=== PATIENT | male | born 1960 | race Caucasian/White ===

== ENCOUNTER 2024-06-01 14:07 | Emergency (ER) | payer MEDICARE, SELFPAY ==
--- NOTE | ~2024-06-01 | CT_ITS ---
CT brain wo con, CT cervical spine wo con Ordering provider: Adenike Graham PA-C History: 63 years Male with . head injury . Comparison: None. Technique: CT of the head without contrast. FINDINGS: BRAIN PARENCHYMA AND CSF SPACES: No midline shift, mass effect or hemorrhage. The brain parenchyma a nd CSF spaces are otherwise normal. VISUALIZED PARANASAL SINUSES: Left maxillary, frontal and ethmoid sinus disease. MASTOIDS: Well aerated. BONES: The bones appear intact. SOFT TISSUES: Visualized nasopharynx is normal. Left occipital scalp hematoma. Otherwise, Superficia l soft tissues are normal. IMPRESSION: No acute intracranial findings. Left maxillary, frontal and ethmoid sinus disease. CT brain wo con, CT cervical spine wo con Ordering provider: Adenike Graham PA-C History: . head injury . Comparison: None. Technique: CT of the cervical spine was performed without contrast. Sagittal and coronal reformatted images were also obtained and reviewed. Automated exposure control and iterative reconstruction nora hnique were employed. The dose-length product was 512.66 (accession [id number]), 494.14 (accessio n [id number]) mGy-cm. FINDINGS: VERTEBRAE: No subluxation or acute fracture. The occipital condyles are intact. DISC SPACES: Narrowing of the disc C6-C7. Multilevel facet joint disease. Narrowing of the right fora men at the level of C3-C4. Bilateral narrowing of the foramina at the level of C7. PARASPINOUS SOFT TISSUES: Bilateral carotid atherosclerotic changes. IMPRESSION: No acute osseous abnormality cervical spine. Reviewed, dictated and finalized at location A. IMPRESSION: No acute intracranial findings. Left maxillary, frontal and ethmoid sinus disease. CT brain wo con, CT cervical spine wo con Ordering provider: Adenike Graham PA-C History: . head injury . Comparison: None. Technique: CT of the cervical spine was performed without contrast. Sagittal a nd coronal reformatted images were also obtained and reviewed. Automated expos ure control and iterative reconstruction technique were employed. The dose-tonya th product was 512.66 (accession [id number]), 494.14 (accession [id number] [facility]) mGy-cm. FINDINGS: VERTEBRAE: No subluxation or acute fracture. The occipital condyles are intact. DISC SPACES: Narrowing of the disc C6-C7. Multilevel facet joint disease. Narro wing of the right foramen at the level of C3-C4. Bilateral narrowing of the for jeanne at the level of C7. PARASPINOUS SOFT TISSUES: Bilateral carotid atherosclerotic changes. IMPRESSION: No acute osseous abnormality cervical spine. IMPRESSION: No acute intracranial findings. Left maxillary, frontal and ethmoid sinus disease. CT brain wo con, CT cervical spine wo con Ordering provider: Adenike Graham PA-C History: . head injury . Comparison: None. Technique: CT of the cervical spine was performed without contrast. Sagittal a nd coronal reformatted images were also obtained and reviewed. Automated expos ure control and iterative reconstruction technique were employed. The dose-tonya th product was 512.66 (accession [id number]), 494.14 (accession [id number] [facility]) mGy-cm. FINDINGS: VERTEBRAE: No subluxation or acute fracture. The occipital condyles are intact. DISC SPA
[2024-06-01 13:53] VITALS: BP 121/96; PULSE 76; RESP 16; TEMP 36.8; O2SAT 96
--- NOTE | 2024-06-01 14:29 | ED.FALL ---
HPI - Fall General Chief Complaint: Fall Stated Complaint: Fall x2, Head Injury Time Seen by Provider: 06/01/24 14:12 Source: patient and EMS Mode of arrival: EMS Limitations: intoxication History of Present Illness HPI Narrative: This is a 63 year old male that presents to the ER for a fall today with head injury. Patient had been drinking today. Family called EMS out of concern that he had fallen today twice and hit his head. He has no complaints currently. Denies any pain or any other focal injuries. He did not lose consciousness. Related Data Allergies Allergy/AdvReac Type Severity Reaction Status Date / Time No Known Allergies Allergy Mild Verified 04/29/10 18:08 Review of Systems Review of Systems: CONSTITUTIONAL: Denies fever EYES: Denies visual changes CARDIOVASCULAR: Denies chest pain RESPIRATORY: Denies dyspnea. GASTROINTESTINAL: Denies vomiting MUSCULOSKELETAL: Denies back pain, joint pain, or myalgia. NEUROLOGIC: Denies headache, numbness, or weakness. All systems reviewed & are unremarkable except as noted in HPI and below PMFSH Past Medical History Medical History (Updated 06/01/24 @ 15:29 by Adenike Graham PA-C) History of alcohol abuse Social History Social History (Updated 06/01/24 @ 14:33 by Adenike Graham PA-C) Alcohol intake: current Exam Narrative: GENERAL: Well-appearing, well-nourished, and in no acute distress. HEAD: Normocephalic. Hematoma to the scalp EYES: PERRLA and EOMI. ENT: Nares clear, no rhinorrhea or epistaxis. Mucous membranes moist. Oropharynx without tonsillar hypertrophy exudate or other lesions. Bilateral TMs pearly gottlieb non-bulging NECK: Supple. No adenopathy or masses. CHEST: Clear to auscultation. No respiratory distress. No wheezes rales or rhonchi HEART: Regular rate and rhythm. No murmur heard. Normal peripheral pulses. BACK: No midline spinal tenderness EXTREMITIES: Normal range of motion. No edema or obvious deformity. SKIN: Warm, dry, no rash. NEURO: No focal deficits. Alert and oriented x3. CN II-XII grossly intact PSYCH: Normal mood and affect Course Course Emergency Course: patient updated on his workup Vital Signs Vital signs: Vital Signs Temperature 98.3 F 06/01/24 13:53 Pulse Rate 76 06/01/24 13:53 Respiratory Rate 16 06/01/24 13:53 Blood Pressure 121/96 H 06/01/24 13:53 Pulse Oximetry 96 06/01/24 13:53 Oxygen Delivery Room Air 06/01/24 13:53 Temperature 98.3 F 06/01/24 13:53 Pulse Rate 75 06/01/24 14:36 Respiratory Rate 16 06/01/24 14:36 Blood Pressure 140/88 06/01/24 14:36 Pulse Oximetry 98 06/01/24 14:36 Oxygen Delivery Room Air 06/01/24 13:53 MDM - Fall MDM Narrative Medical decision making narrative: patient presents to the emergency department after a fall today with head injury. He is neurologically intact. Vitals are stable. Denies any other injuries or areas of pain. CT brain and cervical spine without acute findings. Patient was updated on his workup. Instructed on further care of concussion. He is to follow up with primary provider. He was given warnings to return to the ER His son came to give him a sober ride Differential Diagnosis Differential diagnosis: Likely concussion without loss of consciousness and other ( subdural hematoma, contusion) Imaging Data Radiologist's impression: ITS Impressions Cervical Spine CT 06/01/24 15:10 IMPRESSION: No acute intracranial findings. Left maxillary, frontal and ethmoid sinus disease. CT brain wo con, CT cervical spine wo con Ordering provider: Adenike Graham PA-C History: . head injury . Comparison: None. Technique: CT of the cervical spine was performed without contrast. Sagittal and coronal reformatted images were also obtained and reviewed. Automated exposure control and iterative reconstruction technique
[2024-06-01 14:36] VITALS: BP 140/88; PULSE 75; RESP 16; O2SAT 98
--- NOTE | 2024-06-01 14:37 | PC.NURSE ---
pt attempted to get out of bed to go to the bathroom. this RN told the pt he cannot get out of bed due to recent falls today. pt said he didnt want to go to the bathroom anymore. pt has bed alarm on and non slip socks
--- NOTE | 2024-06-01 15:29 | PC.NURSE ---
pt son called at this time to come pick him up with no answer
--- NOTE | 2024-06-01 15:31 | PC.NURSE ---
called son at this time and they will be coming to pick him up. pt and family are aware his scan was good
== END 2024-06-01 16:14 | disposition home or self-care (01) ==
PROVIDERS: Emergency Provider Physician Assistant; PCP Orthopaedic Surgery
DX: S09.90XA Unspecified injury of head, initial encounter (principal); W19.XXXA Unspecified fall, initial encounter; F10.21 Alcohol dependence, in remission
CPT/HCPCS: 70450; 72125; 99284

== ENCOUNTER 2024-06-05 12:31 | Inpatient (IN) | payer MEDICARE, SELFPAY ==
[2024-06-05] VITALS (12 sets, daily range): BP systolic 153–175; BP diastolic 80–99; PULSE 84–99; RESP 16–24; TEMP 36.6–37.1; O2SAT 95–98; BMI 23.9
--- NOTE | ~2024-06-05 | XR_ITS ---
XR chest 2V DATE: 06/09/2024 14:44 INDICATION: Pneumothorax TECHNIQUE: AP and lateral views COMPARISON: 06/06/2024 portable AP chest FINDINGS: Heart size appears within normal limits. No pulmonary vascular congestion or pleural effusi on is evident. There is no evidence of pneumothorax. No pulmonary infiltrate or consolidation. Aortic arch calcification. IMPRESSION: No active cardiopulmonary disease Reviewed, dictated and finalized at location A.
--- NOTE | ~2024-06-05 | US_ITS ---
EXAMINATION: US carotid duplex BI DATE: 06/07/2024 09:39 INDICATION: Old CVA TECHNIQUE: Grayscale, color Doppler, and pulsed Doppler images of the cervical carotid arteries were obtained. The degree of vessel stenosis is placed in one of the following categories: normal, <50%, 5 0-69%, >=70% but less than near-occlusion, near-occlusion, or total occlusion. Note that percent sten osis relative to normal distal artery lumen diameter is indirectly measured from velocity measurement s as described by Nehemiah, et al. Radiology 2003; 229:340-346. Notes: Normal: Peak systolic velocity <125 centimeters/sec and no plaque <50%. Peak systolic velocity <125 ( EDV <40; ICA/CCA PSV ratio <2.0; used these factors only a tandem lesions or low cardiac output or co ntralateral disease) 50-69 %: PSV 125-230 (EDV 40-100; ratio 2-4) >= 70% but less than near occlusion: PSV greater than 230 (EDV > 100; ratio> 4.0) Near Occlusion: PSV that is variable; markedly narrowed lumen Occlusion: Absent flow on color/spectral Doppler and no lumen on gottlieb scale. COMPARISON: None. FINDINGS: RIGHT: The right common carotid artery (CCA) peak systolic velocity (PSV) is 78 cm/s. The right internal car otid artery (ICA) PSV is 89 cm/s. The right ICA end-diastolic velocity (EDV) is 31 cm/s. The right IC A/CCA PSV ratio is 1.1. The external carotid artery (ECA) PSV is 64 cm/s. There is antegrade flow in the right vertebral artery. LEFT: The left CCA PSV is 83 cm/s. The left ICA PSV is 101 cm/s. The left ICA EDV is 31 cm/s. The left ICA/ CCA PSV ratio is 1.2. The ECA PSV is 71 cm/s. There is antegrade flow in the left vertebral artery. IMPRESSION: 1. Less than 50% stenosis in the right internal carotid artery by sonographic criteria. 2. Less than 50% stenosis in the left internal carotid artery by sonographic criteria. Reviewed, dictated and finalized at location B. IMPRESSION: 1. Less than 50% stenosis in the right internal carotid artery by sonographic brett iraheta. 2. Less than 50% stenosis in the left internal carotid artery by sonographic galina boo.
--- NOTE | ~2024-06-05 | CT_ITS ---
EXAMINATION: CT brain wo con DATE: 06/05/2024 17:04 INDICATION: Falls. Severe hyponatremia. TECHNIQUE: Computed tomography (CT) of the head was performed without intravenous contrast. Sagittal and coronal reconstructions were performed. The mA was adjusted according to patient size. Iterative reconstruction technique was employed. The dose-length product was 605.33 mGy-cm. COMPARISON: head CT dated 06/01/2024 FINDINGS: No acute intracranial hemorrhage, acute infarction or abnormal extra axial fluid collection. Again se en are small old lacunar infarcts at the bilateral at the right lentiform and caudate nuclei and left eula. There is mild scattered white matter hypoattenuation consistent with chronic small vessel isch emic disease. Symmetric prominence of the sulci consistent with mild age-appropriate diffuse cerebral volume loss. Ventricles are normal and symmetric. No mass/mass effect. Complete opacification of the left frontal and maxillary sinuses and anterior left ethmoid air cells central low-attenuation mucou s and moderate peripheral mucosal thickening. Additional mild mucosal thickening the right sphenoid s inus. The orbits and mastoid air cells are normal. IMPRESSION: 1. 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 No acute intracranial p rocess. 2. Age-related changes including mild diffuse volume loss and mild scattered white matter hypoattenua tion consistent with chronic small vessel ischemic disease. 3. Occlusion of the left frontoethmoidal recess with complete opacification of the left frontal and m axillary sinuses and anterior left ethmoid air cells. Reviewed, dictated and finalized at location A. IMPRESSION: 1. Old lacunar infarcts at the right basal ganglia and left side of the elua. N o acute intracranial process. 2. Age-related changes including mild diffuse volume loss and mild scattered wh ite matter hypoattenuation consistent with chronic small vessel ischemic diseas e. 3. Occlusion of the left frontoethmoidal recess with complete opacification of the left frontal and maxillary sinuses and anterior left ethmoid air cells.
--- NOTE | ~2024-06-05 | XR_ITS ---
CHEST RADIOGRAPH CLINICAL HISTORY: pneumothorax . COMPARISON: Reference is made to a CT examination of the chest abdomen and pelvis performed approxima tely 12 hours earlier. TECHNIQUE: Single portable view of the chest. FINDINGS The cardiomediastinal silhouette is unremarkable. Increased interstitial markings are identified bilaterally, findings suggesting mild pulmonary vascul ar congestion. The lungs are otherwise clear. Visualized osseous structures and soft tissues are unremarkable. IMPRESSION: Mild pulmonary vascular congestion, without focal infiltrate or effusion. No pneumothorax is detected. Reviewed, dictated and finalized at location A.
--- NOTE | ~2024-06-05 | CT_ITS ---
EXAMINATION: CT chest abdomen pelvis w con DATE: 06/05/2024 17:04 INDICATION: Falls with chest pain and pain at the right flank, pelvis and coccyx. TECHNIQUE: Computed tomography (CT) of the chest, abdomen, and pelvis was performed with 100 mL Omnip aque-350 intravenous contrast. Automated exposure control and iterative reconstruction technique were employed. The dose-length product was 826.51 mGy-cm. COMPARISON: None FINDINGS: CHEST CT: There are several acute and chronic appearing fractures at the lateral right lower ribs with displace d acute-appearing fractures of the C6 and ninth ribs and nondisplaced acute fractures of the interven ing anterolateral right seventh and eighth ribs. There is a very small right pneumothorax. Mild depen dent atelectasis in the bilateral lower lobes. Mild cardiomegaly. Abscess can't coronary artery calci fic lesion. No pericardial effusion. Thoracic aorta is normal in caliber with no dissection or acute traumatic aortic injury. No pathologically enlarged thoracic lymphadenopathy. Small hematoma surround ing a mildly displaced fracture at the medial head of the left clavicle. Chronic appearing compressio n fractures with 20% anterior vertebral body height loss at T12 and <20% anterior vertebral body heig ht loss at T11. ABDOMEN/PELVIS CT: Liver, gallbladder, spleen, pancreas, bilateral adrenal glands and kidneys are normal. Bowels includi ng the appendix are normal. Bladder is normal. No free intraperitoneal gas or fluid. No pathologicall y enlarged abdominal or pelvic lymphadenopathy. Abdominal aorta and the major vessels in the abdomen and pelvis are unremarkable. Mild lumbar levocurvature. Nondisplaced fracture extending across the ce phalad aspect of the S2 vertebral body and laterally into the left and right sacral ala. No other fra ctures identified. IMPRESSION: 1. A few acute and chronic right-sided rib fractures with very small right pneumothorax. 2. Mildly displaced fracture of the medial head of the left clavicle. 3. Nondisplaced fracture extending across the S2 vertebral body and the lateral sacral ala. 4. No acute intra-abdominal/pelvic process. Reviewed, dictated and finalized at location A. IMPRESSION: 1. A few acute and chronic right-sided rib fractures with very small right pneu mothorax. 2. Mildly displaced fracture of the medial head of the left clavicle. 3. Nondisplaced fracture extending across the S2 vertebral body and the lateral sacral ala. 4. No acute intra-abdominal/pelvic process.
--- NOTE | ~2024-06-05 | XR_ITS ---
XR clavicle LT DATE: 06/09/2024 14:44 INDICATION: Left clavicle fracture TECHNIQUE: 4 views COMPARISON: 06/05/2024 CT chest FINDINGS: There is a minimally inferiorly displaced fracture of the medial aspect on the left clavicl e, with intra-articular extension at the sternoclavicular joint. There is normal alignment at the roxy rnoclavicular and the currently clavicular joints. IMPRESSION: Minimally inferiorly displaced medial left clavicle fracture Reviewed, dictated and finalized at location A.
--- NOTE | 2024-06-05 12:46 | ECG_ITS ---
Test Date: 2024-06-05 12:52:00 Measurements Intervals [place] Rate: 96 P: 12 MT: 180 QRS: 14 QRSD: 83 T: 46 QT: 386 QTc: 488 Interpretive Statements SINUS RHYTHM NORMAL ECG No previous ECG available for comparison Electronically Signed On 06-05-2024 13:50:07 CDT by Leandro Jett M.D.
[2024-06-05 13:24] LABS: Alanine Aminotransferase 24 U/L (6-50); Albumin Level 3.9 g/dL (3.5-5.1); Alkaline Phosphatase 68 U/L (38-126); Anion Gap 12 mmol/L (4-12); Aspartate Amino Transferase 39 U/L (17-59); Bilirubin,Total 4.2 mg/dL (0.2-1.3); Blood Urea Nitrogen 8 mg/dL (9-20); Calcium 8.1 mg/dL (8.4-10.2); Carbon Dioxide 23 mmol/L (22-30); Chloride 71 mmol/L (98-107); Estimated CRCL calculation 108 ml/min; Estimated Glomerular Filt Rate > 60; Ethanol < 10 mg/dL (<10); Glucose 85 mg/dL (65-110); Potassium 3.4 mmol/L (3.4-5.0); Sodium 106 mmol/L (137-145)
--- NOTE | 2024-06-05 13:53 | ED.GENADULT ---
HPI - General Adult General Chief complaint: Unspecified Stated complaint: FTNIGHAT Liu Time Seen by Provider: 06/05/24 13:07 History of Present Illness HPI narrative: Patient is a 63-year-old male who presents ER with weakness and reports of concern for his safety. Patient lives at home and his son lives there is well. Patient has been sitting in his chair drinking alcohol. He is not strong enough to get up and walk and defecate himself and urinates in a coffee can. Apparently his mother in the last 2 weeks and that is a stressor. Patient reported passive suicidal ideation stating that let him sit there and . Related Data Home Medications Medication Instructions Recorded Confirmed diphenhydramine 25 2 tablet PO HS PRN Insomnia 06/05/24 06/05/24 mg-acetaminophen 500 mg tablet (Tylenol PM Extra Strength) Allergies Allergy/AdvReac Type Severity Reaction Status Date / Time No Known Allergies Allergy Mild Verified 06/05/24 12:45 Review of Systems Review of Systems: All systems reviewed & are unremarkable except as noted in HPI and below Constitutional: Constitutional: Reports no additional constitutional complaints ENT: Reports system reviewed and no additional complaints, except as documented Cardiovascular: Cardiovascular: Reports no additional cardiovascular complaints Respiratory: Respiratory: Reports no additional respiratory complaints Gastrointestinal: Gastrointestinal: Reports no additional gastrointestinal complaints [facility] Past Medical History Medical History Alcohol abuse Surgical History Surgical History (Updated 06/05/24 @ 16:48 by Tanisha Fitzgerald PA-C) No history of previous surgery Social History Social History (Updated 06/05/24 @ 16:49 by Tanisha Fitzgerald PA-C) Social History: Surrogate medical decision maker: Kenneth Drew ([phone]), son. Code status: Full code. Smoking status: Never smoker Alcohol intake: current Drinks per week: 56 Alcohol use details: 7-8 beers a day Substance use: never Substance use type: does not use Do You Feel Safe in your Home?: Yes Lack of Transportation: YES Lack of Food: Never True Current Housing: I Have Housing Concerned About Future Housing: No Difficulty Paying Gas/Electric Bills: No Difficulty Paying for Meds: No Currently Unemployed: No Education: High School Diploma/GED Difficulty w/ Childcare or Family Care: No Additional living arrangements comments: The patient lives alone in his own home in [place]. 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 Spiritual care concerns: No Exam Narrative: GENERAL: Chronically ill-appearing, well-nourished, and in no acute distress. HEAD: Normocephalic, atraumatic. EYES: PERRL and EOMI. ENT: Mucous membranes moist. CHEST: Clear to auscultation. No respiratory distress. HEART: Regular rate and rhythm. Normal peripheral pulses. ABDOMEN: Soft, nontender, nondistended. EXTREMITIES: Normal range of motion. No edema. his knees and hands. Chronic with abnormalities. SKIN: Warm, dry, no rash. NEURO: Alert and oriented x3. PSYCH: Normal mood and affect. Course Course Emergency Course: admit to hospitalist service. Pre Kindergarten Teacher and nephrology consulted. Will go to the ICU for hyponatremia. Will give IV fluid down here and repeat BMP to see how the sodium begins to adjust. Vital Signs Vital signs: Vital Signs Temperature 97.9 F 06/05/24 12:30 Pulse Rate 97 06/05/24 12:30 Respiratory Rate 18 06/05/24 12:30 Blood Pressure 165/99 H 06/05/24 12:30 Pulse Oximetry 96 06/05/24 12:30 Oxygen Delivery Room Air 06/05/24 12:30 Temperature 98.4 F 06/05/24 16:00 Pulse Rate 98 06/05/24 16:00 Respiratory Rate 16 06/05/24 16:00 Blood Pressure 168/97 H 06/05/24 16:00 Pulse Oximetry 98 06/05/24 16:00 Oxygen Delivery Room Air 06/05/24 15:45 Medical Decision Making Vital Signs Vital Signs: Vital Signs Temperature 97.9 F 06/05/24 12:30 Pulse Rate 97 06/05/24 12:30 Respiratory Rate 18 06/05/24 12:30 Blood Pressure 165/99 H 06/05/24 12:30 Pulse Oximetry 96 06/05/24 12:30 Oxygen Delivery Room Air 06/05/24 12:30 Temperature 98.4 F 06/05/24 16:00 Pulse Rate 98 06/05/24 16:00 Respiratory Rate 16 06/05/24 16:00 Blood Pressure 168/97 H 06/05/24 16:00 Pulse Oximetry 98 06/05/24 16:00 Oxygen Delivery Room Air 06/05/24 15:45 Lab Data 06/05/24 12:55 06/05/24 16:11 Labs: Lab Results 06/05/24 06/05/24 06/05/24 Range/Units 12:55 14:04 14:05 WBC 8.6 (4.5-10.0) K/mm3 RBC 3.36 L (4.6-6.20) M/mm3 Hgb 11.5 L (14.0-18.0) g/dL Hct 30.8 L (42.0-52.0) % MCV 91.7 (80-100) fl MCH 34.2 H (26-34) pg MCHC 37.3 H (32-36) g/dl RDW 11.1 L (11.5-14.5) % Plt Count 174 (150-375) k/mm3 MPV 9.5 (7.4-10.4) fl Immature Gran % (Auto) 1.3 H (0-0.5) % Neut % (Auto) 81.1 H (45.5-73.1) % Lymph % (Auto) 8.6 L (18.3-44.2) % [place] % (Auto) 8.2 (2.6-8.5) % Eos % (Auto) 0.4 (0-4.4) % Baso % (Auto) 0.4 (0.2-1.2) % Lymph # (Auto) 0.74 L (0.9-3.2) K/mm3 [place] # (Auto) 0.7 H (0.1-0.6) K/mm3 Eos # (Auto) 0.0 (0-0.3) K/mm3 Baso # (Auto) 0.0 (0.0-0.1) K/mm3 Abs Immat Gran (auto) 0.11 H (0.00-0.031) K/mm3 Absolute Neuts (auto) 7.0 H (1.3-6.7) K/mm3 Absolute Nucleated RBC 0.000 (0.0-0.012) K/mm3 Nucleated RBC % 0.0 (0.0-0.2) % Sodium 106 L* (137-145) mmol/L Potassium 3.4 (3.4-5.0) mmol/L Chloride 71 L (98-107) mmol/L Carbon Dioxide 23 (22-30) mmol/L Anion Gap 12 (4-12) mmol/L BUN 8 L (9-20) mg/dL Creatinine 0.50 L (0.7-1.3) mg/dL Estim Creat Clear Calc 108 ml/min Estimated GFR > 60 (59 - ) Glucose 85 (65-110) mg/dL Serum Osmolality Pending Calcium 8.1 L (8.4-10.2) mg/dL Total Bilirubin 4.2 H (0.2-1.3) mg/dL AST 39 (17-59) U/L ALT 24 (6-50) U/L Alkaline Phosphatase 68 (38-126) U/L Total Protein 8.0 (6.3-8.2) g/dL Albumin 3.9 (3.5-5.1) g/dL TSH (Reflex) 1.510 (0.465-4.68) uIU/mL Urine Color Yellow (Yellow) Urine Appearance Clear (Clear) Urine pH 6.5 (5.0-9.0) Ur Specific Blair 1.017 (1.001-1.035) Urine Protein 1+ H (Negative) mg/dL Urine Glucose (UA) Negative (Negative) mg/dL Urine Ketones 3+ H (Negative) mg/dL Ur Blood (Man) Non-hemolyzed trace (Negative) Urine Nitrate Negative (Negative) Urine Bilirubin Negative (Negative) Urine Urobilinogen 1.0 (<2.0) mg/dL Add Ur Microanalysis Reviewed Leukocyte Esterase Rfl 1+ H (Negative) VINEET/UL Urine RBC 6-10 H (0-2) /hpf Urine WBC 0-5 (0-3) /hpf Ur Squamous Epith Cells None seen (Few) /hpf Urine Bacteria None seen /hpf Urine Casts 0-2 Urine Osmolality Pending Ur Random Sodium < 5 meq/L Ur Random Urea 759 MG/DL Urine Creatinine 71.3 mg/dL Urine Opiates Screen Negative (Negative) Urine Methadone Screen Negative (Negative) Ur Barbiturates Screen Negative (Negative) Ur Phencyclidine Scrn Negative (Negative) Ur Amphetamine Screen Negative (Negative) U Benzodiazepines Scrn Negative (Negative) Urine Cocaine Screen Negative (Negative) U Cannabinoids Screen Negative (Negative) Ethyl Alcohol < 10 (<10) mg/dL Discharge Plan Discharge Clinical Impression: Hyponatremia, Frequent falls, Generalized weakness Patient Disposition: Still a Patient Condition: Stable
[2024-06-05] MEDS: SODIUM CHLORIDE 0.9% IV 1,000 ML 999 ML IV CONT ×2 (14:00→15:01)
[2024-06-05 14:34] LABS: Add Urine Microscopic? YES; Appearance Urine Clear (Clear); Bacteria Urine None Seen /hpf; Bilirubin Urine Negative (Negative); Blood Urine Non-Hemolyzed Trace (Negative); Color Urine Yellow (Yellow); Glucose Urine UA Negative (Negative); Ketones Urine 3+ mg/dL (Negative); Leukocyte Esterase Ur 1+ LEU/UL (Negative); Need Manual Microscopic Reviewed; Nitrate Urine Negative (Negative); Non Pathogenic Casts 0-2; Protein Urine 1+ mg/dL (Negative); Specific Grav Ur 1.017 (1.001-1.035); Squamous Epithelial Cell Urine None Seen /hpf (Few); WBC Urine 0-5 /hpf (0-3); pH Urine 6.5 (5.0-9.0)
[2024-06-05 14:35] LABS: Creatinine Urine 71.3 mg/dL
[2024-06-05 14:44] LABS: Amphetamine Screen Urine Negative (Negative); Barbiturate Screen Urine Negative (Negative); Benzodiazepines Screen Urine Negative (Negative); Cannabinoid Screen Urine Negative (Negative); Cocaine Screen Urine Negative (Negative); Methadone Screen Urine Negative (Negative); Opiate Screen Urine Negative (Negative); Phencyclidine Screen Urine Negative (Negative)
[2024-06-05 14:54] LABS: Sodium Urine Random < 5 meq/L
--- NOTE | 2024-06-05 14:55 | PC.NURSE ---
This RN received a call from pt son. Updated son of POC. updated son on the room pt will be transferred to
[2024-06-05 15:39] LABS: Urea Random Urine 759 MG/DL
[2024-06-05 15:50] LABS: Basophils Percent Auto 0.4 % (0.2-1.2); Eosinophils Percent Auto 0.4 % (0-4.4); Hematocrit 30.8 % (42.0-52.0); Hemoglobin 11.5 g/dL (14.0-18.0); Immature Granulocyte Absolute 0.11 K/mm3 (0.00-0.031); Immature Granulocyte Percent A 1.3 % (0-0.5); Lymphocytes Absolute Auto 0.74 K/mm3 (0.9-3.2); Lymphocytes Percent Auto 8.6 % (18.3-44.2); Mean Corpuscular HGB Conc 37.3 g/dl (32-36); Mean Corpuscular Hemoglobin 34.2 pg (26-34); Mean Corpuscular Volume 91.7 fl (80-100); Mean Platelet Volume 9.5 fl (7.4-10.4); Monocytes Absolute Auto 0.7 K/mm3 (0.1-0.6); Monocytes Percent Auto 8.2 % (2.6-8.5); Neutrophils Percent Auto 81.1 % (45.5-73.1); Platelet Count Result 174 k/mm3 (150-375); Red Blood Count 3.36 M/mm3 (4.6-6.20); Red Cell Distribution Width 11.1 % (11.5-14.5); White Blood Count 8.6 K/mm3 (4.5-10.0)
--- NOTE | 2024-06-05 15:56 | ADMGEN ---
This patient, Kenneth Drew, was admitted to Intensive Care Unit-6. Patient/family oriented to hospital policies and general routines including ID bracelet, bed and alarms, visiting hours, pain management, procedures, bathroom and other care routines, personal items, smoking policy, room service/diet, and visiting hours. Information on how to activate the Rapid Response Team has been discussed. Patient/Family are encouraged to report perceived risks to care and to ask questions if they do not understand what they are told or what they should do.
--- NOTE | 2024-06-05 16:15 | P.HP_ITS ---
H&P: HPI History of Present Illness Date/Time: 06/05/24 16:00 Chief Complaint: Weakness. Narrative: This is a 63-year-old male with history of alcohol abuse who presented to the emergency department via EMS from home for evaluation of weakness. The patient provides the following history. He was seen in the emergency department on 06/01/2024 after falling twice and hitting his head. Brain and cervical spine C Ts were without acute findings and he was discharged home. According to family members he has not moved from his recliner since that time and has reportedly not been eating or drinking. However family has given him a beer every 3 hours or so to avoid withdrawal symptoms. The patient says he has not had any beer since yesterday afternoon and he is not concerns for withdrawal as he has never had symptoms even if he goes a week without drinking. He states that he is upset and stressed as his mother a couple of weeks ago. He reportedly told his son to leave him alone in ?let me here however the patient is adamant that he is not suicidal and has no plan. He is just too depressed to do much right now. He has gotten exceedingly weak the last 10 days or so and he believes that sweat has caused this falls. He has intermittent nausea as well. He denies vertigo, confusion, focal weakness, fever, chills, sweats, cold and flu symptoms, chest pain, shortness of breath, cough, abdominal pain, nausea, vomiting, diarrhea, and dysuria. At the time my evaluation his main complaint is pain over the left collarbone and the right flank from falls a couple of days ago. In the ED: Vital signs on arrival include a temperature of 97.9?, blood pressure 165/99, pulse 97, respiratory rate 18, pulse ox 96% on room air. Labs are significant for a sodium of 106, chloride 71, BUN 8, creatinine 0.50, calcium 8.1, total bilirubin 4.2, alcohol level less than 10. EKG showed a sinus rhythm. He received 2 L normal saline and is being admitted to the ICU for close monitoring and further workup. Review of Systems Review of Systems: 12 systems were reviewed and are negativ e except for as per HPI. [facility] Past Medical History Medical History Alcohol abuse Surgical History Surgical History No history of previous surgery Family History Family History (Updated 06/05/24 @ 23:42 by Tanisha Fitzgerald PA-C) Other Family history non-contributory Social History Social History Social History: Surrogate medical decision maker: Kenneth Drew ([phone]), son. Code status: Full code. Smoking status: Never smoker Alcohol intake: current Drinks per week: 56 Alcohol use details: 7-8 beers a day Substance use: never Substance use type: does not use Do You Feel Safe in your Home?: Yes Lack of Transportation: YES Lack of Food: Never True Current Housing: I Have Housing Concerned About Future Housing: No Difficulty Paying Gas/Electric Bills: No Difficulty Paying for Meds: No Currently Unemployed: No Education: High School Diploma/GED Difficulty w/ Childcare or Family Care: No Additional living arrangements comments: The patient lives alone in his own home in [place]. 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 Spiritual care concerns: No Meds Home Medications and Allergies Home Medications Medication Instructions Recorded Confirmed Type diphenhydramine 25 2 tablet PO HS PRN Insomnia 06/05/24 06/05/24 History mg-acetaminophen 500 mg tablet (Tylenol PM Extra Strength) Allergies Allergy/AdvReac Type Severity Reaction Status Date / Time No Known Allergies Allergy Mild Verified 06/05/24 12:45 Vital Signs Vital Signs - 24 hr 06/05/24 12:30 06/05/24 13:18 06/05/24 13:18 Temperature 97.9 F Pulse Rate 97 98 98 Respiratory Rate 18 18 Blood Pressure 165/99 H 175/90 H Pulse Oximetry 96 96 Oxygen Delivery Room Air 06/05/24 14:11 Temperature Pulse Rate 98 Respiratory Rate 18 Blood Pressure 169/93 H Pulse Oximetry 95 Oxygen Delivery Exam Narrative: General: Chronically ill-appearing male supine in bed. Weight: 63.2 kg. BMI: 23.9. HEENT: Small hematoma on the left occiput but. PERRL, EOMI. Mild scleral icterus. Conjunctiva injected. Dry mucous membranes. Several broken teeth with dental caries. Small abrasion on the left upper lip. Neck: Supple. No midline vertebral tenderness. Respiratory: Lungs are clear to auscultation bilaterally. Cardiovascular: Regular rate and rhythm with S1-S2. Chest: Bruising noted over the left anterior chest wall and left flank. He is tender to palpation over the clavicle more medially and over the mid to lower right ribs. Gastrointestinal: Abdomen is soft and nondistended with positive bowel sounds. There is some bruising over the right lower flank with tenderness to palpation in the same region. No organomegaly. No guarding or rebound tenderness. Musculoskeletal: Tender to palpation over the coccyx and sacrum. Skin: Warm and dry. Telangiectasias on the cheeks. Extremities: No cyanosis, clubbing, or edema. Radial and pedal pulses intact. Neurological: Alert and oriented x4. Cranial nerves 2-12 are grossly intact. Speech is clear. No facial asymmetry. Generalized weakness without gross focal findings. He can raise his legs off of the bed but lets them fall after a few seconds. Hand mortgage processing manager and foot pushes are weak but equal. Psychiatric: Cooperative with depressed mood and flat affect. H&P: Results Labs Labs: Short CBC 06/05/24 Range/Units 12:55 WBC 8.6 (4.5-10.0) K/mm3 Hgb 11.5 L (14.0-18.0) g/dL Hct 30.8 L (42.0-52.0) % Plt Count 174 (150-375) k/mm3 [facility] 06/05/24 12:55 Sodium 106 L* Potassium 3.4 Chloride 71 L Carbon Dioxide 23 BUN 8 L Creatinine 0.50 L Glucose 85 Calcium 8.1 L Liver Function 06/05/24 Range/Units 12:55 Total Bilirubin 4.2 H (0.2-1.3) mg/dL AST 39 (17-59) U/L ALT 24 (6-50) U/L Alkaline Phosphatase 68 (38-126) U/L Albumin 3.9 (3.5-5.1) g/dL Urine 06/05/24 Range/Units 14:05 Urine Color Yellow (Yellow) Urine Appearance Clear (Clear) Urine pH 6.5 (5.0-9.0) Ur Specific [place] 1.017 (1.001-1.035) Urine Protein 1+ H (Negative) mg/dL Urine Glucose (UA) Negative (Negative) mg/dL Assessment and Plan Assessment and plan (1) Hyponatremia: Code(s): E87.1 - Hypo-osmolality and hyponatremia Status: Acute (2) Alcohol abuse: Code(s): F10.10 - Alcohol abuse, uncomplicated Status: Acute (3) Frequent falls: Code(s): R29.6 - Repeated falls Status: Acute (4) Generalized weakness: Code(s): R53.1 - Weakness Status: Acute (5) Hyperbilirubinemia: Code(s): E80.6 - Other disorders of bilirubin metabolism Status: Acute (6) Complicated grief: Code(s): F43.21 - Adjustment disorder with depressed mood Status: Acute Plan The patient presented to the emergency department after his son called emergency services due to the patient's weakness and other concerns as detailed in HPI. Labs, imaging, EKG, and all reports were personally reviewed. He has severe hyponatremia which is likely due to minimal oral intake for the past 1 week aside from alcohol. He looks quite dry on exam and received 2 L normal saline in the ED. Repeat sodium is pending to ensure that is correcting appropriately and not too quickly. Urine and serum osmolalities, urine sodium, and TSH have also been ordered. Dr. Oliveira has been consulted and his help is appreciated. For now he is being monitored closely in the ICU given his profound hyponatremia and potential for withdrawal. Regarding the patient's alcohol use, he has been drinking about 8 beers a day with his last drink being sometime yesterday afternoon. Ethyl alcohol level was undetectable today. He denies ever having signs or symptoms of alcohol withdrawal however CIWA protocol has been initiated. He has been started on thiamine and folic acid supplementation. He has had several falls which he attributes to generalized weakness and had a head and cervical spine CT done a few days ago which showed no acute findings. CT scans of the chest, abdomen, and pelvis has been ordered given complaints of pain and bruising noted on exam. Bilirubin is likely elevated due to alcohol use; his abdominal exam is benign. Fractionate bilirubin and monitor. The patient admits to being depressed and suffers from complicated grief. His mom 2 weeks ago and he also references the of his brother which has been at least 5 years ago. He denies suicidal ideation however he admits that he told his son that he wants him to ?just that here and let me .? He is not feeling that way at this time and has no plan. His medications will be reviewed and resumed as appropriate. Findings and treatment plan were discussed with the patient. Questions were solicited and answered to satisfaction. The claire bedoya's medical management will be taken over by the hospitalist team in a.m. Quality VTE Prophylaxis VTE prophylaxis: mechanical ordered If No VTE Prophylaxis Answer both mechanical and pharmacologic: Reason no pharmacologic proph: medical contraindication (fall risk, pending CTs) Hospitalist MIPS Advance Care Plan I have confirmed that the patient's Advanced Care Plan is present, code status is documented, or surrogate decision maker is listed in patient medical record.: Yes Medication Reconciliation I have utilized all available resources to obtain, update and review the patients current medications (includes all prescriptions, OTC, herbals, cannabis, and nutritional supplements).: Yes Critical Care Time Critical Care Time: Yes Total Critical Care Time: 65 Attestation: Due to a high probability of clinically significant, life threatening deterioration, the patient required my highest level of preparedness to intervene emergently and I personally spent this critical care time directly and personally managing the patient. This critical care time included obtaining a history; examining the patient; pulse oximetry; ordering and review of studies; arranging urgent treatment with development of a management plan; evaluation of patient's response to treatment; frequent reassessment; and discussions with other providers. It was exclusive of separately billable procedures and treating other patients and teaching time. Please see Assessment and Plan section and the rest of the note for further information on patient assessment and treatment.
[2024-06-05 16:39] LABS: Anion Gap 11 mmol/L (4-12); Blood Urea Nitrogen 7 mg/dL (9-20); Calcium 7.8 mg/dL (8.4-10.2); Carbon Dioxide 23 mmol/L (22-30); Chloride 80 mmol/L (98-107); Estimated CRCL calculation 132 ml/min; Estimated Glomerular Filt Rate > 60; Glucose 74 mg/dL (65-110); Potassium 3.3 mmol/L (3.4-5.0); Sodium 114 mmol/L (137-145)
[2024-06-05] MEDS: DEXTROSE 5% IN WATER 500 ML 250 ML IV CONT ×2 (17:10→21:20)
[2024-06-05] MEDS: POTASSIUM CHLORIDE 20 MEQ ER TABLET PO (17:10)
[2024-06-05] MEDS: DESMOPRESSIN ACETATE 4 MCG/ML AMP 2 MCG SUB-Q (17:32)
[2024-06-05 17:37] LABS: MRSA (PCR) NOT DETECTED (NOT DETECTE)
[2024-06-05 17:48] LABS: Prothrombin Time 13.8 Seconds (11.1-14.7)
[2024-06-05 17:49] LABS: Partial Thromboplastin Time 31.5 Seconds (22.3-36.8)
[2024-06-05 17:57] LABS: Bilirubin Indirect 2.6 mg/dL (0-1.1)
[2024-06-05 17:58] LABS: Magnesium 2.2 mg/dL (1.6-2.3)
[2024-06-05 18:55] LABS: Iron 87 ug/dL (49-181)
[2024-06-05 19:04] LABS: Percent Iron Saturation 31 % (20-50)
[2024-06-05 20:36] LABS: Anion Gap 8 mmol/L (4-12); Blood Urea Nitrogen 7 mg/dL (9-20); Calcium 7.9 mg/dL (8.4-10.2); Carbon Dioxide 26 mmol/L (22-30); Chloride 79 mmol/L (98-107); Estimated CRCL calculation 132 ml/min; Estimated Glomerular Filt Rate > 60; Glucose 88 mg/dL (65-110); Potassium 3.2 mmol/L (3.4-5.0); Sodium 113 mmol/L (137-145)
[2024-06-06] VITALS (18 sets, daily range): BP systolic 149–179; BP diastolic 80–95; PULSE 78–91; RESP 11–20; TEMP 36.6–37.1; O2SAT 90–98
[2024-06-06 00:47] LABS: Anion Gap 7 mmol/L (4-12); Blood Urea Nitrogen 6 mg/dL (9-20); Calcium 7.6 mg/dL (8.4-10.2); Carbon Dioxide 26 mmol/L (22-30); Chloride 78 mmol/L (98-107); Estimated CRCL calculation 132 ml/min; Estimated Glomerular Filt Rate > 60; Glucose 88 mg/dL (65-110); Potassium 3.2 mmol/L (3.4-5.0); Sodium 111 mmol/L (137-145)
[2024-06-06 02:04] LABS: Folic Acid 6.2 ng/mL (2.76->20)
[2024-06-06 04:47] LABS: Alanine Aminotransferase 22 U/L (6-50); Albumin Level 3.4 g/dL (3.5-5.1); Alkaline Phosphatase 63 U/L (38-126); Anion Gap 8 mmol/L (4-12); Aspartate Amino Transferase 33 U/L (17-59); Blood Urea Nitrogen 7 mg/dL (9-20); Calcium 7.8 mg/dL (8.4-10.2); Carbon Dioxide 25 mmol/L (22-30); Chloride 79 mmol/L (98-107); Estimated CRCL calculation 108 ml/min; Estimated Glomerular Filt Rate > 60; Glucose 85 mg/dL (65-110); Potassium 3.2 mmol/L (3.4-5.0); Sodium 112 mmol/L (137-145)
[2024-06-06 04:55] LABS: Hematocrit 31.5 % (42.0-52.0); Hemoglobin 11.5 g/dL (14.0-18.0); Mean Corpuscular HGB Conc 36.5 g/dl (32-36); Mean Corpuscular Hemoglobin 32.9 pg (26-34); Platelet Count Result 175 k/mm3 (150-375); Red Cell Distribution Width 11.1 % (11.5-14.5); White Blood Count 8.1 K/mm3 (4.5-10.0)
[2024-06-06 04:56] LABS: Mean Platelet Volume 8.8 fl (7.4-10.4)
[2024-06-06 08:14] LABS: Anion Gap 6 mmol/L (4-12); Blood Urea Nitrogen 7 mg/dL (9-20); Carbon Dioxide 28 mmol/L (22-30); Chloride 79 mmol/L (98-107); Estimated CRCL calculation 108 ml/min; Estimated Glomerular Filt Rate > 60; Glucose 85 mg/dL (65-110); Potassium 3.1 mmol/L (3.4-5.0); Sodium 113 mmol/L (137-145)
[2024-06-06] MEDS: POTASSIUM CHLORIDE 20 MEQ ER TABLET 40 MEQ PO ×2 (08:39→12:14)
[2024-06-06] MEDS: FOLIC ACID 1 MG TABLET PO (08:39)
[2024-06-06] MEDS: THIAMINE HCL 100 MG TABLET PO (08:39)
--- NOTE | 2024-06-06 11:18 | WPDCNINT ---
Assessment and Plan Assessment and plan (1) Hyponatremia: Code(s): E87.1 - Hypo-osmolality and hyponatremia Status: Acute Assessment and Plan: Presented with hyponatremia which is likely secondary to alcohol intake and beer potomania. Patient did receive 2 L of saline bolus in the ER has he was clinically appeared dehydrated exam. Sodium increased rapidly to 114. Patient was given DDAVP and D5 water to hold further increased. Sodium has been stable since then. Nephrology is managing sodium and will defer further management (2) Alcohol abuse: Code(s): F10.10 - Alcohol abuse, uncomplicated Status: Acute Assessment and Plan: Patient drinks 6-8 beers daily. Monitor for withdrawal symptoms and signs. CIWA protocol and p.r.n. Ativan is ordered Thiamine and folic acid Patient was counseled and encouraged to quit or at least cut down alcohol intake (3) Frequent falls: Code(s): R29.6 - Repeated falls Status: Acute Assessment and Plan: Head CT was negative acute change but showed old infarcts PT OT consult (4) Complicated grief: Code(s): F43.21 - Adjustment disorder with depressed mood Status: Acute Assessment and Plan: Patient has been grieving loss of her mother for last 12 days. He may be depressed but will need to be evaluated once metabolic and issues are sorted out. He denies any suicidal homicidal ideations at this time and does not need one-to-one sitter. (5) Hypokalemia: Code(s): E87.6 - Hypokalemia Status: Acute Assessment and Plan: Potassium replacement ordered Plan DVT prophylaxis -Lovenox Nutrition -regular diet Code Status - Full Code PT OT consult Transfer out ICU Check Out Clerk Consult Note Consult date: 06/06/24 Reason for consult: Hyponatremia HPI: eKnneth Drew is a 63 year old male with history of alcohol abuse who was seen on 06/01 in the ER after sustaining multiple falls and hitting his head. His head CT was negative he was discharged. On 06/05 patient return to ER with weakness. As per family patient has been sitting in his chair drinking alcohol and is very weak and unable to get up and walk. He has been urinating in a coffee can. But reports given to ER patient's mother had 2 weeks ago and he was stressed out. Workup in the ER showed the sodium to be low at 106. Patient appeared clinically dehydrated and was given 2 L saline bolus. Nephrology was consulted his repeat sodium was 114 and patient was given DDAVP and D5 to all further improvement in sodium. Sodium has remained stable and is at 113 this morning. Patient states that he lost his mother 2 weeks ago and since then has been grieving. He states he has been sitting in a chair most of the day. He states he drinks 6 beers daily which is not new and he has been drinking that much for long. He has not try to hurt himself or anyone else. He states he feels weak and has fallen multiple times. He is not sure why he was sent to the hospital. At this time he denies any complaint apart from being frustrated laying in bed. Patient denies fever, chest pain, shortness of breath, cough, nausea vomiting, abdominal pain,, diarrhea, headache or constipation. All other systems were reviewed and were negative Review of Systems Review of Systems: All systems reviewed & are unremarkable except as noted in HPI and below (HPI) REPLACED BY [facility] Past Medical History Medical History Alcohol abuse Surgical History Surgical History No history of previous surgery Family History Family History Other Family history non-contributory Social History Social History Social History: Surrogate medical decision maker: Kenneth Drew ([phone]), son. Code status: Full code. Smoking status: Never smoker Alcohol intake: current Drinks per week: 56 Alcohol use details: 7-8 beers a day Substance use: never Substance use type: does not use Do You Feel Safe in your Home?: Yes Lack of Transportation: YES Lack of Food: Never True Current Housing: I Have Housing Concerned About Future Housing: No Difficulty Paying Gas/Electric Bills: No Difficulty Paying for Meds: No Currently Unemployed: No Education: High School Diploma/GED Difficulty w/ Childcare or Family Care: No Additional living arrangements comments: The patient lives alone in his own home in [place]. 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 Spiritual care concerns: No Meds Home Medications and Allergies Home Medications Medication Instructions Recorded Confirmed Type diphenhydramine 25 2 tablet PO HS PRN Insomnia 06/05/24 06/05/24 History mg-acetaminophen 500 mg tablet (Tylenol PM Extra Strength) Allergies Allergy/AdvReac Type Severity Reaction Status Date / Time No Known Allergies Allergy Mild Verified 06/05/24 12:45 Vital Signs Vital Signs - 24 hr 06/05/24 12:30 06/05/24 13:18 06/05/24 13:18 Temperature 36.6 C Pulse Rate 97 98 98 Respiratory Rate 18 18 Blood Pressure 165/99 H 175/90 H Pulse Oximetry 96 96 Oxygen Delivery Room Air 06/05/24 14:11 06/05/24 15:45 06/05/24 16:00 Temperature 36.9 C Pulse Rate 98 93 Respiratory Rate 18 16 Blood Pressure 169/93 H 168/97 H Pulse Oximetry 95 98 Oxygen Delivery Room Air 06/05/24 16:00 06/05/24 18:00 06/05/24 18:00 Temperature Pulse Rate 98 99 99 Respiratory Rate 19 Blood Pressure 153/97 H Pulse Oximetry 95 Oxygen Delivery 06/05/24 20:00 06/05/24 20:00 06/05/24 19:01 Temperature Pulse Rate 99 96 95 Respiratory Rate 19 18 Blood Pressure 160/90 H Pulse Oximetry 95 98 Oxygen Delivery Room Air 06/05/24 20:01 06/05/24 21:00 06/05/24 22:00 Temperature 37.1 C Pulse Rate 96 93 84 Respiratory Rate 24 H 19 18 Blood Pressure 161/87 H 167/88 H 159/82 H Pulse Oximetry 96 98 95 Oxygen Delivery 06/06/24 00:00 06/05/24 20:50 06/06/24 04:00 Temperature Pulse Rate 84 80 Respiratory Rate 18 11 L Blood Pressure Pulse Oximetry 95 95 98 Oxygen Delivery Room Air Room Air Room Air 06/05/24 22:00 06/06/24 00:00 06/06/24 02:00 Temperature Pulse Rate 91 83 85 Respiratory Rate Blood Pressure Pulse Oximetry Oxygen Delivery 06/06/24 04:00 06/06/24 06:00 06/05/24 22:01 Temperature Pulse Rate 85 79 91 Respiratory Rate 16 Blood Pressure 161/80 H Pulse Oximetry 97 Oxygen Delivery 06/06/24 00:01 06/06/24 02:01 06/06/24 04:01 Temperature 36.6 C 36.9 C Pulse Rate 81 85 80 Respiratory Rate 20 17 16 Blood Pressure 149/88 H 162/95 H 156/92 H Pulse Oximetry 98 97 90 Oxygen Delivery 06/06/24 06:01 06/06/24 08:00 Temperature 36.8 C Pulse Rate 80 78 Respiratory Rate 11 L 18 Blood Pressure 152/92 H 158/89 H Pulse Oximetry 98 95 Oxygen Delivery Exam Narrative: General: Pt is alert awake and in NAD Lungs/Chest: Trachea central Clear BS B/L, No crackles or wheezing. Cardiac: RRR. Normal S1 S2. No murmurs Circulation: Pedal pulses are intact and symmetrical. Abdomen: Normal bowel sounds.. Soft. NT. ND. Extremities: No clubbing, cyanosis or edema. Warm : King in place Neurologic: Follows commands. Moves all 4 extremities PERRL AO times Skin: No Rash, bruising on left anterior chest Results Labs 06/06/24 04:26 06/06/24 07:50 Labs: Impressions Head CT 06/05/24 17:07 IMPRESSION: 1. 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 No acute intracranial process. 2. Age-related changes including mild diffuse volume loss and mild scattered white matter hypoattenuation consistent with chronic small vessel ischemic disease. 3. Occlusion of the left frontoethmoidal recess with complete opacification of the left frontal and maxillary sinuses and anterior left ethmoid air cells. Chest/Abdomen/Pelvis CT 06/05/24 17:12 IMPRESSION: 1. A few acute and chronic right-sided rib fractures with very small right pneumothorax. 2. Mildly displaced fracture of the medial head of the left clavicle. 3. Nondisplaced fracture extending across the S2 vertebral body and the lateral sacral ala. 4. No acute intra-abdominal/pelvic process. Chest X-Ray 06/06/24 08:44 IMPRESSION: Mild pulmonary vascular congestion, without focal infiltrate or effusion. No pneumothorax is detected. Short CBC 06/05/24 06/06/24 Range/Units 12:55 04:26 WBC 8.6 8.1 (4.5-10.0) K/mm3 Hgb 11.5 L 11.5 L (14.0-18.0) g/dL Hct 30.8 L 31.5 L (42.0-52.0) % Plt Count 174 175 (150-375) k/mm3 BMP 06/05/24 06/05/24 06/05/24 12:55 16:11 20:05 Sodium 106 L* 114 L* 113 L* Potassium 3.4 3.3 L 3.2 L Chloride 71 L 80 L 79 L Carbon Dioxide 23 23 26 BUN 8 L 7 L 7 L Creatinine 0.50 L 0.40 L 0.40 L Glucose 85 74 88 Calcium 8.1 L 7.8 L 7.9 L 06/06/24 06/06/24 06/06/24 00:21 04:26 07:50 Sodium 111 L* 112 L* 113 L* Potassium 3.2 L 3.2 L 3.1 L Chloride 78 L 79 L 79 L Carbon Dioxide 26 25 28 BUN 6 L 7 L 7 L Creatinine 0.40 L 0.50 L 0.50 L Glucose 88 85 85 Calcium 7.6 L 7.8 L 8.0 L Liver Function 06/05/24 06/05/24 06/06/24 Range/Units 12:55 17:27 04:26 Total Bilirubin 4.2 H 3.0 H (0.2-1.3) mg/dL Direct Bilirubin 0.0 (0-0.3) mg/dL AST 39 33 (17-59) U/L ALT 24 22 (6-50) U/L Alkaline Phosphatase 68 63 (38-126) U/L Albumin 3.9 3.4 L (3.5-5.1) g/dL Urine 06/05/24 Range/Units 14:05 Urine Color Yellow (Yellow) Urine Appearance Clear (Clear) Urine pH 6.5 (5.0-9.0) Ur Specific [place] 1.017 (1.001-1.035) Urine Protein 1+ H (Negative) mg/dL Urine Glucose (UA) Negative (Negative) mg/dL ECG Interpretation: Sinus rhythm Hospitalist MIPS Advance Care Plan I have confirmed that the patient's Advanced Care Plan is present, code status is documented, or surrogate decision maker is listed in patient medical record.: Yes Medication Reconciliation I have utilized all available resources to obtain, update and review the patients current medications (includes all prescriptions, OTC, herbals, cannabis, and nutritional supplements).: Yes
[2024-06-06 12:23] LABS: Osmolality, Urine 482 mOsm/kg (50-1200)
[2024-06-06 12:41] LABS: Sodium 114 mmol/L (137-145)
[2024-06-06 12:43] LABS: Anion Gap 10 mmol/L (4-12); Blood Urea Nitrogen 7 mg/dL (9-20); Calcium 8.5 mg/dL (8.4-10.2); Carbon Dioxide 25 mmol/L (22-30); Chloride 79 mmol/L (98-107); Estimated CRCL calculation 132 ml/min; Estimated Glomerular Filt Rate > 60; Glucose 86 mg/dL (65-110); Potassium 3.4 mmol/L (3.4-5.0); Sodium 114 mmol/L (137-145)
--- NOTE | 2024-06-06 13:01 | P.CONNP_ITS ---
Assessment and Plan Assessment and plan (1) Hyponatremia: Code(s): E87.1 - Hypo-osmolality and hyponatremia Status: Acute Assessment and Plan: * severe hyponatremia noted on presenation - sodium 106mmol/L * no baseline sodium level to compare to... * possible chronic component (?) * suspected multifactorial etiology: * chronic alcohol intake/abuse * beer potomania * pre-renal factors * other (?) * rapid increase in sodium (106 --> 114) with just normal saline argues in favor of volume depletion playing a role * due to this rapid correction, given DDAVP and D5W IVFs which stabilized rate of rise * check cortisol, SPEP, UPEP, and serum/urine osmo * TSH okay and urine electrolytes are prerenal * will start low dose normal saline given the concerns for ongoing volume depleted state * follow trend of repeat sodium levels (2) Hypokalemia: Code(s): E87.6 - Hypokalemia Status: Acute Assessment and Plan: * suspect due to total body store depletion * replacement as needed * follow magnesium * monitor trend (3) Alcohol abuse: Code(s): F10.10 - Alcohol abuse, uncomplicated Status: Acute Assessment and Plan: * knwn to drink at least 6-8 beers daily * monitor for withdrawal * WA protocol * on thiamine and folic acid (4) Frequent falls: Code(s): R29.6 - Repeated falls Status: Acute Assessment and Plan: * imaging noted * head CT was negative for acute change but with old lacunar infarcts at the right basal ganglia and left side of the eula as well as chronic small vessel ischemic disease along with evidence of sinusitis * PT/OT as tolerated Long extensive discussion (greater than 20 minutes) with the patient regarding the necessity to for close and frequent monitoring of his sodium levels and ongoing monitoring of his neurological status to ensure that his sodium level corrects slowly and appropriately and without any neurological compromise. He appeared to voice understanding. I will continue to follow the patient with you while he remains hospitalized and make further recommendations as deemed necessary. Thank you for allowing me to participate in the care of this patient. History of Present Illness Reason for Consult Consult date: 06/06/24 Reason for consult: hyponatremia Chief Complaint Chief complaint: Hyponatremia, Weakness and Depression History of Present Illness Narrative: The patient is a 63-year-old male with a past medical history as outlined below who presented to [facility] Emergency Room via EMS for further evaluation of generalized weakness. The patient was recently seen in the emergency room after falling and hitting his head. Evaluation at the time included brain and cervical CT scan which were without any acute findings and he was subsequently discharged home as he was otherwise medically stable. However, since his discharge home following that ER visit, he apparently has not been ambulating much from his recliner and has not been eating and drinking very well although he apparently continues to drink alcohol. His family apparently was given him a beer every few hours or so to avoid potential withdrawal symptoms. According to the patient, he has not had a beer since the day before yesterday and he has not concern with any potential concerns for withdrawal as he has never had this problem before or in the past when he abruptly stop drinking. He states that he has been somewhat upset has his mother a few weeks ago and although there was some reports of suicidal ideation, the patient vehemently denies this. He reports increasing weakness in the last 10 days or so if not longer in association with intermittent nausea but no overt vomiting. He denies any fevers, chills, diaphoresis, cold/ flu symptoms, chest pain, shortness of breath, cough, abdominal pain, nausea, vomiting, diarrhea, dysuria, or diarrhea. Given these constellation of symptoms as mentioned, he presented to the emergency room for further assessment. Workup and evaluation emergency room demonstrated the patient to be hemodynamically stable if not a tad hypertensive. He otherwise did not appear to be in any acute distress. Routine blood tests were done which were significant for severe hyponatremia with a sodium 106, chloride 71, normal renal function, an alcohol level less than 10. His EKG showed sinus rhythm and his CBC was otherwise unremarkable. Given his significant hyponatremia, he received normal saline IV fluids and do the concerns of his fluctuating mental status when he was down in the ER, he was admitted to the ICU for further treatment and evaluation. Since his admission, his sodium abruptly went from 106 to 114mmol/L in 4 hours concerning for possible over-correction. He subsequently received DDAVP as well as D5W IVFs in a effort to prevent over-correction since he already corrected 8 mEq in less than 24 hours. Subsequent sodium levels overnight showed stabilization of his sodium level and as far as I am aware, he did not have any worsening neurological symptoms/sequelae either. Renal consultation was requested due to his severe hyponatremia. Unfortunately, I have no previous labs to compare to in terms of what his baseline sodium level running runs. However, given his known history of significant alcohol intake and alcohol abuse, it is very possible that he has a component of chronic hyponatremia present that we are unaware of. As already mentioned above, his sodium level over corrected fairly quickly after on admission to the hospital but has stabilized with the use of DDAVP and D5W IV fluids to ensure over- correction does not occur. The current goal of therapy is a rate of change of no more than 6-8 mEq per 24 hours and so far his sodium level appears to be within this range at this time. The presumed etiology of his hyponatremia is probably his excessive alcohol intake and possible beer potomania but as already mentioned, what his baseline sodium level normally runs is not entirely clear. However, in spite of his significant hyponatremia on presentation, it would seem that his overall neurological status was well preserved. Currently, at the time my evaluation, he appears to be in no apparent distress. Review of Systems Review of Systems: As per HPI. [facility] Past Medical History Medical History Alcohol abuse Surgical History Surgical History No history of previous surgery Family History Family History Other Family history non-contributory Social History Social History Social History: Surrogate medical decision maker: Kenneth Derw ([phone]), son. Code status: Full code. Smoking status: Never smoker Alcohol intake: current Drinks per week: 56 Alcohol use details: 7-8 beers a day Substance use: never Substance use type: does not use Do You Feel Safe in your Home?: Yes Lack of Transportation: YES Lack of Food: Never True Current Housing: I Have Housing Concerned About Future Housing: No Difficulty Paying Gas/Electric Bills: No Difficulty Paying for Meds: No Currently Unemployed: No Education: High School Diploma/GED Difficulty w/ Childcare or Family Care: No Additional living arrangements comments: The patient lives alone in his own home in [place]. 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 Spiritual care concerns: No Meds Home Medications and Allergies Home Medications Medication Instructions Recorded Confirmed Type diphenhydramine 25 2 tablet PO HS PRN Insomnia 06/05/24 06/05/24 History mg-acetaminophen 500 mg tablet (Tylenol PM Extra Strength) Allergies Allergy/AdvReac Type Severity Reaction Status Date / Time No Known Allergies Allergy Mild Verified 06/05/24 12:45 Vital Signs Vital Signs Temp Pulse Resp BP Pulse Ox O2 Del Method 06/06/24 12:00 98.1 F 88 18 179/87 H 95 06/06/24 10:01 83 12 170/80 H 97 06/06/24 10:00 80 06/06/24 08:00 81 06/06/24 08:00 78 18 95 Room Air 06/06/24 08:00 98.2 F 78 18 158/89 H 95 06/06/24 06:01 80 11 L 152/92 H 98 06/06/24 04:01 98.4 F 80 16 156/92 H 90 06/06/24 02:01 85 17 162/95 H 97 06/06/24 00:01 98 F 81 20 149/88 H 98 06/05/24 22:01 91 16 161/80 H 97 06/06/24 06:00 79 06/06/24 04:00 85 06/06/24 02:00 85 06/06/24 00:00 83 06/05/24 22:00 91 06/06/24 04:00 80 11 L 98 Room Air 06/05/24 20:50 95 Room Air 06/06/24 00:00 84 18 95 Room Air 06/05/24 22:00 84 18 159/82 H 95 06/05/24 21:00 93 19 167/88 H 98 06/05/24 20:01 98.8 F 96 24 H 161/87 H 96 06/05/24 19:01 95 18 160/90 H 98 06/05/24 20:00 96 06/05/24 20:00 99 19 95 Room Air 06/05/24 18:00 99 19 153/97 H 95 06/05/24 18:00 99 06/05/24 16:00 98 06/05/24 16:00 98.4 F 93 16 168/97 H 98 06/05/24 15:45 Room Air 06/05/24 14:11 98 18 169/93 H 95 06/05/24 13:18 98 18 175/90 H 96 06/05/24 13:18 98 Exam Narrative: GENERAL APPEARANCE: mildly ill appearinc male in no acute distress HEENT: normocephalic, small hematoma on left occiput, normal conjunctiva and sclera, nares patient NECK: no lymphadenopathy, thyromegaly, or JVD MOUTH: dry mucous membranes along with dental caries CARDIOVASCULAR: RRR, normal S1 and S2, no rub RESPIRATORY: clear to auscultation bilaterally ABDOMEN: soft, nontender, nondistended, positive bowel sounds present EXTREMITIES: no evidence of cyanosis, clubbing, or edema NEUROLOGICAL: alert and oriented x 3; generalized weakness noted Results Lab Results 06/07/24 04:29 06/07/24 12:22 Lab results: Most recent lab results Calcium 8.5 mg/dL (8.4-10.2) 06/06/24 12:22 Magnesium 2.2 mg/dL (1.6-2.3) 06/05/24 17:27 Urine Creatinine 71.3 mg/dL 06/05/24 14:04
--- NOTE | 2024-06-06 13:01 | PC.NURSE ---
Notified Dr. Oliveira of critical sodium results. New orders for normal saline @ 65ml/hr, repeat sodium level 4 hours after last draw, and call Dr. Oliveira with results. Pt may downgrade out of ICU to IMU.
[2024-06-06] MEDS: SODIUM CHLORIDE 0.9% IV 1,000 ML 65 ML IV CONT (13:22)
--- NOTE | 2024-06-06 16:04 | P.PNIM_ITS ---
Progress Note: A&P Assessment and Plan (1) Hyponatremia: Code(s): E87.1 - Hypo-osmolality and hyponatremia Status: Acute Assessment and Plan: Patient presented with weakness and found to have severe hyponatremia with Na level at 106. No baseline to compare Likely secondary to alcohol intake, beer potomania and dehydration from poor oral intake. TSH normal. Patient received 2 L of saline bolus in the ER since he appeared clinically dehydrated. Sodium increased rapidly to 114 so patient was given DDAVP and D5 water to prevent rapid increases. Sodium has been stable since then at 111-114 range. Patient feeling better. Nephrology is managing sodium and will defer further management. Check cortisol level. (2) Alcohol abuse: Code(s): F10.10 - Alcohol abuse, uncomplicated Status: Acute Assessment and Plan: Patient drinks 6-8 beers daily. Monitor for withdrawal symptoms and signs. CIWA protocol and p.r.n. Ativan as ordered Thiamine and folic acid started Patient was counseled and encouraged to quit (3) Frequent falls: Code(s): R29.6 - Repeated falls Status: Acute Assessment and Plan: Head CT was negative fro acute change but showed old lacunar infarcts at the right basal ganglia and left side of the eula as well as chronic small vessel ischemic disease and evidence of sinusitis. B12 level low end of normal. Check MMA. Replace B12 PT OT consulted. Start Lipitor and ASA. Check carotid US. (4) Hypokalemia: Code(s): E87.6 - Hypokalemia Status: Acute Assessment and Plan: Potassium replacement ordered. Mag level normal. Follow (5) Hyperbilirubinemia: Code(s): E80.6 - Other disorders of bilirubin metabolism Status: Acute Assessment and Plan: TB 4.2 on admission all indirect. CT scan showing normal liver, GB and pancreas. Probably related to [place] or from alcoholism. Levels trending down now that he is eating Follow (6) Pneumothorax: Code(s): J93.9 - Pneumothorax, unspecified Status: Acute Assessment and Plan: CT chest showing a very small right PTX probably related to his recent falls and rib fratures. CXR today showing no PTX Follow clinically. (7) Fracture: Code(s): T14.8XXA - Other injury of unspecified body region, initial encounter Status: Acute Assessment and Plan: Imaging showing acute and chronic right-sided rib fractures, mildly displaced fracture of the medial head of the left clavicle with surrounding small hematoma, nondisplaced fracture extending across the S2 vertebral body and the lateral sacral ala and chronic appearing compression fractures with 20% anterior vertebral body height loss at T12 and <20% anterior vertebral body height loss at T11. Multiple fractures in various stages of healing. He will need bone denisty scan. Check Vit D level. (8) Complicated grief: Code(s): F43.21 - Adjustment disorder with depressed mood Status: Acute Assessment and Plan: Patient has been grieving loss of her mother for last 12 days. He may be depressed but will need to be evaluated once metabolic and issues are sorted out. He denies any suicidal homicidal ideations at this time and does not need one-to-one sitter. Plan DVT prophylaxis -Lovenox Code Status - Full Code Subjective Date/time seen: 06/06/24 16:04 Interval history: 63yo male with hx of alcohol abuse here for weakness. Patient slept well. He has a history of alcohol abuse. He can go weeks without drinking. Denies history of withdrawal symptoms. No history of withdrawal seizures. He feels better today. Eating okay. No nausea or vomiting. Slight chronic cough. No chest pain or shortness of breath. Exam Narrative: AF 98.1 179/87 80 18 95% ra Gen - NARD Chest - lungs clear anteriorlly. CV - RRR S1/S2. Tele showing PVCs. Abd - Soft, NT/ND, Positive BS Ext - No pedal edema Neuro - Alert and appropriate. No tremors. Psych - Nml mood and affect Skin - Warm and dry Objective Data Vital Signs Vital Signs: Vital Signs - 24 hr 06/05/24 18:00 06/05/24 18:00 06/05/24 20:00 Temperature Pulse Rate 99 99 99 Respiratory Rate 19 19 Blood Pressure 153/97 H Pulse Oximetry 95 95 Oxygen Delivery Room Air 06/05/24 20:00 06/05/24 19:01 06/05/24 20:01 Temperature 98.8 F Pulse Rate 96 95 96 Respiratory Rate 18 24 H Blood Pressure 160/90 H 161/87 H Pulse Oximetry 98 96 Oxygen Delivery 06/05/24 21:00 06/05/24 22:00 06/06/24 00:00 Temperature Pulse Rate 93 84 84 Respiratory Rate 19 18 18 Blood Pressure 167/88 H 159/82 H Pulse Oximetry 98 95 95 Oxygen Delivery Room Air 06/05/24 20:50 06/06/24 04:00 06/05/24 22:00 Temperature Pulse Rate 80 91 Respiratory Rate 11 L Blood Pressure Pulse Oximetry 95 98 Oxygen Delivery Room Air Room Air 06/06/24 00:00 06/06/24 02:00 06/06/24 04:00 Temperature Pulse Rate 83 85 85 Respiratory Rate Blood Pressure Pulse Oximetry Oxygen Delivery 06/06/24 06:00 06/05/24 22:01 06/06/24 00:01 Temperature 98 F Pulse Rate 79 91 81 Respiratory Rate 16 20 Blood Pressure 161/80 H 149/88 H Pulse Oximetry 97 98 Oxygen Delivery 06/06/24 02:01 06/06/24 04:01 06/06/24 06:01 Temperature 98.4 F Pulse Rate 85 80 80 Respiratory Rate 17 16 11 L Blood Pressure 162/95 H 156/92 H 152/92 H Pulse Oximetry 97 90 98 Oxygen Delivery 06/06/24 08:00 06/06/24 08:00 06/06/24 08:00 Temperature 98.2 F Pulse Rate 78 78 81 Respiratory Rate 18 18 Blood Pressure 158/89 H Pulse Oximetry 95 95 Oxygen Delivery Room Air 06/06/24 10:00 06/06/24 10:01 06/06/24 12:00 Temperature 98.1 F Pulse Rate 80 83 88 Respiratory Rate 12 18 Blood Pressure 170/80 H 179/87 H Pulse Oximetry 97 95 Oxygen Delivery 06/06/24 12:00 06/06/24 12:00 06/06/24 14:00 Temperature Pulse Rate 91 88 80 Respiratory Rate 18 Blood Pressure Pulse Oximetry 95 Oxygen Delivery Room Air Intake/Output Intake/Output: Intake & Output 06/03/24 06/04/24 06/05/24 06/06/24 23:59 23:59 23:59 23:59 Intake Total 2500 0 Output Total 1650 900 Balance 850 -900 Meds/Results Medications: Active Medications Generic Name Dose Route Start Last Admin Trade Name Freq PRN Reason Stop Dose Admin Acetaminophen 650 mg 06/05/24 14:36 Acetaminophen 325 Mg Tablet PO Q4H PRN Mild Pain (1-3) or Fever Hydrocodone Bitart/Acetaminophen 1 tab 06/05/24 23:43 Hydrocodone/Acetaminophen (*Crx) 5-325 Mg Tablet PO Q6H PRN Pain Rated 4-6 Enoxaparin Sodium 40 mg 06/07/24 09:00 Enoxaparin 40 Mg/0.4 Ml Syringe SUB-Q DAILY MONICA Folic Acid 1 mg 06/06/24 09:00 06/06/24 08:39 Folic Acid 1 Mg Tablet PO 1 mg DAILY MONICA Administration Sodium Chloride 1,000 mls @ 65 mls/hr 06/06/24 13:00 06/06/24 13:22 Normal Saline Iv IV CONT 65 mls/hr .[id number] MONICA Administration Lorazepam 1 mg 06/05/24 16:29 Lorazepam (*Crx) 1 Mg Tablet PO Q2H PRN CIWA 8-15 Lorazepam 2 mg 06/05/24 16:29 Lorazepam (*Crx) 1 Mg Tablet PO Q2H PRN CIWA > 15 Morphine Sulfate 2 mg 06/05/24 23:43 Morphine Sulfate (*Crx) 2 Mg/Ml Inj IV PUSH Q4H PRN Pain Rated 7-10 Ondansetron HCl 4 mg 06/05/24 14:36 Ondansetron Inj 4 Mg/2 Ml Vial IV PUSH Q4H PRN Nausea Thiamine HCl 100 mg 06/06/24 09:00 06/06/24 08:39 Thiamine Hcl 100 Mg Tablet PO 100 mg QAM MONICA Administration Trazodone HCl 100 mg 06/05/24 20:54 Trazodone Hcl 50 Mg Tablet PO HS PRN Insomnia Radiology Results: ITS Impressions Head CT 06/05/24 17:07 IMPRESSION: 1. 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 No acute intracranial process. 2. Age-related changes including mild diffuse volume loss and mild scattered white matter hypoattenuation consistent with chronic small vessel ischemic disease. 3. Occlusion of the left frontoethmoidal recess with complete opacification of the left frontal and maxillary sinuses and anterior left ethmoid air cells. Chest/Abdomen/Pelvis CT 06/05/24 17:12 IMPRESSION: 1. A few acute and chronic right-sided rib fractures with very small right pneumothorax. 2. Mildly displaced fracture of the medial head of the left clavicle. 3. Nondisplaced fracture extending across the S2 vertebral body and the lateral sacral ala. 4. No acute intra-abdominal/pelvic process. Chest X-Ray 06/06/24 08:44 IMPRESSION: Mild pulmonary vascular congestion, without focal infiltrate or effusion. No pneumothorax is detected. Labs Labs: Laboratory Results - last 24 hr 06/05/24 06/05/24 06/05/24 14:04 16:11 16:19 WBC RBC Hgb Hct MCV MCH MCHC RDW Plt Count MPV PT INR APTT Sodium 114 L* Potassium 3.3 L Chloride 80 L Carbon Dioxide 23 Anion Gap 11 BUN 7 L Creatinine 0.40 L Estim Creat Clear Calc 132 Estimated GFR > 60 Glucose 74 Calcium 7.8 L Magnesium Iron TIBC % Saturation Ferritin Total Bilirubin Direct Bilirubin Indirect Bilirubin AST ALT Alkaline Phosphatase Total Protein Albumin Vitamin B12 Folate TSH (Reflex) Urine Osmolality 482 Nasal MRSA (PCR) Not detected 06/05/24 06/05/24 06/06/24 17:27 20:05 00:21 WBC RBC Hgb Hct MCV MCH MCHC RDW Plt Count MPV PT 13.8 INR 1.0 APTT 31.5 Sodium 113 L* 111 L* Potassium 3.2 L 3.2 L Chloride 79 L 78 L Carbon Dioxide 26 26 Anion Gap 8 7 BUN 7 L 6 L Creatinine 0.40 L 0.40 L Estim Creat Clear Calc 132 132 Estimated GFR > 60 > 60 Glucose 88 88 Calcium 7.9 L 7.6 L Magnesium 2.2 Iron 87 TIBC 284 % Saturation 31 Ferritin 413.00 H Total Bilirubin Direct Bilirubin 0.0 Indirect Bilirubin 2.6 H AST ALT Alkaline Phosphatase Total Protein Albumin Vitamin B12 247.0 Folate 6.2 TSH (Reflex) 1.280 Urine Osmolality Nasal MRSA (PCR) 06/06/24 06/06/24 06/06/24 04:26 07:50 12:22 WBC 8.1 RBC 3.50 L Hgb 11.5 L Hct 31.5 L MCV 90.0 MCH 32.9 MCHC 36.5 H RDW 11.1 L Plt Count 175 MPV 8.8 PT INR APTT Sodium 112 L* 113 L* 114 L* Potassium 3.2 L 3.1 L Chloride 79 L 79 L Carbon Dioxide 25 28 Anion Gap 8 6 BUN 7 L 7 L Creatinine 0.50 L 0.50 L Estim Creat Clear Calc 108 108 Estimated GFR > 60 > 60 Glucose 85 85 Calcium 7.8 L 8.0 L Magnesium Iron TIBC % Saturation Ferritin Total Bilirubin 3.0 H Direct Bilirubin Indirect Bilirubin AST 33 ALT 22 Alkaline Phosphatase 63 Total Protein 7.0 Albumin 3.4 L Vitamin B12 Folate TSH (Reflex) Urine Osmolality Nasal MRSA (PCR) 06/06/24 12:22 WBC RBC Hgb Hct MCV MCH MCHC RDW Plt Count MPV PT INR APTT Sodium 114 L* Potassium 3.4 Chloride 79 L Carbon Dioxide 25 Anion Gap 10 BUN 7 L Creatinine 0.40 L Estim Creat Clear Calc 132 Estimated GFR > 60 Glucose 86 Calcium 8.5 Magnesium Iron TIBC % Saturation Ferritin Total Bilirubin Direct Bilirubin Indirect Bilirubin AST ALT Alkaline Phosphatase Total Protein Albumin Vitamin B12 Folate TSH (Reflex) Urine Osmolality Nasal MRSA (PCR)
--- NOTE | 2024-06-06 16:23 | PC.NURSE ---
This patient, Kenneth Drew, was transferred to [[id number] ] on 06/06/24 at 1623. Personal belongings sent with patient. Report given to [CHONG Fairbanks @ 1600 ]. Appropriate documentation sent with patient.
[2024-06-06 16:35] LABS: Sodium 114 mmol/L (137-145)
[2024-06-06 23:42] LABS: Sodium 114 mmol/L (137-145)
[2024-06-07] VITALS (18 sets, daily range): BP systolic 134–182; BP diastolic 79–93; PULSE 69–84; RESP 14–18; TEMP 36.5–36.8; O2SAT 96–98
[2024-06-07] MEDS: SODIUM CHLORIDE 0.9% IV 1,000 ML 75 ML IV CONT (04:30)
[2024-06-07 05:09] LABS: Hemoglobin 13.9 g/dL (14.0-18.0); Mean Corpuscular HGB Conc 37.6 g/dl (32-36); Mean Corpuscular Hemoglobin 34.5 pg (26-34); Mean Corpuscular Volume 91.8 fl (80-100); Mean Platelet Volume 8.6 fl (7.4-10.4); Platelet Count Result 234 k/mm3 (150-375); Red Blood Count 4.03 M/mm3 (4.6-6.20); Red Cell Distribution Width 10.9 % (11.5-14.5); White Blood Count 7.9 K/mm3 (4.5-10.0)
[2024-06-07 05:26] LABS: Alanine Aminotransferase 24 U/L (6-50); Albumin Level 3.4 g/dL (3.5-5.1); Alkaline Phosphatase 75 U/L (38-126); Anion Gap 7 mmol/L (4-12); Aspartate Amino Transferase 36 U/L (17-59); Bilirubin,Total 2.3 mg/dL (0.2-1.3); Blood Urea Nitrogen 5 mg/dL (9-20); Carbon Dioxide 25 mmol/L (22-30); Chloride 84 mmol/L (98-107); Estimated CRCL calculation 132 ml/min; Estimated Glomerular Filt Rate > 60; Glucose 89 mg/dL (65-110); Magnesium 2.1 mg/dL (1.6-2.3); Phosphorus 2.9 mg/dL (2.5-4.5); Potassium 3.7 mmol/L (3.4-5.0); Sodium 116 mmol/L (137-145)
[2024-06-07 05:35] LABS: Vitamin D 25 Hydroxy < 12.8 ng/mL
[2024-06-07 08:52] LABS: Sodium 118 mmol/L (137-145)
[2024-06-07] MEDS: HYDROcodone/acetaminophen (*CRX) 5-325 MG TABLET 1 TAB PO ×2 (09:31→17:50)
[2024-06-07] MEDS: ENOXAPARIN 40 MG/0.4 ML SYRINGE SUB-Q (09:31)
[2024-06-07] MEDS: ATORVASTATIN 40 MG TABLET PO (09:32)
[2024-06-07] MEDS: THIAMINE HCL 100 MG TABLET PO (09:32)
[2024-06-07] MEDS: ASPIRIN 81 MG CHEWABLE TABLET PO (09:32)
[2024-06-07] MEDS: FOLIC ACID 1 MG TABLET PO (09:32)
--- NOTE | 2024-06-07 10:34 | P.PNNP_ITS ---
Progress Note: A&P Assessment and Plan (1) Hyponatremia: Code(s): E87.1 - Hypo-osmolality and hyponatremia Status: Acute Assessment and Plan: * severe hyponatremia noted on presenation - sodium 106mmol/L * no baseline sodium level to compare to * possible chronic component (?) * suspected multifactorial etiology: * chronic alcohol intake/abuse * beer potomania * pre-renal factors * other (?) * rapid increase in sodium (106 --> 114 on day of admission) with just normal saline argues in favor of volume depletion playing a role * due to this rapid correction, given DDAVP and D5W IVFs which stabilized rate of rise * goal of therapy is a rate of change of 6 - 8mmol/L in 24 hours -- this has been achieved * evaluation to date noted: * TSH okay * cortisol reasonable * SPEP & UPEP not done -- will reorder * serum/urine osmo pending * on low dose normal saline given the concerns for ongoing volume depleted state * depending on trend of sodium, consider adding salt tablets * follow trend of repeat sodium levels (2) Hypokalemia: Code(s): E87.6 - Hypokalemia Status: Acute Assessment and Plan: * suspect due to total body store depletion * replacement as needed * follow magnesium * monitor trend (3) Alcohol abuse: Code(s): F10.10 - Alcohol abuse, uncomplicated Status: Acute Assessment and Plan: * knwn to drink at least 6-8 beers daily * monitor for withdrawal * CIWA protocol * on thiamine and folic acid (4) Frequent falls: Code(s): R29.6 - Repeated falls Status: Acute Assessment and Plan: * imaging noted * head CT was negative for acute change but with old lacunar infarcts at the right basal ganglia and left side of the eula as well as chronic small vessel ischemic disease along with evidence of sinusitis * PT/OT as tolerated Will continue to follow. Subjective Date/time seen: 06/07/24 10:34 Interval history: Follow-up for hyponatremia. Transferred out of ICU yesterday; sodium level continues to slowly improve with ongoing therapy/interventions (normal saline IVF at the current time); eating and drinking reasonably well; no apparent distress noted. Exam Narrative: General: WD/WN male in NAD Heart: normal S1 and S2; no rub Lungs: clear to auscultation Abdomen: soft, nontender, nondistended, positive bowel sounds Extremities: no cyanosis or clubbing; no edema Skin: warm and dry Objective Data Vital Signs Vital Signs: Vital Signs Temp Pulse Pulse Resp BP Pulse Ox O2 Del Method 06/07/24 10:00 76 06/07/24 08:00 Room Air 06/07/24 08:00 83 06/07/24 08:00 84 06/07/24 07:56 163/93 H 06/07/24 07:51 98.0 F 83 16 182/92 H 98 06/07/24 04:00 77 06/07/24 04:00 Room Air 06/07/24 04:16 98.2 F 79 18 159/81 H 98 06/07/24 00:00 79 06/07/24 00:00 Room Air 06/06/24 21:03 97 Room Air 06/07/24 00:04 97.7 F 82 18 159/86 H 96 06/06/24 20:00 85 06/06/24 20:00 Room Air 06/06/24 19:54 98.6 F 82 18 166/87 H 98 06/06/24 18:00 83 06/06/24 16:00 Room Air 06/06/24 16:00 83 06/06/24 16:00 98.7 F 87 20 164/90 H 95 06/06/24 14:00 80 Intake/Output Intake/Output: Intake & Output 06/04/24 06/05/24 06/06/24 06/07/24 23:59 23:59 23:59 23:59 Intake Total 2500 440 2280.0 Output Total 1650 1750 1700 Balance 850 -1310 580.0 Meds/Results Medications: Active Medications Generic Name Dose Route Start Last Admin Trade Name Freq PRN Reason Stop Dose Admin Acetaminophen 650 mg 06/05/24 14:36 Acetaminophen 325 Mg Tablet PO Q4H PRN Mild Pain (1-3) or Fever Hydrocodone Bitart/Acetaminophen 1 tab 06/05/24 23:43 06/07/24 09:31 Hydrocodone/Acetaminophen (*Crx) 5-325 Mg Tablet PO 1 tab Q6H PRN Administration Pain Rated 4-6 Aspirin 81 mg 06/07/24 08:00 06/07/24 09:32 Aspirin 81 Mg Chewable Tablet PO 81 mg DAILY@0800 MONICA Administration Atorvastatin Calcium 40 mg 06/07/24 09:00 06/07/24 09:32 Atorvastatin 40 Mg Tablet PO 40 mg DAILY MONICA Administration Enoxaparin Sodium 40 mg 06/07/24 09:00 06/07/24 09:31 Enoxaparin 40 Mg/0.4 Ml Syringe SUB-Q 40 mg DAILY MONICA Administration Folic Acid 1 mg 06/06/24 09:00 06/07/24 09:32 Folic Acid 1 Mg Tablet PO 1 mg DAILY MONICA Administration Sodium Chloride 1,000 mls @ 75 mls/hr 06/06/24 13:00 06/07/24 04:30 Normal Saline Iv IV CONT 75 mls/hr .[id number] MONICA Administration Lorazepam 1 mg 06/05/24 16:29 Lorazepam (*Crx) 1 Mg Tablet PO Q2H PRN CIWA 8-15 Lorazepam 2 mg 06/05/24 16:29 Lorazepam (*Crx) 1 Mg Tablet PO Q2H PRN CIWA > 15 Melatonin 5 mg 06/07/24 21:00 Melatonin 5 Mg Tablet PO HS [facility] Morphine Sulfate 2 mg 06/05/24 23:43 Morphine Sulfate (*Crx) 2 Mg/Ml Inj IV PUSH Q4H PRN Pain Rated 7-10 Ondansetron HCl 4 mg 06/05/24 14:36 Ondansetron Inj 4 Mg/2 Ml Vial IV PUSH Q4H PRN Nausea Thiamine HCl 100 mg 06/06/24 09:00 06/07/24 09:32 Thiamine Hcl 100 Mg Tablet PO 100 mg QAM [facility] Administration Trazodone HCl 100 mg 06/05/24 20:54 Trazodone Hcl 50 Mg Tablet PO HS PRN Insomnia Vitamin D 1,000 units 06/07/24 12:05 Cholecalciferol 1,000 Units Tablet PO DAILY [facility] Radiology Results: ITS Impressions Head CT 06/05/24 17:07 IMPRESSION: 1. 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 No acute intracranial process. 2. Age-related changes including mild diffuse volume loss and mild scattered white matter hypoattenuation consistent with chronic small vessel ischemic disease. 3. Occlusion of the left frontoethmoidal recess with complete opacification of the left frontal and maxillary sinuses and anterior left ethmoid air cells. Chest/Abdomen/Pelvis CT 06/05/24 17:12 IMPRESSION: 1. A few acute and chronic right-sided rib fractures with very small right pneumothorax. 2. Mildly displaced fracture of the medial head of the left clavicle. 3. Nondisplaced fracture extending across the S2 vertebral body and the lateral sacral ala. 4. No acute intra-abdominal/pelvic process. Chest X-Ray 06/06/24 08:44 IMPRESSION: Mild pulmonary vascular congestion, without focal infiltrate or effusion. No pneumothorax is detected. Carotid Doppler Study 06/07/24 09:39 IMPRESSION: 1. Less than 50% stenosis in the right internal carotid artery by sonographic criteria. 2. Less than 50% stenosis in the left internal carotid artery by sonographic criteria. Labs Labs: Laboratory Tests 06/07/24 04:29 06/07/24 08:37 06/07/24 04:29 Sodium 116 L* Potassium 3.7 Chloride 84 L Carbon Dioxide 25 Anion Gap 7 BUN 5 L Creatinine 0.40 L Estim Creat Clear Calc 132 Estimated GFR > 60 Glucose 89 Calcium 8.0 L Phosphorus 2.9 Magnesium 2.1 Total Bilirubin 2.3 H AST 36 ALT 24 Alkaline Phosphatase 75 Total Protein 7.0 Albumin 3.4 L Microbiology 06/05/24 14:05 Unspecified Urine Urine Culture - Final
[2024-06-07 12:54] LABS: Sodium 118 mmol/L (137-145)
--- NOTE | 2024-06-07 13:09 | PCPTNOTE ---
Attempted PT evaluation, pt refused stating his back hurt too much. Per RN, pt was offered pain medication and pt refused. Will follow.
--- NOTE | 2024-06-07 13:28 | PCOTNOTE ---
Pt. declines to participate on this day.Nursing aware.
[2024-06-07 16:52] LABS: Sodium 117 mmol/L (137-145)
--- NOTE | 2024-06-07 17:46 | PM.IMPN ---
Progress Note: A&P Assessment and Plan (1) Hyponatremia: Code(s): E87.1 - Hypo-osmolality and hyponatremia Status: Acute Assessment and Plan: Patient presented with weakness and found to have severe hyponatremia with Na level at 106. No baseline to compare Likely secondary to alcohol intake, beer potomania and/or dehydration from poor oral intake. TSH and cortisol normal. Patient received 2 L of saline bolus in the ER since he appeared clinically dehydrated. Sodium increased rapidly to 114 so patient was given DDAVP and D5 water to prevent rapid increases. Sodium has been stable since and patient feeling better. Nephrology is managing sodium. IV fluids resumed. Monitor serial sodium levels (2) Alcohol abuse: Code(s): F10.10 - Alcohol abuse, uncomplicated Status: Acute Assessment and Plan: Patient drinks 6-8 beers daily. Monitor for withdrawal signs and symptoms with CIWA protocol. CIWA 0-2 range past 24 hours. Ativan prn ordered but not required Continue Thiamine and folate Patient was counseled and encouraged to quit (3) Frequent falls: Code(s): R29.6 - Repeated falls Status: Acute Assessment and Plan: Head CT was negative for acute change but showed old lacunar infarcts at the right basal ganglia and left side of the eula as well as chronic small vessel ischemic disease and evidence of sinusitis. Carotid US showing <50% stenosis bilateral ICAs. B12 level low end of normal. [place] falls and weakness related to old CVAs and alcoholism complicated by malnutrition and dehydration. MMA pending. Replace B12 PT OT consulted. Continue Lipitor and ASA. (4) CVA (cerebral vascular accident): Code(s): I63.9 - Cerebral infarction, unspecified Status: Acute Assessment and Plan: As above (5) Hypokalemia: Code(s): E87.6 - Hypokalemia Status: Acute Assessment and Plan: Potassium replaced Follow (6) Hyperbilirubinemia: Code(s): E80.6 - Other disorders of bilirubin metabolism Status: Acute Assessment and Plan: TB 4.2 on admission all indirect. CT scan showing normal liver, GB and pancreas. Probably related to [place] or from alcoholism. Levels trending down now that he is eating Follow (7) Pneumothorax: Code(s): J93.9 - Pneumothorax, unspecified Status: Acute Assessment and Plan: CT chest showing a very small right PTX probably related to his recent falls and rib fratures. CXR yesterday showing no PTX Follow clinically. (8) Fracture: Code(s): T14.8XXA - Other injury of unspecified body region, initial encounter Status: Acute Assessment and Plan: Imaging showing acute and chronic right-sided rib fractures, mildly displaced fracture of the medial head of the left clavicle with surrounding small hematoma, nondisplaced fracture extending across the S2 vertebral body and the lateral sacral ala and chronic appearing compression fractures with 20% anterior vertebral body height loss at T12 and <20% anterior vertebral body height loss at T11. Multiple fractures in various stages of healing. He will need bone denisty scan. Vit D level <12.8 Replace VitD. (9) Complicated grief: Code(s): F43.21 - Adjustment disorder with depressed mood Status: Acute Assessment and Plan: Patient has been grieving loss of her mother. He may be depressed but will need to be evaluated once metabolic and issues are sorted out. He denies any suicidal homicidal ideations at this time and does not need one-to-one sitter. Plan DVT prophylaxis -Lovenox Code Status - Full Code Subjective Date/time seen: 06/07/24 17:46 Interval history: 63yo male with hx of alcohol abuse here for weakness. Slept off and on. No CP or SO. Complains of back pain. No n/v. Eating okay. Exam Narrative: AF 98.1 134/87 74 14 98% ra Gen - NARD Chest - decreased BS in the bases o/w clear. CV - RRR S1/S2. Tele showing PVCs. Abd - Soft, NT/ND, Positive BS Ext - No pedal edema Neuro - Alert and appropriate. No tremors. needs assistance to sit up in bed Psych - Nml mood and affect Skin - Warm and dry Objective Data Vital Signs Vital Signs: Vital Signs - 24 hr 06/06/24 18:00 06/06/24 19:54 06/06/24 20:00 Temperature 98.6 F Pulse Rate 83 82 Pulse Rate [Monitor] Respiratory Rate 18 Blood Pressure 166/87 H Pulse Oximetry 98 Oxygen Delivery Room Air 06/06/24 20:00 06/07/24 00:04 06/06/24 21:03 Temperature 97.7 F Pulse Rate 85 82 Pulse Rate [Monitor] Respiratory Rate 18 Blood Pressure 159/86 H Pulse Oximetry 96 97 Oxygen Delivery Room Air 06/07/24 00:00 06/07/24 00:00 06/07/24 04:16 Temperature 98.2 F Pulse Rate 79 79 Pulse Rate [Monitor] Respiratory Rate 18 Blood Pressure 159/81 H Pulse Oximetry 98 Oxygen Delivery Room Air 06/07/24 04:00 06/07/24 04:00 06/07/24 07:51 Temperature 98.0 F Pulse Rate 77 83 Pulse Rate [Monitor] Respiratory Rate 16 Blood Pressure 182/92 H Pulse Oximetry 98 Oxygen Delivery Room Air 06/07/24 07:56 06/07/24 08:00 06/07/24 08:00 Temperature Pulse Rate 84 Pulse Rate [Monitor] 83 Respiratory Rate Blood Pressure 163/93 H Pulse Oximetry Oxygen Delivery 06/07/24 08:00 06/07/24 10:00 06/07/24 11:47 Temperature 98.1 F Pulse Rate 76 79 Pulse Rate [Monitor] Respiratory Rate 14 Blood Pressure 134/87 Pulse Oximetry 98 Oxygen Delivery Room Air 06/07/24 12:00 06/07/24 14:00 06/07/24 12:00 Temperature Pulse Rate 79 74 Pulse Rate [Monitor] Respiratory Rate Blood Pressure Pulse Oximetry Oxygen Delivery Room Air 06/07/24 16:00 Temperature Pulse Rate Pulse Rate [Monitor] Respiratory Rate Blood Pressure Pulse Oximetry Oxygen Delivery Room Air Intake/Output Intake/Output: Intake & Output 06/04/24 06/05/24 06/06/24 06/07/24 23:59 23:59 23:59 23:59 Intake Total 2500 440 3070.0 Output Total 1650 1750 1700 Balance 850 -1310 1370.0 Meds/Results Medications: Active Medications Generic Name Dose Route Start Last Admin Trade Name Freq PRN Reason Stop Dose Admin Acetaminophen 650 mg 06/05/24 14:36 Acetaminophen 325 Mg Tablet PO Q4H PRN Mild Pain (1-3) or Fever Hydrocodone Bitart/Acetaminophen 1 tab 06/05/24 23:43 06/07/24 09:31 Hydrocodone/Acetaminophen (*Crx) 5-325 Mg Tablet PO 1 tab Q6H PRN Administration Pain Rated 4-6 Aspirin 81 mg 06/07/24 08:00 06/07/24 09:32 Aspirin 81 Mg Chewable Tablet PO 81 mg DAILY@0800 [facility] Administration Atorvastatin Calcium 40 mg 06/07/24 09:00 06/07/24 09:32 Atorvastatin 40 Mg Tablet PO 40 mg DAILY [facility] Administration Enoxaparin Sodium 40 mg 06/07/24 09:00 06/07/24 09:31 Enoxaparin 40 Mg/0.4 Ml Syringe SUB-Q 40 mg DAILY [facility] Administration Folic Acid 1 mg 06/06/24 09:00 06/07/24 09:32 Folic Acid 1 Mg Tablet PO 1 mg DAILY [facility] Administration Lorazepam 1 mg 06/05/24 16:29 Lorazepam (*Crx) 1 Mg Tablet PO Q2H PRN CIWA 8-15 Lorazepam 2 mg 06/05/24 16:29 Lorazepam (*Crx) 1 Mg Tablet PO Q2H PRN CIWA > 15 Melatonin 5 mg 06/07/24 21:00 Melatonin 5 Mg Tablet PO HS [facility] Morphine Sulfate 2 mg 06/05/24 23:43 Morphine Sulfate (*Crx) 2 Mg/Ml Inj IV PUSH Q4H PRN Pain Rated 7-10 Ondansetron HCl 4 mg 06/05/24 14:36 Ondansetron Inj 4 Mg/2 Ml Vial IV PUSH Q4H PRN Nausea Sodium Chloride 1 gm 06/07/24 17:00 Sodium Chloride 1 Gm Tablet PO BID [facility] Thiamine HCl 100 mg 06/06/24 09:00 06/07/24 09:32 Thiamine Hcl 100 Mg Tablet PO 100 mg QAM [facility] Administration Trazodone HCl 100 mg 06/05/24 20:54 Trazodone Hcl 50 Mg Tablet PO HS PRN Insomnia Vitamin D 1,000 units 06/07/24 12:05 Cholecalciferol 1,000 Units Tablet PO DAILY [facility] Radiology Results: ITS Impressions Head CT 06/05/24 17:07 IMPRESSION: 1. 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 No acute intracranial process. 2. Age-related changes including mild diffuse volume loss and mild scattered white matter hypoattenuation consistent with chronic small vessel ischemic disease. 3. Occlusion of the left frontoethmoidal recess with complete opacification of the left frontal and maxillary sinuses and anterior left ethmoid air cells. Chest/Abdomen/Pelvis CT 06/05/24 17:12 IMPRESSION: 1. A few acute and chronic right-sided rib fractures with very small right pneumothorax. 2. Mildly displaced fracture of the medial head of the left clavicle. 3. Nondisplaced fracture extending across the S2 vertebral body and the lateral sacral ala. 4. No acute intra-abdominal/pelvic process. Chest X-Ray 06/06/24 08:44 IMPRESSION: Mild pulmonary vascular congestion, without focal infiltrate or effusion. No pneumothorax is detected. Carotid Doppler Study 06/07/24 09:39 IMPRESSION: 1. Less than 50% stenosis in the right internal carotid artery by sonographic criteria. 2. Less than 50% stenosis in the left internal carotid artery by sonographic criteria. Labs Labs: Laboratory Results - last 24 hr 06/06/24 06/07/24 06/07/24 23:25 04:29 08:37 WBC 7.9 RBC 4.03 L Hgb 13.9 L Hct 37.0 L MCV 91.8 MCH 34.5 H MCHC 37.6 H RDW 10.9 L Plt Count 234 MPV 8.6 Sodium 114 L* 116 L* 118 L* Potassium 3.7 Chloride 84 L Carbon Dioxide 25 Anion Gap 7 BUN 5 L Creatinine 0.40 L Estim Creat Clear Calc 132 Estimated GFR > 60 Glucose 89 Calcium 8.0 L Phosphorus 2.9 Magnesium 2.1 Total Bilirubin 2.3 H AST 36 ALT 24 Alkaline Phosphatase 75 Total Protein 7.0 Albumin 3.4 L Vitamin D 25-Hydroxy < 12.8 Random Cortisol 15.00 06/07/24 06/07/24 12:22 16:27 WBC RBC Hgb Hct MCV MCH MCHC RDW Plt Count MPV Sodium 118 L* 117 L* Potassium Chloride Carbon Dioxide Anion Gap BUN Creatinine Estim Creat Clear Calc Estimated GFR Glucose Calcium Phosphorus Magnesium Total Bilirubin AST ALT Alkaline Phosphatase Total Protein Albumin Vitamin D 25-Hydroxy Random Cortisol
[2024-06-07] MEDS: SODIUM CHLORIDE 1 GM TABLET PO (17:50)
[2024-06-07] MEDS: CHOLECALCIFEROL 1,000 UNITS TABLET 1000 UNITS PO (17:50)
[2024-06-07] MEDS: CYANOCOBALAMIN INJ 1,000 MCG/ML VIAL 1000 MCG IM (18:50)
[2024-06-07 20:43] LABS: Sodium 119 mmol/L (137-145)
[2024-06-07] MEDS: MELATONIN 5 MG TABLET PO (21:11)
[2024-06-07] MEDS: traZODone HCL 50 MG TABLET 100 MG PO (21:11)
[2024-06-08] VITALS (11 sets, daily range): BP systolic 136–146; BP diastolic 74–85; PULSE 69–89; RESP 14–18; TEMP 36.5–36.8; O2SAT 94–99
[2024-06-08 00:29] LABS: Sodium 118 mmol/L (137-145)
[2024-06-08 04:45] LABS: Hematocrit 37.8 % (42.0-52.0); Hemoglobin 14.1 g/dL (14.0-18.0); Mean Corpuscular HGB Conc 37.3 g/dl (32-36); Mean Corpuscular Hemoglobin 34.4 pg (26-34); Mean Corpuscular Volume 92.2 fl (80-100); Mean Platelet Volume 8.6 fl (7.4-10.4); Platelet Count Result 245 k/mm3 (150-375); Red Cell Distribution Width 10.9 % (11.5-14.5); White Blood Count 9.5 K/mm3 (4.5-10.0)
[2024-06-08 04:58] LABS: Alanine Aminotransferase 30 U/L (6-50); Albumin Level 3.6 g/dL (3.5-5.1); Alkaline Phosphatase 81 U/L (38-126); Anion Gap 10 mmol/L (4-12); Aspartate Amino Transferase 39 U/L (17-59); Bilirubin,Total 1.6 mg/dL (0.2-1.3); Blood Urea Nitrogen 6 mg/dL (9-20); Calcium 8.3 mg/dL (8.4-10.2); Carbon Dioxide 25 mmol/L (22-30); Chloride 86 mmol/L (98-107); Estimated CRCL calculation 132 ml/min; Estimated Glomerular Filt Rate > 60; Glucose 108 mg/dL (65-110); Phosphorus 4.5 mg/dL (2.5-4.5); Potassium 3.3 mmol/L (3.4-5.0); Sodium 121 mmol/L (137-145)
[2024-06-08] MEDS: CHOLECALCIFEROL 1,000 UNITS TABLET 1000 UNITS PO (09:13)
[2024-06-08] MEDS: FOLIC ACID 1 MG TABLET PO (09:13)
[2024-06-08] MEDS: SODIUM CHLORIDE 1 GM TABLET PO ×2 (09:13→17:38)
[2024-06-08] MEDS: CYANOCOBALAMIN 1,000 MCG TABLET 1000 MCG PO (09:13)
[2024-06-08] MEDS: ATORVASTATIN 40 MG TABLET PO (09:13)
[2024-06-08] MEDS: ASPIRIN 81 MG CHEWABLE TABLET PO (09:13)
[2024-06-08] MEDS: THIAMINE HCL 100 MG TABLET PO (09:14)
[2024-06-08] MEDS: ACETAMINOPHEN 325 MG TABLET 650 MG PO ×2 (09:14→17:39)
[2024-06-08] MEDS: CYANOCOBALAMIN INJ 1,000 MCG/ML VIAL 1000 MCG IM (09:14)
[2024-06-08] MEDS: ENOXAPARIN 40 MG/0.4 ML SYRINGE SUB-Q (09:14)
--- NOTE | 2024-06-08 09:32 | P.PNNP_ITS ---
Progress Note: A&P Assessment and Plan (1) Hyponatremia: Code(s): E87.1 - Hypo-osmolality and hyponatremia Status: Acute Assessment and Plan: * severe hyponatremia noted on presenation - sodium 106mmol/L * no baseline sodium level to compare to * rapid increase in sodium (106 --> 114 on day of admission) with just normal saline argues in favor of volume depletion playing a role * due to this rapid correction, given DDAVP and D5W IVFs which stabilized rate of rise * goal of therapy is a rate of change of 6 - 8mmol/L in 24 hours -- this has been achieved * evaluation to date noted: * TSH okay * cortisol 15 indicating adequate adrenal function. * urine specific gravity 1.017 suggesting a concentrated urine * urine sodium is low * SPEP & UPEP [place] * serum/urine osmo pending * suspected multifactorial etiology: * chronic alcohol intake/abuse * pre-renal factors * he is prescribed trazodone she can lower sodium but has not received any. * He received some saline yesterday and the sodium did improve. He also drank 2600cc of fluid which probably counter acted some of the benefit of the saline. * At this point will fluid restrict and watch for the day. Consider more saline later if the sodium isn't continuing to correct. (2) Hypokalemia: Code(s): E87.6 - Hypokalemia Status: Acute Assessment and Plan: * suspect due to total body store depletion * Replace the potassium. (3) Alcohol abuse: Code(s): F10.10 - Alcohol abuse, uncomplicated Status: Acute Assessment and Plan: * knwn to drink at least 6-8 beers daily * monitor for withdrawal * [facility] protocol * on thiamine and folic acid (4) Frequent falls: Code(s): R29.6 - Repeated falls Status: Acute Assessment and Plan: * imaging noted * head CT was negative for acute change but with old lacunar infarcts at the right basal ganglia and left side of the eula as well as chronic small vessel ischemic disease along with evidence of sinusitis * PT/OT as tolerated Will continue to follow. Subjective Date/time seen: 06/08/24 09:32 Interval history: Kenneth is feeling okay today. No chest pain or shortness of breath no tremor Exam Narrative: General: WD/WN male in NAD Heart: normal S1 and S2; no rub Lungs: clear to auscultation Abdomen: soft, nontender, nondistended, positive bowel sounds Extremities: no cyanosis or clubbing; no edema Skin: warm and dry Neuro: no tremor Objective Data Vital Signs Vital Signs: Vital Signs - 24 hr 06/07/24 10:00 06/07/24 11:47 06/07/24 12:00 Temperature 98.1 F Pulse Rate 76 79 79 Respiratory Rate 14 Blood Pressure 134/87 Pulse Oximetry 98 Oxygen Delivery 06/07/24 14:00 06/07/24 12:00 06/07/24 16:00 Temperature Pulse Rate 74 Respiratory Rate Blood Pressure Pulse Oximetry Oxygen Delivery Room Air Room Air 06/07/24 16:00 06/07/24 18:00 06/07/24 20:23 Temperature 98.3 F Pulse Rate 76 76 80 Respiratory Rate 14 Blood Pressure 174/88 H Pulse Oximetry 96 Oxygen Delivery 06/07/24 23:21 06/07/24 20:40 06/08/24 00:00 Temperature 97.8 F Pulse Rate 69 80 69 Respiratory Rate 14 14 14 Blood Pressure 134/79 Pulse Oximetry 96 96 96 Oxygen Delivery Room Air Room Air 06/07/24 20:00 06/07/24 22:00 06/08/24 00:00 Temperature Pulse Rate 79 73 73 Respiratory Rate Blood Pressure Pulse Oximetry Oxygen Delivery 06/08/24 02:00 06/08/24 04:49 06/08/24 04:00 Temperature 97.7 F Pulse Rate 77 89 89 Respiratory Rate 14 14 Blood Pressure 144/85 H Pulse Oximetry 96 96 Oxygen Delivery Room Air 06/08/24 04:00 06/08/24 05:17 06/08/24 08:00 Temperature Pulse Rate 83 83 81 Respiratory Rate Blood Pressure Pulse Oximetry Oxygen Delivery 06/08/24 08:00 Temperature 97.8 F Pulse Rate 77 Respiratory Rate 16 Blood Pressure 136/82 Pulse Oximetry 99 Oxygen Delivery Intake/Output Intake/Output: Intake & Output 06/05/24 06/06/24 06/07/24 06/08/24 23:59 23:59 23:59 23:59 Intake Total 2500 440 3690.0 Output Total 1650 1750 2700 300 Balance 850 -1310 990.0 -300 Meds/Results Medications: Active Medications Generic Name Dose Route Start Last Admin Trade Name Freq PRN Reason Stop Dose Admin Acetaminophen 650 mg 06/05/24 14:36 06/08/24 09:14 Acetaminophen 325 Mg Tablet PO 650 mg Q4H PRN Administration Mild Pain (1-3) or Fever Hydrocodone Bitart/Acetaminophen 1 tab 06/05/24 23:43 06/07/24 17:50 Hydrocodone/Acetaminophen (*Crx) 5-325 Mg Tablet PO 1 tab Q6H PRN Administration Pain Rated 4-6 Aspirin 81 mg 06/07/24 08:00 06/08/24 09:13 Aspirin 81 Mg Chewable Tablet PO 81 mg DAILY@0800 [facility] Administration Atorvastatin Calcium 40 mg 06/07/24 09:00 06/08/24 09:13 Atorvastatin 40 Mg Tablet PO 40 mg DAILY [facility] Administration Cyanocobalamin 1,000 mcg 06/07/24 17:55 06/08/24 09:14 Cyanocobalamin Inj 1,000 Mcg/Ml Vial IM 06/09/24 09:01 1,000 mcg DAILY [facility] Administration Cyanocobalamin 1,000 mcg 06/08/24 09:00 06/08/24 09:13 Cyanocobalamin 1,000 Mcg Tablet PO 1,000 mcg QAM [facility] Administration Enoxaparin Sodium 40 mg 06/07/24 09:00 06/08/24 09:14 Enoxaparin 40 Mg/0.4 Ml Syringe SUB-Q 40 mg DAILY [facility] Administration Folic Acid 1 mg 06/06/24 09:00 06/08/24 09:13 Folic Acid 1 Mg Tablet PO 1 mg DAILY [facility] Administration Lorazepam 1 mg 06/05/24 16:29 Lorazepam (*Crx) 1 Mg Tablet PO Q2H PRN CIWA 8-15 Lorazepam 2 mg 06/05/24 16:29 Lorazepam (*Crx) 1 Mg Tablet PO Q2H PRN CIWA > 15 Melatonin 5 mg 06/07/24 21:00 06/07/24 21:11 Melatonin 5 Mg Tablet PO 5 mg HS [facility] Administration Morphine Sulfate 2 mg 06/05/24 23:43 Morphine Sulfate (*Crx) 2 Mg/Ml Inj IV PUSH Q4H PRN Pain Rated 7-10 Ondansetron HCl 4 mg 06/05/24 14:36 Ondansetron Inj 4 Mg/2 Ml Vial IV PUSH Q4H PRN Nausea Sodium Chloride 1 gm 06/07/24 17:00 06/08/24 09:13 Sodium Chloride 1 Gm Tablet PO 1 gm BID [facility] Administration Thiamine HCl 100 mg 06/06/24 09:00 06/08/24 09:14 Thiamine Hcl 100 Mg Tablet PO 100 mg QAM [facility] Administration Trazodone HCl 100 mg 06/05/24 20:54 06/07/24 21:11 Trazodone Hcl 50 Mg Tablet PO 100 mg HS PRN Administration Insomnia Vitamin D 1,000 units 06/07/24 12:05 06/08/24 09:13 Cholecalciferol 1,000 Units Tablet PO 1,000 units DAILY [facility] Administration Radiology Results: ITS Impressions Head CT 06/05/24 17:07 IMPRESSION: 1. 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 No acute intracranial process. 2. Age-related changes including mild diffuse volume loss and mild scattered white matter hypoattenuation consistent with chronic small vessel ischemic disease. 3. Occlusion of the left frontoethmoidal recess with complete opacification of the left frontal and maxillary sinuses and anterior left ethmoid air cells. Chest/Abdomen/Pelvis CT 06/05/24 17:12 IMPRESSION: 1. A few acute and chronic right-sided rib fractures with very small right pneumothorax. 2. Mildly displaced fracture of the medial head of the left clavicle. 3. Nondisplaced fracture extending across the S2 vertebral body and the lateral sacral ala. 4. No acute intra-abdominal/pelvic process. Chest X-Ray 06/06/24 08:44 IMPRESSION: Mild pulmonary vascular congestion, without focal infiltrate or effusion. No pneumothorax is detected. Carotid Doppler Study 06/07/24 09:39 IMPRESSION: 1. Less than 50% stenosis in the right internal carotid artery by sonographic criteria. 2. Less than 50% stenosis in the left internal carotid artery by sonographic criteria. Labs Labs: Laboratory Results - last 24 hr 06/07/24 06/07/24 06/07/24 12:22 16:27 20:26 WBC RBC Hgb Hct MCV MCH MCHC RDW Plt Count MPV Sodium 118 L* 117 L* 119 L* Potassium Chloride Carbon Dioxide Anion Gap BUN Creatinine Estim Creat Clear Calc Estimated GFR Glucose Calcium Phosphorus Magnesium Total Bilirubin AST ALT Alkaline Phosphatase Total Protein Albumin 06/08/24 06/08/24 00:11 04:33 WBC 9.5 RBC 4.10 L Hgb 14.1 Hct 37.8 L MCV 92.2 MCH 34.4 H MCHC 37.3 H RDW 10.9 L Plt Count 245 MPV 8.6 Sodium 118 L* 121 L Potassium 3.3 L Chloride 86 L Carbon Dioxide 25 Anion Gap 10 BUN 6 L Creatinine 0.40 L Estim Creat Clear Calc 132 Estimated GFR > 60 Glucose 108 Calcium 8.3 L Phosphorus 4.5 Magnesium 2.0 Total Bilirubin 1.6 H AST 39 ALT 30 Alkaline Phosphatase 81 Total Protein 7.0 Albumin 3.6
--- NOTE | 2024-06-08 09:59 | PCOTNOTE ---
Attempted OT evaluation this AM. Patient is adamantly declining any/all activity. He reports he's in too much pain and states I don't move from my recliner at home, I don't need to get up here . He states EMS will take him into his home and put him in his recliner at discharge and he won't need to get up from his recliner. My son will take care of me . Will continue to attempt.
[2024-06-08 11:05] LABS: Sodium 121 mmol/L (137-145)
--- NOTE | 2024-06-08 14:00 | PCPTNOTE ---
Patient asleep, audibly snoring, does not wake up to name being called are rubbing shoulder. Will attempt evaluation tomorrow as time allows.
[2024-06-08] MEDS: POTASSIUM CHLORIDE 20 MEQ ER TABLET 40 MEQ PO (14:25)
[2024-06-08] MEDS: BENZOCAINE/MENTHOL (*BKC) 18 EA LOZENGE 1 LOZENGE PO ×2 (14:26→17:39)
--- NOTE | 2024-06-08 16:15 | P.PNIM_ITS ---
Progress Note: A&P Assessment and Plan (1) Hyponatremia: Code(s): E87.1 - Hypo-osmolality and hyponatremia Status: Acute Assessment and Plan: Patient presented with weakness and found to have severe hyponatremia with Na level at 106. No baseline to compare Likely secondary to alcohol intake, beer potomania and/or dehydration from poor oral intake. TSH and cortisol normal. Emile <5 consistent with dehydration Patient received 2 L of saline bolus in the ER but sodium increased rapidly to 114 so patient was given DDAVP and D5 water to prevent rapid increases. Sodium has been stable since and patient feeling better. Nephrology is managing sodium. IV fluids resumed again but now off. NaCl tablets started. Na back up to 121. Monitor serial sodium levels (2) Alcohol abuse: Code(s): F10.10 - Alcohol abuse, uncomplicated Status: Acute Assessment and Plan: Patient drinks 6-8 beers daily. Monitor for withdrawal signs and symptoms with CIWA protocol. CIWA 0-2 range and no he is off the protocol. Ativan prn ordered but not required Continue Thiamine and folate Patient was counseled and encouraged to quit (3) Frequent falls: Code(s): R29.6 - Repeated falls Status: Acute Assessment and Plan: Head CT was negative for acute change but showed old lacunar infarcts at the right basal ganglia and left side of the eula as well as chronic small vessel ischemic disease and evidence of sinusitis. Carotid US showing <50% stenosis bilateral ICAs. B12 level low end of normal. MMA ordered and B12 replaced. [place] falls and weakness related to old CVAs and alcoholism complicated by malnutrition and dehydration. PT OT. Continue Lipitor and ASA. (4) CVA (cerebral vascular accident): Code(s): I63.9 - Cerebral infarction, unspecified Status: Acute Assessment and Plan: As above (5) Hypokalemia: Code(s): E87.6 - Hypokalemia Status: Acute Assessment and Plan: Potassium replaced. Continue to monitor and replace as needed. Follow (6) Hyperbilirubinemia: Code(s): E80.6 - Other disorders of bilirubin metabolism Status: Acute Assessment and Plan: TB 4.2 on admission all indirect. CT scan showing normal liver, GB and pancreas. Probably related to [place] or from alcoholism. Levels trending down now that he is eating Follow (7) Pneumothorax: Code(s): J93.9 - Pneumothorax, unspecified Status: Acute Assessment and Plan: CT chest showing a very small right PTX probably related to his recent falls and rib fratures. CXR repeated showing no PTX Complains of pain with coughing. Will add mucinex and have lozenges available prn. Add incentive spirometry. Follow clinically. (8) Fracture: Code(s): T14.8XXA - Other injury of unspecified body region, initial encounter Status: Acute Assessment and Plan: Imaging showing acute and chronic right-sided rib fractures, mildly displaced fracture of the medial head of the left clavicle with surrounding small hematoma, nondisplaced fracture extending across the S2 vertebral body and the lateral sacral ala and chronic appearing compression fractures with 20% anterior vertebral body height loss at T12 and <20% anterior vertebral body height loss at T11. Multiple fractures in various stages of healing. Most related to falls but consider osteoporosis. Vit D level <12.8. He will need bone density scan. VitD being replaced. (9) Complicated grief: Code(s): F43.21 - Adjustment disorder with depressed mood Status: Acute Assessment and Plan: Patient has been grieving loss of her mother. He may be depressed but will need to be evaluated once metabolic and issues are sorted out. He denies any suicidal homicidal ideations at this time and does not need one-to-one sitter. Plan DVT prophylaxis -Lovenox Code Status - Full Code Subjective Date/time seen: 06/08/24 16:15 Interval history: 63yo male with hx of alcohol abuse here for weakness. Slept poorly due to interruptions. no CP or SOB. Not getting up much. Lives with son in the basement. Sleeps in a recliner. Exam Narrative: AF 97.8 136/82 78 16 99% ra Gen - NARD Chest - distant BS, nml RR CV - RRR S1/S2. Tele showing occasional PVCs. Abd - Soft, ND, Positive BS Ext - No pedal edema Neuro - Alert and appropriate. No tremors Psych - Nml mood and affect Skin - Warm and dry. chest wall bruising noted left upper chest. Objective Data Vital Signs Vital Signs: Vital Signs - 24 hr 06/07/24 18:00 06/07/24 20:23 06/07/24 23:21 Temperature 98.3 F 97.8 F Pulse Rate 76 80 69 Respiratory Rate 14 14 Blood Pressure 174/88 H 134/79 Pulse Oximetry 96 96 Oxygen Delivery 06/07/24 20:40 06/08/24 00:00 06/07/24 20:00 Temperature Pulse Rate 80 69 79 Respiratory Rate 14 14 Blood Pressure Pulse Oximetry 96 96 Oxygen Delivery Room Air Room Air 06/07/24 22:00 06/08/24 00:00 06/08/24 02:00 Temperature Pulse Rate 73 73 77 Respiratory Rate Blood Pressure Pulse Oximetry Oxygen Delivery 06/08/24 04:49 06/08/24 04:00 06/08/24 04:00 Temperature 97.7 F Pulse Rate 89 89 83 Respiratory Rate 14 14 Blood Pressure 144/85 H Pulse Oximetry 96 96 Oxygen Delivery Room Air 06/08/24 05:17 06/08/24 08:00 06/08/24 08:00 Temperature 97.8 F Pulse Rate 83 81 77 Respiratory Rate 16 Blood Pressure 136/82 Pulse Oximetry 99 Oxygen Delivery 06/08/24 08:00 06/08/24 10:00 06/08/24 12:00 Temperature Pulse Rate 80 78 Respiratory Rate Blood Pressure Pulse Oximetry Oxygen Delivery Room Air 06/08/24 12:00 06/08/24 14:00 06/08/24 16:00 Temperature Pulse Rate 79 78 Respiratory Rate Blood Pressure Pulse Oximetry Oxygen Delivery Room Air Intake/Output Intake/Output: Intake & Output 06/05/24 06/06/24 06/07/24 06/08/24 23:59 23:59 23:59 23:59 Intake Total 2500 440 3690.0 Output Total 1650 1750 2700 300 Balance 850 -1310 990.0 -300 Meds/Results Medications: Active Medications Generic Name Dose Route Start Last Admin Trade Name Freq PRN Reason Stop Dose Admin Acetaminophen 650 mg 06/05/24 14:36 06/08/24 09:14 Acetaminophen 325 Mg Tablet PO 650 mg Q4H PRN Administration Mild Pain (1-3) or Fever Hydrocodone Bitart/Acetaminophen 1 tab 06/05/24 23:43 06/07/24 17:50 Hydrocodone/Acetaminophen (*Crx) 5-325 Mg Tablet PO 1 tab Q6H PRN Administration Pain Rated 4-6 Aspirin 81 mg 06/07/24 08:00 06/08/24 09:13 Aspirin 81 Mg Chewable Tablet PO 81 mg DAILY@0800 [facility] Administration Atorvastatin Calcium 40 mg 06/07/24 09:00 06/08/24 09:13 Atorvastatin 40 Mg Tablet PO 40 mg DAILY [facility] Administration Benzocaine 1 lozenge 06/08/24 13:49 06/08/24 14:26 Benzocaine/Menthol (*Bkc) 18 Ea Lozenge PO 1 lozenge PRN PRN Administration Sore Throat Cyanocobalamin 1,000 mcg 06/07/24 17:55 06/08/24 09:14 Cyanocobalamin Inj 1,000 Mcg/Ml Vial IM 06/09/24 09:01 1,000 mcg DAILY [facility] Administration Cyanocobalamin 1,000 mcg 06/08/24 09:00 06/08/24 09:13 Cyanocobalamin 1,000 Mcg Tablet PO 1,000 mcg QAM [facility] Administration Enoxaparin Sodium 40 mg 06/07/24 09:00 06/08/24 09:14 Enoxaparin 40 Mg/0.4 Ml Syringe SUB-Q 40 mg DAILY [facility] Administration Folic Acid 1 mg 06/06/24 09:00 06/08/24 09:13 Folic Acid 1 Mg Tablet PO 1 mg DAILY [facility] Administration Guaifenesin 600 mg 06/08/24 21:00 Guaifenesin 12 Hr 600 Mg Tabcr PO Q12HR [facility] Lorazepam 1 mg 06/05/24 16:29 Lorazepam (*Crx) 1 Mg Tablet PO Q2H PRN CIWA 8-15 Lorazepam 2 mg 06/05/24 16:29 Lorazepam (*Crx) 1 Mg Tablet PO Q2H PRN CIWA > 15 Melatonin 5 mg 06/07/24 21:00 06/07/24 21:11 Melatonin 5 Mg Tablet PO 5 mg HS [facility] Administration Morphine Sulfate 2 mg 06/05/24 23:43 Morphine Sulfate (*Crx) 2 Mg/Ml Inj IV PUSH Q4H PRN Pain Rated 7-10 Ondansetron HCl 4 mg 06/05/24 14:36 Ondansetron Inj 4 Mg/2 Ml Vial IV PUSH Q4H PRN Nausea Sodium Chloride 1 gm 06/07/24 17:00 06/08/24 09:13 Sodium Chloride 1 Gm Tablet PO 1 gm BID [facility] Administration Thiamine HCl 100 mg 06/06/24 09:00 06/08/24 09:14 Thiamine Hcl 100 Mg Tablet PO 100 mg QAM [facility] Administration Vitamin D 1,000 units 06/07/24 12:05 06/08/24 09:13 Cholecalciferol 1,000 Units Tablet PO 1,000 units DAILY [facility] Administration Radiology Results: ITS Impressions Head CT 06/05/24 17:07 IMPRESSION: 1. 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 No acute intracranial process. 2. Age-related changes including mild diffuse volume loss and mild scattered white matter hypoattenuation consistent with chronic small vessel ischemic disease. 3. Occlusion of the left frontoethmoidal recess with complete opacification of the left frontal and maxillary sinuses and anterior left ethmoid air cells. Chest/Abdomen/Pelvis CT 06/05/24 17:12 IMPRESSION: 1. A few acute and chronic right-sided rib fractures with very small right pneumothorax. 2. Mildly displaced fracture of the medial head of the left clavicle. 3. Nondisplaced fracture extending across the S2 vertebral body and the lateral sacral ala. 4. No acute intra-abdominal/pelvic process. Chest X-Ray 06/06/24 08:44 IMPRESSION: Mild pulmonary vascular congestion, without focal infiltrate or effusion. No pneumothorax is detected. Carotid Doppler Study 06/07/24 09:39 IMPRESSION: 1. Less than 50% stenosis in the right internal carotid artery by sonographic criteria. 2. Less than 50% stenosis in the left internal carotid artery by sonographic criteria. Labs Labs: Laboratory Results - last 24 hr 06/07/24 06/07/24 06/08/24 16:27 20:26 00:11 WBC RBC Hgb Hct MCV MCH MCHC RDW Plt Count MPV Sodium 117 L* 119 L* 118 L* Potassium Chloride Carbon Dioxide Anion Gap BUN Creatinine Estim Creat Clear Calc Estimated GFR Glucose Calcium Phosphorus Magnesium Total Bilirubin AST ALT Alkaline Phosphatase Total Protein Albumin 06/08/24 06/08/24 04:33 10:53 WBC 9.5 RBC 4.10 L Hgb 14.1 Hct 37.8 L MCV 92.2 MCH 34.4 H MCHC 37.3 H RDW 10.9 L Plt Count 245 MPV 8.6 Sodium 121 L 121 L Potassium 3.3 L Chloride 86 L Carbon Dioxide 25 Anion Gap 10 BUN 6 L Creatinine 0.40 L Estim Creat Clear Calc 132 Estimated GFR > 60 Glucose 108 Calcium 8.3 L Phosphorus 4.5 Magnesium 2.0 Total Bilirubin 1.6 H AST 39 ALT 30 Alkaline Phosphatase 81 Total Protein 7.0 Albumin 3.6
[2024-06-08 17:16] LABS: Sodium 122 mmol/L (137-145)
--- NOTE | 2024-06-08 18:11 | PC.NURSE ---
This RN called [facility] and gave report to Sarah SCHWARZ
--- NOTE | 2024-06-08 18:43 | PC.NURSE ---
pt transferred to [facility] room 348
--- NOTE | 2024-06-08 19:35 | PC.NURSE ---
This patient, Kenneth Drew, was received from [ ] on 06/08/24 at 1845. Patient/family oriented to unit policies and routines
[2024-06-09] VITALS: BP 150/88; PULSE 76; RESP 16; TEMP 36.7; O2SAT 97
[2024-06-09] MEDS: HYDROcodone/acetaminophen (*CRX) 5-325 MG TABLET 1 TAB PO ×2 (03:18→10:06)
[2024-06-09 04:00] VITALS: BP 155/90; PULSE 73; RESP 18; TEMP 36.5; O2SAT 98
[2024-06-09 05:53] LABS: Hematocrit 38.5 % (42.0-52.0); Hemoglobin 13.9 g/dL (14.0-18.0); Mean Corpuscular HGB Conc 36.1 g/dl (32-36); Mean Corpuscular Volume 94.1 fl (80-100); Mean Platelet Volume 8.4 fl (7.4-10.4); Platelet Count Result 290 k/mm3 (150-375); Red Blood Count 4.09 M/mm3 (4.6-6.20); Red Cell Distribution Width 11.1 % (11.5-14.5); White Blood Count 8.4 K/mm3 (4.5-10.0)
[2024-06-09 06:05] LABS: Alanine Aminotransferase 27 U/L (6-50); Albumin Level 3.8 g/dL (3.5-5.1); Alkaline Phosphatase 83 U/L (38-126); Anion Gap 9 mmol/L (4-12); Aspartate Amino Transferase 29 U/L (17-59); Bilirubin,Total 1.3 mg/dL (0.2-1.3); Blood Urea Nitrogen 7 mg/dL (9-20); Calcium 8.6 mg/dL (8.4-10.2); Carbon Dioxide 25 mmol/L (22-30); Chloride 91 mmol/L (98-107); Estimated CRCL calculation 108 ml/min; Estimated Glomerular Filt Rate > 60; Glucose 97 mg/dL (65-110); Magnesium 2.1 mg/dL (1.6-2.3); Potassium 3.8 mmol/L (3.4-5.0); Sodium 125 mmol/L (137-145)
--- NOTE | 2024-06-09 09:20 | PCPTNOTE ---
Patient declines to be seen by therapy again stating he is eating breakfast, but does state he would like a walker in the room when he does get up so PT grabs one for him and states maybe later he will get up and walk to the door and back to make everyone happy.
[2024-06-09] MEDS: CYANOCOBALAMIN 1,000 MCG TABLET 1000 MCG PO (09:59)
[2024-06-09] MEDS: ASPIRIN 81 MG CHEWABLE TABLET PO (10:00)
[2024-06-09] MEDS: ATORVASTATIN 40 MG TABLET PO (10:00)
[2024-06-09] MEDS: FOLIC ACID 1 MG TABLET PO (10:00)
[2024-06-09] MEDS: SODIUM CHLORIDE 1 GM TABLET PO ×2 (10:00→17:17)
[2024-06-09] MEDS: THIAMINE HCL 100 MG TABLET PO (10:00)
[2024-06-09] MEDS: CYANOCOBALAMIN INJ 1,000 MCG/ML VIAL 1000 MCG IM (10:00)
[2024-06-09] MEDS: ENOXAPARIN 40 MG/0.4 ML SYRINGE SUB-Q (10:00)
[2024-06-09] MEDS: FUROSEMIDE 20 MG TABLET PO ×2 (10:00→17:17)
[2024-06-09] MEDS: CHOLECALCIFEROL 1,000 UNITS TABLET 1000 UNITS PO (10:00)
[2024-06-09] MEDS: guaiFENesin 12 HR 600 MG TABCR PO ×2 (10:00→20:25)
--- NOTE | 2024-06-09 10:06 | P.PNNP_ITS ---
Progress Note: A&P Assessment and Plan (1) Hyponatremia: Code(s): E87.1 - Hypo-osmolality and hyponatremia Status: Acute Assessment and Plan: * severe hyponatremia noted on presenation - sodium 106mmol/L * no baseline sodium level to compare to * rapid increase in sodium (106 --> 114 on day of admission) with just normal saline argues in favor of volume depletion playing a role * due to this rapid correction, given DDAVP and D5W IVFs which stabilized rate of rise * goal of therapy is a rate of change of 6 - 8mmol/L in 24 hours -- this has been achieved * evaluation to date noted: * TSH okay * cortisol 15 indicating adequate adrenal function. * urine specific gravity 1.017 suggesting a concentrated urine * urine sodium is low * SPEP & UPEP pending * serum/urine osmo pending * suspected multifactorial etiology: * chronic alcohol intake/abuse * pre-renal factors * he is prescribed trazodone she can lower sodium but has not received any. This was discontinued yesterday. * He is currently on fluid restriction plus salt tablets plus Lasix. * His sodium improved from 121-125. * Will continue the same therapy (2) Hypokalemia: Code(s): E87.6 - Hypokalemia Status: Acute Assessment and Plan: * Potassium is good today (3) Alcohol abuse: Code(s): F10.10 - Alcohol abuse, uncomplicated Status: Acute Assessment and Plan: * knwn to drink at least 6-8 beers daily * monitor for withdrawal. No signs yet * [place] protocol * on thiamine and folic acid (4) Frequent falls: Code(s): R29.6 - Repeated falls Status: Acute Assessment and Plan: * imaging noted * head CT was negative for acute change but with old lacunar infarcts at the right basal ganglia and left side of the eula as well as chronic small vessel ischemic disease along with evidence of sinusitis * PT/OT as tolerated Will continue to follow. Subjective Date/time seen: 06/09/24 10:06 Interval history: Patient feels okay. He ate a good breakfast. He has some aches and pains. Exam Narrative: General: WD/WN male in NAD Heart: normal S1 and S2; no rub or gallop Lungs: clear to auscultation Abdomen: soft, nontender, nondistended, positive bowel sounds Extremities: no cyanosis or clubbing; no edema Skin: No rash Neuro: no tremor Objective Data Vital Signs Vital Signs: Vital Signs - 24 hr 06/08/24 12:00 06/08/24 12:00 06/08/24 14:00 Temperature Pulse Rate 78 79 Respiratory Rate Blood Pressure Pulse Oximetry Oxygen Delivery Room Air 06/08/24 16:00 06/08/24 12:00 06/08/24 16:00 Temperature 98.2 F 98.2 F Pulse Rate 78 77 77 Respiratory Rate 16 16 Blood Pressure 146/74 H 146/74 H Pulse Oximetry 94 94 Oxygen Delivery 06/08/24 16:00 06/08/24 20:00 06/09/24 00:00 Temperature 98.1 F 98.1 F Pulse Rate 83 76 Respiratory Rate 18 16 Blood Pressure 144/85 H 150/88 H Pulse Oximetry 99 97 Oxygen Delivery Room Air 06/09/24 04:00 06/09/24 09:20 Temperature 97.7 F Pulse Rate 73 Respiratory Rate 18 Blood Pressure 155/90 H Pulse Oximetry 98 Oxygen Delivery Room Air Intake/Output Intake/Output: Intake & Output 06/06/24 06/07/24 06/08/24 06/09/24 23:59 23:59 23:59 23:59 Intake Total 440 3690.0 1180 480 Output Total 1750 2700 300 Balance -1310 990.0 880 480 Meds/Results Medications: Active Medications Generic Name Dose Route Start Last Admin Trade Name Freq PRN Reason Stop Dose Admin Acetaminophen 650 mg 06/08/24 16:30 06/08/24 17:39 Acetaminophen 325 Mg Tablet PO 650 mg Q4H PRN Administration Pain Rated 5 or Less Hydrocodone Bitart/Acetaminophen 1 tab 06/08/24 16:30 06/09/24 03:18 Hydrocodone/Acetaminophen (*Crx) 5-325 Mg Tablet PO 1 tab Q6H PRN Administration Pain Rated 6 or Greater Aspirin 81 mg 06/07/24 08:00 06/09/24 10:00 Aspirin 81 Mg Chewable Tablet PO 81 mg DAILY@0800 [facility] Administration Atorvastatin Calcium 40 mg 06/07/24 09:00 06/09/24 10:00 Atorvastatin 40 Mg Tablet PO 40 mg DAILY [facility] Administration Benzocaine 1 lozenge 06/08/24 13:49 06/08/24 17:39 Benzocaine/Menthol (*Bkc) 18 Ea Lozenge PO 1 lozenge PRN PRN Administration Sore Throat Cyanocobalamin 1,000 mcg 06/08/24 09:00 06/09/24 09:59 Cyanocobalamin 1,000 Mcg Tablet PO 1,000 mcg QAM [facility] Administration Enoxaparin Sodium 40 mg 06/07/24 09:00 06/09/24 10:00 Enoxaparin 40 Mg/0.4 Ml Syringe SUB-Q 40 mg DAILY [facility] Administration Folic Acid 1 mg 06/06/24 09:00 06/09/24 10:00 Folic Acid 1 Mg Tablet PO 1 mg DAILY [facility] Administration Furosemide 20 mg 06/09/24 09:00 06/09/24 10:00 Furosemide 20 Mg Tablet PO 20 mg BID [facility] Administration Guaifenesin 600 mg 06/08/24 21:00 06/09/24 10:00 Guaifenesin 12 Hr 600 Mg Tabcr PO 600 mg Q12HR [facility] Administration Melatonin 5 mg 06/07/24 21:00 06/09/24 03:16 Melatonin 5 Mg Tablet PO Not Given HS [facility] Ondansetron HCl 4 mg 06/05/24 14:36 Ondansetron Inj 4 Mg/2 Ml Vial IV PUSH Q4H PRN Nausea Sodium Chloride 1 gm 06/07/24 17:00 06/09/24 10:00 Sodium Chloride 1 Gm Tablet PO 1 gm BID [facility] Administration Thiamine HCl 100 mg 06/06/24 09:00 06/09/24 10:00 Thiamine Hcl 100 Mg Tablet PO 100 mg QAM [facility] Administration Vitamin D 1,000 units 06/07/24 12:05 06/09/24 10:00 Cholecalciferol 1,000 Units Tablet PO 1,000 units DAILY [facility] Administration Radiology Results: ITS Impressions Head CT 06/05/24 17:07 IMPRESSION: 1. 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 No acute intracranial process. 2. Age-related changes including mild diffuse volume loss and mild scattered white matter hypoattenuation consistent with chronic small vessel ischemic disease. 3. Occlusion of the left frontoethmoidal recess with complete opacification of the left frontal and maxillary sinuses and anterior left ethmoid air cells. Chest/Abdomen/Pelvis CT 06/05/24 17:12 IMPRESSION: 1. A few acute and chronic right-sided rib fractures with very small right pneumothorax. 2. Mildly displaced fracture of the medial head of the left clavicle. 3. Nondisplaced fracture extending across the S2 vertebral body and the lateral sacral ala. 4. No acute intra-abdominal/pelvic process. Chest X-Ray 06/06/24 08:44 IMPRESSION: Mild pulmonary vascular congestion, without focal infiltrate or effusion. No pneumothorax is detected. Carotid Doppler Study 06/07/24 09:39 IMPRESSION: 1. Less than 50% stenosis in the right internal carotid artery by sonographic criteria. 2. Less than 50% stenosis in the left internal carotid artery by sonographic criteria. Labs Labs: Laboratory Results - last 24 hr 06/08/24 06/08/24 06/09/24 10:53 16:55 05:37 WBC 8.4 RBC 4.09 L Hgb 13.9 L Hct 38.5 L MCV 94.1 MCH 34.0 MCHC 36.1 H RDW 11.1 L Plt Count 290 MPV 8.4 Sodium 121 L 122 L 125 L Potassium 3.8 Chloride 91 L Carbon Dioxide 25 Anion Gap 9 BUN 7 L Creatinine 0.50 L Estim Creat Clear Calc 108 Estimated GFR > 60 Glucose 97 Calcium 8.6 Phosphorus 4.0 Magnesium 2.1 Total Bilirubin 1.3 AST 29 ALT 27 Alkaline Phosphatase 83 Total Protein 8.0 Albumin 3.8
[2024-06-09 10:40] VITALS: BP 145/77; PULSE 80; RESP 16; TEMP 36.2; O2SAT 97
--- NOTE | 2024-06-09 13:34 | PM.IMPN ---
Progress Note: A&P Assessment and Plan (1) Hyponatremia: Code(s): E87.1 - Hypo-osmolality and hyponatremia Status: Acute Assessment and Plan: Patient presented with weakness and found to have severe hyponatremia with Na level at 106. No baseline to compare Likely secondary to alcohol intake, beer potomania and/or dehydration from poor oral intake. TSH and cortisol normal. Emile <5 consistent with dehydration Patient received 2 L of saline bolus in the ER but sodium increased rapidly to 114 so patient was given DDAVP and D5 water to prevent rapid increases. Sodium stabilized and now has been rising more slowly; patient feeling better. Nephrology is managing sodium. IV fluids resumed again but now off. NaCl tablets started. Na back up to 125. Monitor serial sodium levels. Appreciate nephrology input (2) Alcohol abuse: Code(s): F10.10 - Alcohol abuse, uncomplicated Status: Acute Assessment and Plan: Patient drinks 6-8 beers daily. We monitored for withdrawal signs and symptoms with CIWA protocol. CIWA 0-2 range and now he is off the protocol. Ativan prn ordered but not required Continue Thiamine and folate Patient was counseled and encouraged to quit all alcohol use (3) Frequent falls: Code(s): R29.6 - Repeated falls Status: Acute Assessment and Plan: Head CT was negative for acute change but showed old lacunar infarcts at the right basal ganglia and left side of the eula as well as chronic small vessel ischemic disease and evidence of sinusitis. Carotid US showing <50% stenosis bilateral ICAs. B12 level low end of normal. MMA ordered and B12 replaced. [place] falls and weakness related to old CVAs and alcoholism complicated by malnutrition and dehydration. PT OT. Continue Lipitor and ASA. He is refusing PT. Long discussion with patient about the need to be up ambulating here with therapy before discharge. He voices understanding. Care coordination to look into SNF. (4) CVA (cerebral vascular accident): Code(s): I63.9 - Cerebral infarction, unspecified Status: Acute Assessment and Plan: As above (5) Hypokalemia: Code(s): E87.6 - Hypokalemia Status: Acute Assessment and Plan: Potassium replaced. Continue to monitor and replace as needed. Follow (6) Hyperbilirubinemia: Code(s): E80.6 - Other disorders of bilirubin metabolism Status: Acute Assessment and Plan: TB 4.2 on admission all indirect. CT scan showing normal liver, GB and pancreas. Probably related to [place] or from alcoholism. Levels trended down now that he is eating Follow (7) Pneumothorax: Code(s): J93.9 - Pneumothorax, unspecified Status: Acute Assessment and Plan: CT chest showing a very small right PTX probably related to his recent falls and rib fratures. CXR repeated showing no PTX Complains of pain with coughing. Will add mucinex and have lozenges available prn. Add incentive spirometry. Repeat CXR today. Follow clinically. (8) Fracture: Code(s): T14.8XXA - Other injury of unspecified body region, initial encounter Status: Acute Assessment and Plan: Imaging showing acute and chronic right-sided rib fractures, mildly displaced fracture of the medial head of the left clavicle with surrounding small hematoma, nondisplaced fracture extending across the S2 vertebral body and the lateral sacral ala and chronic appearing compression fractures with 20% anterior vertebral body height loss at T12 and <20% anterior vertebral body height loss at T11. Multiple fractures in various stages of healing. Most related to falls but consider osteoporosis. Vit D level <12.8. He will need bone density scan. VitD being replaced. Repeat xray. Sling for when he is up out of bed (9) Complicated grief: Code(s): F43.21 - Adjustment disorder with depressed mood Status: Acute Assessment and Plan: Patient has been grieving loss of her mother. He may be depressed but will need to be evaluated once metabolic and issues are sorted out. He denies any suicidal homicidal ideations at this time and does not need one-to-one sitter. Plan DVT prophylaxis -Lovenox Code Status - Full Code Subjective Date/time seen: 06/09/24 13:34 Interval history: 63yo male with hx of alcohol abuse here for weakness. Slept well. No clavicular pain. Cough persistent. Uses walker at home. Has toruble being out of bed due to pain. he denies urine incontinence. Complains of pain right medial thigh Exam Narrative: AF 97.2 145/77 80 16 97% ra Gen - NARD lying almost flat in bed Chest - a few scattered rhonchi, decreased swelling to the left clavicular head. CV - RRR S1/S2 Abd - Soft, ND, Positive BS. diaper in place Ext - No pedal edema. pain to palpate and worse right leg adduction Neuro - Alert and appropriate. No tremors. heel to bernner minor dysmetria. LE strength 4/5. Psych - Nml mood but odd affect and with poor reasoning. Skin - Warm and dry. chest wall bruising noted left upper chest. Objective Data Vital Signs Vital Signs: Vital Signs - 24 hr 06/08/24 14:00 06/08/24 16:00 06/08/24 16:00 Temperature 98.2 F Pulse Rate 79 78 77 Respiratory Rate 16 Blood Pressure 146/74 H Pulse Oximetry 94 Oxygen Delivery 06/08/24 16:00 06/08/24 20:00 06/09/24 00:00 Temperature 98.1 F 98.1 F Pulse Rate 83 76 Respiratory Rate 18 16 Blood Pressure 144/85 H 150/88 H Pulse Oximetry 99 97 Oxygen Delivery Room Air 06/09/24 04:00 06/09/24 09:20 06/09/24 10:40 Temperature 97.7 F 97.2 F L Pulse Rate 73 80 Respiratory Rate 18 16 Blood Pressure 155/90 H 145/77 H Pulse Oximetry 98 97 Oxygen Delivery Room Air 06/09/24 11:28 Temperature Pulse Rate Respiratory Rate Blood Pressure Pulse Oximetry Oxygen Delivery Room Air Intake/Output Intake/Output: Intake & Output 06/06/24 06/07/24 06/08/24 06/09/24 23:59 23:59 23:59 23:59 Intake Total 440 3690.0 1180 480 Output Total 1750 2700 300 Balance -1310 990.0 880 480 Meds/Results Medications: Active Medications Generic Name Dose Route Start Last Admin Trade Name Freq PRN Reason Stop Dose Admin Acetaminophen 650 mg 06/08/24 16:30 06/08/24 17:39 Acetaminophen 325 Mg Tablet PO 650 mg Q4H PRN Administration Pain Rated 5 or Less Hydrocodone Bitart/Acetaminophen 1 tab 06/08/24 16:30 06/09/24 10:06 Hydrocodone/Acetaminophen (*Crx) 5-325 Mg Tablet PO 1 tab Q6H PRN Administration Pain Rated 6 or Greater Aspirin 81 mg 06/07/24 08:00 06/09/24 10:00 Aspirin 81 Mg Chewable Tablet PO 81 mg DAILY@0800 MONICA Administration Atorvastatin Calcium 40 mg 06/07/24 09:00 06/09/24 10:00 Atorvastatin 40 Mg Tablet PO 40 mg DAILY MONICA Administration Benzocaine 1 lozenge 06/08/24 13:49 06/08/24 17:39 Benzocaine/Menthol (*Bkc) 18 Ea Lozenge PO 1 lozenge PRN PRN Administration Sore Throat Cyanocobalamin 1,000 mcg 06/08/24 09:00 06/09/24 09:59 Cyanocobalamin 1,000 Mcg Tablet PO 1,000 mcg QAM MONICA Administration Enoxaparin Sodium 40 mg 06/07/24 09:00 06/09/24 10:00 Enoxaparin 40 Mg/0.4 Ml Syringe SUB-Q 40 mg DAILY MONICA Administration Folic Acid 1 mg 06/06/24 09:00 06/09/24 10:00 Folic Acid 1 Mg Tablet PO 1 mg DAILY MONICA Administration Furosemide 20 mg 06/09/24 09:00 06/09/24 10:00 Furosemide 20 Mg Tablet PO 20 mg BID MONICA Administration Guaifenesin 600 mg 06/08/24 21:00 06/09/24 10:00 Guaifenesin 12 Hr 600 Mg Tabcr PO 600 mg Q12HR MONICA Administration Melatonin 5 mg 06/07/24 21:00 06/09/24 03:16 Melatonin 5 Mg Tablet PO Not Given HS MONICA Ondansetron HCl 4 mg 06/05/24 14:36 Ondansetron Inj 4 Mg/2 Ml Vial IV PUSH Q4H PRN Nausea Sodium Chloride 1 gm 06/07/24 17:00 06/09/24 10:00 Sodium Chloride 1 Gm Tablet PO 1 gm BID MONICA Administration Thiamine HCl 100 mg 06/06/24 09:00 06/09/24 10:00 Thiamine Hcl 100 Mg Tablet PO 100 mg QAM MONICA Administration Vitamin D 1,000 units 06/07/24 12:05 06/09/24 10:00 Cholecalciferol 1,000 Units Tablet PO 1,000 units DAILY MONICA Administration Radiology Results: ITS Impressions Head CT 06/05/24 17:07 IMPRESSION: 1. 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 No acute intracranial process. 2. Age-related changes including mild diffuse volume loss and mild scattered white matter hypoattenuation consistent with chronic small vessel ischemic disease. 3. Occlusion of the left frontoethmoidal recess with complete opacification of the left frontal and maxillary sinuses and anterior left ethmoid air cells. Chest/Abdomen/Pelvis CT 06/05/24 17:12 IMPRESSION: 1. A few acute and chronic right-sided rib fractures with very small right pneumothorax. 2. Mildly displaced fracture of the medial head of the left clavicle. 3. Nondisplaced fracture extending across the S2 vertebral body and the lateral sacral ala. 4. No acute intra-abdominal/pelvic process. Chest X-Ray 06/06/24 08:44 IMPRESSION: Mild pulmonary vascular congestion, without focal infiltrate or effusion. No pneumothorax is detected. Carotid Doppler Study 06/07/24 09:39 IMPRESSION: 1. Less than 50% stenosis in the right internal carotid artery by sonographic criteria. 2. Less than 50% stenosis in the left internal carotid artery by sonographic criteria. Labs Labs: Laboratory Results - last 24 hr 06/08/24 06/09/24 16:55 05:37 WBC 8.4 RBC 4.09 L Hgb 13.9 L Hct 38.5 L MCV 94.1 MCH 34.0 MCHC 36.1 H RDW 11.1 L Plt Count 290 MPV 8.4 Sodium 122 L 125 L Potassium 3.8 Chloride 91 L Carbon Dioxide 25 Anion Gap 9 BUN 7 L Creatinine 0.50 L Estim Creat Clear Calc 108 Estimated GFR > 60 Glucose 97 Calcium 8.6 Phosphorus 4.0 Magnesium 2.1 Total Bilirubin 1.3 AST 29 ALT 27 Alkaline Phosphatase 83 Total Protein 8.0 Albumin 3.8
[2024-06-09 14:54] VITALS: BP 146/81; PULSE 85; RESP 16; TEMP 36.7; O2SAT 94
[2024-06-09 16:44] LABS: Sodium 123 mmol/L (137-145)
[2024-06-09 17:50] VITALS: BP 149/94; PULSE 87; RESP 16; TEMP 36.3; O2SAT 98
[2024-06-09 20:00] VITALS: BP 162/91; PULSE 83; RESP 18; TEMP 36.8; O2SAT 97
[2024-06-09] MEDS: MELATONIN 5 MG TABLET PO (20:25)
--- NOTE | 2024-06-09 23:25 | PC.NURSE ---
Pt has been on med surg floor for 24H. Per protocal VS changed to q8H
[2024-06-10] MEDS: HYDROcodone/acetaminophen (*CRX) 5-325 MG TABLET 1 TAB PO ×3 (00:42→17:06)
[2024-06-10 05:38] LABS: Methylmalonic Acid 309 nmol/L (69-390)
[2024-06-10 05:59] LABS: Anion Gap 6 mmol/L (4-12); Blood Urea Nitrogen 6 mg/dL (9-20); Calcium 8.3 mg/dL (8.4-10.2); Carbon Dioxide 27 mmol/L (22-30); Chloride 88 mmol/L (98-107); Estimated CRCL calculation 108 ml/min; Estimated Glomerular Filt Rate > 60; Glucose 100 mg/dL (65-110); Potassium 3.7 mmol/L (3.4-5.0); Sodium 121 mmol/L (137-145)
[2024-06-10 06:00] VITALS: BP 145/75; PULSE 73; RESP 18; TEMP 36.6; O2SAT 94
[2024-06-10] MEDS: ATORVASTATIN 40 MG TABLET PO (08:27)
[2024-06-10] MEDS: CHOLECALCIFEROL 1,000 UNITS TABLET 1000 UNITS PO (08:27)
[2024-06-10] MEDS: THIAMINE HCL 100 MG TABLET PO (08:27)
[2024-06-10] MEDS: guaiFENesin 12 HR 600 MG TABCR PO ×2 (08:27→21:28)
[2024-06-10] MEDS: ASPIRIN 81 MG CHEWABLE TABLET PO (08:27)
[2024-06-10] MEDS: SODIUM CHLORIDE 1 GM TABLET PO ×3 (08:27→23:26)
[2024-06-10] MEDS: CYANOCOBALAMIN 1,000 MCG TABLET 1000 MCG PO (08:27)
[2024-06-10] MEDS: MEGESTROL ACETATE (*CHEMO) 20 MG TABLET PO (08:27)
[2024-06-10] MEDS: FUROSEMIDE 20 MG TABLET PO ×2 (08:27→17:06)
[2024-06-10] MEDS: ENOXAPARIN 40 MG/0.4 ML SYRINGE SUB-Q (08:27)
[2024-06-10] MEDS: FOLIC ACID 1 MG TABLET PO (08:27)
[2024-06-10 10:28] LABS: Creatinine, Random Urine 43 mg/dL (20-320); Total Prot/Creat ratio mg/mg 0.163 (0.025-0.148); Total Protein/Creatinine Ratio 163 mg/g creat (25-148)
--- NOTE | 2024-06-10 10:45 | P.PNNP_ITS ---
Progress Note: A&P Assessment and Plan (1) Hyponatremia: Code(s): E87.1 - Hypo-osmolality and hyponatremia Status: Acute Assessment and Plan: * severe hyponatremia noted on presentation - sodium 106mmol/L * no baseline sodium level to compare to... * possible chronic hyponatremia?? * rapid increase in sodium (106 --> 114 on day of admission) with just normal saline argues in favor of volume depletion playing a role * due to this rapid correction, given DDAVP and D5W IVFs which stabilized rate of rise * goal of therapy is a rate of change of 6 - 8mmol/L in 24 hours -- this has been achieved * evaluation to date noted: * TSH okay * cortisol 15 indicating adequate adrenal function * urine specific gravity 1.017 suggesting a concentrated urine * urine sodium is low * SPEP & UPEP pending * serum/urine osmo pending * suspected multifactorial etiology: * chronic alcohol intake/abuse * pre-renal factors * on fluid restriction plus salt tablets plus Lasix. * will increase salt tabs to 1500mg bid * follow trend of sodium (2) Hypokalemia: Code(s): E87.6 - Hypokalemia Status: Acute Assessment and Plan: * relatively stable * follow tnred (3) Alcohol abuse: Code(s): F10.10 - Alcohol abuse, uncomplicated Status: Acute Assessment and Plan: * knwn to drink at least 6-8 beers daily * monitor for withdrawal * WA protocol * on thiamine and folic acid (4) Frequent falls: Code(s): R29.6 - Repeated falls Status: Acute Assessment and Plan: * imaging noted * head CT was negative for acute change but with old lacunar infarcts at the right basal ganglia and left side of the eula as well as chronic small vessel ischemic disease along with evidence of sinusitis * PT/OT as tolerated Will continue to follow. Subjective Date/time seen: 06/10/24 10:45 Interval history: Follow-up for hyponatremia. Chart reviewed since last seen -- despite ongoing efforts/interventions to date, sodium appears to have flat-lined ; not really working with PT/OT that much; reports adequate oral intake but noted to be quite poor per nursing; ongoing back pain noted but tolerable with medications. Exam Narrative: General: WD/WN male in NAD Heart: normal S1 and S2; no rub Lungs: clear to auscultation Abdomen: soft, nontender, nondistended, positive bowel sounds Extremities: no cyanosis or clubbing; no edema Skin: no nodules Objective Data Vital Signs Vital Signs: Vital Signs Temp Pulse Resp BP Pulse Ox O2 Del Method 06/10/24 08:15 Room Air 06/10/24 07:59 Room Air 06/10/24 06:00 97.9 F 73 18 145/75 H 94 06/09/24 20:00 98.2 F 83 18 162/91 H 97 Intake/Output Intake/Output: Intake & Output 06/07/24 06/08/24 06/09/24 06/10/24 23:59 23:59 23:59 23:59 Intake Total 3690.0 1180 840 360 Output Total 2700 300 Balance 990.0 880 840 360 Meds/Results Medications: Active Medications Generic Name Dose Route Start Last Admin Trade Name Freq PRN Reason Stop Dose Admin Acetaminophen 650 mg 06/08/24 16:30 06/08/24 17:39 Acetaminophen 325 Mg Tablet PO 650 mg Q4H PRN Administration Pain Rated 5 or Less Hydrocodone Bitart/Acetaminophen 1 tab 06/08/24 16:30 06/10/24 17:06 Hydrocodone/Acetaminophen (*Crx) 5-325 Mg Tablet PO 1 tab Q6H PRN Administration Pain Rated 6 or Greater Aspirin 81 mg 06/07/24 08:00 06/10/24 08:27 Aspirin 81 Mg Chewable Tablet PO 81 mg DAILY@0800 MONICA Administration Atorvastatin Calcium 40 mg 06/07/24 09:00 06/10/24 08:27 Atorvastatin 40 Mg Tablet PO 40 mg DAILY MONICA Administration Benzocaine 1 lozenge 06/08/24 13:49 06/08/24 17:39 Benzocaine/Menthol (*Bkc) 18 Ea Lozenge PO 1 lozenge PRN PRN Administration Sore Throat Cyanocobalamin 1,000 mcg 06/08/24 09:00 06/10/24 08:27 Cyanocobalamin 1,000 Mcg Tablet PO 1,000 mcg QAM MONICA Administration Enoxaparin Sodium 40 mg 06/07/24 09:00 06/10/24 08:27 Enoxaparin 40 Mg/0.4 Ml Syringe SUB-Q 40 mg DAILY MONICA Administration Folic Acid 1 mg 06/06/24 09:00 06/10/24 08:27 Folic Acid 1 Mg Tablet PO 1 mg DAILY MONICA Administration Furosemide 20 mg 06/09/24 09:00 06/10/24 17:06 Furosemide 20 Mg Tablet PO 20 mg BID MONICA Administration Guaifenesin 600 mg 06/08/24 21:00 06/10/24 08:27 Guaifenesin 12 Hr 600 Mg Tabcr PO 600 mg Q12HR MONICA Administration Megestrol Acetate 20 mg 06/10/24 09:00 06/10/24 08:27 Megestrol Acetate (*Chemo) 20 Mg Tablet PO 20 mg QAM MONICA Administration Melatonin 5 mg 06/07/24 21:00 06/09/24 20:25 Melatonin 5 Mg Tablet PO 5 mg HS MONICA Administration Ondansetron HCl 4 mg 06/05/24 14:36 Ondansetron Inj 4 Mg/2 Ml Vial IV PUSH Q4H PRN Nausea Sodium Chloride 1 gm 06/07/24 17:00 06/10/24 17:06 Sodium Chloride 1 Gm Tablet PO 1 gm BID MONICA Administration Thiamine HCl 100 mg 06/06/24 09:00 06/10/24 08:27 Thiamine Hcl 100 Mg Tablet PO 100 mg QAM MONICA Administration Vitamin D 1,000 units 06/07/24 12:05 06/10/24 08:27 Cholecalciferol 1,000 Units Tablet PO 1,000 units DAILY MONICA Administration Radiology Results: ITS Impressions Head CT 06/05/24 17:07 IMPRESSION: 1. 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 No acute intracranial process. 2. Age-related changes including mild diffuse volume loss and mild scattered white matter hypoattenuation consistent with chronic small vessel ischemic disease. 3. Occlusion of the left frontoethmoidal recess with complete opacification of the left frontal and maxillary sinuses and anterior left ethmoid air cells. Chest/Abdomen/Pelvis CT 06/05/24 17:12 IMPRESSION: 1. A few acute and chronic right-sided rib fractures with very small right pneumothorax. 2. Mildly displaced fracture of the medial head of the left clavicle. 3. Nondisplaced fracture extending across the S2 vertebral body and the lateral sacral ala. 4. No acute intra-abdominal/pelvic process. Carotid Doppler Study 06/07/24 09:39 IMPRESSION: 1. Less than 50% stenosis in the right internal carotid artery by sonographic criteria. 2. Less than 50% stenosis in the left internal carotid artery by sonographic criteria. Chest X-Ray 06/09/24 15:22 IMPRESSION: No active cardiopulmonary disease ADDENDUM: 06/09/24 1530 There are displaced fractures of the anterior aspect of the right ninth, 10th and probably 11th rib fractures. Clavicle X-Ray 06/09/24 15:28 IMPRESSION: Minimally inferiorly displaced medial left clavicle fracture Labs Labs: Laboratory Tests 06/09/24 05:37 06/10/24 05:37
--- NOTE | 2024-06-10 13:04 | PM.IMPN ---
Progress Note: A&P Assessment and Plan (1) Hyponatremia: Code(s): E87.1 - Hypo-osmolality and hyponatremia Status: Acute Assessment and Plan: Patient presented with weakness and found to have severe hyponatremia with Na level at 106. No baseline to compare Likely secondary to alcohol intake, beer potomania and/or dehydration from poor oral intake. TSH and cortisol normal. Emile <5 consistent with dehydration Patient received 2 L of saline bolus in the ER but sodium increased rapidly to 114 so patient was given DDAVP and D5 water to prevent rapid increases. Sodium stabilized and now has been rising more slowly; patient feeling better. Nephrology is managing sodium. IV fluids resumed again but now off. NaCl tablets started. Na stable in the low 120 range Monitor serial sodium levels. Appreciate nephrology input. Consider IV fluids since not eating much. (2) Alcohol abuse: Code(s): F10.10 - Alcohol abuse, uncomplicated Status: Acute Assessment and Plan: Patient drinks 6-8 beers daily. We monitored for withdrawal signs and symptoms with CIWA protocol. CIWA 0-2 range and now he is off the protocol. Ativan prn ordered but not required Continue Thiamine and folate Patient was counseled and encouraged to quit all alcohol use (3) Frequent falls: Code(s): R29.6 - Repeated falls Status: Acute Assessment and Plan: Head CT was negative for acute change but showed old lacunar infarcts at the right basal ganglia and left side of the eula as well as chronic small vessel ischemic disease and evidence of sinusitis. Carotid US showing <50% stenosis bilateral ICAs. B12 level low end of normal. MMA normal. B12 replaced. [place] falls and weakness related to old CVAs and alcoholism complicated by malnutrition and dehydration. PT OT. Continue Lipitor and ASA. He is refusing PT. Long discussion with patient about the need to be up ambulating here with therapy before discharge. He voices understanding. Care coordination to look into SNF. (4) Fracture: Code(s): T14.8XXA - Other injury of unspecified body region, initial encounter Status: Acute Assessment and Plan: Imaging showing acute and chronic right-sided rib fractures, mildly displaced fracture of the medial head of the left clavicle with surrounding small hematoma, nondisplaced fracture extending across the S2 vertebral body and the lateral sacral ala and chronic appearing compression fractures with 20% anterior vertebral body height loss at T12 and <20% anterior vertebral body height loss at T11. Multiple fractures in various stages of healing. Most related to falls but consider osteoporosis. Vit D level <12.8. He will need bone density scan. VitD being replaced. Repeat xray noted. Sling for when he is up out of bed (5) CVA (cerebral vascular accident): Code(s): I63.9 - Cerebral infarction, unspecified Status: Acute Assessment and Plan: As above (6) Hypokalemia: Code(s): E87.6 - Hypokalemia Status: Acute Assessment and Plan: Potassium replaced. Continue to monitor and replace as needed. Follow (7) Hyperbilirubinemia: Code(s): E80.6 - Other disorders of bilirubin metabolism Status: Acute Assessment and Plan: TB 4.2 on admission all indirect. CT scan showing normal liver, GB and pancreas. Probably related to [place] or from alcoholism. Levels trended down now that he is eating Follow (8) Pneumothorax: Code(s): J93.9 - Pneumothorax, unspecified Status: Acute Assessment and Plan: CT chest showing a very small right PTX probably related to his recent falls and rib fratures. CXR repeated showing no PTX Complains of pain with coughing. Will add mucinex and have lozenges available prn. Add incentive spirometry. Repeat CXR showing no PTX Follow clinically. (9) Complicated grief: Code(s): F43.21 - Adjustment disorder with depressed mood Status: Acute Assessment and Plan: Patient has been grieving loss of her mother. He may be depressed but will need to be evaluated once metabolic and issues are sorted out. He denies any suicidal homicidal ideations at this time and does not need one-to-one sitter. Plan DVT prophylaxis -Lovenox Code Status - Full Code Subjective Date/time seen: 06/10/24 13:04 Interval history: 63yo male with hx of alcohol abuse here for weakness. Refused to work with PT yesterday but did sit at the side of the bed for OT. He was up to the chair today. Poor oral intake. slept well. Back pain tolerable. Not walking. cough better. Exam Narrative: AF 97.9 145/75 73 18 94% ra Gen - NARD lying almost flat in bed Chest - lungs clear anteriorly. CV - RRR S1/S2 Abd - Soft, ND, Positive BS Ext - No pedal edema Psych - Nml mood but odd affect and with poor reasoning. Skin - Warm and dry. chest wall bruising noted left upper chest. Objective Data Vital Signs Vital Signs: Vital Signs - 24 hr 06/09/24 14:54 06/09/24 17:50 06/09/24 20:00 Temperature 98.0 F 97.4 F L 98.2 F Pulse Rate 85 87 83 Respiratory Rate 16 16 18 Blood Pressure 146/81 H 149/94 H 162/91 H Pulse Oximetry 94 98 97 Oxygen Delivery 06/10/24 06:00 06/10/24 07:59 06/10/24 08:15 Temperature 97.9 F Pulse Rate 73 Respiratory Rate 18 Blood Pressure 145/75 H Pulse Oximetry 94 Oxygen Delivery Room Air Room Air Intake/Output Intake/Output: Intake & Output 06/07/24 06/08/24 06/09/24 06/10/24 23:59 23:59 23:59 23:59 Intake Total 3690.0 1180 840 240 Output Total 2700 300 Balance 990.0 880 840 240 Meds/Results Medications: Active Medications Generic Name Dose Route Start Last Admin Trade Name Freq PRN Reason Stop Dose Admin Acetaminophen 650 mg 06/08/24 16:30 06/08/24 17:39 Acetaminophen 325 Mg Tablet PO 650 mg Q4H PRN Administration Pain Rated 5 or Less Hydrocodone Bitart/Acetaminophen 1 tab 06/08/24 16:30 06/10/24 08:26 Hydrocodone/Acetaminophen (*Crx) 5-325 Mg Tablet PO 1 tab Q6H PRN Administration Pain Rated 6 or Greater Aspirin 81 mg 06/07/24 08:00 06/10/24 08:27 Aspirin 81 Mg Chewable Tablet PO 81 mg DAILY@0800 MONICA Administration Atorvastatin Calcium 40 mg 06/07/24 09:00 06/10/24 08:27 Atorvastatin 40 Mg Tablet PO 40 mg DAILY MONICA Administration Benzocaine 1 lozenge 06/08/24 13:49 06/08/24 17:39 Benzocaine/Menthol (*Bkc) 18 Ea Lozenge PO 1 lozenge PRN PRN Administration Sore Throat Cyanocobalamin 1,000 mcg 06/08/24 09:00 06/10/24 08:27 Cyanocobalamin 1,000 Mcg Tablet PO 1,000 mcg QAM MONICA Administration Enoxaparin Sodium 40 mg 06/07/24 09:00 06/10/24 08:27 Enoxaparin 40 Mg/0.4 Ml Syringe SUB-Q 40 mg DAILY MONICA Administration Folic Acid 1 mg 06/06/24 09:00 06/10/24 08:27 Folic Acid 1 Mg Tablet PO 1 mg DAILY MONICA Administration Furosemide 20 mg 06/09/24 09:00 06/10/24 08:27 Furosemide 20 Mg Tablet PO 20 mg BID MONICA Administration Guaifenesin 600 mg 06/08/24 21:00 06/10/24 08:27 Guaifenesin 12 Hr 600 Mg Tabcr PO 600 mg Q12HR MONICA Administration Megestrol Acetate 20 mg 06/10/24 09:00 06/10/24 08:27 Megestrol Acetate (*Chemo) 20 Mg Tablet PO 20 mg QAM MONICA Administration Melatonin 5 mg 06/07/24 21:00 06/09/24 20:25 Melatonin 5 Mg Tablet PO 5 mg HS MONICA Administration Ondansetron HCl 4 mg 06/05/24 14:36 Ondansetron Inj 4 Mg/2 Ml Vial IV PUSH Q4H PRN Nausea Sodium Chloride 1 gm 06/07/24 17:00 06/10/24 08:27 Sodium Chloride 1 Gm Tablet PO 1 gm BID MONICA Administration Thiamine HCl 100 mg 06/06/24 09:00 06/10/24 08:27 Thiamine Hcl 100 Mg Tablet PO 100 mg QAM MONICA Administration Vitamin D 1,000 units 06/07/24 12:05 06/10/24 08:27 Cholecalciferol 1,000 Units Tablet PO 1,000 units DAILY MONICA Administration Radiology Results: ITS Impressions Head CT 06/05/24 17:07 IMPRESSION: 1. 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 No acute intracranial process. 2. Age-related changes including mild diffuse volume loss and mild scattered white matter hypoattenuation consistent with chronic small vessel ischemic disease. 3. Occlusion of the left frontoethmoidal recess with complete opacification of the left frontal and maxillary sinuses and anterior left ethmoid air cells. Chest/Abdomen/Pelvis CT 06/05/24 17:12 IMPRESSION: 1. A few acute and chronic right-sided rib fractures with very small right pneumothorax. 2. Mildly displaced fracture of the medial head of the left clavicle. 3. Nondisplaced fracture extending across the S2 vertebral body and the lateral sacral ala. 4. No acute intra-abdominal/pelvic process. Carotid Doppler Study 06/07/24 09:39 IMPRESSION: 1. Less than 50% stenosis in the right internal carotid artery by sonographic criteria. 2. Less than 50% stenosis in the left internal carotid artery by sonographic criteria. Chest X-Ray 06/09/24 15:22 IMPRESSION: No active cardiopulmonary disease ADDENDUM: 06/09/24 1530 There are displaced fractures of the anterior aspect of the right ninth, 10th and probably 11th rib fractures. Clavicle X-Ray 06/09/24 15:28 IMPRESSION: Minimally inferiorly displaced medial left clavicle fracture Labs Labs: Laboratory Results - last 24 hr 06/07/24 06/07/24 06/09/24 04:29 18:19 16:22 Sodium 123 L Potassium Chloride Carbon Dioxide Anion Gap BUN Creatinine Estim Creat Clear Calc Estimated GFR Glucose Calcium Methylmalonic Acid 309 Ur Random Creatinine 43 U Random Total Protein 7 Protein/Creatinin Ratio 163 H 06/10/24 05:37 Sodium 121 L Potassium 3.7 Chloride 88 L Carbon Dioxide 27 Anion Gap 6 BUN 6 L Creatinine 0.50 L Estim Creat Clear Calc 108 Estimated GFR > 60 Glucose 100 Calcium 8.3 L Methylmalonic Acid Ur Random Creatinine U Random Total Protein Protein/Creatinin Ratio
[2024-06-10 14:00] VITALS: BP 146/78; PULSE 80; RESP 18; TEMP 35.9; O2SAT 97
[2024-06-10 14:20] LABS: Protein, Total 6.1 g/dL (6.1-8.1)
[2024-06-10 21:17] VITALS: BP 153/87; PULSE 89; RESP 18; TEMP 37.1; O2SAT 95
[2024-06-10] MEDS: MELATONIN 5 MG TABLET PO (21:28)
[2024-06-10] MEDS: BENZOCAINE/MENTHOL (*BKC) 18 EA LOZENGE 1 LOZENGE PO (21:30)
[2024-06-11] MEDS: HYDROcodone/acetaminophen (*CRX) 5-325 MG TABLET 1 TAB PO ×3 (01:24→20:43)
[2024-06-11 04:10] VITALS: BP 152/78; PULSE 84; RESP 16; TEMP 36.8; O2SAT 98
[2024-06-11 06:47] LABS: Anion Gap 9 mmol/L (4-12); Blood Urea Nitrogen 7 mg/dL (9-20); Calcium 8.8 mg/dL (8.4-10.2); Carbon Dioxide 29 mmol/L (22-30); Chloride 88 mmol/L (98-107); Estimated CRCL calculation 92 ml/min; Estimated Glomerular Filt Rate > 60; Glucose 95 mg/dL (65-110); Potassium 4.1 mmol/L (3.4-5.0); Sodium 126 mmol/L (137-145)
[2024-06-11] MEDS: ATORVASTATIN 40 MG TABLET PO (09:57)
[2024-06-11] MEDS: FOLIC ACID 1 MG TABLET PO (09:57)
[2024-06-11] MEDS: SODIUM CHLORIDE 500 MG TABLET PO ×2 (09:57→17:01)
[2024-06-11] MEDS: ASPIRIN 81 MG CHEWABLE TABLET PO (09:57)
[2024-06-11] MEDS: MEGESTROL ACETATE (*CHEMO) 20 MG TABLET PO (09:57)
[2024-06-11] MEDS: THIAMINE HCL 100 MG TABLET PO (09:57)
[2024-06-11] MEDS: FUROSEMIDE 20 MG TABLET PO ×2 (09:57→17:01)
[2024-06-11] MEDS: guaiFENesin 12 HR 600 MG TABCR PO ×2 (09:57→20:44)
[2024-06-11] MEDS: CYANOCOBALAMIN 1,000 MCG TABLET 1000 MCG PO (09:57)
[2024-06-11] MEDS: CHOLECALCIFEROL 1,000 UNITS TABLET 1000 UNITS PO (09:57)
[2024-06-11] MEDS: SODIUM CHLORIDE 1 GM TABLET PO ×2 (09:58→17:01)
[2024-06-11] MEDS: ENOXAPARIN 40 MG/0.4 ML SYRINGE SUB-Q (10:00)
--- NOTE | 2024-06-11 11:46 | P.PNNP_ITS ---
Progress Note: A&P Assessment and Plan (1) Hyponatremia: Code(s): E87.1 - Hypo-osmolality and hyponatremia Status: Acute Assessment and Plan: * better but not normal * severe hyponatremia noted on presentation - sodium 106mmol/L * no baseline sodium level to compare to... * possible chronic hyponatremia?? * rapid increase in sodium (106 --> 114 on day of admission) with just normal saline argues in favor of volume depletion playing a role * due to this rapid correction, given DDAVP and D5W IVFs which stabilized rate of rise * goal of therapy is a rate of change of 6 - 8mmol/L in 24 hours -- this has been achieved * evaluation to date noted: * TSH okay * cortisol 15 indicating adequate adrenal function * urine specific gravity 1.017 suggesting a concentrated urine * urine sodium is low * SPEP & UPEP pending * serum/urine osmo pending * suspected multifactorial etiology: * chronic alcohol intake/abuse * pre-renal factors * on fluid restriction plus salt tablets plus Lasix. * will increase salt tabs to 1500mg bid * follow trend of sodium (2) Hypokalemia: Code(s): E87.6 - Hypokalemia Status: Acute Assessment and Plan: * relatively stable * follow tnred (3) Alcohol abuse: Code(s): F10.10 - Alcohol abuse, uncomplicated Status: Acute Assessment and Plan: * knwn to drink at least 6-8 beers daily * monitor for withdrawal * CIWA protocol * on thiamine and folic acid (4) Frequent falls: Code(s): R29.6 - Repeated falls Status: Acute Assessment and Plan: * imaging noted * head CT was negative for acute change but with old lacunar infarcts at the right basal ganglia and left side of the eula as well as chronic small vessel ischemic disease along with evidence of sinusitis * PT/OT as tolerated Will continue to follow. Subjective Date/time seen: 06/11/24 11:46 Interval history: Follow-up for hyponatremia. Sodium doing a bit better with higher dose of salt tabs instituted yesterday; apparently eating a bit better per nursing but still not ambulating much despite encouragement by PT/OT; no acute issues/events overnight or earlier this morning. Exam Narrative: General: WD/WN male in NAD Heart: normal S1 and S2; no rub Lungs: clear to auscultation Abdomen: soft, nontender, nondistended, positive bowel sounds Extremities: no cyanosis or clubbing; no edema Skin: warm and intact Objective Data Vital Signs Vital Signs: Vital Signs Temp Pulse Resp BP Pulse Ox O2 Del Method 06/11/24 08:00 Room Air 06/11/24 04:10 98.3 F 84 16 152/78 H 98 06/10/24 20:00 Room Air 06/10/24 21:17 98.8 F 89 18 153/87 H 95 06/10/24 14:00 96.7 F L 80 18 146/78 H 97 Intake/Output Intake/Output: Intake & Output 06/08/24 06/09/24 06/10/24 06/11/24 23:59 23:59 23:59 23:59 Intake Total 8183 840 4604 990 Output Total 300 400 Balance 601 763 4520 590 Meds/Results Medications: Active Medications Generic Name Dose Route Start Last Admin Trade Name Freq PRN Reason Stop Dose Admin Acetaminophen 650 mg 06/08/24 16:30 06/08/24 17:39 Acetaminophen 325 Mg Tablet PO 650 mg Q4H PRN Administration Pain Rated 5 or Less Hydrocodone Bitart/Acetaminophen 1 tab 06/08/24 16:30 06/11/24 10:04 Hydrocodone/Acetaminophen (*Crx) 5-325 Mg Tablet PO 1 tab Q6H PRN Administration Pain Rated 6 or Greater Aspirin 81 mg 06/07/24 08:00 06/11/24 09:57 Aspirin 81 Mg Chewable Tablet PO 81 mg DAILY@0800 MONICA Administration Atorvastatin Calcium 40 mg 06/07/24 09:00 06/11/24 09:57 Atorvastatin 40 Mg Tablet PO 40 mg DAILY MONICA Administration Benzocaine 1 lozenge 06/08/24 13:49 06/10/24 21:30 Benzocaine/Menthol (*Bkc) 18 Ea Lozenge PO 1 lozenge PRN PRN Administration Sore Throat Cyanocobalamin 1,000 mcg 06/08/24 09:00 06/11/24 09:57 Cyanocobalamin 1,000 Mcg Tablet PO 1,000 mcg QAM MONICA Administration Enoxaparin Sodium 40 mg 06/07/24 09:00 06/11/24 10:00 Enoxaparin 40 Mg/0.4 Ml Syringe SUB-Q 40 mg DAILY MONICA Administration Folic Acid 1 mg 06/06/24 09:00 06/11/24 09:57 Folic Acid 1 Mg Tablet PO 1 mg DAILY MONICA Administration Furosemide 20 mg 06/09/24 09:00 06/11/24 09:57 Furosemide 20 Mg Tablet PO 20 mg BID MONICA Administration Guaifenesin 600 mg 06/08/24 21:00 06/11/24 09:57 Guaifenesin 12 Hr 600 Mg Tabcr PO 600 mg Q12HR MONICA Administration Megestrol Acetate 20 mg 06/10/24 09:00 06/11/24 09:57 Megestrol Acetate (*Chemo) 20 Mg Tablet PO 20 mg QAM MONICA Administration Melatonin 5 mg 06/07/24 21:00 06/10/24 21:28 Melatonin 5 Mg Tablet PO 5 mg HS MONICA Administration Ondansetron HCl 4 mg 06/05/24 14:36 Ondansetron Inj 4 Mg/2 Ml Vial IV PUSH Q4H PRN Nausea Sodium Chloride 500 mg 06/11/24 09:00 06/11/24 09:57 Sodium Chloride 500 Mg Tablet PO 500 mg BID MONICA Administration Sodium Chloride 1 gm 06/11/24 09:00 06/11/24 09:58 Sodium Chloride 1 Gm Tablet PO 1 gm BID MONICA Administration Thiamine HCl 100 mg 06/06/24 09:00 06/11/24 09:57 Thiamine Hcl 100 Mg Tablet PO 100 mg QAM MONICA Administration Vitamin D 1,000 units 06/07/24 12:05 06/11/24 09:57 Cholecalciferol 1,000 Units Tablet PO 1,000 units DAILY MONICA Administration Radiology Results: ITS Impressions Head CT 06/05/24 17:07 IMPRESSION: 1. 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 No acute intracranial process. 2. Age-related changes including mild diffuse volume loss and mild scattered white matter hypoattenuation consistent with chronic small vessel ischemic disease. 3. Occlusion of the left frontoethmoidal recess with complete opacification of the left frontal and maxillary sinuses and anterior left ethmoid air cells. Chest/Abdomen/Pelvis CT 06/05/24 17:12 IMPRESSION: 1. A few acute and chronic right-sided rib fractures with very small right pneumothorax. 2. Mildly displaced fracture of the medial head of the left clavicle. 3. Nondisplaced fracture extending across the S2 vertebral body and the lateral sacral ala. 4. No acute intra-abdominal/pelvic process. Carotid Doppler Study 06/07/24 09:39 IMPRESSION: 1. Less than 50% stenosis in the right internal carotid artery by sonographic criteria. 2. Less than 50% stenosis in the left internal carotid artery by sonographic criteria. Chest X-Ray 06/09/24 15:22 IMPRESSION: No active cardiopulmonary disease ADDENDUM: 06/09/24 1530 There are displaced fractures of the anterior aspect of the right ninth, 10th and probably 11th rib fractures. Clavicle X-Ray 06/09/24 15:28 IMPRESSION: Minimally inferiorly displaced medial left clavicle fracture Labs Labs: Laboratory Tests 06/09/24 05:37 06/11/24 06:26
[2024-06-11 14:00] VITALS: BP 145/68; PULSE 88; RESP 18; TEMP 36.7; O2SAT 96
--- NOTE | 2024-06-11 15:45 | PM.IMPN ---
Progress Note: A&P Assessment and Plan (1) Hyponatremia: Code(s): E87.1 - Hypo-osmolality and hyponatremia Status: Acute Assessment and Plan: Patient presented with weakness and found to have severe hyponatremia with Na level at 106. No baseline to compare Likely secondary to alcohol intake, beer potomania and/or dehydration from poor oral intake. TSH and cortisol normal. Emile <5 consistent with dehydration Patient received 2 L of saline bolus in the ER but sodium increased rapidly to 114 so patient was given DDAVP and D5 water to prevent rapid increases. Sodium stabilized and now has been rising more slowly; patient feeling better. Nephrology is managing sodium. NaCl tablets started. Na better at 126 Monitor serial sodium levels. Appreciate nephrology input. (2) Alcohol abuse: Code(s): F10.10 - Alcohol abuse, uncomplicated Status: Acute Assessment and Plan: Patient drinks 6-8 beers daily. We monitored for withdrawal signs and symptoms with CIWA protocol. CIWA 0-2 range and now he is off the protocol. Ativan prn ordered but not required Continue Thiamine and folate Patient was counseled and encouraged to quit all alcohol use (3) Frequent falls: Code(s): R29.6 - Repeated falls Status: Acute Assessment and Plan: Head CT was negative for acute change but showed old lacunar infarcts at the right basal ganglia and left side of the eula as well as chronic small vessel ischemic disease and evidence of sinusitis. Carotid US showing <50% stenosis bilateral ICAs. B12 level low end of normal. MMA normal. B12 replaced. [place] falls and weakness related to old CVAs and alcoholism complicated by malnutrition and dehydration. PT OT. Continue Lipitor and ASA. Moderate assistance with bed mobility and transfer. Contact guard with chair transfer. Care coordination looked into SNF but patient refuses. No home health authorization until patient is seen by PCP. (4) Fracture: Code(s): T14.8XXA - Other injury of unspecified body region, initial encounter Status: Acute Assessment and Plan: Imaging showing acute and chronic right-sided rib fractures, mildly displaced fracture of the medial head of the left clavicle with surrounding small hematoma, nondisplaced fracture extending across the S2 vertebral body and the lateral sacral ala and chronic appearing compression fractures with 20% anterior vertebral body height loss at T12 and <20% anterior vertebral body height loss at T11. Multiple fractures in various stages of healing. Most related to falls but consider osteoporosis. Vit D level <12.8. He will need bone density scan. VitD being replaced. Repeat xray noted. Sling for when he is up out of bed (5) CVA (cerebral vascular accident): Code(s): I63.9 - Cerebral infarction, unspecified Status: Acute Assessment and Plan: As above (6) Hypokalemia: Code(s): E87.6 - Hypokalemia Status: Acute Assessment and Plan: Potassium was replaced. Continue to monitor and replace as needed. Follow (7) Hyperbilirubinemia: Code(s): E80.6 - Other disorders of bilirubin metabolism Status: Acute Assessment and Plan: TB 4.2 on admission all indirect. CT scan showing normal liver, GB and pancreas. Probably related to [place] or from alcoholism. Levels trended down now that he is eating Follow (8) Pneumothorax: Code(s): J93.9 - Pneumothorax, unspecified Status: Acute Assessment and Plan: CT chest showing a very small right PTX probably related to his recent falls and rib fratures. CXR repeated showing no PTX Complains of pain with coughing. Will add mucinex and have lozenges available prn. Add incentive spirometry. Repeat CXR showing no PTX Follow clinically. (9) Complicated grief: Code(s): F43.21 - Adjustment disorder with depressed mood Status: Acute Assessment and Plan: Patient has been grieving loss of her mother. He may be depressed but will need to be evaluated once metabolic and issues are sorted out. He denies any suicidal homicidal ideations at this time and does not need one-to-one sitter. Hold on SSRI treatment since may negatively affect sodium values. Plan DVT prophylaxis -Lovenox Code Status - Full Code Subjective Date/time seen: 06/11/24 15:45 Interval history: 63yo male with hx of alcohol abuse here for weakness. No problems overnight. He uses a walker at home. Eating okay. Still not walking much here. Exam Narrative: AF 98.3 152/78 84 16 98% ra Gen - NARD lying almost flat in bed Chest - lungs clear anteriorly. CV - RRR S1/S2 Abd - Soft, ND, Positive BS Ext - No pedal edema Psych - Nml mood but odd affect and with poor reasoning. Skin - Warm and dry. chest wall bruising noted left upper chest. Objective Data Vital Signs Vital Signs: Vital Signs - 24 hr 06/10/24 21:17 06/10/24 20:00 06/11/24 04:10 Temperature 98.8 F 98.3 F Pulse Rate 89 84 Respiratory Rate 18 16 Blood Pressure 153/87 H 152/78 H Pulse Oximetry 95 98 Oxygen Delivery Room Air 06/11/24 08:00 Temperature Pulse Rate Respiratory Rate Blood Pressure Pulse Oximetry Oxygen Delivery Room Air Intake/Output Intake/Output: Intake & Output 06/08/24 06/09/24 06/10/24 06/11/24 23:59 23:59 23:59 23:59 Intake Total 4968 601 9068 990 Output Total 300 400 Balance 401 571 2340 590 Meds/Results Medications: Active Medications Generic Name Dose Route Start Last Admin Trade Name Freq PRN Reason Stop Dose Admin Acetaminophen 650 mg 06/08/24 16:30 06/08/24 17:39 Acetaminophen 325 Mg Tablet PO 650 mg Q4H PRN Administration Pain Rated 5 or Less Hydrocodone Bitart/Acetaminophen 1 tab 06/08/24 16:30 06/11/24 10:04 Hydrocodone/Acetaminophen (*Crx) 5-325 Mg Tablet PO 1 tab Q6H PRN Administration Pain Rated 6 or Greater Aspirin 81 mg 06/07/24 08:00 06/11/24 09:57 Aspirin 81 Mg Chewable Tablet PO 81 mg DAILY@0800 MONICA Administration Atorvastatin Calcium 40 mg 06/07/24 09:00 06/11/24 09:57 Atorvastatin 40 Mg Tablet PO 40 mg DAILY MONICA Administration Benzocaine 1 lozenge 06/08/24 13:49 06/10/24 21:30 Benzocaine/Menthol (*Bkc) 18 Ea Lozenge PO 1 lozenge PRN PRN Administration Sore Throat Cyanocobalamin 1,000 mcg 06/08/24 09:00 06/11/24 09:57 Cyanocobalamin 1,000 Mcg Tablet PO 1,000 mcg QAM MONICA Administration Enoxaparin Sodium 40 mg 06/07/24 09:00 06/11/24 10:00 Enoxaparin 40 Mg/0.4 Ml Syringe SUB-Q 40 mg DAILY MONICA Administration Folic Acid 1 mg 06/06/24 09:00 06/11/24 09:57 Folic Acid 1 Mg Tablet PO 1 mg DAILY MONICA Administration Furosemide 20 mg 06/09/24 09:00 06/11/24 09:57 Furosemide 20 Mg Tablet PO 20 mg BID MONICA Administration Guaifenesin 600 mg 06/08/24 21:00 06/11/24 09:57 Guaifenesin 12 Hr 600 Mg Tabcr PO 600 mg Q12HR MONICA Administration Megestrol Acetate 20 mg 06/10/24 09:00 06/11/24 09:57 Megestrol Acetate (*Chemo) 20 Mg Tablet PO 20 mg QAM MONICA Administration Melatonin 5 mg 06/07/24 21:00 06/10/24 21:28 Melatonin 5 Mg Tablet PO 5 mg HS MONICA Administration Ondansetron HCl 4 mg 06/05/24 14:36 Ondansetron Inj 4 Mg/2 Ml Vial IV PUSH Q4H PRN Nausea Sodium Chloride 500 mg 06/11/24 09:00 06/11/24 09:57 Sodium Chloride 500 Mg Tablet PO 500 mg BID MONICA Administration Sodium Chloride 1 gm 06/11/24 09:00 06/11/24 09:58 Sodium Chloride 1 Gm Tablet PO 1 gm BID MONICA Administration Thiamine HCl 100 mg 06/06/24 09:00 06/11/24 09:57 Thiamine Hcl 100 Mg Tablet PO 100 mg QAM MONICA Administration Vitamin D 1,000 units 06/07/24 12:05 06/11/24 09:57 Cholecalciferol 1,000 Units Tablet PO 1,000 units DAILY MONICA Administration Radiology Results: ITS Impressions Head CT 06/05/24 17:07 IMPRESSION: 1. 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 No acute intracranial process. 2. Age-related changes including mild diffuse volume loss and mild scattered white matter hypoattenuation consistent with chronic small vessel ischemic disease. 3. Occlusion of the left frontoethmoidal recess with complete opacification of the left frontal and maxillary sinuses and anterior left ethmoid air cells. Chest/Abdomen/Pelvis CT 06/05/24 17:12 IMPRESSION: 1. A few acute and chronic right-sided rib fractures with very small right pneumothorax. 2. Mildly displaced fracture of the medial head of the left clavicle. 3. Nondisplaced fracture extending across the S2 vertebral body and the lateral sacral ala. 4. No acute intra-abdominal/pelvic process. Carotid Doppler Study 06/07/24 09:39 IMPRESSION: 1. Less than 50% stenosis in the right internal carotid artery by sonographic criteria. 2. Less than 50% stenosis in the left internal carotid artery by sonographic criteria. Chest X-Ray 06/09/24 15:22 IMPRESSION: No active cardiopulmonary disease ADDENDUM: 06/09/24 1530 There are displaced fractures of the anterior aspect of the right ninth, 10th and probably 11th rib fractures. Clavicle X-Ray 06/09/24 15:28 IMPRESSION: Minimally inferiorly displaced medial left clavicle fracture Labs Labs: Laboratory Results - last 24 hr 06/11/24 06:26 Sodium 126 L Potassium 4.1 Chloride 88 L Carbon Dioxide 29 Anion Gap 9 BUN 7 L Creatinine 0.60 L Estim Creat Clear Calc 92 Estimated GFR > 60 Glucose 95 Calcium 8.8
[2024-06-11 16:02] LABS: Albumin 3.1 g/dL (3.8-4.8); Alpha 1 Globulin 0.4 g/dL (0.2-0.3); Alpha 2 Globulin 0.7 g/dL (0.5-0.9); Beta 1 Globulin 0.5 g/dL (0.4-0.6); Gamma Globulin 1.1 g/dL (0.8-1.7)
[2024-06-11 19:46] VITALS: BP 157/65; PULSE 82; RESP 16; TEMP 36.7; O2SAT 100
[2024-06-11] MEDS: MELATONIN 5 MG TABLET PO (20:47)
[2024-06-12 04:07] VITALS: BP 151/89; PULSE 74; RESP 18; TEMP 36.5; O2SAT 99
[2024-06-12] MEDS: HYDROcodone/acetaminophen (*CRX) 5-325 MG TABLET 1 TAB PO (06:56)
[2024-06-12 07:32] LABS: Anion Gap 8 mmol/L (4-12); Blood Urea Nitrogen 9 mg/dL (9-20); Calcium 8.9 mg/dL (8.4-10.2); Carbon Dioxide 27 mmol/L (22-30); Chloride 90 mmol/L (98-107); Estimated CRCL calculation 108 ml/min; Estimated Glomerular Filt Rate > 60; Glucose 89 mg/dL (65-110); Potassium 3.9 mmol/L (3.4-5.0); Sodium 125 mmol/L (137-145)
[2024-06-12] MEDS: SODIUM CHLORIDE 500 MG TABLET PO ×2 (08:37→17:17)
[2024-06-12] MEDS: guaiFENesin 12 HR 600 MG TABCR PO ×2 (08:37→21:07)
[2024-06-12] MEDS: ASPIRIN 81 MG CHEWABLE TABLET PO (08:37)
[2024-06-12] MEDS: FOLIC ACID 1 MG TABLET PO (08:37)
[2024-06-12] MEDS: FUROSEMIDE 20 MG TABLET PO ×2 (08:37→17:16)
[2024-06-12] MEDS: MEGESTROL ACETATE (*CHEMO) 20 MG TABLET PO (08:37)
[2024-06-12] MEDS: THIAMINE HCL 100 MG TABLET PO (08:37)
[2024-06-12] MEDS: ATORVASTATIN 40 MG TABLET PO (08:37)
[2024-06-12] MEDS: SODIUM CHLORIDE 1 GM TABLET PO ×2 (08:37→17:17)
[2024-06-12] MEDS: CHOLECALCIFEROL 1,000 UNITS TABLET 1000 UNITS PO (08:37)
[2024-06-12] MEDS: CYANOCOBALAMIN 1,000 MCG TABLET 1000 MCG PO (08:37)
[2024-06-12] MEDS: ENOXAPARIN 40 MG/0.4 ML SYRINGE SUB-Q (08:40)
--- NOTE | 2024-06-12 10:33 | P.PNIM_ITS ---
Progress Note: A&P Assessment and Plan (1) Hyponatremia: Code(s): E87.1 - Hypo-osmolality and hyponatremia Status: Acute (2) Alcohol abuse: Code(s): F10.10 - Alcohol abuse, uncomplicated Status: Acute (3) Generalized weakness: Code(s): R53.1 - Weakness Status: Acute (4) Frequent falls: Code(s): R29.6 - Repeated falls Status: Acute (5) Fracture: Code(s): T14.8XXA - Other injury of unspecified body region, initial encounter Status: Acute (6) Hypokalemia: Code(s): E87.6 - Hypokalemia Status: Acute Plan (1) Hyponatremia: Code(s): E87.1 - Hypo-osmolality and hyponatremia Status: Acute Assessment and Plan: Patient presented with weakness and found to have severe hyponatremia with Na level at 106. No baseline to compare Likely secondary to alcohol intake, beer potomania and/or dehydration from poor oral intake. TSH and cortisol normal. Emile <5 consistent with dehydration Patient received 2 L of saline bolus in the ER but sodium increased rapidly to 114 so patient was given DDAVP and D5 water to prevent rapid increases. Sodium stabilized and now has been rising more slowly; patient feeling better. Nephrology is managing sodium. NaCl tablets started 1.5 g bid Monitor serial sodium levels. Appreciate nephrology input. Sodium 125 today (2) Alcohol abuse: Code(s): F10.10 - Alcohol abuse, uncomplicated Status: Acute Assessment and Plan: Patient drinks 6-8 beers daily. We monitored for withdrawal signs and symptoms with CIWA protocol. CIWA 0-2 range and now he is off the protocol. Ativan prn ordered but not required Continue Thiamine and folate Patient was counseled and encouraged to quit all alcohol use (3) Frequent falls: Code(s): R29.6 - Repeated falls Status: Acute Assessment and Plan: Head CT was negative for acute change but showed old lacunar infarcts at the right basal ganglia and left side of the eula as well as chronic small vessel ischemic disease and evidence of sinusitis. Carotid US showing <50% stenosis bilateral ICAs. B12 level low end of normal. MMA normal. B12 replaced. [place] falls and weakness related to old CVAs and alcoholism complicated by malnutrition and dehydration. PT OT. Continue Lipitor and ASA. Moderate assistance with bed mobility and transfer. Contact guard with chair transfer. Care coordination looked into SNF but patient refuses. No home health authorization until patient is seen by PCP. (4) Fracture: Code(s): T14.8XXA - Other injury of unspecified body region, initial encounter Status: Acute Assessment and Plan: Imaging showing acute and chronic right-sided rib fractures, mildly displaced fracture of the medial head of the left clavicle with surrounding small hematoma, nondisplaced fracture extending across the S2 vertebral body and the lateral sacral ala and chronic appearing compression fractures with 20% anterior vertebral body height loss at T12 and <20% anterior vertebral body height loss at T11. Multiple fractures in various stages of healing. Most related to falls but consider osteoporosis. Vit D level <12.8. He will need bone density scan. VitD being replaced. Repeat xray noted. Sling for when he is up out of bed Patient pain is not well controlled, start oxycodone 5 mg q.4 hours p.r.n., discontinue [place] (5) CVA (cerebral vascular accident): Code(s): I63.9 - Cerebral infarction, unspecified Status: Acute Assessment and Plan: As above (6) Hypokalemia: Code(s): E87.6 - Hypokalemia Status: Acute Assessment and Plan: Potassium was replaced. Continue to monitor and replace as needed. Follow (7) Hyperbilirubinemia: Code(s): E80.6 - Other disorders of bilirubin metabolism Status: Acute Assessment and Plan: TB 4.2 on admission all indirect. CT scan showing normal liver, GB and pancreas. Probably related to [place] or from alcoholism. Levels trended down now that he is eating Follow (8) Pneumothorax: Code(s): J93.9 - Pneumothorax, unspecified Status: Acute Assessment and Plan: CT chest showing a very small right PTX probably related to his recent falls and rib fratures. CXR repeated showing no PTX Complains of pain with coughing. Will add mucinex and have lozenges available prn. Add incentive spirometry. Repeat CXR showing no PTX Follow clinically. (9) Complicated grief: Code(s): F43.21 - Adjustment disorder with depressed mood Status: Acute Assessment and Plan: Patient has been grieving loss of her mother. He may be depressed but will need to be evaluated once metabolic and issues are sorted out. He denies any suicidal homicidal ideations at this time and does not need one-to-one sitter. Hold on SSRI treatment since may negatively affect sodium values. Plan DVT prophylaxis -Lovenox Code Status - Full Code Subjective Date/time seen: 06/12/24 10:33 Interval history: Patient is afebrile, blood pressure stable, no O2 desaturation on room air, patient has general weakness, poor appetite upper back pain and bilateral buttock pain. Labs reviewed, sodium is still low 125 Exam Narrative: GENERAL: Ill-appearing, in no acute distress. Well-nourished. - EYES: EOMI. Anicteric. - HENT: Moist mucous membranes. - LUNGS: Clear to auscultation bilateral ly, no wheezing, rhonchi, or rales. - CARDIOVASCULAR: Regular rate and rhyth m. No murmur. No JVD. - ABDOMEN: Soft, non-tender and non-dist ended. No palpable masses. - EXTREMITIES: No edema. Peripheral puls es 2+. Non-tender. - NEUROLOGIC: No focal neurological defi cits. CN II-XII grossly intact. And weakness - PSYCHIATRIC: Awake, Alert and oriented x 3. Appropriate mood and affect. - SKIN: No rashes or lesions. Warm. - LYMPH: No cervical lymphadenopathy. Objective Data Vital Signs Vital Signs: Vital Signs - 24 hr 06/11/24 14:00 06/11/24 19:46 06/11/24 20:45 Temperature 98.0 F 98.1 F Pulse Rate 88 82 Respiratory Rate 18 16 Blood Pressure 145/68 H 157/65 H Pulse Oximetry 96 100 Oxygen Delivery Room Air 06/12/24 04:07 06/12/24 08:00 Temperature 97.7 F Pulse Rate 74 Respiratory Rate 18 Blood Pressure 151/89 H Pulse Oximetry 99 Oxygen Delivery Room Air Intake/Output Intake/Output: Intake & Output 06/09/24 06/10/24 06/11/24 06/12/24 23:59 23:59 23:59 23:59 Intake Total 840 1740 2610 390 Output Total 1150 200 Balance 840 1740 1460 190 Meds/Results Medications: Active Medications Generic Name Dose Route Start Last Admin Trade Name Freq PRN Reason Stop Dose Admin Acetaminophen 650 mg 06/08/24 16:30 06/08/24 17:39 Acetaminophen 325 Mg Tablet PO 650 mg Q4H PRN Administration Pain Rated 5 or Less Hydrocodone Bitart/Acetaminophen 1 tab 06/08/24 16:30 06/12/24 06:56 Hydrocodone/Acetaminophen (*Crx) 5-325 Mg Tablet PO 1 tab Q6H PRN Administration Pain Rated 6 or Greater Aspirin 81 mg 06/07/24 08:00 06/12/24 08:37 Aspirin 81 Mg Chewable Tablet PO 81 mg DAILY@0800 MONICA Administration Atorvastatin Calcium 40 mg 06/07/24 09:00 06/12/24 08:37 Atorvastatin 40 Mg Tablet PO 40 mg DAILY MONICA Administration Benzocaine 1 lozenge 06/08/24 13:49 06/10/24 21:30 Benzocaine/Menthol (*Bkc) 18 Ea Lozenge PO 1 lozenge PRN PRN Administration Sore Throat Cyanocobalamin 1,000 mcg 06/08/24 09:00 06/12/24 08:37 Cyanocobalamin 1,000 Mcg Tablet PO 1,000 mcg QAM MONICA Administration Enoxaparin Sodium 40 mg 06/07/24 09:00 06/12/24 08:40 Enoxaparin 40 Mg/0.4 Ml Syringe SUB-Q 40 mg DAILY MONICA Administration Folic Acid 1 mg 06/06/24 09:00 06/12/24 08:37 Folic Acid 1 Mg Tablet PO 1 mg DAILY MONICA Administration Furosemide 20 mg 06/09/24 09:00 06/12/24 08:37 Furosemide 20 Mg Tablet PO 20 mg BID MONICA Administration Guaifenesin 600 mg 06/08/24 21:00 06/12/24 08:37 Guaifenesin 12 Hr 600 Mg Tabcr PO 600 mg Q12HR MONICA Administration Megestrol Acetate 20 mg 06/10/24 09:00 06/12/24 08:37 Megestrol Acetate (*Chemo) 20 Mg Tablet PO 20 mg QAM MONICA Administration Melatonin 5 mg 06/07/24 21:00 06/11/24 20:47 Melatonin 5 Mg Tablet PO 5 mg HS MONICA Administration Ondansetron HCl 4 mg 06/05/24 14:36 Ondansetron Inj 4 Mg/2 Ml Vial IV PUSH Q4H PRN Nausea Sodium Chloride 500 mg 06/11/24 09:00 06/12/24 08:37 Sodium Chloride 500 Mg Tablet PO 500 mg BID MONICA Administration Sodium Chloride 1 gm 06/11/24 09:00 06/12/24 08:37 Sodium Chloride 1 Gm Tablet PO 1 gm BID MONICA Administration Thiamine HCl 100 mg 06/06/24 09:00 06/12/24 08:37 Thiamine Hcl 100 Mg Tablet PO 100 mg QAM MONICA Administration Vitamin D 1,000 units 06/07/24 12:05 06/12/24 08:37 Cholecalciferol 1,000 Units Tablet PO 1,000 units DAILY MONICA Administration Radiology Results: ITS Impressions Head CT 06/05/24 17:07 IMPRESSION: 1. 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 No acute intracranial process. 2. Age-related changes including mild diffuse volume loss and mild scattered white matter hypoattenuation consistent with chronic small vessel ischemic disease. 3. Occlusion of the left frontoethmoidal recess with complete opacification of the left frontal and maxillary sinuses and anterior left ethmoid air cells. Chest/Abdomen/Pelvis CT 06/05/24 17:12 IMPRESSION: 1. A few acute and chronic right-sided rib fractures with very small right pneumothorax. 2. Mildly displaced fracture of the medial head of the left clavicle. 3. Nondisplaced fracture extending across the S2 vertebral body and the lateral sacral ala. 4. No acute intra-abdominal/pelvic process. Carotid Doppler Study 06/07/24 09:39 IMPRESSION: 1. Less than 50% stenosis in the right internal carotid artery by sonographic criteria. 2. Less than 50% stenosis in the left internal carotid artery by sonographic criteria. Chest X-Ray 06/09/24 15:22 IMPRESSION: No active cardiopulmonary disease ADDENDUM: 06/09/24 1530 There are displaced fractures of the anterior aspect of the right ninth, 10th and probably 11th rib fractures. Clavicle X-Ray 06/09/24 15:28 IMPRESSION: Minimally inferiorly displaced medial left clavicle fracture Labs Labs: Laboratory Results - last 24 hr 06/08/24 06/12/24 04:33 06:54 Sodium 125 L Potassium 3.9 Chloride 90 L Carbon Dioxide 27 Anion Gap 8 BUN 9 Creatinine 0.50 L Estim Creat Clear Calc 108 Estimated GFR > 60 Glucose 89 Calcium 8.9 Albumin 3.1 L Anooa-0-Vtletpghw 0.4 H Risvc-0-Soljllypx 0.7 Jvwh-6-Nilzphqs 0.5 Mpep-0-Odofrsjv 0.5 Gamma Globulins 1.1 PEP Interpretation See note
--- NOTE | 2024-06-12 14:23 | P.PNNP_ITS ---
Progress Note: A&P Assessment and Plan (1) Hyponatremia: Code(s): E87.1 - Hypo-osmolality and hyponatremia Status: Acute Assessment and Plan: * better but not normal * severe hyponatremia noted on presentation - sodium 106mmol/L * no baseline sodium level to compare to... * possible chronic hyponatremia?? * rapid increase in sodium (106 --> 114 on day of admission) with just normal saline argues in favor of volume depletion playing a role * due to this rapid correction, given DDAVP and D5W IVFs which stabilized rate of rise * goal of therapy is a rate of change of 6 - 8mmol/L in 24 hours -- this has been achieved * evaluation to date noted: * TSH okay * cortisol 15 indicating adequate adrenal function * urine specific gravity 1.017 suggesting a concentrated urine * urine sodium is low * SPEP & UPEP pending * serum/urine osmo pending * suspected multifactorial etiology: * chronic alcohol intake/abuse * pre-renal factors * on fluid restriction plus salt tablets plus Lasix * salt tabs at 1500mg bid * follow trend of sodium (2) Hypokalemia: Code(s): E87.6 - Hypokalemia Status: Acute Assessment and Plan: * relatively stable * follow tnred (3) Alcohol abuse: Code(s): F10.10 - Alcohol abuse, uncomplicated Status: Acute Assessment and Plan: * knwn to drink at least 6-8 beers daily * monitor for withdrawal * [facility] protocol * on thiamine and folic acid (4) Frequent falls: Code(s): R29.6 - Repeated falls Status: Acute Assessment and Plan: * imaging noted * head CT was negative for acute change but with old lacunar infarcts at the right basal ganglia and left side of the eula as well as chronic small vessel ischemic disease along with evidence of sinusitis * PT/OT as tolerated Will continue to follow. Subjective Date/time seen: 06/12/24 14:23 Interval history: Follow-up for hyponatremia. Sodium seems a bit better at this time with current interventions/therapy to date (unfortunately, unclear what his baseline sodium level is); no apparent distress noted at the time of my visit; no other concerns/problems voiced; oral intake seems to be doing better. Exam Narrative: General: WD/WN male in NAD Heart: normal S1 and S2; no rub Lungs: clear to auscultation Abdomen: soft, nontender, nondistended, positive bowel sounds Extremities: no cyanosis or clubbing; no edema Skin: no rash Objective Data Vital Signs Vital Signs: Vital Signs Temp Pulse Resp BP Pulse Ox O2 Del Method 06/12/24 14:20 97.8 F 84 19 169/83 H 97 06/12/24 08:00 Room Air 06/12/24 04:07 97.7 F 74 18 151/89 H 99 06/11/24 20:45 Room Air 06/11/24 19:46 98.1 F 82 16 157/65 H 100 Intake/Output Intake/Output: Intake & Output 06/09/24 06/10/24 06/11/24 06/12/24 23:59 23:59 23:59 23:59 Intake Total 840 1740 2610 630 Output Total 1150 200 Balance 840 1740 1460 430 Meds/Results Medications: Active Medications Generic Name Dose Route Start Last Admin Trade Name Freq PRN Reason Stop Dose Admin Acetaminophen 650 mg 06/08/24 16:30 06/08/24 17:39 Acetaminophen 325 Mg Tablet PO 650 mg Q4H PRN Administration Pain Rated 5 or Less Aspirin 81 mg 06/07/24 08:00 06/12/24 08:37 Aspirin 81 Mg Chewable Tablet PO 81 mg DAILY@0800 MONICA Administration Atorvastatin Calcium 40 mg 06/07/24 09:00 06/12/24 08:37 Atorvastatin 40 Mg Tablet PO 40 mg DAILY MONICA Administration Benzocaine 1 lozenge 06/08/24 13:49 06/10/24 21:30 Benzocaine/Menthol (*Bkc) 18 Ea Lozenge PO 1 lozenge PRN PRN Administration Sore Throat Cyanocobalamin 1,000 mcg 06/08/24 09:00 06/12/24 08:37 Cyanocobalamin 1,000 Mcg Tablet PO 1,000 mcg QAM MONICA Administration Enoxaparin Sodium 40 mg 06/07/24 09:00 06/12/24 08:40 Enoxaparin 40 Mg/0.4 Ml Syringe SUB-Q 40 mg DAILY MONICA Administration Folic Acid 1 mg 06/06/24 09:00 06/12/24 08:37 Folic Acid 1 Mg Tablet PO 1 mg DAILY MONICA Administration Furosemide 20 mg 06/09/24 09:00 06/12/24 08:37 Furosemide 20 Mg Tablet PO 20 mg BID MONICA Administration Guaifenesin 600 mg 06/08/24 21:00 06/12/24 08:37 Guaifenesin 12 Hr 600 Mg Tabcr PO 600 mg Q12HR MONICA Administration Megestrol Acetate 20 mg 06/10/24 09:00 06/12/24 08:37 Megestrol Acetate (*Chemo) 20 Mg Tablet PO 20 mg QAM MONICA Administration Melatonin 5 mg 06/07/24 21:00 06/11/24 20:47 Melatonin 5 Mg Tablet PO 5 mg HS MONICA Administration Ondansetron HCl 4 mg 06/05/24 14:36 Ondansetron Inj 4 Mg/2 Ml Vial IV PUSH Q4H PRN Nausea Oxycodone/Acetaminophen 1 tablet 06/12/24 15:56 Oxycodone/Acetaminophen (*Crx) 5-325 Mg Tablet PO Q4H PRN Pain Rated 7-10 Sodium Chloride 500 mg 06/11/24 09:00 06/12/24 08:37 Sodium Chloride 500 Mg Tablet PO 500 mg BID MONICA Administration Sodium Chloride 1 gm 06/11/24 09:00 06/12/24 08:37 Sodium Chloride 1 Gm Tablet PO 1 gm BID MONICA Administration Thiamine HCl 100 mg 06/06/24 09:00 06/12/24 08:37 Thiamine Hcl 100 Mg Tablet PO 100 mg QAM MONICA Administration Vitamin D 1,000 units 06/07/24 12:05 06/12/24 08:37 Cholecalciferol 1,000 Units Tablet PO 1,000 units DAILY MONICA Administration Radiology Results: ITS Impressions Head CT 06/05/24 17:07 IMPRESSION: 1. 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 No acute intracranial process. 2. Age-related changes including mild diffuse volume loss and mild scattered white matter hypoattenuation consistent with chronic small vessel ischemic disease. 3. Occlusion of the left frontoethmoidal recess with complete opacification of the left frontal and maxillary sinuses and anterior left ethmoid air cells. Chest/Abdomen/Pelvis CT 06/05/24 17:12 IMPRESSION: 1. A few acute and chronic right-sided rib fractures with very small right pneumothorax. 2. Mildly displaced fracture of the medial head of the left clavicle. 3. Nondisplaced fracture extending across the S2 vertebral body and the lateral sacral ala. 4. No acute intra-abdominal/pelvic process. Carotid Doppler Study 06/07/24 09:39 IMPRESSION: 1. Less than 50% stenosis in the right internal carotid artery by sonographic criteria. 2. Less than 50% stenosis in the left internal carotid artery by sonographic criteria. Chest X-Ray 06/09/24 15:22 IMPRESSION: No active cardiopulmonary disease ADDENDUM: 06/09/24 1530 There are displaced fractures of the anterior aspect of the right ninth, 10th and probably 11th rib fractures. Clavicle X-Ray 06/09/24 15:28 IMPRESSION: Minimally inferiorly displaced medial left clavicle fracture Labs Labs: Laboratory Tests 06/09/24 05:37 06/12/24 06:54
[2024-06-12 15:20] VITALS: BP 169/83; PULSE 84; RESP 19; TEMP 36.6; O2SAT 97
[2024-06-12] MEDS: oxyCODONE/ACETAMINOPHEN (*CRX) 5-325 MG TABLET 1 TABLET PO (17:15)
[2024-06-12] MEDS: MELATONIN 5 MG TABLET PO (21:07)
[2024-06-12 22:05] VITALS: BP 155/85; PULSE 86; RESP 20; TEMP 36.4; O2SAT 99
[2024-06-12] MEDS: SODIUM CHLORIDE 500 MG TABLET 1000 MG PO (23:29)
[2024-06-13] MEDS: oxyCODONE/ACETAMINOPHEN (*CRX) 5-325 MG TABLET 1 TABLET PO ×2 (03:03→16:41)
[2024-06-13 06:00] VITALS: BP 154/79; PULSE 81; RESP 20; TEMP 36.7; O2SAT 98
[2024-06-13 06:51] LABS: Anion Gap 8 mmol/L (4-12); Blood Urea Nitrogen 8 mg/dL (9-20); Calcium 8.9 mg/dL (8.4-10.2); Carbon Dioxide 26 mmol/L (22-30); Chloride 89 mmol/L (98-107); Estimated CRCL calculation 108 ml/min; Estimated Glomerular Filt Rate > 60; Glucose 87 mg/dL (65-110); Potassium 4.1 mmol/L (3.4-5.0); Sodium 123 mmol/L (137-145)
[2024-06-13] MEDS: FUROSEMIDE 20 MG TABLET PO ×2 (08:27→16:36)
[2024-06-13] MEDS: THIAMINE HCL 100 MG TABLET PO (08:27)
[2024-06-13] MEDS: CYANOCOBALAMIN 1,000 MCG TABLET 1000 MCG PO (08:27)
[2024-06-13] MEDS: ASPIRIN 81 MG CHEWABLE TABLET PO (08:27)
[2024-06-13] MEDS: SODIUM CHLORIDE 1 GM TABLET PO ×2 (08:27→16:36)
[2024-06-13] MEDS: ATORVASTATIN 40 MG TABLET PO (08:27)
[2024-06-13] MEDS: SODIUM CHLORIDE 500 MG TABLET PO ×2 (08:27→16:36)
[2024-06-13] MEDS: MEGESTROL ACETATE (*CHEMO) 20 MG TABLET PO (08:27)
[2024-06-13] MEDS: FOLIC ACID 1 MG TABLET PO (08:28)
[2024-06-13] MEDS: guaiFENesin 12 HR 600 MG TABCR PO ×2 (08:28→19:44)
[2024-06-13] MEDS: CHOLECALCIFEROL 1,000 UNITS TABLET 1000 UNITS PO (08:28)
[2024-06-13] MEDS: ENOXAPARIN 40 MG/0.4 ML SYRINGE SUB-Q (08:28)
--- NOTE | 2024-06-13 09:19 | PCNWS ---
Weekly nutritional screen. Patient is tolerating current Regular diet with varied intake, 5-100%. No weight loss reported. No nutritional needs at this time.
--- NOTE | 2024-06-13 12:04 | PCPTNOTE ---
Patient refused treatment. Patient states he has been doing exercises in the bed and does not want to get up. I discussed at length with patient the importance of participating in therapy to improve strength and mobility. Patient verbalizes understanding and continues to decline PT. Patient states I will be going to a home since I can't move.
--- NOTE | 2024-06-13 13:30 | PCOTNOTE ---
Attempted to see Patient this P.M. As therapist entered in the room, Patient voicing to his son, who now do I have to tell where to go? Patient adamantly refused to participate in any activity. Patient upset that different people are coming in to try and make him perform tasks he is unable to do at this time. Patient states, I'm not ready for therapy, I'm in pain, can not sit without falling over and get really dizzy . Therapist educated Patient that all his complaints are what therapy assists with to increase his abilities and strengthening. Patient verbalized to leave his room.
[2024-06-13 14:00] VITALS: BP 162/86; PULSE 84; RESP 16; TEMP 36.5; O2SAT 99
--- NOTE | 2024-06-13 14:13 | P.PNNP_ITS ---
Progress Note: A&P Assessment and Plan (1) Hyponatremia: Code(s): E87.1 - Hypo-osmolality and hyponatremia Status: Acute Assessment and Plan: * better but not normal * severe hyponatremia noted on presentation - sodium 106mmol/L * no baseline sodium level to compare to... * possible chronic hyponatremia?? * rapid increase in sodium (106 --> 114 on day of admission) with just normal saline argues in favor of volume depletion playing a role * due to this rapid correction, given DDAVP and D5W IVFs which stabilized rate of rise * goal of therapy is a rate of change of 6 - 8mmol/L in 24 hours -- this has been achieved * evaluation to date noted: * TSH okay * cortisol 15 indicating adequate adrenal function * urine specific gravity 1.017 suggesting a concentrated urine * urine sodium is low * SPEP & UPEP negative for paraproteinemia * suspected multifactorial etiology: * chronic alcohol intake/abuse * pre-renal factors * on fluid restriction plus salt tablets plus Lasix * salt tabs at 1500mg bid with lasix 20mg bid * follow trend of sodium (2) Hypokalemia: Code(s): E87.6 - Hypokalemia Status: Acute Assessment and Plan: * relatively stable * follow tnred (3) Alcohol abuse: Code(s): F10.10 - Alcohol abuse, uncomplicated Status: Acute Assessment and Plan: * knwn to drink at least 6-8 beers daily * monitor for withdrawal * [facility] protocol * on thiamine and folic acid (4) Frequent falls: Code(s): R29.6 - Repeated falls Status: Acute Assessment and Plan: * imaging noted * head CT was negative for acute change but with old lacunar infarcts at the right basal ganglia and left side of the eula as well as chronic small vessel ischemic disease along with evidence of sinusitis * PT/OT as tolerated Will continue to follow. Subjective Date/time seen: 06/13/24 14:13 Interval history: Follow-up for hyponatremia. Sodium downtrending again despite ongoing aggressive therapy (fluid restriction, salt tabs, and diuretics); no other acute issues/events noted overnight or earlier today; apparently oral intake is doing a bit better in general; no apparent distress voiced at this time. Exam Narrative: General: WD/WN male in NAD Heart: normal S1 and S2; no rub Lungs: clear to auscultation Abdomen: soft, nontender, nondistended, positive bowel sounds Extremities: no cyanosis or clubbing; no edema Skin: no nodules Objective Data Vital Signs Vital Signs: Vital Signs Temp Pulse Resp BP Pulse Ox O2 Del Method 06/13/24 13:00 97.7 F 84 16 162/86 H 99 06/13/24 08:00 Room Air 06/13/24 06:00 98.1 F 81 20 154/79 H 98 06/12/24 20:00 Room Air 06/12/24 22:05 97.6 F 86 20 155/85 H 99 Intake/Output Intake/Output: Intake & Output 06/10/24 06/11/24 06/12/24 06/13/24 23:59 23:59 23:59 23:59 Intake Total 1740 2610 1500 672 Output Total 1150 900 600 Balance 1740 1460 600 72 Meds/Results Medications: Active Medications Generic Name Dose Route Start Last Admin Trade Name Freq PRN Reason Stop Dose Admin Acetaminophen 650 mg 06/08/24 16:30 06/08/24 17:39 Acetaminophen 325 Mg Tablet PO 650 mg Q4H PRN Administration Pain Rated 5 or Less Aspirin 81 mg 06/07/24 08:00 06/13/24 08:27 Aspirin 81 Mg Chewable Tablet PO 81 mg DAILY@0800 MONICA Administration Atorvastatin Calcium 40 mg 06/07/24 09:00 06/13/24 08:27 Atorvastatin 40 Mg Tablet PO 40 mg DAILY MONICA Administration Benzocaine 1 lozenge 06/08/24 13:49 06/10/24 21:30 Benzocaine/Menthol (*Bkc) 18 Ea Lozenge PO 1 lozenge PRN PRN Administration Sore Throat Cyanocobalamin 1,000 mcg 06/08/24 09:00 06/13/24 08:27 Cyanocobalamin 1,000 Mcg Tablet PO 1,000 mcg QAM MONICA Administration Enoxaparin Sodium 40 mg 06/07/24 09:00 06/13/24 08:28 Enoxaparin 40 Mg/0.4 Ml Syringe SUB-Q 40 mg DAILY MONICA Administration Folic Acid 1 mg 06/06/24 09:00 06/13/24 08:28 Folic Acid 1 Mg Tablet PO 1 mg DAILY MONICA Administration Furosemide 20 mg 06/09/24 09:00 06/13/24 16:36 Furosemide 20 Mg Tablet PO 20 mg BID MONICA Administration Guaifenesin 600 mg 06/08/24 21:00 06/13/24 08:28 Guaifenesin 12 Hr 600 Mg Tabcr PO 600 mg Q12HR MONICA Administration Megestrol Acetate 20 mg 06/10/24 09:00 06/13/24 08:27 Megestrol Acetate (*Chemo) 20 Mg Tablet PO 20 mg QAM MONICA Administration Melatonin 5 mg 06/07/24 21:00 06/12/24 21:07 Melatonin 5 Mg Tablet PO 5 mg HS MONICA Administration Ondansetron HCl 4 mg 06/05/24 14:36 Ondansetron Inj 4 Mg/2 Ml Vial IV PUSH Q4H PRN Nausea Oxycodone/Acetaminophen 1 tablet 06/12/24 15:56 06/13/24 16:41 Oxycodone/Acetaminophen (*Crx) 5-325 Mg Tablet PO 1 tablet Q4H PRN Administration Pain Rated 7-10 Sodium Chloride 500 mg 06/11/24 09:00 06/13/24 16:36 Sodium Chloride 500 Mg Tablet PO 500 mg BID MONICA Administration Sodium Chloride 1 gm 06/11/24 09:00 06/13/24 16:36 Sodium Chloride 1 Gm Tablet PO 1 gm BID MONICA Administration Thiamine HCl 100 mg 06/06/24 09:00 06/13/24 08:27 Thiamine Hcl 100 Mg Tablet PO 100 mg QAM MONICA Administration Vitamin D 1,000 units 06/07/24 12:05 06/13/24 08:28 Cholecalciferol 1,000 Units Tablet PO 1,000 units DAILY MONICA Administration Radiology Results: ITS Impressions Head CT 06/05/24 17:07 IMPRESSION: 1. 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 No acute intracranial process. 2. Age-related changes including mild diffuse volume loss and mild scattered white matter hypoattenuation consistent with chronic small vessel ischemic disease. 3. Occlusion of the left frontoethmoidal recess with complete opacification of the left frontal and maxillary sinuses and anterior left ethmoid air cells. Chest/Abdomen/Pelvis CT 06/05/24 17:12 IMPRESSION: 1. A few acute and chronic right-sided rib fractures with very small right pneu mothorax. 2. Mildly displaced fracture of the medial head of the left clavicle. 3. Nondisplaced fracture extending across the S2 vertebral body and the lateral sacral ala. 4. No acute intra-abdominal/pelvic process. Carotid Doppler Study 06/07/24 09:39 IMPRESSION: 1. Less than 50% stenosis in the right internal carotid artery by sonographic criteria. 2. Less than 50% stenosis in the left internal carotid artery by sonographic criteria. Chest X-Ray 06/09/24 15:22 IMPRESSION: No active cardiopulmonary disease ADDENDUM: 06/09/24 1530 There are displaced fractures of the anterior aspect of the right ninth, 10th and probably 11th rib fractures. Clavicle X-Ray 06/09/24 15:28 IMPRESSION: Minimally inferiorly displaced medial left clavicle fracture Labs Labs: Laboratory Tests 06/09/24 05:37 06/13/24 05:41
--- NOTE | 2024-06-13 15:29 | P.PNIM_ITS ---
Progress Note: A&P Assessment and Plan (1) Hyponatremia: Code(s): E87.1 - Hypo-osmolality and hyponatremia Status: Acute (2) Alcohol abuse: Code(s): F10.10 - Alcohol abuse, uncomplicated Status: Acute (3) Generalized weakness: Code(s): R53.1 - Weakness Status: Acute (4) Frequent falls: Code(s): R29.6 - Repeated falls Status: Acute (5) Fracture: Code(s): T14.8XXA - Other injury of unspecified body region, initial encounter Status: Acute (6) Hypokalemia: Code(s): E87.6 - Hypokalemia Status: Acute Plan #Hyponatremia: Patient presented with weakness and found to have severe hyponatremia with Na le ronda at 106. No baseline to compare Likely secondary to alcohol intake, beer potomania and/or dehydration from poor oral intake. TSH and cortisol normal. Emile <5 consistent with dehydration Patient received 2 L of saline bolus in the ER but sodium increased rapidly to 114 so patient was given DDAVP and D5 water to prevent rapid increases. Sodium stabilized and now has been rising more slowly; patient feeling better. Nephrology is managing sodium. NaCl tablets started 1.5 g bid Monitor serial sodium levels. Appreciate nephrology input. Slow decline again. Suspect chronically low been mid 120s however no prior level Will continue to monitor for now # Alcohol abuse: Patient drinks 6-8 beers daily. We monitored for withdrawal signs and symptoms with CIWA protocol. CIWA 0-2 range and now he is off the protocol. Ativan prn ordered but not required Continue Thiamine and folate Patient was counseled and encouraged to quit all alcohol use # Frequent falls: Head CT was negative for acute change but showed old lacunar infarcts at the right basal ganglia and left side of the eula as well as chronic small vessel ischemic disease and evidence of sinusitis. Carotid US showing <50% stenosis bilateral ICAs. B12 level low end of normal. MMA normal. B12 replaced. [place] falls and weakness related to old CVAs and alcoholism complicated by malnutrition and dehydration. PT OT. Continue Lipitor and ASA. Moderate assistance with bed mobility and transfer. Contact guard with chair transfer. Care coordination looked into SNF but patient refuses. No home health authorization until patient is seen by PCP. # Fracture: Imaging showing acute and chronic right-sided rib fractures, mildly displaced fracture of the medial head of the left clavicle with surrounding small hematoma, nondisplaced fracture extending across the S2 vertebral body and the lateral sacral ala and chronic appearing compression fractures with 20% anterior vertebral body height loss at T12 and <20% anterior vertebral body height loss at T11. Multiple fractures in various stages of healing. Most related to falls but consider osteoporosis. Vit D level <12.8. He will need bone density scan. VitD being replaced. Repeat xray noted. Sling for when he is up out of bed Patient pain is not well controlled, start oxycodone 5 mg q.4 hours p.r.n., discontinue [place] # CVA (cerebral vascular accident): As above # Hypokalemia: Potassium was replaced. Continue to monitor and replace as needed. Follow # Hyperbilirubinemia: TB 4.2 on admission all indirect. CT scan showing normal liver, GB and pancreas. Probably related to [place] or from alcoholism. Levels trended down now that he is eating Follow # Pneumothorax: CT chest showing a very small right PTX probably related to his recent falls and rib fratures. CXR repeated showing no PTX Complains of pain with coughing. Will add mucinex and have lozenges available prn. Add incentive spirometry. Repeat CXR showing no PTX Follow clinically. # Complicated grief: Patient has been grieving loss of her mother. He may be depressed but will need to be evaluated once metabolic and issues are sorted out. He denies any suicidal homicidal ideations at this time and does not need one-to-one sitter. Hold on SSRI treatment since may negatively affect sodium values. # DVT prophylaxis -Lovenox # Code Status - Full Code Subjective Date/time seen: 06/13/24 15:29 Interval history: No overnight events no new complaints labs reviewed. Discussed with Nephrology. Review of Systems Review of Systems: All systems reviewed & are unremarkable except as noted in HPI and below (HPI) Exam Narrative: GENERAL: Well-appearing, in no acute distress. Well-nourished. - EYES: EOMI. Anicteric. - HENT: Moist mucous membranes. - LUNGS: Clear to auscultation bilateral ly, no wheezing, rhonchi, or rales. - CARDIOVASCULAR: Regular rate and rhyth m. No murmur. No JVD. - ABDOMEN: Soft, non-tender and non-dist ended. No palpable masses. - EXTREMITIES: No edema. Peripheral puls es 2+. Non-tender. - NEUROLOGIC: No focal neurological defi cits. CN II-XII grossly intact. And weakness - PSYCHIATRIC: Awake, Alert and oriented x 3. Appropriate mood and affect. - SKIN: No rashes or lesions. Warm. - LYMPH: No cervical lymphadenopathy. Objective Data Vital Signs Vital Signs: Vital Signs - 24 hr 06/12/24 22:05 06/12/24 20:00 06/13/24 06:00 Temperature 97.6 F 98.1 F Pulse Rate 86 81 Respiratory Rate 20 20 Blood Pressure 155/85 H 154/79 H Pulse Oximetry 99 98 Oxygen Delivery Room Air 06/13/24 08:00 06/13/24 14:00 Temperature 97.7 F Pulse Rate 84 Respiratory Rate 16 Blood Pressure 162/86 H Pulse Oximetry 99 Oxygen Delivery Room Air Intake/Output Intake/Output: Intake & Output 06/10/24 06/11/24 06/12/24 06/13/24 23:59 23:59 23:59 23:59 Intake Total 1740 2610 1500 672 Output Total 1150 900 600 Balance 1740 1460 600 72 Meds/Results Medications: Active Medications Generic Name Dose Route Start Last Admin Trade Name Freq PRN Reason Stop Dose Admin Acetaminophen 650 mg 06/08/24 16:30 06/08/24 17:39 Acetaminophen 325 Mg Tablet PO 650 mg Q4H PRN Administration Pain Rated 5 or Less Aspirin 81 mg 06/07/24 08:00 06/13/24 08:27 Aspirin 81 Mg Chewable Tablet PO 81 mg DAILY@0800 MONICA Administration Atorvastatin Calcium 40 mg 06/07/24 09:00 06/13/24 08:27 Atorvastatin 40 Mg Tablet PO 40 mg DAILY MONICA Administration Benzocaine 1 lozenge 06/08/24 13:49 06/10/24 21:30 Benzocaine/Menthol (*Bkc) 18 Ea Lozenge PO 1 lozenge PRN PRN Administration Sore Throat Cyanocobalamin 1,000 mcg 06/08/24 09:00 06/13/24 08:27 Cyanocobalamin 1,000 Mcg Tablet PO 1,000 mcg QAM MONICA Administration Enoxaparin Sodium 40 mg 06/07/24 09:00 06/13/24 08:28 Enoxaparin 40 Mg/0.4 Ml Syringe SUB-Q 40 mg DAILY MONICA Administration Folic Acid 1 mg 06/06/24 09:00 06/13/24 08:28 Folic Acid 1 Mg Tablet PO 1 mg DAILY MONICA Administration Furosemide 20 mg 06/09/24 09:00 06/13/24 08:27 Furosemide 20 Mg Tablet PO 20 mg BID MONICA Administration Guaifenesin 600 mg 06/08/24 21:00 06/13/24 08:28 Guaifenesin 12 Hr 600 Mg Tabcr PO 600 mg Q12HR MONICA Administration Megestrol Acetate 20 mg 06/10/24 09:00 06/13/24 08:27 Megestrol Acetate (*Chemo) 20 Mg Tablet PO 20 mg QAM MONICA Administration Melatonin 5 mg 06/07/24 21:00 06/12/24 21:07 Melatonin 5 Mg Tablet PO 5 mg HS MONICA Administration Ondansetron HCl 4 mg 06/05/24 14:36 Ondansetron Inj 4 Mg/2 Ml Vial IV PUSH Q4H PRN Nausea Oxycodone/Acetaminophen 1 tablet 06/12/24 15:56 Oxycodone/Acetaminophen (*Crx) 5-325 Mg Tablet PO Q4H PRN Pain Rated 7-10 Sodium Chloride 500 mg 06/11/24 09:00 06/13/24 08:27 Sodium Chloride 500 Mg Tablet PO 500 mg BID MONICA Administration Sodium Chloride 1 gm 06/11/24 09:00 06/13/24 08:27 Sodium Chloride 1 Gm Tablet PO 1 gm BID MONICA Administration Thiamine HCl 100 mg 06/06/24 09:00 06/13/24 08:27 Thiamine Hcl 100 Mg Tablet PO 100 mg QAM MONICA Administration Vitamin D 1,000 units 06/07/24 12:05 06/13/24 08:28 Cholecalciferol 1,000 Units Tablet PO 1,000 units DAILY MONICA Administration Radiology Results: ITS Impressions Head CT 06/05/24 17:07 IMPRESSION: 1. 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 No acute intracranial process. 2. Age-related changes including mild diffuse volume loss and mild scattered white matter hypoattenuation consistent with chronic small vessel ischemic disease. 3. Occlusion of the left frontoethmoidal recess with complete opacification of the left frontal and maxillary sinuses and anterior left ethmoid air cells. Chest/Abdomen/Pelvis CT 06/05/24 17:12 IMPRESSION: 1. A few acute and chronic right-sided rib fractures with very small right pneumothorax. 2. Mildly displaced fracture of the medial head of the left clavicle. 3. Nondisplaced fracture extending across the S2 vertebral body and the lateral sacral ala. 4. No acute intra-abdominal/pelvic process. Carotid Doppler Study 06/07/24 09:39 IMPRESSION: 1. Less than 50% stenosis in the right internal carotid artery by sonographic criteria. 2. Less than 50% stenosis in the left internal carotid artery by sonographic criteria. Chest X-Ray 06/09/24 15:22 IMPRESSION: No active cardiopulmonary disease ADDENDUM: 06/09/24 1530 There are displaced fractures of the anterior aspect of the right ninth, 10th and probably 11th rib fractures. Clavicle X-Ray 06/09/24 15:28 IMPRESSION: Minimally inferiorly displaced medial left clavicle fracture Labs Labs: Laboratory Results - last 24 hr 06/07/24 06/13/24 18:19 05:41 Sodium 123 L Potassium 4.1 Chloride 89 L Carbon Dioxide 26 Anion Gap 8 BUN 8 L Creatinine 0.50 L Estim Creat Clear Calc 108 Estimated GFR > 60 Glucose 87 Calcium 8.9 Urine Albumin 100 U Peosl-8-Vevoxpoz 0 U Izbwz-4-Aptkvige 0 U Beta Globulin 0 U Gamma Globulin 0 Urine PEP Interpret See note
[2024-06-13] MEDS: MELATONIN 5 MG TABLET PO (19:44)
[2024-06-13 21:54] VITALS: BP 124/81; PULSE 84; RESP 20; TEMP 36.3; O2SAT 98
[2024-06-14] MEDS: oxyCODONE/ACETAMINOPHEN (*CRX) 5-325 MG TABLET 1 TABLET PO ×3 (02:49→16:54)
[2024-06-14 06:00] VITALS: BP 148/70; PULSE 85; RESP 18; TEMP 36.4; O2SAT 96
[2024-06-14 06:07] LABS: Alanine Aminotransferase 29 U/L (6-50); Albumin Level 3.9 g/dL (3.5-5.1); Alkaline Phosphatase 119 U/L (38-126); Anion Gap 10 mmol/L (4-12); Aspartate Amino Transferase 37 U/L (17-59); Bilirubin,Total 1.3 mg/dL (0.2-1.3); Blood Urea Nitrogen 9 mg/dL (9-20); Calcium 8.8 mg/dL (8.4-10.2); Carbon Dioxide 24 mmol/L (22-30); Chloride 90 mmol/L (98-107); Estimated CRCL calculation 92 ml/min; Estimated Glomerular Filt Rate > 60; Glucose 103 mg/dL (65-110); Potassium 3.9 mmol/L (3.4-5.0); Sodium 124 mmol/L (137-145)
[2024-06-14 06:11] LABS: Basophils Absolute Auto 0.1 K/mm3 (0.0-0.1); Basophils Percent Auto 0.8 % (0.2-1.2); Eosinophils Absolute Auto 0.2 K/mm3 (0-0.3); Eosinophils Percent Auto 2.5 % (0-4.4); Hematocrit 36.9 % (42.0-52.0); Hemoglobin 13.6 g/dL (14.0-18.0); Immature Granulocyte Absolute 0.07 K/mm3 (0.00-0.031); Immature Granulocyte Percent A 0.7 % (0-0.5); Lymphocytes Absolute Auto 1.45 K/mm3 (0.9-3.2); Lymphocytes Percent Auto 14.9 % (18.3-44.2); Mean Corpuscular HGB Conc 36.9 g/dl (32-36); Mean Corpuscular Hemoglobin 34.5 pg (26-34); Mean Corpuscular Volume 93.7 fl (80-100); Mean Platelet Volume 8.1 fl (7.4-10.4); Monocytes Absolute Auto 0.6 K/mm3 (0.1-0.6); Monocytes Percent Auto 6.6 % (2.6-8.5); Neutrophils Absolute Auto 7.3 K/mm3 (1.3-6.7); Neutrophils Percent Auto 74.5 % (45.5-73.1); Platelet Count Result 403 k/mm3 (150-375); Red Blood Count 3.94 M/mm3 (4.6-6.20); Red Cell Distribution Width 11.1 % (11.5-14.5); White Blood Count 9.8 K/mm3 (4.5-10.0)
[2024-06-14] MEDS: FUROSEMIDE 20 MG TABLET PO ×2 (09:19→16:53)
[2024-06-14] MEDS: SODIUM CHLORIDE 1 GM TABLET PO ×3 (09:19→20:42)
[2024-06-14] MEDS: SODIUM CHLORIDE 500 MG TABLET PO ×3 (09:19→20:42)
[2024-06-14] MEDS: ASPIRIN 81 MG CHEWABLE TABLET PO (09:19)
[2024-06-14] MEDS: THIAMINE HCL 100 MG TABLET PO (09:19)
[2024-06-14] MEDS: CHOLECALCIFEROL 1,000 UNITS TABLET 1000 UNITS PO (09:19)
[2024-06-14] MEDS: ATORVASTATIN 40 MG TABLET PO (09:19)
[2024-06-14] MEDS: guaiFENesin 12 HR 600 MG TABCR PO ×2 (09:19→20:41)
[2024-06-14] MEDS: CYANOCOBALAMIN 1,000 MCG TABLET 1000 MCG PO (09:20)
[2024-06-14] MEDS: FOLIC ACID 1 MG TABLET PO (09:20)
[2024-06-14] MEDS: MEGESTROL ACETATE (*CHEMO) 20 MG TABLET PO (09:24)
[2024-06-14] MEDS: ENOXAPARIN 40 MG/0.4 ML SYRINGE SUB-Q (09:26)
--- NOTE | 2024-06-14 11:01 | P.PNNP_ITS ---
Progress Note: A&P Assessment and Plan (1) Hyponatremia: Code(s): E87.1 - Hypo-osmolality and hyponatremia Status: Acute Assessment and Plan: * better but not normal * severe hyponatremia noted on presentation - sodium 106mmol/L * no baseline sodium level to compare to... * possible chronic hyponatremia?? * rapid increase in sodium (106 --> 114 on day of admission) with just normal saline argues in favor of volume depletion playing a role * due to this rapid correction, given DDAVP and D5W IVFs which stabilized rate of rise * goal of therapy is a rate of change of 6 - 8mmol/L in 24 hours -- this has been achieved * evaluation to date noted: * TSH okay * cortisol 15 indicating adequate adrenal function * urine specific gravity 1.017 suggesting a concentrated urine * urine sodium is low * SPEP & UPEP negative for paraproteinemia * suspected multifactorial etiology: * chronic alcohol intake/abuse * pre-renal factors * pain (noted injuries on imaging) * narcotic use * on fluid restriction plus salt tablets plus Lasix * salt tabs at 1500mg bid with lasix 20mg bid * add extra dose of salt tabs x 1 today * consider increasing to 2gm bid (?) * follow trend of sodium (2) Hypokalemia: Code(s): E87.6 - Hypokalemia Status: Acute Assessment and Plan: * relatively stable * follow tnred (3) Alcohol abuse: Code(s): F10.10 - Alcohol abuse, uncomplicated Status: Acute Assessment and Plan: * knwn to drink at least 6-8 beers daily * monitor for withdrawal * [facility] protocol * on thiamine and folic acid (4) Frequent falls: Code(s): R29.6 - Repeated falls Status: Acute Assessment and Plan: * imaging noted * head CT was negative for acute change but with old lacunar infarcts at the right basal ganglia and left side of the eula as well as chronic small ves cr ischemic disease along with evidence of sinusitis * PT/OT as tolerated Will continue to follow. Subjective Date/time seen: 06/14/24 11:01 Interval history: Follow-up for hyponatremia. Sodium fluctuating but as noted both on admission and currently, remains asymptomatic from this electrolyte abnormality; still feels weak but working with therapy as tolerated; no apparent distress noted at this time; no issues/events overnight or earlier this morning. Exam Narrative: General: WD/WN male in NAD Heart: normal S1 and S2; no rub Lungs: clear to auscultation Abdomen: soft, nontender, nondistended, positive bowel sounds Extremities: no cyanosis or clubbing; no edema Skin: warm and dry Objective Data Vital Signs Vital Signs: Vital Signs Temp Pulse Resp BP Pulse Ox O2 Del Method 06/14/24 11:00 97.0 F L 86 16 121/70 94 06/14/24 08:00 Room Air 06/14/24 06:00 97.6 F 85 18 148/70 H 96 06/13/24 20:00 Room Air 06/13/24 21:54 97.3 F L 84 20 124/81 98 Intake/Output Intake/Output: Intake & Output 06/11/24 06/12/24 06/13/24 06/14/24 23:59 23:59 23:59 23:59 Intake Total 2610 1500 672 200 Output Total 5988 884 9270 1000 Balance 1460 600 -828 -800 Meds/Results Medications: Active Medications Generic Name Dose Route Start Last Admin Trade Name Freq PRN Reason Stop Dose Admin Acetaminophen 650 mg 06/08/24 16:30 06/08/24 17:39 Acetaminophen 325 Mg Tablet PO 650 mg Q4H PRN Administration Pain Rated 5 or Less Aspirin 81 mg 06/07/24 08:00 06/14/24 09:19 Aspirin 81 Mg Chewable Tablet PO 81 mg DAILY@0800 MONICA Administration Atorvastatin Calcium 40 mg 06/07/24 09:00 06/14/24 09:19 Atorvastatin 40 Mg Tablet PO 40 mg DAILY MONICA Administration Benzocaine 1 lozenge 06/08/24 13:49 06/10/24 21:30 Benzocaine/Menthol (*Bkc) 18 Ea Lozenge PO 1 lozenge PRN PRN Administration Sore Throat Cyanocobalamin 1,000 mcg 06/08/24 09:00 06/14/24 09:20 Cyanocobalamin 1,000 Mcg Tablet PO 1,000 mcg QAM MONICA Administration Enoxaparin Sodium 40 mg 06/07/24 09:00 06/14/24 09:26 Enoxaparin 40 Mg/0.4 Ml Syringe SUB-Q 40 mg DAILY MONICA Administration Folic Acid 1 mg 06/06/24 09:00 06/14/24 09:20 Folic Acid 1 Mg Tablet PO 1 mg DAILY MONICA Administration Furosemide 20 mg 06/09/24 09:00 06/14/24 16:53 Furosemide 20 Mg Tablet PO 20 mg BID MONICA Administration Guaifenesin 600 mg 06/08/24 21:00 06/14/24 09:19 Guaifenesin 12 Hr 600 Mg Tabcr PO 600 mg Q12HR MONICA Administration Megestrol Acetate 20 mg 06/10/24 09:00 06/14/24 09:24 Megestrol Acetate (*Chemo) 20 Mg Tablet PO 20 mg QAM MONICA Administration Melatonin 5 mg 06/07/24 21:00 06/13/24 19:44 Melatonin 5 Mg Tablet PO 5 mg HS MONICA Administration Ondansetron HCl 4 mg 06/05/24 14:36 Ondansetron Inj 4 Mg/2 Ml Vial IV PUSH Q4H PRN Nausea Oxycodone/Acetaminophen 1 tablet 06/12/24 15:56 06/14/24 16:54 Oxycodone/Acetaminophen (*Crx) 5-325 Mg Tablet PO 1 tablet Q4H PRN Administration Pain Rated 7-10 Sodium Chloride 500 mg 06/11/24 09:00 06/14/24 16:54 Sodium Chloride 500 Mg Tablet PO 500 mg BID MONICA Administration Sodium Chloride 1 gm 06/11/24 09:00 06/14/24 16:53 Sodium Chloride 1 Gm Tablet PO 1 gm BID MONICA Administration Thiamine HCl 100 mg 06/06/24 09:00 06/14/24 09:19 Thiamine Hcl 100 Mg Tablet PO 100 mg QAM MONICA Administration Vitamin D 1,000 units 06/07/24 12:05 06/14/24 09:19 Cholecalciferol 1,000 Units Tablet PO 1,000 units DAILY MONICA Administration Radiology Results: ITS Impressions Head CT 06/05/24 17:07 IMPRESSION: 1. 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 No acute intracranial process. 2. Age-related changes including mild diffuse volume loss and mild scattered white matter hypoattenuation consistent with chronic small vessel ischemic disease. 3. Occlusion of the left frontoethmoidal recess with complete opacification of the left frontal and maxillary sinuses and anterior left ethmoid air cells. Chest/Abdomen/Pelvis CT 06/05/24 17:12 IMPRESSION: 1. A few acute and chronic right-sided rib fractures with very small right pneumothorax. 2. Mildly displaced fracture of the medial head of the left clavicle. 3. Nondisplaced fracture extending across the S2 vertebral body and the lateral sacral ala. 4. No acute intra-abdominal/pelvic process. Carotid Doppler Study 06/07/24 09:39 IMPRESSION: 1. Less than 50% stenosis in the right internal carotid artery by sonographic criteria. 2. Less than 50% stenosis in the left internal carotid artery by sonographic criteria. Chest X-Ray 06/09/24 15:22 IMPRESSION: No active cardiopulmonary disease ADDENDUM: 06/09/24 1530 There are displaced fractures of the anterior aspect of the right ninth, 10th and probably 11th rib fractures. Clavicle X-Ray 06/09/24 15:28 IMPRESSION: Minimally inferiorly displaced medial left clavicle fracture Labs Labs: Laboratory Tests 06/14/24 05:52 06/14/24 05:52 Calcium 8.8 Magnesium 2.0 Total Bilirubin 1.3 AST 37 ALT 29 Alkaline Phosphatase 119 Total Protein 8.0 Albumin 3.9
--- NOTE | 2024-06-14 12:31 | P.PNIM_ITS ---
Progress Note: A&P Assessment and Plan (1) Hyponatremia: Code(s): E87.1 - Hypo-osmolality and hyponatremia Status: Acute (2) Alcohol abuse: Code(s): F10.10 - Alcohol abuse, uncomplicated Status: Acute (3) Generalized weakness: Code(s): R53.1 - Weakness Status: Acute (4) Frequent falls: Code(s): R29.6 - Repeated falls Status: Acute (5) Fracture: Code(s): T14.8XXA - Other injury of unspecified body region, initial encounter Status: Acute (6) Hypokalemia: Code(s): E87.6 - Hypokalemia Status: Acute Plan #Hyponatremia: Patient presented with weakness and found to have severe hyponatremia with Na le ronda at 106. No baseline to compare Likely secondary to alcohol intake, beer potomania and/or dehydration from poor oral intake. TSH and cortisol normal. Emile <5 consistent with dehydration Patient received 2 L of saline bolus in the ER but sodium increased rapidly to 114 so patient was given DDAVP and D5 water to prevent rapid increases. Sodium stabilized and now has been rising more slowly; patient feeling better. Nephrology is managing sodium. NaCl tablets started 1.5 g bid Monitor serial sodium levels. Appreciate nephrology input. Slow decline again. Suspect chronically low been mid 120s however no prior level Will continue to monitor for now if stable plan for discharge to nursing facility and monitor as an outpatient basis # Alcohol abuse: Patient drinks 6-8 beers daily. We monitored for withdrawal signs and symptoms with CIWA protocol. CIWA 0-2 range and now he is off the protocol. Ativan prn ordered but not required Continue Thiamine and folate Patient was counseled and encouraged to quit all alcohol use # Frequent falls: Head CT was negative for acute change but showed old lacunar infarcts at the right basal ganglia and left side of the eula as well as chronic small vessel ischemic disease and evidence of sinusitis. Carotid US showing <50% stenosis bilateral ICAs. B12 level low end of normal. MMA normal. B12 replaced. [place] falls and weakness related to old CVAs and alcoholism complicated by malnutrition and dehydration. PT OT. Continue Lipitor and ASA. Moderate assistance with bed mobility and transfer. Contact guard with chair transfer. Care coordination looked into SNF but patient refuses. No home health authorization until patient is seen by PCP. # Fracture: Imaging showing acute and chronic right-sided rib fractures, mildly displaced fracture of the medial head of the left clavicle with surrounding small hematoma, nondisplaced fracture extending across the S2 vertebral body and the lateral sacral ala and chronic appearing compression fractures with 20% anterior vertebral body height loss at T12 and <20% anterior vertebral body height loss at T11. Multiple fractures in various stages of healing. 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 Vit D level <12.8. He will need bone density scan. VitD being replaced. Repeat xray noted. Sling for when he is up out of bed Patient pain is not well controlled, start oxycodone 5 mg q.4 hours p.r.n., discontinue [place] # CVA (cerebral vascular accident): As above # Hypokalemia: Potassium was replaced. Continue to monitor and replace as needed. Follow # Hyperbilirubinemia: TB 4.2 on admission all indirect. CT scan showing normal liver, GB and pancreas. Probably related to [place] or from alcoholism. Levels trended down now that he is eating Follow # Pneumothorax: CT chest showing a very small right PTX probably related to his recent falls and rib fratures. CXR repeated showing no PTX Complains of pain with coughing. Will add mucinex and have lozenges available prn. Add incentive spirometry. Repeat CXR showing no PTX Follow clinically. # Complicated grief: Patient has been grieving loss of her mother. He may be depressed but will need to be evaluated once metabolic and issues are sorted out. He denies any suicidal homicidal ideations at this time and does not need one-to-one sitter. Hold on SSRI treatment since may negatively affect sodium values. # DVT prophylaxis -Lovenox # Code Status - Full Code Subjective Date/time seen: 06/14/24 12:31 Interval history: No overnight events. No new complaints. Still feels weak. Working with therapy. Review of Systems Review of Systems: All systems reviewed & are unremarkable except as noted in HPI and below (HPI) Exam Narrative: GENERAL: Well-appearing, in no acute distress. Well-nourished. - EYES: EOMI. Anicteric. - HENT: Moist mucous membranes. - LUNGS: Clear to auscultation bilateral ly, no wheezing, rhonchi, or rales. - CARDIOVASCULAR: Regular rate and rhyth m. No murmur. No JVD. - ABDOMEN: Soft, non-tender and non-dist ended. No palpable masses. - EXTREMITIES: No edema. Peripheral puls es 2+. Non-tender. - NEUROLOGIC: No focal neurological defi cits. CN II-XII grossly intact. And weakness - PSYCHIATRIC: Awake, Alert and oriented x 3. Appropriate mood and affect. - SKIN: No rashes or lesions. Warm. - LYMPH: No cervical lymphadenopathy. Objective Data Vital Signs Vital Signs: Vital Signs - 24 hr 06/13/24 14:00 06/13/24 21:54 06/13/24 20:00 Temperature 97.7 F 97.3 F L Pulse Rate 84 84 Respiratory Rate 16 20 Blood Pressure 162/86 H 124/81 Pulse Oximetry 99 98 Oxygen Delivery Room Air 06/14/24 06:00 06/14/24 08:00 Temperature 97.6 F Pulse Rate 85 Respiratory Rate 18 Blood Pressure 148/70 H Pulse Oximetry 96 Oxygen Delivery Room Air Intake/Output Intake/Output: Intake & Output 06/11/24 06/12/24 06/13/24 06/14/24 23:59 23:59 23:59 23:59 Intake Total 2610 1500 672 200 Output Total 1602 978 2481 1000 Balance 1460 600 828 -800 Meds/Results Medications: Active Medications Generic Name Dose Route Start Last Admin Trade Name Freq PRN Reason Stop Dose Admin Acetaminophen 650 mg 06/08/24 16:30 06/08/24 17:39 Acetaminophen 325 Mg Tablet PO 650 mg Q4H PRN Administration Pain Rated 5 or Less Aspirin 81 mg 06/07/24 08:00 06/14/24 09:19 Aspirin 81 Mg Chewable Tablet PO 81 mg DAILY@0800 MONICA Administration Atorvastatin Calcium 40 mg 06/07/24 09:00 06/14/24 09:19 Atorvastatin 40 Mg Tablet PO 40 mg DAILY MONCIA Administration Benzocaine 1 lozenge 06/08/24 13:49 06/10/24 21:30 Benzocaine/Menthol (*Bkc) 18 Ea Lozenge PO 1 lozenge PRN PRN Administration Sore Throat Cyanocobalamin 1,000 mcg 06/08/24 09:00 06/14/24 09:20 Cyanocobalamin 1,000 Mcg Tablet PO 1,000 mcg QAM MONICA Administration Enoxaparin Sodium 40 mg 06/07/24 09:00 06/14/24 09:26 Enoxaparin 40 Mg/0.4 Ml Syringe SUB-Q 40 mg DAILY MONICA Administration Folic Acid 1 mg 06/06/24 09:00 06/14/24 09:20 Folic Acid 1 Mg Tablet PO 1 mg DAILY MONICA Administration Furosemide 20 mg 06/09/24 09:00 06/14/24 09:19 Furosemide 20 Mg Tablet PO 20 mg BID MONICA Administration Guaifenesin 600 mg 06/08/24 21:00 06/14/24 09:19 Guaifenesin 12 Hr 600 Mg Tabcr PO 600 mg Q12HR MONICA Administration Megestrol Acetate 20 mg 06/10/24 09:00 06/14/24 09:24 Megestrol Acetate (*Chemo) 20 Mg Tablet PO 20 mg QAM MONICA Administration Melatonin 5 mg 06/07/24 21:00 06/13/24 19:44 Melatonin 5 Mg Tablet PO 5 mg HS MONICA Administration Ondansetron HCl 4 mg 06/05/24 14:36 Ondansetron Inj 4 Mg/2 Ml Vial IV PUSH Q4H PRN Nausea Oxycodone/Acetaminophen 1 tablet 06/12/24 15:56 06/14/24 09:29 Oxycodone/Acetaminophen (*Crx) 5-325 Mg Tablet PO 1 tablet Q4H PRN Administration Pain Rated 7-10 Sodium Chloride 500 mg 06/11/24 09:00 06/14/24 09:19 Sodium Chloride 500 Mg Tablet PO 500 mg BID MONICA Administration Sodium Chloride 1 gm 06/11/24 09:00 06/14/24 09:19 Sodium Chloride 1 Gm Tablet PO 1 gm BID MONICA Administration Thiamine HCl 100 mg 06/06/24 09:00 06/14/24 09:19 Thiamine Hcl 100 Mg Tablet PO 100 mg QAM MONICA Administration Vitamin D 1,000 units 06/07/24 12:05 06/14/24 09:19 Cholecalciferol 1,000 Units Tablet PO 1,000 units DAILY MONICA Administration Radiology Results: ITS Impressions Head CT 06/05/24 17:07 IMPRESSION: 1. 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 No acute intracranial process. 2. Age-related changes including mild diffuse volume loss and mild scattered white matter hypoattenuation consistent with chronic small vessel ischemic disease. 3. Occlusion of the left frontoethmoidal recess with complete opacification of the left frontal and maxillary sinuses and anterior left ethmoid air cells. Chest/Abdomen/Pelvis CT 06/05/24 17:12 IMPRESSION: 1. A few acute and chronic right-sided rib fractures with very small right pneumothorax. 2. Mildly displaced fracture of the medial head of the left clavicle. 3. Nondisplaced fracture extending across the S2 vertebral body and the lateral sacral ala. 4. No acute intra-abdominal/pelvic process. Carotid Doppler Study 06/07/24 09:39 IMPRESSION: 1. Less than 50% stenosis in the right internal carotid artery by sonographic criteria. 2. Less than 50% stenosis in the left internal carotid artery by sonographic criteria. Chest X-Ray 06/09/24 15:22 IMPRESSION: No active cardiopulmonary disease ADDENDUM: 06/09/24 1530 There are displaced fractures of the anterior aspect of the right ninth, 10th and probably 11th rib fractures. Clavicle X-Ray 06/09/24 15:28 IMPRESSION: Minimally inferiorly displaced medial left clavicle fracture Labs Labs: Laboratory Results - last 24 hr 06/14/24 05:52 WBC 9.8 RBC 3.94 L Hgb 13.6 L Hct 36.9 L MCV 93.7 MCH 34.5 H MCHC 36.9 H RDW 11.1 L Plt Count 403 H MPV 8.1 Immature Gran % (Auto) 0.7 H Neut % (Auto) 74.5 H Lymph % (Auto) 14.9 L [place] % (Auto) 6.6 Eos % (Auto) 2.5 Baso % (Auto) 0.8 Lymph # (Auto) 1.45 [place] # (Auto) 0.6 Eos # (Auto) 0.2 Baso # (Auto) 0.1 Abs Immat Gran (auto) 0.07 H Absolute Neuts (auto) 7.3 H Absolute Nucleated RBC 0.000 Nucleated RBC % 0.0 Sodium 124 L Potassium 3.9 Chloride 90 L Carbon Dioxide 24 Anion Gap 10 BUN 9 Creatinine 0.60 L Estim Creat Clear Calc 92 Estimated GFR > 60 Glucose 103 Calcium 8.8 Magnesium 2.0 Total Bilirubin 1.3 AST 37 ALT 29 Alkaline Phosphatase 119 Total Protein 8.0 Albumin 3.9
[2024-06-14 12:38] LABS: Lambda Light Chain 27.1 mg/L (5.7-26.3)
--- NOTE | 2024-06-14 12:46 | PCPTNOTE ---
Attempted to see patient for Physical Therapy this AM. Patient stated that he already did therapy this morning and that he has been moving his legs around. He said that he sat at the edge of the bed this morning. Patient said that he did not want to do therapy. RN notified.
[2024-06-14 14:00] VITALS: BP 121/70; PULSE 86; RESP 16; TEMP 36.1; O2SAT 94
[2024-06-14 20:00] VITALS: PULSE 86; RESP 16; O2SAT 94
[2024-06-14] MEDS: MELATONIN 5 MG TABLET PO (20:41)
[2024-06-14] MEDS: ACETAMINOPHEN 325 MG TABLET 650 MG PO (20:41)
[2024-06-14 22:00] VITALS: BP 145/84; PULSE 78; RESP 20; TEMP 36.2; O2SAT 100
[2024-06-15 05:23] VITALS: BP 148/72; PULSE 74; RESP 18; TEMP 36.3; O2SAT 97
[2024-06-15 06:00] LABS: Basophils Absolute Auto 0.1 K/mm3 (0.0-0.1); Basophils Percent Auto 0.8 % (0.2-1.2); Eosinophils Absolute Auto 0.2 K/mm3 (0-0.3); Eosinophils Percent Auto 2.8 % (0-4.4); Hematocrit 36.7 % (42.0-52.0); Hemoglobin 13.3 g/dL (14.0-18.0); Immature Granulocyte Absolute 0.03 K/mm3 (0.00-0.031); Immature Granulocyte Percent A 0.4 % (0-0.5); Lymphocytes Absolute Auto 1.47 K/mm3 (0.9-3.2); Lymphocytes Percent Auto 20.3 % (18.3-44.2); Mean Corpuscular HGB Conc 36.2 g/dl (32-36); Mean Corpuscular Hemoglobin 34.5 pg (26-34); Mean Corpuscular Volume 95.1 fl (80-100); Mean Platelet Volume 8.2 fl (7.4-10.4); Monocytes Absolute Auto 0.6 K/mm3 (0.1-0.6); Monocytes Percent Auto 8.2 % (2.6-8.5); Neutrophils Absolute Auto 4.9 K/mm3 (1.3-6.7); Neutrophils Percent Auto 67.5 % (45.5-73.1); Platelet Count Result 414 k/mm3 (150-375); Red Blood Count 3.86 M/mm3 (4.6-6.20); Red Cell Distribution Width 11.2 % (11.5-14.5); White Blood Count 7.2 K/mm3 (4.5-10.0)
[2024-06-15 06:11] LABS: Alanine Aminotransferase 30 U/L (6-50); Albumin Level 3.8 g/dL (3.5-5.1); Alkaline Phosphatase 140 U/L (38-126); Anion Gap 7 mmol/L (4-12); Aspartate Amino Transferase 40 U/L (17-59); Bilirubin,Total 1.3 mg/dL (0.2-1.3); Blood Urea Nitrogen 7 mg/dL (9-20); Calcium 8.9 mg/dL (8.4-10.2); Carbon Dioxide 28 mmol/L (22-30); Chloride 91 mmol/L (98-107); Estimated CRCL calculation 92 ml/min; Estimated Glomerular Filt Rate > 60; Glucose 95 mg/dL (65-110); Potassium 3.9 mmol/L (3.4-5.0); Sodium 126 mmol/L (137-145)
[2024-06-15] MEDS: SODIUM CHLORIDE 1 GM TABLET PO (09:25)
[2024-06-15] MEDS: SODIUM CHLORIDE 500 MG TABLET PO ×2 (09:25→12:51)
[2024-06-15] MEDS: ATORVASTATIN 40 MG TABLET PO (09:25)
[2024-06-15] MEDS: CYANOCOBALAMIN 1,000 MCG TABLET 1000 MCG PO (09:25)
[2024-06-15] MEDS: ASPIRIN 81 MG CHEWABLE TABLET PO (09:25)
[2024-06-15] MEDS: FOLIC ACID 1 MG TABLET PO (09:25)
[2024-06-15] MEDS: CHOLECALCIFEROL 1,000 UNITS TABLET 1000 UNITS PO (09:25)
[2024-06-15] MEDS: guaiFENesin 12 HR 600 MG TABCR PO ×2 (09:25→20:56)
[2024-06-15] MEDS: FUROSEMIDE 20 MG TABLET PO ×2 (09:25→16:42)
[2024-06-15] MEDS: THIAMINE HCL 100 MG TABLET PO (09:25)
[2024-06-15] MEDS: MEGESTROL ACETATE (*CHEMO) 20 MG TABLET PO (09:26)
[2024-06-15] MEDS: ENOXAPARIN 40 MG/0.4 ML SYRINGE SUB-Q (09:26)
[2024-06-15] MEDS: oxyCODONE/ACETAMINOPHEN (*CRX) 5-325 MG TABLET 1 TABLET PO (09:47)
--- NOTE | 2024-06-15 10:30 | P.PNNP_ITS ---
Progress Note: A&P Assessment and Plan (1) Hyponatremia: Code(s): E87.1 - Hypo-osmolality and hyponatremia Status: Acute Assessment and Plan: * better but not normal * severe hyponatremia noted on presentation - sodium 106mmol/L * no baseline sodium level to compare to... * possible chronic hyponatremia?? * rapid increase in sodium (106 --> 114 on day of admission) with just normal saline argues in favor of volume depletion playing a role * due to this rapid correction, given DDAVP and D5W IVFs which stabilized rate of rise * goal of therapy is a rate of change of 6 - 8mmol/L in 24 hours -- this has been achieved * evaluation to date noted: * TSH okay * cortisol 15 indicating adequate adrenal function * urine specific gravity 1.017 suggesting a concentrated urine * urine sodium is low * SPEP & UPEP negative for paraproteinemia * suspected multifactorial etiology: * chronic alcohol intake/abuse * pre-renal factors * pain (noted injuries on imaging) * narcotic use * previous CVAs * contribution from small pneumothorax (lung injury can contribute to low sodium levels) * on fluid restriction plus salt tablets plus Lasix * salt tabs at 1500mg bid with lasix 20mg bid * consider increasing to 2gm bid (?) * follow trend of sodium (2) Hypokalemia: Code(s): E87.6 - Hypokalemia Status: Acute Assessment and Plan: * relatively stable * follow tnred (3) Alcohol abuse: Code(s): F10.10 - Alcohol abuse, uncomplicated Status: Acute Assessment and Plan: * knwn to drink at least 6-8 beers daily * monitor for withdrawal * [place] protocol * on thiamine and folic acid (4) Frequent falls: Code(s): R29.6 - Repeated falls Status: Acute Assessment and Plan: * imaging noted * old lacunar infarcts at the right basal ganglia and left side of the eula as well as chronic small vessel ischemic disease along with evidence of sinusitis * multiple rib fractures (acute and chronic) * left clavicle fracute noted as well * S2 vertebral fcarture * PT/OT as tolerated Case discussed with Dr. Connell. Not opposed to discharge from renal perspective if otherwise medically stable -- outpatient labs can be done at his discharge/nursing facility to monitor trend of sodium levels. Will continue to follow. Subjective Date/time seen: 06/15/24 10:30 Interval history: Follow-up for hyponatremia. Sodium a tad better today by AM labs but as mentioned previously, remains asymptomatic with regard to this issue; major complaint is that of generalized weakness; appears comfortable and in no apparent distress when seen; no events overnight or earlier today. Exam Narrative: General: WD/WN male in NAD Heart: normal S1 and S2; no rub Lungs: clear to auscultation Abdomen: soft, nontender, nondistended, positive bowel sounds Extremities: no cyanosis or clubbing; no edema Skin: warm and intact Objective Data Vital Signs Vital Signs: Vital Signs Temp Pulse Resp BP Pulse Ox O2 Del Method 06/15/24 10:18 97.4 F L 74 16 129/68 96 06/15/24 05:23 97.4 F L 74 18 148/72 H 97 06/14/24 22:00 97.1 F L 78 20 145/84 H 100 06/14/24 20:00 86 16 94 Room Air Intake/Output Intake/Output: Intake & Output 06/12/24 06/13/24 06/14/24 06/15/24 23:59 23:59 23:59 23:59 Intake Total 1500 672 200 660 Output Total 900 1500 1200 1000 Balance 600 -828 -1000 -340 Meds/Results Medications: Active Medications Generic Name Dose Route Start Last Admin Trade Name Freq PRN Reason Stop Dose Admin Acetaminophen 650 mg 06/08/24 16:30 06/14/24 20:41 Acetaminophen 325 Mg Tablet PO 650 mg Q4H PRN Administration Pain Rated 5 or Less Aspirin 81 mg 06/07/24 08:00 06/15/24 09:25 Aspirin 81 Mg Chewable Tablet PO 81 mg DAILY@0800 MONICA Administration Atorvastatin Calcium 40 mg 06/07/24 09:00 06/15/24 09:25 Atorvastatin 40 Mg Tablet PO 40 mg DAILY MONICA Administration Benzocaine 1 lozenge 06/08/24 13:49 06/10/24 21:30 Benzocaine/Menthol (*Bkc) 18 Ea Lozenge PO 1 lozenge PRN PRN Administration Sore Throat Cyanocobalamin 1,000 mcg 06/08/24 09:00 06/15/24 09:25 Cyanocobalamin 1,000 Mcg Tablet PO 1,000 mcg QAM MONICA Administration Enoxaparin Sodium 40 mg 06/07/24 09:00 06/15/24 09:26 Enoxaparin 40 Mg/0.4 Ml Syringe SUB-Q 40 mg DAILY MONICA Administration Folic Acid 1 mg 06/06/24 09:00 06/15/24 09:25 Folic Acid 1 Mg Tablet PO 1 mg DAILY MONICA Administration Furosemide 20 mg 06/09/24 09:00 06/15/24 09:25 Furosemide 20 Mg Tablet PO 20 mg BID MONICA Administration Guaifenesin 600 mg 06/08/24 21:00 06/15/24 09:25 Guaifenesin 12 Hr 600 Mg Tabcr PO 600 mg Q12HR MONICA Administration Megestrol Acetate 20 mg 06/10/24 09:00 06/15/24 09:26 Megestrol Acetate (*Chemo) 20 Mg Tablet PO 20 mg QAM [facility] Administration Melatonin 5 mg 06/07/24 21:00 06/14/24 20:41 Melatonin 5 Mg Tablet PO 5 mg HS [facility] Administration Ondansetron HCl 4 mg 06/05/24 14:36 Ondansetron Inj 4 Mg/2 Ml Vial IV PUSH Q4H PRN Nausea Oxycodone/Acetaminophen 1 tablet 06/12/24 15:56 06/15/24 09:47 Oxycodone/Acetaminophen (*Crx) 5-325 Mg Tablet PO 1 tablet Q4H PRN Administration Pain Rated 7-10 Sodium Chloride 2 gm 06/15/24 17:00 Sodium Chloride 1 Gm Tablet PO BID [facility] Thiamine HCl 100 mg 06/06/24 09:00 06/15/24 09:25 Thiamine Hcl 100 Mg Tablet PO 100 mg QAM [facility] Administration Vitamin D 1,000 units 06/07/24 12:05 06/15/24 09:25 Cholecalciferol 1,000 Units Tablet PO 1,000 units DAILY MONICA Administration Radiology Results: ITS Impressions Head CT 06/05/24 17:07 IMPRESSION: 1. 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 No acute intracranial process. 2. Age-related changes including mild diffuse volume loss and mild scattered white matter hypoattenuation consistent with chronic small vessel ischemic disease. 3. Occlusion of the left frontoethmoidal recess with complete opacification of the left frontal and maxillary sinuses and anterior left ethmoid air cells. Chest/Abdomen/Pelvis CT 06/05/24 17:12 IMPRESSION: 1. A few acute and chronic right-sided rib fractures with very small right pneumothorax. 2. Mildly displaced fracture of the medial head of the left clavicle. 3. Nondisplaced fracture extending across the S2 vertebral body and the lateral sacral ala. 4. No acute intra-abdominal/pelvic process. Carotid Doppler Study 06/07/24 09:39 IMPRESSION: 1. Less than 50% stenosis in the right internal carotid artery by sonographic criteria. 2. Less than 50% stenosis in the left internal carotid artery by sonographic criteria. Chest X-Ray 06/09/24 15:22 IMPRESSION: No active cardiopulmonary disease ADDENDUM: 06/09/24 1530 There are displaced fractures of the anterior aspect of the right ninth, 10th and probably 11th rib fractures. Clavicle X-Ray 06/09/24 15:28 IMPRESSION: Minimally inferiorly displaced medial left clavicle fracture Labs Labs: Laboratory Tests 06/15/24 05:47 06/15/24 05:47 Calcium 8.9 Magnesium 2.0 Total Bilirubin 1.3 AST 40 ALT 30 Alkaline Phosphatase 140 H Total Protein 7.0 Albumin 3.8
--- NOTE | 2024-06-15 11:37 | PC.NURSE ---
Patient resting in bed. He has complaints of pain due to his many broken bones from his fall. Does not want to use arm sling. States he can roll and will reposition himself as often as the pain allows. He was compliant with medications (wanted a Pepsi to swallow pills) and agreeable to eat a banana as I educated him it will help to decrease upset stomach with medications and can help absorption of some of the medications. He has decreased hearing and is a bit short but is receptive to education and conversation. Doctor tried to educate patient that he needs to go to rehab sooner than later but patient states I am comfortable like this and want to stay here a few more days .
--- NOTE | 2024-06-15 14:00 | P.PNIM_ITS ---
Progress Note: A&P Assessment and Plan (1) Hyponatremia: Code(s): E87.1 - Hypo-osmolality and hyponatremia Status: Acute (2) Alcohol abuse: Code(s): F10.10 - Alcohol abuse, uncomplicated Status: Acute (3) Generalized weakness: Code(s): R53.1 - Weakness Status: Acute (4) Frequent falls: Code(s): R29.6 - Repeated falls Status: Acute (5) Fracture: Code(s): T14.8XXA - Other injury of unspecified body region, initial encounter Status: Acute (6) Hypokalemia: Code(s): E87.6 - Hypokalemia Status: Acute Plan #Hyponatremia: Patient presented with weakness and found to have severe hyponatremia with Na le ronda at 106. No baseline to compare Likely secondary to alcohol intake, beer potomania and/or dehydration from poor oral intake. TSH and cortisol normal. Emile <5 consistent with dehydration Patient received 2 L of saline bolus in the ER but sodium increased rapidly to 114 so patient was given DDAVP and D5 water to prevent rapid increases. Sodium stabilized and now has been rising more slowly; patient feeling better. Nephrology is managing sodium. NaCl tablets started 1.5 g bid Monitor serial sodium levels. Appreciate nephrology input. Slow decline again. Suspect chronically low been mid 120s however no prior level Will continue to monitor for now if stable plan for discharge to nursing facility and monitor as an outpatient basis # Alcohol abuse: Patient drinks 6-8 beers daily. We monitored for withdrawal signs and symptoms with CIWA protocol. CIWA 0-2 range and now he is off the protocol. Ativan prn ordered but not required Continue Thiamine and folate Patient was counseled and encouraged to quit all alcohol use # Frequent falls: Head CT was negative for acute change but showed old lacunar infarcts at the right basal ganglia and left side of the eula as well as chronic small vessel ischemic disease and evidence of sinusitis. Carotid US showing <50% stenosis bilateral ICAs. B12 level low end of normal. MMA normal. B12 replaced. [place] falls and weakness related to old CVAs and alcoholism complicated by malnutrition and dehydration. PT OT. Continue Lipitor and ASA. Moderate assistance with bed mobility and transfer. Contact guard with chair transfer. Care coordination looked into SNF but patient refuses. No home health authorization until patient is seen by PCP. # Fracture: Imaging showing acute and chronic right-sided rib fractures, mildly displaced fracture of the medial head of the left clavicle with surrounding small hematoma, nondisplaced fracture extending across the S2 vertebral body and the lateral sacral ala and chronic appearing compression fractures with 20% anterior vertebral body height loss at T12 and <20% anterior vertebral body height loss at T11. Multiple fractures in various stages of healing. 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 Vit D level <12.8. He will need bone density scan. VitD being replaced. Repeat xray noted. Sling for when he is up out of bed Patient pain is not well controlled, start oxycodone 5 mg q.4 hours p.r.n., discontinue [place] # CVA (cerebral vascular accident): As above # Hypokalemia: Potassium was replaced. Continue to monitor and replace as needed. Follow # Hyperbilirubinemia: TB 4.2 on admission all indirect. CT scan showing normal liver, GB and pancreas. Probably related to [place] or from alcoholism. Levels trended down now that he is eating Follow # Pneumothorax: CT chest showing a very small right PTX probably related to his recent falls and rib fratures. CXR repeated showing no PTX Complains of pain with coughing. Will add mucinex and have lozenges available prn. Add incentive spirometry. Repeat CXR showing no PTX Follow clinically. # Complicated grief: Patient has been grieving loss of her mother. He may be depressed but will need to be evaluated once metabolic and issues are sorted out. He denies any suicidal homicidal ideations at this time and does not need one-to-one sitter. Hold on SSRI treatment since may negatively affect sodium values. # DVT prophylaxis -Lovenox # Code Status - Full Code Subjective Date/time seen: 06/15/24 14:00 Interval history: no overnight events. No new complaints. Denies any abdominal pain nausea vomiting. Still feels weak. Review of Systems Review of Systems: All systems reviewed & are unremarkable except as noted in HPI and below (HPI) Exam Narrative: GENERAL: Well-appearing, in no acute distress. Well-nourished. - EYES: EOMI. Anicteric. - HENT: Moist mucous membranes. - LUNGS: Clear to auscultation bilateral ly, no wheezing, rhonchi, or rales. - CARDIOVASCULAR: Regular rate and rhyth m. No murmur. No JVD. - ABDOMEN: Soft, non-tender and non-dist ended. No palpable masses. - EXTREMITIES: No edema. Peripheral puls es 2+. Non-tender. - NEUROLOGIC: No focal neurological defi cits. CN II-XII grossly intact. And weakness - PSYCHIATRIC: Awake, Alert and oriented x 3. Appropriate mood and affect. - SKIN: No rashes or lesions. Warm. - LYMPH: No cervical lymphadenopathy. Objective Data Vital Signs Vital Signs: Vital Signs - 24 hr 06/14/24 20:00 06/14/24 22:00 06/15/24 05:23 Temperature 97.1 F L 97.4 F L Pulse Rate 86 78 74 Respiratory Rate 16 20 18 Blood Pressure 145/84 H 148/72 H Pulse Oximetry 94 100 97 Oxygen Delivery Room Air Intake/Output Intake/Output: Intake & Output 06/12/24 06/13/24 06/14/24 06/15/24 23:59 23:59 23:59 23:59 Intake Total 1500 672 200 420 Output Total 900 1500 1200 1000 Balance 600 -828 -1000 -580 Meds/Results Medications: Active Medications Generic Name Dose Route Start Last Admin Trade Name Freq PRN Reason Stop Dose Admin Acetaminophen 650 mg 06/08/24 16:30 06/14/24 20:41 Acetaminophen 325 Mg Tablet PO 650 mg Q4H PRN Administration Pain Rated 5 or Less Aspirin 81 mg 06/07/24 08:00 06/15/24 09:25 Aspirin 81 Mg Chewable Tablet PO 81 mg DAILY@0800 MONICA Administration Atorvastatin Calcium 40 mg 06/07/24 09:00 06/15/24 09:25 Atorvastatin 40 Mg Tablet PO 40 mg DAILY MONICA Administration Benzocaine 1 lozenge 06/08/24 13:49 06/10/24 21:30 Benzocaine/Menthol (*Bkc) 18 Ea Lozenge PO 1 lozenge PRN PRN Administration Sore Throat Cyanocobalamin 1,000 mcg 06/08/24 09:00 06/15/24 09:25 Cyanocobalamin 1,000 Mcg Tablet PO 1,000 mcg QAM MONICA Administration Enoxaparin Sodium 40 mg 06/07/24 09:00 06/15/24 09:26 Enoxaparin 40 Mg/0.4 Ml Syringe SUB-Q 40 mg DAILY MONICA Administration Folic Acid 1 mg 06/06/24 09:00 06/15/24 09:25 Folic Acid 1 Mg Tablet PO 1 mg DAILY MONICA Administration Furosemide 20 mg 06/09/24 09:00 06/15/24 09:25 Furosemide 20 Mg Tablet PO 20 mg BID MONICA Administration Guaifenesin 600 mg 06/08/24 21:00 06/15/24 09:25 Guaifenesin 12 Hr 600 Mg Tabcr PO 600 mg Q12HR MONICA Administration Megestrol Acetate 20 mg 06/10/24 09:00 06/15/24 09:26 Megestrol Acetate (*Chemo) 20 Mg Tablet PO 20 mg QAM MONICA Administration Melatonin 5 mg 06/07/24 21:00 06/14/24 20:41 Melatonin 5 Mg Tablet PO 5 mg HS MONICA Administration Ondansetron HCl 4 mg 06/05/24 14:36 Ondansetron Inj 4 Mg/2 Ml Vial IV PUSH Q4H PRN Nausea Oxycodone/Acetaminophen 1 tablet 06/12/24 15:56 06/15/24 09:47 Oxycodone/Acetaminophen (*Crx) 5-325 Mg Tablet PO 1 tablet Q4H PRN Administration Pain Rated 7-10 Sodium Chloride 2 gm 06/15/24 17:00 Sodium Chloride 1 Gm Tablet PO BID MONICA Thiamine HCl 100 mg 06/06/24 09:00 06/15/24 09:25 Thiamine Hcl 100 Mg Tablet PO 100 mg QAM MONICA Administration Vitamin D 1,000 units 06/07/24 12:05 06/15/24 09:25 Cholecalciferol 1,000 Units Tablet PO 1,000 units DAILY MONICA Administration Radiology Results: ITS Impressions Head CT 06/05/24 17:07 IMPRESSION: 1. 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 No acute intracranial process. 2. Age-related changes including mild diffuse volume loss and mild scattered white matter hypoattenuation consistent with chronic small vessel ischemic disease. 3. Occlusion of the left frontoethmoidal recess with complete opacification of the left frontal and maxillary sinuses and anterior left ethmoid air cells. Chest/Abdomen/Pelvis CT 06/05/24 17:12 IMPRESSION: 1. A few acute and chronic right-sided rib fractures with very small right pneumothorax. 2. Mildly displaced fracture of the medial head of the left clavicle. 3. Nondisplaced fracture extending across the S2 vertebral body and the lateral sacral ala. 4. No acute intra-abdominal/pelvic process. Carotid Doppler Study 06/07/24 09:39 IMPRESSION: 1. Less than 50% stenosis in the right internal carotid artery by sonographic c riteria. 2. Less than 50% stenosis in the left internal carotid artery by sonographic criteria. Chest X-Ray 06/09/24 15:22 IMPRESSION: No active cardiopulmonary disease ADDENDUM: 06/09/24 1530 There are displaced fractures of the anterior aspect of the right ninth, 10th and probably 11th rib fractures. Clavicle X-Ray 06/09/24 15:28 IMPRESSION: Minimally inferiorly displaced medial left clavicle fracture Labs Labs: Laboratory Results - last 24 hr 06/15/24 05:47 WBC 7.2 RBC 3.86 L Hgb 13.3 L Hct 36.7 L MCV 95.1 MCH 34.5 H MCHC 36.2 H RDW 11.2 L Plt Count 414 H MPV 8.2 Immature Gran % (Auto) 0.4 Neut % (Auto) 67.5 Lymph % (Auto) 20.3 [place] % (Auto) 8.2 Eos % (Auto) 2.8 Baso % (Auto) 0.8 Lymph # (Auto) 1.47 [place] # (Auto) 0.6 Eos # (Auto) 0.2 Baso # (Auto) 0.1 Abs Immat Gran (auto) 0.03 Absolute Neuts (auto) 4.9 Absolute Nucleated RBC 0.000 Nucleated RBC % 0.0 Sodium 126 L Potassium 3.9 Chloride 91 L Carbon Dioxide 28 Anion Gap 7 BUN 7 L Creatinine 0.60 L Estim Creat Clear Calc 92 Estimated GFR > 60 Glucose 95 Calcium 8.9 Magnesium 2.0 Total Bilirubin 1.3 AST 40 ALT 30 Alkaline Phosphatase 140 H Total Protein 7.0 Albumin 3.8
[2024-06-15 14:48] VITALS: BP 129/68; PULSE 74; RESP 16; TEMP 36.3; O2SAT 96
[2024-06-15] MEDS: SODIUM CHLORIDE 1 GM TABLET 2 GM PO (16:42)
[2024-06-15] MEDS: MELATONIN 5 MG TABLET PO (20:57)
[2024-06-15 22:33] VITALS: BP 144/70; PULSE 74; RESP 20; TEMP 36.3; O2SAT 98
--- NOTE | 2024-06-16 01:55 | PC.NURSE ---
Daylight Savings Time For Daylight Savings Time Ending in the Fall - Clocks are moved back. For Daylight Savings Time Beginning in the Spring - Clocks are moved ahead. For [facility], the time of change occurs at 0200 hrs. Time is taken from the ware server. This entry on the patient's chart recognizes the change in time reflected during documentation. Example: 2 entries for vital signs may be charted for 0200 hrs.
[2024-06-16 06:00] VITALS: BP 152/88; PULSE 84; RESP 20; TEMP 36.5; O2SAT 99
[2024-06-16 06:12] LABS: Basophils Absolute Auto 0.1 K/mm3 (0.0-0.1); Eosinophils Absolute Auto 0.1 K/mm3 (0-0.3); Eosinophils Percent Auto 1.5 % (0-4.4); Hematocrit 36.8 % (42.0-52.0); Hemoglobin 13.3 g/dL (14.0-18.0); Immature Granulocyte Absolute 0.03 K/mm3 (0.00-0.031); Immature Granulocyte Percent A 0.4 % (0-0.5); Lymphocytes Absolute Auto 1.52 K/mm3 (0.9-3.2); Lymphocytes Percent Auto 22.4 % (18.3-44.2); Mean Corpuscular HGB Conc 36.1 g/dl (32-36); Mean Corpuscular Hemoglobin 34.2 pg (26-34); Mean Corpuscular Volume 94.6 fl (80-100); Monocytes Absolute Auto 0.6 K/mm3 (0.1-0.6); Monocytes Percent Auto 8.1 % (2.6-8.5); Neutrophils Absolute Auto 4.5 K/mm3 (1.3-6.7); Neutrophils Percent Auto 66.6 % (45.5-73.1); Platelet Count Result 431 k/mm3 (150-375); Red Blood Count 3.89 M/mm3 (4.6-6.20); Red Cell Distribution Width 11.1 % (11.5-14.5); White Blood Count 6.8 K/mm3 (4.5-10.0)
[2024-06-16 06:25] LABS: Alanine Aminotransferase 28 U/L (6-50); Alkaline Phosphatase 154 U/L (38-126); Anion Gap 11 mmol/L (4-12); Aspartate Amino Transferase 38 U/L (17-59); Bilirubin,Total 1.3 mg/dL (0.2-1.3); Blood Urea Nitrogen 8 mg/dL (9-20); Calcium 9.1 mg/dL (8.4-10.2); Carbon Dioxide 24 mmol/L (22-30); Chloride 93 mmol/L (98-107); Estimated CRCL calculation 108 ml/min; Estimated Glomerular Filt Rate > 60; Glucose 116 mg/dL (65-110); Magnesium 1.9 mg/dL (1.6-2.3); Potassium 3.6 mmol/L (3.4-5.0); Sodium 128 mmol/L (137-145)
[2024-06-16] MEDS: SODIUM CHLORIDE 1 GM TABLET 2 GM PO ×2 (09:18→18:25)
[2024-06-16] MEDS: FUROSEMIDE 20 MG TABLET PO ×2 (09:18→18:25)
[2024-06-16] MEDS: CHOLECALCIFEROL 1,000 UNITS TABLET 1000 UNITS PO (09:18)
[2024-06-16] MEDS: ENOXAPARIN 40 MG/0.4 ML SYRINGE SUB-Q (09:18)
[2024-06-16] MEDS: guaiFENesin 12 HR 600 MG TABCR PO ×2 (09:19→21:00)
[2024-06-16] MEDS: ACETAMINOPHEN 325 MG TABLET 650 MG PO (09:19)
[2024-06-16] MEDS: MEGESTROL ACETATE (*CHEMO) 20 MG TABLET PO (09:19)
[2024-06-16] MEDS: FOLIC ACID 1 MG TABLET PO (09:19)
[2024-06-16] MEDS: CYANOCOBALAMIN 1,000 MCG TABLET 1000 MCG PO (09:19)
[2024-06-16] MEDS: THIAMINE HCL 100 MG TABLET PO (09:19)
[2024-06-16] MEDS: ASPIRIN 81 MG CHEWABLE TABLET PO (09:20)
[2024-06-16] MEDS: ATORVASTATIN 40 MG TABLET PO (09:22)
--- NOTE | 2024-06-16 11:22 | PM.DS ---
DS: Admitting Diagnosis Discharge Date 06/16/2024 Admitting Diagnosis hyponatremia DS: Discharge Diagnosis Discharge Diagnosis (1) Hyponatremia: Code(s): E87.1 - Hypo-osmolality and hyponatremia Status: Acute (2) Alcohol abuse: Code(s): F10.10 - Alcohol abuse, uncomplicated Status: Acute (3) Generalized weakness: Code(s): R53.1 - Weakness Status: Acute (4) Frequent falls: Code(s): R29.6 - Repeated falls Status: Acute (5) Fracture: Code(s): T14.8XXA - Other injury of unspecified body region, initial encounter Status: Acute (6) Hypokalemia: Code(s): E87.6 - Hypokalemia Status: Acute DS: Summary Hospital Course Hospital Course: # Hyponatremia: Patient presented with weakness and found to have severe hyponatremia with Na level at 106. No baseline to compare Likely secondary to alcohol intake, beer potomania and/or dehydration from poor oral intake. TSH and cortisol normal. Emile <5 consistent with dehydration Patient received 2 L of saline bolus in the ER but sodium increased rapidly to 114 so patient was given DDAVP and D5 water to prevent rapid increases. Sodium stabilized and now has been rising more slowly; patient feeling better. Nephrology is managing sodium. NaCl tablets started 1.5 g bid Monitor serial sodium levels. Appreciate nephrology input. Slow decline again. Suspect chronically low been mid 120s however no prior level Will continue to monitor for now stable for discharge. # Alcohol abuse: Patient drinks 6-8 beers daily. We monitored for withdrawal signs and symptoms with CIWA protocol. CIWA 0-2 range and now he is off the protocol. Ativan prn ordered but not required Continue Thiamine and folate Patient was counseled and encouraged to quit all alcohol use # Frequent falls: Head CT was negative for acute change but showed old lacunar infarcts at the right basal ganglia and left side of the eula as well as chronic small vessel ischemic disease and evidence of sinusitis. Carotid US showing <50% stenosis bilateral ICAs. B12 level low end of normal. MMA normal. B12 replaced. [place] falls and weakness related to old CVAs and alcoholism complicated by malnutrition and dehydration. PT OT. Continue Lipitor and ASA. Moderate assistance with bed mobility and transfer. Contact guard with chair transfer. Care coordination looked into SNF but patient refuses. No home health authorization until patient is seen by PCP. # Fracture: Imaging showing acute and chronic right-sided rib fractures, mildly displaced fracture of the medial head of the left clavicle with surrounding small hematoma, nondisplaced fracture extending across the S2 vertebral body and the lateral sacral ala and chronic appearing compression fractures with 20% anterior vertebral body height loss at T12 and <20% anterior vertebral body height loss at T11. Multiple fractures in various stages of healing. Most related to falls but consider osteoporosis. Vit D level <12.8. He will need bone density scan. VitD being replaced. Repeat xray noted. Sling for when he is up out of bed Patient pain is not well controlled, start oxycodone 5 mg q.4 hours p.r.n., discontinue [place] # CVA (cerebral vascular accident): As above # Hypokalemia: Potassium was replaced. Continue to monitor and replace as needed. Follow # Hyperbilirubinemia: TB 4.2 on admission all indirect. CT scan showing normal liver, GB and pancreas. Probably related to [place] or from alcoholism. Levels trended down now that he is eating Follow # Pneumothorax: CT chest showing a very small right PTX probably related to his recent falls and rib fratures. CXR repeated showing no PTX Complains of pain with coughing. Will add mucinex and have lozenges available prn. Add incentive spirometry. Repeat CXR showing no PTX Follow clinically. # Complicated grief: Patient has been grieving loss of her mother. He may be depressed but will need to be evaluated once metabolic and issues are sorted out. He denies any suicidal homicidal ideations at this time and does not need one-to-one sitter. Hold on SSRI treatment since may negatively affect sodium values. # DVT prophylaxis -Lovenox # Code Status - Full Code Time Spent with Patient Time attestation: Total time spent providing and/or coordinating discharge services: 35 minutes Exam Narrative: GENERAL: Well-appearing, in no acute distress. Well-nourished. - EYES: EOMI. Anicteric. - HENT: Moist mucous membranes. - LUNGS: Clear to auscultation bilaterally, no wheezing, rhonchi, or rales. - CARDIOVASCULAR: Regular rate and rhythm. No murmur. No JVD. - ABDOMEN: Soft, non-tender and non-distended. No palpable masses. - EXTREMITIES: No edema. Peripheral pulses 2+. Non-tender. - NEUROLOGIC: No focal neurological deficits. CN II-XII grossly intact. And weakness - PSYCHIATRIC: Awake, Alert and oriented x 3. Appropriate mood and affect. - SKIN: No rashes or lesions. Warm. - LYMPH: No cervical lymphadenopathy. DS: Data Data Completed and Pending Labs on day of discharge: Labs from last 24 hours 06/16/24 06:06 WBC 6.8 RBC 3.89 L Hgb 13.3 L Hct 36.8 L MCV 94.6 MCH 34.2 H MCHC 36.1 H RDW 11.1 L Plt Count 431 H MPV 8.0 Immature Gran % (Auto) 0.4 Neut % (Auto) 66.6 Lymph % (Auto) 22.4 [place] % (Auto) 8.1 Eos % (Auto) 1.5 Baso % (Auto) 1.0 Lymph # (Auto) 1.52 [place] # (Auto) 0.6 Eos # (Auto) 0.1 Baso # (Auto) 0.1 Abs Immat Gran (auto) 0.03 Absolute Neuts (auto) 4.5 Absolute Nucleated RBC 0.000 Nucleated RBC % 0.0 Sodium 128 L Potassium 3.6 Chloride 93 L Carbon Dioxide 24 Anion Gap 11 BUN 8 L Creatinine 0.50 L Estim Creat Clear Calc 108 Estimated GFR > 60 Glucose 116 H Calcium 9.1 Magnesium 1.9 Total Bilirubin 1.3 AST 38 ALT 28 Alkaline Phosphatase 154 H Total Protein 8.0 Albumin 4.0 Imaging Radiologist's impression: ITS Impressions Head CT 06/05/24 17:07 IMPRESSION: 1. 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 No acute intracranial process. 2. Age-related changes including mild diffuse volume loss and mild scattered white matter hypoattenuation consistent with chronic small vessel ischemic disease. 3. Occlusion of the left frontoethmoidal recess with complete opacification of the left frontal and maxillary sinuses and anterior left ethmoid air cells. Chest/Abdomen/Pelvis CT 06/05/24 17:12 IMPRESSION: 1. A few acute and chronic right-sided rib fractures with very small right pneumothorax. 2. Mildly displaced fracture of the medial head of the left clavicle. 3. Nondisplaced fracture extending across the S2 vertebral body and the lateral sacral ala. 4. No acute intra-abdominal/pelvic process. Chest X-Ray 06/06/24 08:44 IMPRESSION: Mild pulmonary vascular congestion, without focal infiltrate or effusion. No pneumothorax is detected. Carotid Doppler Study 06/07/24 09:39 IMPRESSION: 1. Less than 50% stenosis in the right internal carotid artery by sonographic criteria. 2. Less than 50% stenosis in the left internal carotid artery by sonographic criteria. Chest X-Ray 06/09/24 15:22 IMPRESSION: No active cardiopulmonary disease ADDENDUM: 06/09/24 1530 There are displaced fractures of the anterior aspect of the right ninth, 10th and probably 11th rib fractures. Clavicle X-Ray 06/09/24 15:28 IMPRESSION: Minimally inferiorly displaced medial left clavicle fracture Discharge Plan Discharge Attending physician on discharge: Khari Connell Consulting providers: Maria Ines Oliveira; Marco Antonio Shaffer Discharging Clinician: Khari Connell Anticipated Discharge Date/Time: 06/16/24 11:25 Patient Disposition: Home, Self-Care Activity: as tolerated Diet: regular and other - see discharge instructions Discharge Instructions: Fluid restriction 1200 ml per day Patient Instructions: Antibiotic Form Stand Alone Forms: General Discharge Information Follow-up/Referrals: Juan C,Johnson Raines MD [Primary Care Provider] - 1 Week Maria Ines Oliveira MD [Physician] - 2 Weeks Discharge Medications: New oxycodone-acetaminophen 5-325 mg Tablet 1 tablet PO Q4H PRN (Reason: Pain Rated 7-10) Qty: 10 0RF folic acid 1 mg Tablet 1 mg PO DAILY Qty: 30 0RF thiamine HCl (vitamin B1) [Vitamin B-1] 100 mg Tablet 100 mg PO QAM Qty: 30 0RF aspirin [Children's Aspirin] 81 mg Tablet,Chewable 81 mg PO DAILY@0800 Qty: 30 0RF cyanocobalamin (vitamin B-12) [Vitamin B-12] 1,000 mcg Tablet 1,000 mcg PO QAM Qty: 30 0RF furosemide 20 mg Tablet 20 mg PO BID Qty: 30 0RF atorvastatin 40 mg Tablet 40 mg PO DAILY Qty: 30 0RF megestrol 20 mg Tablet 20 mg PO QAM Qty: 30 0RF sodium chloride 1,000 mg Tablet,Soluble 2,000 mg PO BID Qty: 60 0RF Continued diphenhydramine-acetaminophen [Tylenol PM Extra Strength] 25-500 mg Tablet 2 tablet PO HS PRN (Reason: Insomnia) Other Ambulatory Orders: Basic Metabolic Panel (Routine) Timeframe: 1 Week Location: Determined by Patient Ordered By: Khari Connell Date of admission: 06/05/24 15:23 Primary Care Provider: Juan C,Johnson Raines Admitting Provider: Kedar Luna Attending physician on admission: Kedar Luna Condition: Stable
--- NOTE | 2024-06-16 12:10 | PC.NURSE ---
Patient spoke with his son and son states patient cannot come home as he is not taking care of himself and son is unable to. RN spoke with childcare administrator Tiffani about this. Discharge that was placed is discontinued at this time due to patient needing therapy evaluations and possible placement vs SNF.
--- NOTE | 2024-06-16 12:10 | PCPTNOTE ---
received a call from [employer] requesting pt be treated today. She is working with his insurance to get him into rehab and he needs to have documented therapy sessions. Treatment given this date.
--- NOTE | 2024-06-16 12:29 | P.PNIM_ITS ---
Progress Note: A&P Assessment and Plan (1) Hyponatremia: Code(s): E87.1 - Hypo-osmolality and hyponatremia Status: Acute (2) Alcohol abuse: Code(s): F10.10 - Alcohol abuse, uncomplicated Status: Acute (3) Generalized weakness: Code(s): R53.1 - Weakness Status: Acute (4) Frequent falls: Code(s): R29.6 - Repeated falls Status: Acute (5) Fracture: Code(s): T14.8XXA - Other injury of unspecified body region, initial encounter Status: Acute (6) Hypokalemia: Code(s): E87.6 - Hypokalemia Status: Acute Plan #Hyponatremia: Patient presented with weakness and found to have severe hyponatremia with Na le ronda at 106. No baseline to compare Likely secondary to alcohol intake, beer potomania and/or dehydration from poor oral intake. TSH and cortisol normal. Emile <5 consistent with dehydration Patient received 2 L of saline bolus in the ER but sodium increased rapidly to 114 so patient was given DDAVP and D5 water to prevent rapid increases. Sodium stabilized and now has been rising more slowly; patient feeling better. Nephrology is managing sodium. NaCl tablets started 1.5 g bid Up to 2 g b.i.d. Monitor serial sodium levels. Appreciate nephrology input. Slow decline again. Suspect chronically low been mid 120s however no prior level Will continue to monitor for now awaiting SNF authorization for discharge # Alcohol abuse: Patient drinks 6-8 beers daily. We monitored for withdrawal signs and symptoms with CIWA protocol. CIWA 0-2 range and now he is off the protocol. Ativan prn ordered but not required Continue Thiamine and folate Patient was counseled and encouraged to quit all alcohol use # Frequent falls: Head CT was negative for acute change but showed old lacunar infarcts at the right basal ganglia and left side of the eula as well as chronic small vessel ischemic disease and evidence of sinusitis. Carotid US showing <50% stenosis bilateral ICAs. B12 level low end of normal. MMA normal. B12 replaced. [place] falls and weakness related to old CVAs and alcoholism complicated by malnutrition and dehydration. PT OT. Continue Lipitor and ASA. Moderate assistance with bed mobility and transfer. Contact guard with chair transfer. Care coordination looked into SNF but patient refuses. No home health authorization until patient is seen by PCP. # Fracture: Imaging showing acute and chronic right-sided rib fractures, mildly displaced fracture of the medial head of the left clavicle with surrounding small hematoma, nondisplaced fracture extending across the S2 vertebral body and the lateral sacral ala and chronic appearing compression fractures with 20% anterior vertebral body height loss at T12 and <20% anterior vertebral body height loss at T11. Multiple fractures in various stages of healing. Most related to falls but consider osteoporosis. Vit D level <12.8. He will need bone density scan. VitD being replaced. Repeat xray noted. Sling for when he is up out of bed Patient pain is not well controlled, start oxycodone 5 mg q.4 hours p.r.n., discontinue Zimmerman # CVA (cerebral vascular accident): As above # Hypokalemia: Potassium was replaced. Continue to monitor and replace as needed. Follow # Hyperbilirubinemia: TB 4.2 on admission all indirect. CT scan showing normal liver, GB and pancreas. Probably related to Mikana or from alcoholism. Levels trended down now that he is eating Follow # Pneumothorax: CT chest showing a very small right PTX probably related to his recent falls and rib fratures. CXR repeated showing no PTX Complains of pain with coughing. Will add mucinex and have lozenges available prn. Add incentive spirometry. Repeat CXR showing no PTX Follow clinically. # Complicated grief: Patient has been grieving loss of her mother. He may be depressed but will need to be evaluated once metabolic and issues are sorted out. He denies any suicidal homicidal ideations at this time and does not need one-to-one sitter. Hold on SSRI treatment since may negatively affect sodium values. # DVT prophylaxis -Lovenox # Code Status - Full Code Subjective Date/time seen: 06/16/24 12:29 Interval history: No new complaints. Labs reviewed. No chest pain or shortness of breath. Review of Systems Review of Systems: All systems reviewed & are unremarkable except as noted in HPI and below (HPI) Exam Narrative: GENERAL: Well-appearing, in no acute distress. Well-nourished. - EYES: EOMI. Anicteric. - HENT: Moist mucous membranes. - LUNGS: Clear to auscultation bilateral ly, no wheezing, rhonchi, or rales. - CARDIOVASCULAR: Regular rate and rhyth m. No murmur. No JVD. - ABDOMEN: Soft, non-tender and non-dist ended. No palpable masses. - EXTREMITIES: No edema. Peripheral puls es 2+. Non-tender. - NEUROLOGIC: No focal neurological defi cits. CN II-XII grossly intact. And weakness - PSYCHIATRIC: Awake, Alert and oriented x 3. Appropriate mood and affect. - SKIN: No rashes or lesions. Warm. - LYMPH: No cervical lymphadenopathy. Objective Data Vital Signs Vital Signs: Vital Signs - 24 hr 06/15/24 14:48 06/15/24 22:33 06/16/24 06:00 Temperature 97.4 F L 97.3 F L 97.7 F Pulse Rate 74 74 84 Respiratory Rate 16 20 20 Blood Pressure 129/68 144/70 H 152/88 H Pulse Oximetry 96 98 99 Oxygen Delivery 06/16/24 09:19 Temperature Pulse Rate Respiratory Rate Blood Pressure Pulse Oximetry Oxygen Delivery Room Air Intake/Output Intake/Output: Intake & Output 06/13/24 06/14/24 06/15/24 06/16/24 23:59 23:59 23:59 22:59 Intake Total 672 200 960 440 Output Total 1500 1200 1250 1200 Balance -828 -1000 -290 -760 Meds/Results Medications: Active Medications Generic Name Dose Route Start Last Admin Trade Name Freq PRN Reason Stop Dose Admin Acetaminophen 650 mg 06/08/24 16:30 06/16/24 09:19 Acetaminophen 325 Mg Tablet PO 650 mg Q4H PRN Administration Pain Rated 5 or Less Aspirin 81 mg 06/07/24 08:00 06/16/24 09:20 Aspirin 81 Mg Chewable Tablet PO 81 mg DAILY@0800 MONICA Administration Atorvastatin Calcium 40 mg 06/07/24 09:00 06/16/24 09:22 Atorvastatin 40 Mg Tablet PO 40 mg DAILY MONICA Administration Benzocaine 1 lozenge 06/08/24 13:49 06/10/24 21:30 Benzocaine/Menthol (*Bkc) 18 Ea Lozenge PO 1 lozenge PRN PRN Administration Sore Throat Cyanocobalamin 1,000 mcg 06/08/24 09:00 06/16/24 09:19 Cyanocobalamin 1,000 Mcg Tablet PO 1,000 mcg QAM MONICA Administration Enoxaparin Sodium 40 mg 06/07/24 09:00 06/16/24 09:18 Enoxaparin 40 Mg/0.4 Ml Syringe SUB-Q 40 mg DAILY MONICA Administration Folic Acid 1 mg 06/06/24 09:00 06/16/24 09:19 Folic Acid 1 Mg Tablet PO 1 mg DAILY MONICA Administration Furosemide 20 mg 06/09/24 09:00 06/16/24 09:18 Furosemide 20 Mg Tablet PO 20 mg BID MONICA Administration Guaifenesin 600 mg 06/08/24 21:00 06/16/24 09:19 Guaifenesin 12 Hr 600 Mg Tabcr PO 600 mg Q12HR MONICA Administration Megestrol Acetate 20 mg 06/10/24 09:00 06/16/24 09:19 Megestrol Acetate (*Chemo) 20 Mg Tablet PO 20 mg QAM MONICA Administration Melatonin 5 mg 06/07/24 21:00 06/15/24 20:57 Melatonin 5 Mg Tablet PO 5 mg HS MONICA Administration Ondansetron HCl 4 mg 06/05/24 14:36 Ondansetron Inj 4 Mg/2 Ml Vial IV PUSH Q4H PRN Nausea Oxycodone/Acetaminophen 1 tablet 06/12/24 15:56 06/15/24 09:47 Oxycodone/Acetaminophen (*Crx) 5-325 Mg Tablet PO 1 tablet Q4H PRN Administration Pain Rated 7-10 Sodium Chloride 2 gm 06/15/24 17:00 06/16/24 09:18 Sodium Chloride 1 Gm Tablet PO 2 gm BID MONICA Administration Thiamine HCl 100 mg 06/06/24 09:00 06/16/24 09:19 Thiamine Hcl 100 Mg Tablet PO 100 mg QAM MONICA Administration Vitamin D 1,000 units 06/07/24 12:05 06/16/24 09:18 Cholecalciferol 1,000 Units Tablet PO 1,000 units DAILY MONICA Administration Radiology Results: ITS Impressions Head CT 06/05/24 17:07 IMPRESSION: 1. 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 No acute intracranial process. 2. Age-related changes including mild diffuse volume loss and mild scattered white matter hypoattenuation consistent with chronic small vessel ischemic disease. 3. Occlusion of the left frontoethmoidal recess with complete opacification of the left frontal and maxillary sinuses and anterior left ethmoid air cells. Chest/Abdomen/Pelvis CT 06/05/24 17:12 IMPRESSION: 1. A few acute and chronic right-sided rib fractures with very small right pneumothorax. 2. Mildly displaced fracture of the medial head of the left clavicle. 3. Nondisplaced fracture extending across the S2 vertebral body and the lateral sacral ala. 4. No acute intra-abdominal/pelvic process. Carotid Doppler Study 06/07/24 09:39 IMPRESSION: 1. Less than 50% stenosis in the right internal carotid artery by sonographic criteria. 2. Less than 50% stenosis in the left internal carotid artery by sonographic criteria. Chest X-Ray 06/09/24 15:22 IMPRESSION: No active cardiopulmonary disease ADDENDUM: 06/09/24 1530 There are displaced fractures of the anterior aspect of the right ninth, 10th and probably 11th rib fractures. Clavicle X-Ray 06/09/24 15:28 IMPRESSION: Minimally inferiorly displaced medial left clavicle fracture Labs Labs: Laboratory Results - last 24 hr 06/16/24 06:06 WBC 6.8 RBC 3.89 L Hgb 13.3 L Hct 36.8 L MCV 94.6 MCH 34.2 H MCHC 36.1 H RDW 11.1 L Plt Count 431 H MPV 8.0 Immature Gran % (Auto) 0.4 Neut % (Auto) 66.6 Lymph % (Auto) 22.4 [place] % (Auto) 8.1 Eos % (Auto) 1.5 Baso % (Auto) 1.0 Lymph # (Auto) 1.52 [place] # (Auto) 0.6 Eos # (Auto) 0.1 Baso # (Auto) 0.1 Abs Immat Gran (auto) 0.03 Absolute Neuts (auto) 4.5 Absolute Nucleated RBC 0.000 Nucleated RBC % 0.0 Sodium 128 L Potassium 3.6 Chloride 93 L Carbon Dioxide 24 Anion Gap 11 BUN 8 L Creatinine 0.50 L Estim Creat Clear Calc 108 Estimated GFR > 60 Glucose 116 H Calcium 9.1 Magnesium 1.9 Total Bilirubin 1.3 AST 38 ALT 28 Alkaline Phosphatase 154 H Total Protein 8.0 Albumin 4.0
--- NOTE | 2024-06-16 13:18 | P.PNNP_ITS ---
Progress Note: A&P Assessment and Plan (1) Hyponatremia: Code(s): E87.1 - Hypo-osmolality and hyponatremia Status: Acute Assessment and Plan: * better but not normal * severe hyponatremia noted on presentation - sodium 106mmol/L * no baseline sodium level to compare to... * possible chronic hyponatremia?? * rapid increase in sodium (106 --> 114 on day of admission) with just normal saline argues in favor of volume depletion playing a role * due to this rapid correction, given DDAVP and D5W IVFs which stabilized rate of rise * goal of therapy is a rate of change of 6 - 8mmol/L in 24 hours -- this has been achieved * evaluation to date noted: * TSH okay * cortisol 15 indicating adequate adrenal function * urine specific gravity 1.017 suggesting a concentrated urine * urine sodium is low * SPEP & UPEP negative for paraproteinemia * suspected multifactorial etiology: * chronic alcohol intake/abuse * pre-renal factors * pain (noted injuries on imaging) * narcotic use * previous CVAs * contribution from small pneumothorax (lung injury can contribute to low sodium levels) * on fluid restriction plus salt tablets plus Lasix * salt tabs at 1500mg bid with lasix 20mg bid * follow trend of sodium (2) Hypokalemia: Code(s): E87.6 - Hypokalemia Status: Acute Assessment and Plan: * relatively stable * follow tnred (3) Alcohol abuse: Code(s): F10.10 - Alcohol abuse, uncomplicated Status: Acute Assessment and Plan: * knwn to drink at least 6-8 beers daily * monitor for withdrawal * [facility] protocol * on thiamine and folic acid (4) Frequent falls: Code(s): R29.6 - Repeated falls Status: Acute Assessment and Plan: * imaging noted * old lacunar infarcts at the right basal ganglia and left side of the eula as well as chronic small vessel ischemic disease along with evidence of sinusitis * multiple rib fractures (acute and chronic) * left clavicle fracute noted as well * S2 vertebral fcarture * PT/OT as tolerated Not opposed to discharge from renal perspective if otherwise medically stable -- outpatient labs can be done at his discharge/nursing facility to monitor trend of sodium levels with possible weaning of salt tabs and lasix. Will continue to follow. Subjective Date/time seen: 06/16/24 13:18 Interval history: Follow-up for hyponatremia. Sodium a bit better today by AM labs but as mentioned previously, remains asymptomatic with regard to this issue; no apparent distress noted at this time; noted plans for discharge but complicated by patient's lack of participation with PT/OT; no issues/events overnight. Exam Narrative: General: WD/WN male in NAD Heart: normal S1 and S2; no rub Lungs: clear to auscultation Abdomen: soft, nontender, nondistended, positive bowel sounds Extremities: no cyanosis or clubbing; no edema Skin: warm and intact Objective Data Vital Signs Vital Signs: Vital Signs Temp Pulse Resp BP Pulse Ox O2 Del Method 06/16/24 09:19 Room Air 06/16/24 06:00 97.7 F 84 20 152/88 H 99 06/15/24 22:33 97.3 F L 74 20 144/70 H 98 06/15/24 14:48 97.4 F L 74 16 129/68 96 Intake/Output Intake/Output: Intake & Output 06/13/24 06/14/24 06/15/24 06/16/24 23:59 23:59 23:59 22:59 Intake Total 672 200 960 440 Output Total 1500 1200 1250 1200 Balance -828 -1000 -290 -760 Meds/Results Medications: Active Medications Generic Name Dose Route Start Last Admin Trade Name Freq PRN Reason Stop Dose Admin Acetaminophen 650 mg 06/08/24 16:30 06/16/24 09:19 Acetaminophen 325 Mg Tablet PO 650 mg Q4H PRN Administration Pain Rated 5 or Less Aspirin 81 mg 06/07/24 08:00 06/16/24 09:20 Aspirin 81 Mg Chewable Tablet PO 81 mg DAILY@0800 MONICA Administration Atorvastatin Calcium 40 mg 06/07/24 09:00 06/16/24 09:22 Atorvastatin 40 Mg Tablet PO 40 mg DAILY MONICA Administration Benzocaine 1 lozenge 06/08/24 13:49 06/10/24 21:30 Benzocaine/Menthol (*Bkc) 18 Ea Lozenge PO 1 lozenge PRN PRN Administration Sore Throat Cyanocobalamin 1,000 mcg 06/08/24 09:00 06/16/24 09:19 Cyanocobalamin 1,000 Mcg Tablet PO 1,000 mcg QAM MONICA Administration Enoxaparin Sodium 40 mg 06/07/24 09:00 06/16/24 09:18 Enoxaparin 40 Mg/0.4 Ml Syringe SUB-Q 40 mg DAILY MONICA Administration Folic Acid 1 mg 06/06/24 09:00 06/16/24 09:19 Folic Acid 1 Mg Tablet PO 1 mg DAILY MONICA Administration Furosemide 20 mg 06/09/24 09:00 06/16/24 09:18 Furosemide 20 Mg Tablet PO 20 mg BID MONICA Administration Guaifenesin 600 mg 06/08/24 21:00 06/16/24 09:19 Guaifenesin 12 Hr 600 Mg Tabcr PO 600 mg Q12HR MONICA Administration Megestrol Acetate 20 mg 06/10/24 09:00 06/16/24 09:19 Megestrol Acetate (*Chemo) 20 Mg Tablet PO 20 mg QAM MONICA Administration Melatonin 5 mg 06/07/24 21:00 06/15/24 20:57 Melatonin 5 Mg Tablet PO 5 mg HS MONICA Administration Ondansetron HCl 4 mg 06/05/24 14:36 Ondansetron Inj 4 Mg/2 Ml Vial IV PUSH Q4H PRN Nausea Oxycodone/Acetaminophen 1 tablet 06/12/24 15:56 06/15/24 09:47 Oxycodone/Acetaminophen (*Crx) 5-325 Mg Tablet PO 1 tablet Q4H PRN Administration Pain Rated 7-10 Sodium Chloride 2 gm 06/15/24 17:00 06/16/24 09:18 Sodium Chloride 1 Gm Tablet PO 2 gm BID MONICA Administration Thiamine HCl 100 mg 06/06/24 09:00 06/16/24 09:19 Thiamine Hcl 100 Mg Tablet PO 100 mg QAM MONICA Administration Vitamin D 1,000 units 06/07/24 12:05 06/16/24 09:18 Cholecalciferol 1,000 Units Tablet PO 1,000 units DAILY MONICA Administration Radiology Results: ITS Impressions Head CT 06/05/24 17:07 IMPRESSION: 1. 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 No acute intracranial process. 2. Age-related changes including mild diffuse volume loss and mild scattered white matter hypoattenuation consistent with chronic small vessel ischemic disease. 3. Occlusion of the left frontoethmoidal recess with complete opacification of the left frontal and maxillary sinuses and anterior left ethmoid air cells. Chest/Abdomen/Pelvis CT 06/05/24 17:12 IMPRESSION: 1. A few acute and chronic right-sided rib fractures with very small right pneumothorax. 2. Mildly displaced fracture of the medial head of the left clavicle. 3. Nondisplaced fracture extending across the S2 vertebral body and the lateral sacral ala. 4. No acute intra-abdominal/pelvic process. Carotid Doppler Study 06/07/24 09:39 IMPRESSION: 1. Less than 50% stenosis in the right internal carotid artery by sonographic criteria. 2. Less than 50% stenosis in the left internal carotid artery by sonographic criteria. Chest X-Ray 06/09/24 15:22 IMPRESSION: No active cardiopulmonary disease ADDENDUM: 06/09/24 1530 There are displaced fractures of the anterior aspect of the right ninth, 10th and probably 11th rib fractures. Clavicle X-Ray 06/09/24 15:28 IMPRESSION: Minimally inferiorly displaced medial left clavicle fracture Labs Labs: Laboratory Tests 06/16/24 06:06 06/16/24 06:06 Calcium 9.1 Magnesium 1.9 Total Bilirubin 1.3 AST 38 ALT 28 Alkaline Phosphatase 154 H Total Protein 8.0 Albumin 4.0
[2024-06-16 15:10] VITALS: BP 149/83; PULSE 83; RESP 16; TEMP 36.3; O2SAT 96
[2024-06-16] MEDS: MELATONIN 5 MG TABLET PO (21:00)
[2024-06-16 21:11] VITALS: BP 159/70; PULSE 86; RESP 16; TEMP 36.9; O2SAT 99
[2024-06-17 05:50] VITALS: BP 137/84; PULSE 79; RESP 18; TEMP 36.8; O2SAT 98
[2024-06-17] MEDS: FOLIC ACID 1 MG TABLET PO (08:59)
[2024-06-17] MEDS: CHOLECALCIFEROL 1,000 UNITS TABLET 1000 UNITS PO (08:59)
[2024-06-17] MEDS: FUROSEMIDE 20 MG TABLET PO (08:59)
[2024-06-17] MEDS: ATORVASTATIN 40 MG TABLET PO (08:59)
[2024-06-17] MEDS: ASPIRIN 81 MG CHEWABLE TABLET PO (08:59)
[2024-06-17] MEDS: CYANOCOBALAMIN 1,000 MCG TABLET 1000 MCG PO (08:59)
[2024-06-17] MEDS: THIAMINE HCL 100 MG TABLET PO (08:59)
[2024-06-17] MEDS: SODIUM CHLORIDE 1 GM TABLET 2 GM PO (08:59)
[2024-06-17] MEDS: guaiFENesin 12 HR 600 MG TABCR PO (08:59)
[2024-06-17] MEDS: MEGESTROL ACETATE (*CHEMO) 20 MG TABLET PO (08:59)
[2024-06-17 09:29] LABS: Anion Gap 11 mmol/L (4-12); Blood Urea Nitrogen 8 mg/dL (9-20); Calcium 8.9 mg/dL (8.4-10.2); Carbon Dioxide 25 mmol/L (22-30); Chloride 92 mmol/L (98-107); Estimated CRCL calculation 132 ml/min; Estimated Glomerular Filt Rate > 60; Glucose 108 mg/dL (65-110); Potassium 3.3 mmol/L (3.4-5.0); Sodium 128 mmol/L (137-145)
[2024-06-17] MEDS: POTASSIUM CHLORIDE 20 MEQ ER TABLET 40 MEQ PO (10:55)
[2024-06-17 14:00] VITALS: BP 168/83; PULSE 84; RESP 16; TEMP 36.9; O2SAT 98
--- NOTE | 2024-06-17 14:35 | PM.DS ---
DS: Admitting Diagnosis Discharge Date 06/17/2024 Admitting Diagnosis hyponatremia DS: Discharge Diagnosis Discharge Diagnosis (1) Hyponatremia: Code(s): E87.1 - Hypo-osmolality and hyponatremia Status: Acute (2) Alcohol abuse: Code(s): F10.10 - Alcohol abuse, uncomplicated Status: Acute (3) Generalized weakness: Code(s): R53.1 - Weakness Status: Acute (4) Frequent falls: Code(s): R29.6 - Repeated falls Status: Acute (5) Fracture: Code(s): T14.8XXA - Other injury of unspecified body region, initial encounter Status: Acute (6) Hypokalemia: Code(s): E87.6 - Hypokalemia Status: Acute DS: Summary Hospital Course Hospital Course: #Hyponatremia: Patient presented with weakness and found to have severe hyponatremia with Na level at 106. No baseline to compare Likely secondary to alcohol intake, beer potomania and/or dehydration from poor oral intake. TSH and cortisol normal. Emile <5 consistent with dehydration Patient received 2 L of saline bolus in the ER but sodium increased rapidly to 114 so patient was given DDAVP and D5 water to prevent rapid increases. Sodium stabilized and now has been rising more slowly; patient feeling better. Nephrology is managing sodium. NaCl tablets started 1.5 g bid Up to 2 g b.i.d. sodium level has improved Monitor serial sodium levels. Appreciate nephrology input. Suspect chronically low been mid 120s however no prior level Will continue to monitor for now SNF authorization obtained and going to SNF for further rehabilitation # Alcohol abuse: Patient drinks 6-8 beers daily. We monitored for withdrawal signs and symptoms with CIWA protocol. CIWA 0-2 range and now he is off the protocol. Ativan prn ordered but not required Continue Thiamine and folate Patient was counseled and encouraged to quit all alcohol use # Frequent falls: Head CT was negative for acute change but showed old lacunar infarcts at the right basal ganglia and left side of the eula as well as chronic small vessel ischemic disease and evidence of sinusitis. Carotid US showing <50% stenosis bilateral ICAs. B12 level low end of normal. MMA normal. B12 replaced. Pimento falls and weakness related to old CVAs and alcoholism complicated by malnutrition and dehydration. PT OT. Continue Lipitor and ASA. Moderate assistance with bed mobility and transfer. Contact guard with chair transfer. Care coordination looked into SNF but patient refuses. No home health authorization until patient is seen by PCP. going to SNF for further rehabilitation # Fracture: Imaging showing acute and chronic right-sided rib fractures, mildly displaced fracture of the medial head of the left clavicle with surrounding small hematoma, nondisplaced fracture extending across the S2 vertebral body and the lateral sacral ala and chronic appearing compression fractures with 20% anterior vertebral body height loss at T12 and <20% anterior vertebral body height loss at T11. Multiple fractures in various stages of healing. Most related to falls but consider osteoporosis. Vit D level <12.8. He will need bone density scan. VitD being replaced. Repeat xray noted. Sling for when he is up out of bed Patient pain is not well controlled, start oxycodone 5 mg q.4 hours p.r.n., discontinue [place] # CVA (cerebral vascular accident): As above # Hypokalemia: Potassium was replaced. Continue to monitor and replace as needed. Follow # Hyperbilirubinemia: TB 4.2 on admission all indirect. CT scan showing normal liver, GB and pancreas. Probably related to [place] or from alcoholism. Levels trended down now that he is eating Follow # Pneumothorax: CT chest showing a very small right PTX probably related to his recent falls and rib fratures. CXR repeated showing no PTX Complains of pain with coughing. Will add mucinex and have lozenges available prn. Add incentive spirometry. Repeat CXR showing no PTX Follow clinically. # Complicated grief: Patient has been grieving loss of her mother. He may be depressed but will need to be evaluated once metabolic and issues are sorted out. He denies any suicidal homicidal ideations at this time and does not need one-to-one sitter. Hold on SSRI treatment since may negatively affect sodium values. # DVT prophylaxis -Lovenox # Code Status - Full Code Time Spent with Patient Time attestation: Total time spent providing and/or coordinating discharge services: Exam Narrative: GENERAL: Well-appearing, in no acute distress. Well-nourished. - EYES: EOMI. Anicteric. - HENT: Moist mucous membranes. - LUNGS: Clear to auscultation bilaterally, no wheezing, rhonchi, or rales. - CARDIOVASCULAR: Regular rate and rhythm. No murmur. No JVD. - ABDOMEN: Soft, non-tender and non-distended. No palpable masses. - EXTREMITIES: No edema. Peripheral pulses 2+. Non-tender. - NEUROLOGIC: No focal neurological deficits. CN II-XII grossly intact. And weakness - PSYCHIATRIC: Awake, Alert and oriented x 3. Appropriate mood and affect. - SKIN: No rashes or lesions. Warm. - LYMPH: No cervical lymphadenopathy. DS: Data Data Completed and Pending Labs on day of discharge: Labs from last 24 hours 06/17/24 09:13 Sodium 128 L Potassium 3.3 L Chloride 92 L Carbon Dioxide 25 Anion Gap 11 BUN 8 L Creatinine 0.40 L Estim Creat Clear Calc 132 Estimated GFR > 60 Glucose 108 Calcium 8.9 Imaging Radiologist's impression: ITS Impressions Head CT 06/05/24 17:07 IMPRESSION: 1. 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 No acute intracranial process. 2. Age-related changes including mild diffuse volume loss and mild scattered white matter hypoattenuation consistent with chronic small vessel ischemic disease. 3. Occlusion of the left frontoethmoidal recess with complete opacification of the left frontal and maxillary sinuses and anterior left ethmoid air cells. Chest/Abdomen/Pelvis CT 06/05/24 17:12 IMPRESSION: 1. A few acute and chronic right-sided rib fractures with very small right pneumothorax. 2. Mildly displaced fracture of the medial head of the left clavicle. 3. Nondisplaced fracture extending across the S2 vertebral body and the lateral sacral ala. 4. No acute intra-abdominal/pelvic process. Chest X-Ray 06/06/24 08:44 IMPRESSION: Mild pulmonary vascular congestion, without focal infiltrate or effusion. No pneumothorax is detected. Carotid Doppler Study 06/07/24 09:39 IMPRESSION: 1. Less than 50% stenosis in the right internal carotid artery by sonographic criteria. 2. Less than 50% stenosis in the left internal carotid artery by sonographic criteria. Chest X-Ray 06/09/24 15:22 IMPRESSION: No active cardiopulmonary disease ADDENDUM: 06/09/24 1530 There are displaced fractures of the anterior aspect of the right ninth, 10th and probably 11th rib fractures. Clavicle X-Ray 06/09/24 15:28 IMPRESSION: Minimally inferiorly displaced medial left clavicle fracture Discharge Plan Discharge Attending physician on discharge: Khari Connell Consulting providers: Maria Ines Oliveira; Marco Antonio Shaffer Discharging Clinician: Khari Connell Anticipated Discharge Date/Time: 06/17/24 14:34 Patient Disposition: Home, Self-Care Activity: as tolerated Diet: regular and other - see discharge instructions Discharge Instructions: Fluid restriction 1200 ml per day Patient Instructions: Antibiotic Form Stand Alone Forms: General Discharge Information Follow-up/Referrals: Junito,Johnson Raines MD [Primary Care Provider] - 1 Week Maria Ines Oliveira MD [Physician] - 2 Weeks Discharge Medications: New oxycodone-acetaminophen 5-325 mg Tablet 1 tablet PO Q4H PRN (Reason: Pain Rated 7-10) Qty: 10 0RF folic acid 1 mg Tablet 1 mg PO DAILY Qty: 30 0RF thiamine HCl (vitamin B1) [Vitamin B-1] 100 mg Tablet 100 mg PO QAM Qty: 30 0RF aspirin [Children's Aspirin] 81 mg Tablet,Chewable 81 mg PO DAILY@0800 Qty: 30 0RF cyanocobalamin (vitamin B-12) [Vitamin B-12] 1,000 mcg Tablet 1,000 mcg PO QAM Qty: 30 0RF furosemide 20 mg Tablet 20 mg PO BID Qty: 30 0RF atorvastatin 40 mg Tablet 40 mg PO DAILY Qty: 30 0RF megestrol 20 mg Tablet 20 mg PO QAM Qty: 30 0RF sodium chloride 1,000 mg Tablet,Soluble 2,000 mg PO BID Qty: 60 0RF Continued diphenhydramine-acetaminophen [Tylenol PM Extra Strength] 25-500 mg Tablet 2 tablet PO HS PRN (Reason: Insomnia) Other Ambulatory Orders: Basic Metabolic Panel (Routine) Timeframe: 1 Week Location: Determined by Patient Ordered By: Khari Connell Date of admission: 06/05/24 15:23 Primary Care Provider: Juan CJohnson Admitting Provider: Kedar Luna Attending physician on admission: Kedar Luna Condition: Stable
== END 2024-06-17 18:32 | DRG 641 ==
LOC: ANHED 13:19 → ANHICU 14:57 → ANHIMU 06-06 16:17 → ANH3MED 06-08 18:36
PROVIDERS: Emergency Medicine; Internal Medicine; Internal Medicine Nephrology; Physician Assistant; Admitting Provider Internal Medicine; Emergency Provider Emergency Medicine; PCP Internal Medicine; Visit Provider Internal Medicine
DX: E87.1 Hypo-osmolality and hyponatremia (principal); S22.41XA Multiple fractures of ribs, right side, initial encounter for closed fracture; J93.9 Pneumothorax, unspecified; S42.012A Anterior displaced fracture of sternal end of left clavicle, initial encounter for closed fracture; F10.10 Alcohol abuse, uncomplicated; W19.XXXA Unspecified fall, initial encounter; E86.0 Dehydration; E87.6 Hypokalemia; E80.6 Other disorders of bilirubin metabolism; F43.21 Adjustment disorder with depressed mood; R29.6 Repeated falls; Z86.73 Personal history of transient ischemic attack (TIA), and cerebral infarction without residual deficits
CPT/HCPCS: 36415; 70450; 71045; 71046; 71260; 73000; 74177; 80048; 80053; 80307; 81001; 82077; 82248; 82306; 82533; 82570; 82607; 82728; 82746; 83540; 83550; 83735; 83883; 83921; 83930; 83935; 84100; 84155; 84156; 84165; 84166; 84295; 84300; 84443; 84540; 85025; 85027; 85610; 85730; 87086; 87641; 93005; 93880; 96360; 97110; 97161; 97165; 97530; 97535; 99285; A4565; A9270; G0378; J1650; J2597; J3420; J7030; J7060; Q9967

== ENCOUNTER 2025-03-03 01:11 | Emergency (ER) | payer MEDICARE, SELFPAY ==
--- NOTE | ~2025-03-03 | CT_ITS ---
EXAMINATION: CT cervical spine wo con DATE: 03/03/2025 02:54 INDICATION: Status post fall. Neck pain. TECHNIQUE: Computed tomography (CT) of the cervical spine was performed without intravenous contrast. The dose-length product was 224 mGy-cm. Automated exposure control and iterative reconstruction tech Normalque were employed. COMPARISON: CT dated 06/01/2024 FINDINGS: Craniovertebral junction is normal. There is disc narrowing at C6-7. Vertebral body heights are maintained. No acute fracture, subluxation or dislocation. There are uncinate degenerative gillespie es at C6-7. There is carotid atherosclerosis. Lung apices are normal. No paraspinal soft tissue abnor malities. Craniovertebral junction within normal limits. No evidence for perched facet. Spinous proce sses within normal limits. Mild wedge-shaped appearance to T2 appears chronic. IMPRESSION: 1. No acute abnormality of the cervical spine. Reviewed, dictated and finalized at location A.
--- NOTE | ~2025-03-03 | CT_ITS ---
EXAMINATION: CT brain wo con DATE: 03/03/2025 02:55 INDICATION: Status post fall. Closed head injury. TECHNIQUE: Computed tomography (CT) of the head was performed without intravenous contrast. The dose- length product was 1362.00 mGy-cm. Automated exposure control and iterative reconstruction technique were employed. COMPARISON: CT dated 06/05/2024 FINDINGS: Generalized atrophy. There are scattered mild periventricular and subcortical white matter changes, most likely related to small vessel ischemic disease (microangiopathy). Chronic lacunar infa rction of the right basal ganglia and left eula. No acute hemorrhage, infarction, mass or mass effect . No ventriculomegaly or midline shift. There is mucosal thickening of the left maxillary sinus. Ther e is mucosal thickening of the left ethmoid and frontal sinuses. Mastoids are pneumatized. No depress ed skull fractures. IMPRESSION: 1. No acute intracranial abnormality. 2: Moderate sinus disease. 3: Stable chronic lacunar infarctions of the right basal ganglia and left eula. Reviewed, dictated and finalized at location A. IMPRESSION: 1. No acute intracranial abnormality. 2: Moderate sinus disease. 3: Stable chronic lacunar infarctions of the right basal ganglia and left eula .
[2025-03-03 01:43] VITALS: BP 98/57; PULSE 98; RESP 16; O2SAT 97
[2025-03-03 02:06] VITALS: BP 124/74; PULSE 82; RESP 15; TEMP 36.4; O2SAT 99
--- NOTE | 2025-03-03 03:29 | ED.FALL ---
HPI - Fall General Chief Complaint: Fall Stated Complaint: fall, ETOH Time Seen by Provider: 03/03/25 02:16 History of Present Illness HPI Narrative: 64-year-old male with a past medical history including alcohol abuse, prior CVA. He is mostly wheelchair-bound at this point. Patient presents via ambulance for concerns of a ground level fall. He has a superficial abrasion to left side of his face endorses drinking alcohol tonight. Denies loss of consciousness with the fall and denies any blood thinner use. He states he was trying to get up from his wheelchair to fast and felt lightheaded and fell forward onto the ground. Had to call his son for some assistance to get up. Has a small skin tear to his right elbow but no other appreciable injuries aside from the facial abrasion. No active bleeding. Denies any chest pain, abdominal pain, back pain, fever, chills. Denies any headache or vision changes, no nauseousness and no neurological deficits. He is clinically sober during my initial encounter. Related Data Home Medications ?Medication ?Instructions ?Recorded ?Confirmed ?Last Taken ?Type diphenhydramine 25 2 tablet PO HS PRN Insomnia 06/05/24 06/05/24 06/04/24 History mg-acetaminophen 500 mg tablet (Tylenol PM Extra Strength) Allergies Allergy/AdvReac Type Severity Reaction Status Date / Time No Known Allergies Allergy Mild Verified 06/05/24 12:45 Review of Systems Review of Systems: As reviewed above in HPI [facility] Past Medical History Medical History Alcohol abuse Surgical History Surgical History No history of previous surgery Family History Family History Other Family history non-contributory Social History Social History Social History: Surrogate medical decision maker: Kenneth Drew ([phone]), son. Code status: Full code. Smoking status: Never smoker Alcohol intake: current Drinks per week: 56 Alcohol use details: 7-8 beers a day Substance use: never Substance use type: does not use Do You Feel Safe in your Home?: Yes Lack of Transportation: YES Lack of Food: Never True Current Housing: I Have Housing Concerned About Future Housing: No Difficulty Paying Gas/Electric Bills: No Difficulty Paying for Meds: No Currently Unemployed: No Education: High School Diploma/GED Difficulty w/ Childcare or Family Care: No Additional living arrangements comments: The patient lives alone in his own home in [place]. 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 Spiritual care concerns: No Exam Narrative: GENERAL: [Well-appearing, well-nourished, and in no acute distress.] HEAD: Superficial abrasion to the left-sided scalp/face. Otherwise normocephalic and atraumatic EYES: [PERRLA and EOMI.] ENT: Nares clear, no rhinorrhea or epistaxis. Mucous membranes moist. NECK: Supple. CHEST: [Clear to auscultation. No respiratory distress.] HEART: [Regular rate and rhythm]. No murmur heard. [Normal peripheral pulses.] ABDOMEN: [Soft, nondistended], [nontender], [No rigidity or guarding] EXTREMITIES: Normal range of motion. [No edema.] SKIN: Warm, dry, no rash. NEURO: No focal deficits on examination awake alert oriented x3 PSYCH: [Normal mood and affect.] Course Vital Signs Vital signs: Vital Signs Pulse Rate 98 03/03/25 01:43 Respiratory Rate 16 03/03/25 01:43 Blood Pressure 98/57 L 03/03/25 01:43 Pulse Oximetry 97 03/03/25 01:43 Temperature 36.8 C 03/03/25 04:04 Pulse Rate 87 03/03/25 04:04 Respiratory Rate 18 03/03/25 04:04 Blood Pressure 127/78 03/03/25 04:04 Pulse Oximetry 99 03/03/25 04:04 Oxygen Delivery Room Air 03/03/25 02:06 MDM - Fall MDM Narrative Medical decision making narrative: 64-year-old male with a past medical history including alcohol abuse, prior CVA. He is mostly wheelchair-bound at this point. Patient presents via ambulance for concerns of a ground level fall. He has a superficial abrasion to left side of his face endorses drinking alcohol tonight. Denies loss of consciousness with the fall and denies any blood thinner use. He states he was trying to get up from his wheelchair to fast and felt lightheaded and fell forward onto the ground. Had to call his son for some assistance to get up. Has a small skin tear to his right elbow but no other appreciable injuries aside from the facial abrasion. No active bleeding. Denies any chest pain, abdominal pain, back pain, fever, chills. Denies any headache or vision changes, no nauseousness and no neurological deficits. He is clinically sober during my initial encounter. Patient has normal vital signs here without any hypotension, tachycardia, fever or hypoxia. He is otherwise well-appearing not any acute distress. Small skin tear to his right elbow that does not need any laceration wound repair and superficial abrasion to left side of his face also not needing any cosmetic repair or intervention. He is awake alert oriented and neurologically intact. CTs of the head and cervical spine were obtained given his age and risk factors with the fall. Patient felt comfortable going home with his son picking him up after completion of workup here. CT scans of the cervical spine showed no acute fractures. CT of the head shows no acute intracranial hemorrhage. Old lacunar infarcts again demonstrated. Soft tissue swelling of the frontal scalp consistent with his injury. Patient is awake without any neurological deficits and no complaints at this time. Safe for discharge. Will contact family members to pick him up. Medical Records Attestation: I reviewed the patient's medical records. Lab Data Attestation: I reviewed the patient's lab results. Imaging Data Attestation: I personally reviewed and interpreted this imaging study as follows: My impression: negative head and spine for anything acute Discharge Plan Discharge Clinical Impression: CHI (closed head injury), Debility, Fall Patient Disposition: Home Condition: Stable Instructions: Antibiotic Form Patient Language: [place] Prescriptions: No Action diphenhydramine-acetaminophen [Tylenol PM Extra Strength] 25-500 mg Tablet 2 tablet PO HS PRN (Reason: Insomnia) aspirin [Children's Aspirin] 81 mg Tablet,Chewable 81 mg PO DAILY@0800 Qty: 30 0RF atorvastatin 40 mg Tablet 40 mg PO DAILY Qty: 30 0RF cyanocobalamin (vitamin B-12) [Vitamin B-12] 1,000 mcg Tablet 1,000 mcg PO QAM Qty: 30 0RF folic acid 1 mg Tablet 1 mg PO DAILY Qty: 30 0RF furosemide 20 mg Tablet 20 mg PO BID Qty: 30 0RF megestrol 20 mg Tablet 20 mg PO QAM Qty: 30 0RF sodium chloride 1,000 mg Tablet,Soluble 2,000 mg PO BID Qty: 60 0RF thiamine HCl (vitamin B1) [Vitamin B-1] 100 mg Tablet 100 mg PO QAM Qty: 30 0RF oxycodone-acetaminophen 5-325 mg Tablet 1 tablet PO Q4H PRN (Reason: Pain Rated 7-10) Qty: 10 0RF Follow-up/Referrals: Juan C,Johnson Raines MD [Primary Care Provider] - Time of Disposition: 03:51
[2025-03-03 04:04] VITALS: BP 127/78; PULSE 87; RESP 18; TEMP 36.8; O2SAT 99
== END 2025-03-03 04:06 | disposition home or self-care (01) ==
PROVIDERS: Emergency Provider Student in an Organized Health Care Education/Training Program; PCP Internal Medicine
DX: S09.90XA Unspecified injury of head, initial encounter (principal); R53.81 Other malaise; W05.0XXA Fall from non-moving wheelchair, initial encounter
CPT/HCPCS: 70450; 72125; 99284

== ENCOUNTER 2025-05-20 18:50 | Emergency (ER) | payer MEDICARE, SELFPAY ==
[2025-05-20] VITALS (29 sets, daily range): BP systolic 134–166; BP diastolic 75–104; PULSE 81–97; RESP 10–22; TEMP 36.6; O2SAT 98–99
--- NOTE | ~2025-05-20 | CT_ITS ---
EXAMINATION: CT cervical spine wo con DATE: 05/20/2025 21:09 INDICATION: Fall with head injury TECHNIQUE: Computed tomography (CT) of the cervical spine was performed without intravenous contrast. Automated exposure control and iterative reconstruction technique were employed. The dose-length product was 283.78 mGy-cm. COMPARISON: 03/03/2025 FINDINGS: Alignment is normal. Moderate osteoarthritis at the atlantoaxial articulation. Vertebral body heights are normal. No acute fracture. Severe disc height loss at C6-C7. Mild disc height loss at C3-C4 through C5-C6. Minimal central canal stenosis at these levels resulting from small posterior disc ossified complexes at C3-C4 and C6-C7 mild disc bulges at C4-C5 and C5-C6. Severe osteoarthritis at the bilateral C6-C7 uncovertebral joints and at the left C4-C5 and right C3-C4 facet joints. Mild and moderate osteoarthritis at the remaining cervical facet and uncovertebral joints. This contributes to mild to moderate neural foraminal stenosis on the right at C3-C4 and bilaterally at C6-C7 with minimal to mild neural from stenosis at a few of the remaining cervical neural foramina. Atherosclerotic calcifications at the bilateral carotid bulbs. Cervical soft tissues are otherwise unremarkable. Visualized apices of lungs are clear. IMPRESSION: 1. Cervical spondylosis, severe at C6-C7 and otherwise mild. No acute osseous abnormality. Reviewed, dictated and finalized at location A. IMPRESSION: 1. Cervical spondylosis, severe at C6-C7 and otherwise mild. No acute osseous a bnormality.
--- NOTE | ~2025-05-20 | CT_ITS ---
EXAMINATION: CT brain wo con DATE: 05/20/2025 21:05 INDICATION: Head injury. Alcohol intoxication TECHNIQUE: Computed tomography (CT) of the head was performed without intravenous contrast. Sagittal and coronal reconstructions were performed. The mA was adjusted according to patient size. Iterative reconstruction technique was employed. The dose-length product was 681.00 mGy-cm. COMPARISON: head CT dated 03/03/2025 FINDINGS: No fracture. Old lacunar infarct at the right caudate and lentiform nuclei. Additional small old lacunar infarct at the left side of the eula. No acute intracranial hemorrhage, acute infarction or abnormal extra axial fluid collection. There is mild scattered white matter hypoattenuation consistent with chronic small vessel ischemic disease. Ventricles are normal and symmetric. No mass/mass effect. Chronic complete opacification of the left maxillary and frontal sinuses and several of the more anterior left ethmoid sinuses. The orbits and mastoid air cells are normal. IMPRESSION: 1. No fracture or acute intracranial process. 2. Small old lacunar infarcts at the right basal ganglia and left eula and mild scattered white matter hypoattenuation consistent with chronic small vessel ischemic disease. 3. Chronic left-sided sinus disease. Reviewed, dictated and finalized at location A. IMPRESSION: 1. No fracture or acute intracranial process. 2. Small old lacunar infarcts at the right basal ganglia and left eula and mild scattered white matter hypoattenuation consistent with chronic small vessel is chemic disease. 3. Chronic left-sided sinus disease.
--- NOTE | 2025-05-20 19:40 | ED_ITS ---
HPI - General Adult General Chief complaint: Fall Stated complaint: Fall; Head injury Time Seen by Provider: 05/20/25 19:11 History of Present Illness HPI narrative: A 62-year-old gentleman presents emerged from which patient reports that he was drinking alcohol today reports he fell backward striking patient was transported by EMS because patient was alert oriented x2 not able answer questions appropriately patient is also agitated combative with EMS the patient reports he is unsure his last tetanus status Related Data Home Medications ?Medication ?Instructions ?Recorded ?Confirmed ?Last Taken ?Type diphenhydramine 25 2 tablet PO HS PRN Insomnia 06/05/24 06/05/24 06/04/24 History mg-acetaminophen 500 mg tablet (Tylenol PM Extra Strength) Allergies Allergy/AdvReac Type Severity Reaction Status Date / Time No Known Allergies Allergy Mild Verified 05/20/25 18:56 Review of Systems Review of Systems: A 10 system review of systems was completed on the patient and is negative except for what is stated in the HPI. Nursing and ancillary documentation was reviewed. [facility] Past Medical History Medical History Alcohol abuse Surgical History Surgical History No history of previous surgery Family History Family History Other Family history non-contributory Social History Social History Social History: Surrogate medical decision maker: Kenneth Drew ([phone]), son. Code status: Full code. Smoking status: Never smoker Alcohol intake: current Drinks per week: 56 Alcohol use details: 7-8 beers a day Substance use: never Substance use type: does not use Do You Feel Safe in your Home?: Yes Lack of Transportation: YES Lack of Food: Never True Current Housing: I Have Housing Concerned About Future Housing: No Difficulty Paying Gas/Electric Bills: No Difficulty Paying for Meds: No Currently Unemployed: No Education: High School Diploma/GED Difficulty w/ Childcare or Family Care: No Additional living arrangements comments: The patient lives alone in his own home in [place]. 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 Spiritual care concerns: No Exam Narrative: GENERAL: Well-appearing, well-nourished, and in no acute distress. HEAD: Normocephalic, contusion of the back the scalp abrasion. EYES: PERRLA and EOMI. ENT: Nares clear, no rhinorrhea or epistaxis. Mucous membranes moist. NECK: Supple. CHEST: Clear to auscultation. No respiratory distress. HEART: Regular rate and rhythm. No murmur heard. Normal peripheral pulses. ABDOMEN: Soft, nontender, nondistended, normal active bowel sounds. EXTREMITIES: Normal range of motion. No edema. SKIN: Warm, dry, no rash. NEURO: No focal deficits. Alert and oriented x3. PSYCH: Normal mood and affect. Course Vital Signs Vital signs: Vital Signs Temperature 36.6 C 05/20/25 18:51 Pulse Rate 87 05/20/25 18:51 Respiratory Rate 17 05/20/25 18:51 Pulse Oximetry 98 05/20/25 18:51 Oxygen Delivery Room Air 05/20/25 18:51 Temperature 36.6 C 05/20/25 18:51 Pulse Rate 94 05/20/25 20:30 Respiratory Rate 19 05/20/25 20:30 Blood Pressure 145/95 H 05/20/25 20:16 Pulse Oximetry 98 05/20/25 18:51 Oxygen Delivery Room Air 05/20/25 18:51 Medical Decision Making MDM Narrative Medical decision making narrative: Differential diagnosis includes intracranial hemorrhage, cervical spine fracture, scalp laceration/abrasion The patient's wound was cleaned and there was only an abrasion present CT head showed no acute abnormality CT C-spine showed no evidence of fracture The patient will be discharged home after the patient reaches a point of sobriety or has a sober individual that can take him home Vital Signs Vital Signs: Vital Signs Temperature 36.6 C 05/20/25 18:51 Pulse Rate 87 05/20/25 18:51 Respiratory Rate 17 05/20/25 18:51 Pulse Oximetry 98 05/20/25 18:51 Oxygen Delivery Room Air 05/20/25 18:51 Temperature 36.6 C 05/20/25 18:51 Pulse Rate 94 05/20/25 20:30 Respiratory Rate 19 05/20/25 20:30 Blood Pressure 145/95 H 05/20/25 20:16 Pulse Oximetry 98 10/07/25 18:51 Oxygen Delivery Room Air 05/20/25 18:51 Discharge Plan Discharge Clinical Impression: Abrasion of scalp, Head injury, Ground-level fall, Alcohol intoxication Patient Disposition: Home Condition: Stable Instructions: Antibiotic Form, Head Injury (ED), Alcohol Intoxication (ED), Abuse of Alcohol (ED), Abrasion (ED), Fall Prevention (ED) Patient Language: Com[place]an Prescriptions: No Action diphenhydramine-acetaminophen [Tylenol PM Extra Strength] 25-500 mg Tablet 2 tablet PO HS PRN (Reason: Insomnia) aspirin [Children's Aspirin] 81 mg Tablet,Chewable 81 mg PO DAILY@0800 Qty: 30 0RF atorvastatin 40 mg Tablet 40 mg PO DAILY Qty: 30 0RF cyanocobalamin (vitamin B-12) [Vitamin B-12] 1,000 mcg Tablet 1,000 mcg PO QAM Qty: 30 0RF folic acid 1 mg Tablet 1 mg PO DAILY Qty: 30 0RF furosemide 20 mg Tablet 20 mg PO BID Qty: 30 0RF megestrol 20 mg Tablet 20 mg PO QAM Qty: 30 0RF sodium chloride 1,000 mg Tablet,Soluble 2,000 mg PO BID Qty: 60 0RF thiamine HCl (vitamin B1) [Vitamin B-1] 100 mg Tablet 100 mg PO QAM Qty: 30 0RF oxycodone-acetaminophen 5-325 mg Tablet 1 tablet PO Q4H PRN (Reason: Pain Rated 7-10) Qty: 10 0RF Follow-up/Referrals: Juan C,Johnson Raines MD [Primary Care Provider]
[2025-05-20] MEDS: TETANUS,DIPHTHERIA,AC PERTUSSIS ADULT (0.5 ML) BOOSTRIX IM (19:52)
--- NOTE | 2025-05-20 22:39 | PC.NURSE ---
Unable to make contact with pts family at this time. Will try again.
[2025-05-21] VITALS (20 sets, daily range): BP systolic 131–161; BP diastolic 77–97; PULSE 78–96; RESP 11–23; O2SAT 99
--- NOTE | 2025-05-21 01:09 | PC.NURSE ---
Attempted to contact family again. Will try again.
--- NOTE | 2025-05-21 07:18 | PC.NURSE ---
Attempted to call contacts for ride home. Son did not answer at this time, goes to voicemail. [place] is [address] hours away and unable to drive. 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
--- NOTE | 2025-05-21 07:23 | PC.NURSE ---
Notified [facility] for being unable to reach son for patient discharge for last couple hours. states they will send someone out to try to get ahold of son.
== END 2025-05-21 08:18 | disposition home or self-care (01) ==
PROVIDERS: Emergency Provider Emergency Medicine; PCP Internal Medicine
DX: S00.01XA Abrasion of scalp, initial encounter (principal); F10.129 Alcohol abuse with intoxication, unspecified; Y90.9 Presence of alcohol in blood, level not specified; Z23 Encounter for immunization; W18.39XA Other fall on same level, initial encounter
CPT/HCPCS: 70450; 72125; 90471; 90715; 99284

== ENCOUNTER 2025-05-23 17:59 | Inpatient (IN) | payer MEDICARE, SELFPAY ==
[2025-05-23] VITALS (38 sets, daily range): BP systolic 101–211; BP diastolic 54–195; PULSE 66–95; RESP 13–34; TEMP 32.6–37.3; O2SAT 98–100
--- NOTE | ~2025-05-23 | CT_ITS ---
CT HEAD NON-CONTRAST CT C-SPINE Clinical History: Found Down, AMS Comparison: 05/20/2025 Technique: Unenhanced axial images skull base to vertex. Coronal, sagittal reformats. Axial images thoracic inlet to skull base. Sagittal and coronal reformats. CT images acquired with automatic exposure control for dose reduction DLP: 681 mGy-cm Findings: Head: White matter changes, typically chronic microvascular ischemic disease Sulci, ventricles: Unremarkable. No intracerebral hemorrhage. No evidence acute territorial infarct. No mass effect, midline shift, intra-/extra-axial fluid collection. Bony calvarium intact. Visualized paranasal sinuses: Left sinuses opacified. Mastoid air cells: Clear. C-spine: No acute fracture or listhesis. Vertebral bodies normal height and alignment. Mild degenerative changes. Disc spaces maintained. Prevertebral soft tissues within normal limits. Visualized lung apices: Clear. Visualized thyroid: Unremarkable. No enlarged cervical nodes. IMPRESSION: HEAD: 1. No acute intracranial findings. C-SPINE: 1. No acute fracture. Reviewed, dictated and finalized at location R. IMPRESSION: HEAD: 1. No acute intracranial findings. C-SPINE: 1. No acute fracture.
--- NOTE | ~2025-05-23 | CT_ITS ---
EXAMINATION: CT chest abdomen pelvis wo con DATE: 05/23/2025 20:50 INDICATION: Found down. Altered mental status. TECHNIQUE: Computed tomography (CT) of the chest, abdomen, and pelvis was performed without intravenous contrast. Automated exposure control and iterative reconstruction technique were employed. The dose-length product was 492.37 mGy-cm. COMPARISON: CT 06/05/2024 FINDINGS: CHEST CT: The lungs demonstrate mild atelectasis. A calcified left lung nodule is consistent with old granulomatous disease. No pleural effusion. The heart size is normal. There are coronary artery calcifications. No pericardial effusion. There is mild bilateral gynecomastia. There are old bilateral rib fractures. There is severe cervical spondylosis and mild thoracic spondylosis. There are multiple chronic compression fractures in thoracic spine. ABDOMEN/PELVIS CT: The liver, gallbladder, spleen, pancreas, adrenal glands, and kidneys are normal. There is no urolithiasis. There is a King catheter in expected position. There are no dilated loops of bowel. The appendix is normal. There are no pathologically enlarged lymph nodes. There is no free intraperitoneal fluid. There are old fractures of the left L1, L2, and L3 transverse processes. There are old healed fractures of the sacrum. There is moderate lumbar spondylosis. IMPRESSION: 1. No acute posttraumatic findings. Reviewed, dictated and finalized at location E.
--- NOTE | ~2025-05-23 | US_ITS ---
ULTRASOUND ABDOMEN LIMITED (RIGHT UPPER QUADRANT) Clinical History: Elevated LFTs Comparison: CT abdomen and pelvis today Technique: Right upper quadrant sonography Findings: Liver: Left lobe not well seen. Normal size. Echogenic. No intrahepatic biliary ductal dilatation. Normal hepatopedal flow main portal vein. Common Duct: Normal caliber. 5 mm. Gallbladder: No stones. No wall thickening. No pericholecystic fluid. Pancreas: Obscured by bowel gas. Right kidney: Unremarkable. Retrohepatic IVC: Unremarkable. IMPRESSION: 1. No acute findings identified but suboptimal visualization due to bowel gas. Reviewed, dictated and finalized at location R.
--- NOTE | 2025-05-23 18:00 | ECG_ITS ---
Test Date: 2025-05-23 18:33:42 Measurements Intervals [facility] Rate: 65 P: 0 LA: 0 QRS: 29 QRSD: 94 T: 87 QT: 507 QTc: 527 Interpretive Statements PROBABLY SINUS RHYTHM (SIGNIFICANT BASELINE ARTIFACT) BASELINE ARTIFACT- I, II, III, AVR, AVL, AVF, V1-V6 NORMAL ECG Compared to ECG 06/05/2024 12:52:00 NO SIGNIFICANT CHANGE Electronically Signed On 05-23-2025 18:36:20 CDT by Dusty Soria D.O.
--- NOTE | 2025-05-23 18:22 | ED_ITS ---
HPI - General Adult General Chief complaint: Alcohol <Phong Vyas MD - Last Filed: 05/23/25 21:29> Stated complaint: etoh, fall <Phong Vyas MD - Last Filed: 05/23/25 21:29> Time Seen by Provider: 05/23/25 21:35 <Phong Vyas MD - Last Filed: 05/23/25 21:29> History of Present Illness HPI narrative: This is a 64-year-old male with history of chronic alcohol use and frequent falls presenting after being found down by police. Police were called to the house for a welfare check and the 2 other individuals in the house or now police custody. While they were surgery may atlas they found the patient laying on the basement floor. He was confused and cold to touch. It is unclear how long he has been there. He was seen in our emergency department 3 days ago after ground level fall with negative workup. Patient cannot verbalize any complaints. A&O times 1-2. <Phong Vyas MD - Last Filed: 05/23/25 21:29> Related Data Home medications: Home Medications ?Medication ?Instructions ?Recorded ?Confirmed ?Last Taken ?Type diphenhydramine 25 2 tablet PO HS PRN Insomnia 06/05/24 06/05/24 06/04/24 History mg-acetaminophen 500 mg tablet (Tylenol PM Extra Strength) <Phong Vyas MD - Last Filed: 05/23/25 21:29> Allergies/adverse reactions: Allergies Allergy/AdvReac Type Severity Reaction Status Date / Time No Known Allergies Allergy Mild Verified 05/21/25 08:06 <Phong Vyas MD - Last Filed: 05/23/25 21:29> [facility] Past Medical History Medical History: Medical History Alcohol abuse <Phong Vyas MD - Last Filed: 05/23/25 21:29> Surgical History Surgical History: Surgical History No history of previous surgery <Phong Vyas MD - Last Filed: 05/23/25 21:29> Family History Family History: Family History Other Family history non-contributory <Phong Vyas MD - Last Filed: 05/23/25 21:29> Social History Social History: Social History Social History: Surrogate medical decision maker: Kenneth Drew ([phone]), son. Code status: Full code. Smoking status: Never smoker Alcohol intake: current Drinks per week: 56 Alcohol use details: 7-8 beers a day Substance use: never Substance use type: does not use Do You Feel Safe in your Home?: Yes Lack of Transportation: YES Lack of Food: Never True Current Housing: I Have Housing Concerned About Future Housing: No Difficulty Paying Gas/Electric Bills: No Difficulty Paying for Meds: No Currently Unemployed: No Education: High School Diploma/GED Difficulty w/ Childcare or Family Care: No Additional living arrangements comments: The patient lives alone in his own home in [place]. 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 Spiritual care concerns: No <Phong Vyas MD - Last Filed: 05/23/25 21:29> Exam 2 Narrative: APPEARANCE: Chronically ill-appearing, cold to touch, A&O x2 Head: dry mucus membranes, Small abrasion underneath the right eye, multiple bruises and abrasions to the left side of the forehead EYES: EOMI, NOSE: Atraumatic NECK: Trachea midline RESPIRATORY: No increased rate of breathing clear to auscultation CARDIOVASCULAR: RRR, no peripheral edema ABDOMINAL: Non-distended soft nontender MUSCULOSKELETAl: No obvious deformities NEURO: Alert. Moving 4/4 extremities to command SKIN:: Multiple small skin tears not requiring repair, bruising over the left forearm, no decubitus skin breakdown PSYCHIATRIC: Normal affect <Phong Vyas MD - Last Filed: 05/23/25 21:29> Course Course Emergency Course: 21:30 -patient signed out to me Dr. Menjivar by doctor Asael at shift change pending CT head and cervical spine chest abdomen pelvis, repeat metabolic panel. General Milling Superintendent his and made aware the patient will see the patient in consultation, Nephrology is been made aware the patient and requests call back with the repeat BMP and the hospitalist is also informed of the patient. < Jose Menjivar DO - Last Filed: 05/23/25 22:56> Vital Signs Vital signs: Vital Signs Temperature 91.1 F L 05/23/25 18:28 Pulse Rate 67 05/23/25 18:28 Respiratory Rate 24 H 05/23/25 18:28 Blood Pressure 211/195 H 05/23/25 18:28 Pulse Oximetry 100 05/23/25 18:28 Temperature 98.7 F 05/23/25 22:05 Pulse Rate 88 05/23/25 22:05 Respiratory Rate 21 H 05/23/25 22:05 Blood Pressure 103/60 05/23/25 22:05 Pulse Oximetry 98 05/23/25 22:05 <Phong Vyas MD - Last Filed: 05/23/25 21:29> Vital Signs Temperature 91.1 F L 05/23/25 18:28 Pulse Rate 67 05/23/25 18:28 Respiratory Rate 24 H 05/23/25 18:28 Blood Pressure 211/195 H 05/23/25 18:28 Pulse Oximetry 100 05/23/25 18:28 Temperature 98.7 F 05/23/25 22:05 Pulse Rate 88 05/23/25 22:05 Respiratory Rate 21 H 05/23/25 22:05 Blood Pressure 103/60 05/23/25 22:05 Pulse Oximetry 98 05/23/25 22:05 <Jose Menjivar, - Last Filed: 05/23/25 22:56> Medical Decision Making MDM Narrative Medical decision making narrative: -Course: 64-year-old alcoholic presenting after being found down in his house during a welfare check by police. Patient cannot give me any history of how long he was down. Per EMS this is pretty typical and they are called to his house quite frequently and finding this condition. Usually he declines transfer but this time he appears confused. On arrival his blood sugar was 42. Given an amp of dextrose. Rectal temperature was 91? F. Patient placed under a Micaela Hugger. 2 L of fluid were ordered as he appears dry. Broad workup has been obtained. On re-evaluation after dextrose and warming the patient's mental status is improved and he can now answer questions appropriately. Workup significant for a sodium of 102. IV fluids were immediately canceled in the EMR however the fluids were still administered. Case was discussed with Dr. Oliveira. Repeat bmp ordered to assess for Na changes/over correction. Roxanne will continue to follow in the case. Fluid status/electrolytes further complicated by rhabdomyolysis and acute kidney injury with a creatinine of 3.4 from a baseline of 0.5. Despite fluid resuscitation the patient's blood pressures are still soft 114/66 where he typically runs from 130s-150s sbp. On re-evaluation patients mental status improved. Repeat glucose was low again and he was given another amp of d50. Case was also discussed with Dr. Patel and the patient will require admission to the ICU. Patient signed out to the oncoming physician pending imaging and repeat labwork. -DDX includes but is not limited to: Rhabdomyolysis, sepsis, Wernicke encephalopathy, alcohol intoxication, polysubstance use disorder pneumonia UTI hypothermia -Co-morbidities complicating care: Alcohol abuse -Social determinants of health: Daily alcohol use. -External Chart Review: Review of multiple ER notes for alcohol abuse falls. -Hx from independent Sources: EMS <Phong Vyas MD - Last Filed: 05/23/25 21:29> -Course: 64-year-old alcoholic presenting after being found down in his house during a welfare check by police. Patient cannot give me any history of how long he was down. Per EMS this is pretty typical and they are called to his house quite frequently and finding this condition. Usually he declines transfer but this time he appears confused. On arrival his blood sugar was 42. Given an amp of dextrose. Rectal temperature was 91? F. Patient placed under a Micaela Hugger. 2 L of fluid were ordered as he appears dry. Broad workup has been obtained. On re-evaluation after dextrose and warming the patient's mental status is improved and he can now answer questions appropriately. Workup significant for a sodium of 102. IV fluids were immediately canceled in the EMR however the fluids were still administered. Case was discussed with Dr. Oliveira. Repeat bmp ordered to assess for Na changes/over correction. Roxanne will continue to follow in the case. Fluid status/electrolytes further complicated by rhabdomyolysis and acute kidney injury with a creatinine of 3.4 from a baseline of 0.5. Despite fluid resuscitation the patient's blood pressures are still soft 114/66 where he typically runs from 130s-150s sbp. On re-evaluation patients mental status improved. Repeat glucose was low again and he was given another amp of d50. Case was also discussed with Dr. Patel and the patient will require admission to the ICU. Patient signed out to the oncoming physician pending imaging and repeat labwork. -DDX includes but is not limited to: Rhabdomyolysis, sepsis, Wernicke encephalopathy, alcohol intoxication, polysubstance use disorder pneumonia UTI hypothermia -Co-morbidities complicating care: Alcohol abuse -Social determinants of health: Daily alcohol use. -External Chart Review: Review of multiple ER notes for alcohol abuse falls. -Hx from independent Sources: EMS BMP shows a sodium 102, qt of 73, bicarb of 15, anion gap 14, BUN of 47, creatinine 1.73, potassium of 4.4, calcium of 7.2. I spoke with Nephrology Dr. Oliveira who notes start the patient on LR 75 cc/hour, repeat sodium every [address] of the head Radiology impression reveals no intracranial hemorrhage, mass effect or edema, no skull fracture. Incidental findings are opacified left frontal, anterior ethmoid and maxillary sinuses. CT of the cervical spine radiologist impression is no acute fracture or malalignment. CT chest without contrast reveals no pulmonary contusion, pleural effusion, or pneumothorax. No acute fracture identified. Chronic fracture deformities in the ribs on the right. CT abdomen pelvis without contrast reveals no traumatic solid organ injury or pneumoperitoneum. No acute fracture. No traumatic injury identified. King catheter in the bladder. CRITICAL CARE ADDENDUM: Indication: Sepsis, hyponatremia, rhabdomyolysis, acute renal failure, hypothermia, hypoglycemia Time type: intermittent I provided a total of 80 minutes of critical care excluding separately billable procedures. This includes time w/ reviewing old records, review of testing done while under my care, discussion w/ nurses, contact center consultant and guiding the patient?s care while in the emergency department. Approximate time distribution: 15 minutes ? d/w involved parties, attempting to gather old records. 20 minutes ? Documenting medical record 20 minutes ? Review of results (EKGs, labs, imaging) 15 minutes ? Serial repeat bedside evaluation 10 minutes ? Discussing case with multiple providers Please see main chart for details. Excludes separately billable procedures. <Jose Menjivar DO - Last Filed: 05/23/25 22:56> Vital Signs Vital Signs: Vital Signs Temperature 91.1 F L 05/23/25 18:28 Pulse Rate 67 05/23/25 18:28 Respiratory Rate 24 H 05/23/25 18:28 Blood Pressure 211/195 H 05/23/25 18:28 Pulse Oximetry 100 05/23/25 18:28 Temperature 98.7 F 05/23/25 22:05 Pulse Rate 88 05/23/25 22:05 Respiratory Rate 21 H 05/23/25 22:05 Blood Pressure 103/60 05/23/25 22:05 Pulse Oximetry 98 05/23/25 22:05 <Phong Vyas MD - Last Filed: 05/23/25 21:29> Vital Signs Temperature 91.1 F L 05/23/25 18:28 Pulse Rate 67 05/23/25 18:28 Respiratory Rate 24 H 05/23/25 18:28 Blood Pressure 211/195 H 05/23/25 18:28 Pulse Oximetry 100 05/23/25 18:28 Temperature 98.7 F 05/23/25 22:05 Pulse Rate 88 05/23/25 22:05 Respiratory Rate 21 H 05/23/25 22:05 Blood Pressure 103/60 05/23/25 22:05 Pulse Oximetry 98 05/23/25 22:05 <Jose Menjivar DO - Last Filed: 05/23/25 22:56> Lab Data Result diagrams: 05/23/25 19:38 05/23/25 21:33 <Phong Vyas MD - Last Filed: 05/23/25 21:29> Labs: Lab Results 05/23/25 05/23/25 05/23/25 Range/Units 18:05 18:24 18:25 WBC (4.5-10.0) K/mm3 RBC (4.6-6.20) M/mm3 Hgb (14.0-18.0) g/dL Hct (42.0-52.0) % MCV (80-100) fl MCH (26-34) pg MCHC (32-36) g/dl RDW (11.5-14.5) % Plt Count (150-375) k/mm3 MPV (7.4-10.4) fl Immature Gran % (Auto) (0-0.5) % Neut % (Auto) (45.5-73.1) % Lymph % (Auto) (18.3-44.2) % [place] % (Auto) (2.6-8.5) % Eos % (Auto) (0-4.4) % Baso % (Auto) (0.2-1.2) % Lymph # (Auto) (0.9-3.2) K/mm3 [place] # (Auto) (0.1-0.6) K/mm3 Eos # (Auto) (0-0.3) K/mm3 Baso # (Auto) (0.0-0.1) K/mm3 Abs Immat Gran (auto) (0.00-0.031) K/mm3 Absolute Neuts (auto) (1.3-6.7) K/mm3 Absolute Nucleated RBC (0.0-0.012) K/mm3 Nucleated RBC % (0.0-0.2) % PT 13.7 (11.1-14.7) Seconds INR 1.0 APTT 32.9 (22.3-36.8) Seconds Sodium 102 L* (137-145) mmol/L Potassium 5.2 H (3.4-5.0) mmol/L Chloride 64 L (98-107) mmol/L Carbon Dioxide 10 L (22-30) mmol/L Anion Gap 28 H (4-12) mmol/L BUN 58 H D (9-20) mg/dL Creatinine 3.40 H (0.7-1.3) mg/dL Estim Creat Clear Calc Not Reportable Estimated GFR 18 L (59 - ) Glucose 44 L* (65-110) mg/dL POC Capillary Glucose 52 L* (65-105) mg/dl Lactic Acid 1.4 (0.7-2.0) mmol/L Calcium 8.7 (8.4-10.2) mg/dL Phosphorus 8.9 H (2.5-4.5) mg/dL Magnesium 3.1 H (1.6-2.3) mg/dL Total Bilirubin 3.0 H (0.2-1.3) mg/dL AST 269 H (17-59) U/L ALT 66 H (6-50) U/L Alkaline Phosphatase 93 (38-126) U/L Total Creatine Kinase 6807 H (55-170) U/L Troponin I 0.012 (0.000-0.034) ng/mL Total Protein 8.5 H (6.3-8.2) g/dL Albumin 4.8 (3.5-5.1) g/dL Lipase 149 (23-300) U/L TSH (Reflex) 1.930 (0.465-4.68) uIU/mL Urine Color (Yellow) Urine Appearance (Clear) Urine pH (5.0-9.0) Ur Specific [place] (1.001-1.035) Urine Protein (Negative) mg/dL Urine Glucose (UA) (Negative) mg/dL Urine Ketones (Negative) mg/dL Ur Blood (Man) (Negative) Urine Nitrate (Negative) Urine Bilirubin (Negative) Urine Urobilinogen (<2.0) mg/dL Add Ur Microanalysis Leukocyte Esterase Rfl (Negative) VINEET/UL Urine RBC (0-2) /hpf Urine WBC (0-3) /hpf Ur Squamous Epith Cells (Few) /hpf Urine Bacteria /hpf Urine Casts Urine Mucus /lpf Urine Osmolality Ur Random Sodium 22 meq/L Ur Random Urea 385 MG/DL Urine Creatinine 82.2 mg/dL Salicylates < 1.0 L (2-20) mg/dL Urine Opiates Screen (Negative) Urine Methadone Screen (Negative) Acetaminophen < 10 L (10-30) ug/mL Ur Barbiturates Screen (Negative) Ur Phencyclidine Scrn (Negative) Ur Amphetamine Screen (Negative) U Benzodiazepines Scrn (Negative) Urine Cocaine Screen (Negative) U Cannabinoids Screen (Negative) Ethyl Alcohol < 10 (<10) mg/dL Monoscreen Negative (Negative) Influenza A (RT-PCR) Negative (Negative) Influenza B (RT-PCR) Negative (Negative) RSV (RT-PCR) Negative (Negative) SARS-CoV-2 RNA (RT-PCR) Negative (Negative) 05/23/25 05/23/25 05/23/25 Range/Units 18:39 18:45 19:38 WBC 11.8 H (4.5-10.0) K/mm3 RBC 3.56 L (4.6-6.20) M/mm3 Hgb 11.9 L (14.0-18.0) g/dL Hct 30.6 L (42.0-52.0) % MCV 86.0 (80-100) fl MCH 33.4 (26-34) pg MCHC 38.9 H (32-36) g/dl RDW 11.8 (11.5-14.5) % Plt Count 140 L D (150-375) k/mm3 MPV 9.4 (7.4-10.4) fl Immature Gran % (Auto) 0.8 H (0-0.5) % Neut % (Auto) 88.6 H (45.5-73.1) % Lymph % (Auto) 3.8 L (18.3-44.2) % [place] % (Auto) 6.7 (2.6-8.5) % Eos % (Auto) 0.0 (0-4.4) % Baso % (Auto) 0.1 L (0.2-1.2) % Lymph # (Auto) 0.45 L (0.9-3.2) K/mm3 [place] # (Auto) 0.8 H (0.1-0.6) K/mm3 Eos # (Auto) 0.0 (0-0.3) K/mm3 Baso # (Auto) 0.0 (0.0-0.1) K/mm3 Abs Immat Gran (auto) 0.09 H (0.00-0.031) K/mm3 Absolute Neuts (auto) 10.5 H (1.3-6.7) K/mm3 Absolute Nucleated RBC 0.000 (0.0-0.012) K/mm3 Nucleated RBC % 0.0 (0.0-0.2) % PT (11.1-14.7) Seconds INR APTT (22.3-36.8) Seconds Sodium (137-145) mmol/L Potassium (3.4-5.0) mmol/L Chloride (98-107) mmol/L Carbon Dioxide (22-30) mmol/L Anion Gap (4-12) mmol/L BUN (9-20) mg/dL Creatinine (0.7-1.3) mg/dL Estim Creat Clear Calc Estimated GFR (59 - ) Glucose (65-110) mg/dL POC Capillary Glucose 204 H (65-105) mg/dl Lactic Acid (0.7-2.0) mmol/L Calcium (8.4-10.2) mg/dL Phosphorus (2.5-4.5) mg/dL Magnesium (1.6-2.3) mg/dL Total Bilirubin (0.2-1.3) mg/dL AST (17-59) U/L ALT (6-50) U/L Alkaline Phosphatase (38-126) U/L Total Creatine Kinase (55-170) U/L Troponin I (0.000-0.034) ng/mL Total Protein (6.3-8.2) g/dL Albumin (3.5-5.1) g/dL Lipase (23-300) U/L TSH (Reflex) (0.465-4.68) uIU/mL Urine Color Dark yellow (Yellow) Urine Appearance Clear (Clear) Urine pH 6.0 (5.0-9.0) Ur Specific [place] 1.017 (1.001-1.035) Urine Protein 2+ H (Negative) mg/dL Urine Glucose (UA) Negative (Negative) mg/dL Urine Ketones Trace H (Negative) mg/dL Ur Blood (Man) 2+ H (Negative) Urine Nitrate Negative (Negative) Urine Bilirubin Negative (Negative) Urine Urobilinogen 1.0 (<2.0) mg/dL Add Ur Microanalysis Reviewed Leukocyte Esterase Rfl Negative (Negative) VINEET/UL Urine RBC 0-2 (0-2) /hpf Urine WBC 0-5 (0-3) /hpf Ur Squamous Epith Cells None seen (Few) /hpf Urine Bacteria None seen /hpf Urine Casts 11-20 Urine Mucus Present /lpf Urine Osmolality Pending Ur Random Sodium meq/L Ur Random Urea MG/DL Urine Creatinine mg/dL Salicylates (2-20) mg/dL Urine Opiates Screen Negative (Negative) Urine Methadone Screen Negative (Negative) Acetaminophen (10-30) ug/mL Ur Barbiturates Screen Negative (Negative) Ur Phencyclidine Scrn Negative (Negative) Ur Amphetamine Screen Negative (Negative) U Benzodiazepines Scrn Negative (Negative) Urine Cocaine Screen Negative (Negative) U Cannabinoids Screen Negative (Negative) Ethyl Alcohol (<10) mg/dL Monoscreen (Negative) Influenza A (RT-PCR) (Negative) Influenza B (RT-PCR) (Negative) RSV (RT-PCR) (Negative) SARS-CoV-2 RNA (RT-PCR) (Negative) 1005/23/25 05/23/25 Range/Units 21:24 21:33 21:59 WBC (4.5-10.0) K/mm3 RBC (4.6-6.20) M/mm3 Hgb (14.0-18.0) g/dL Hct (42.0-52.0) % MCV (80-100) fl MCH (26-34) pg MCHC (32-36) g/dl RDW (11.5-14.5) % Plt Count (150-375) k/mm3 MPV (7.4-10.4) fl Immature Gran % (Auto) (0-0.5) % Neut % (Auto) (45.5-73.1) % Lymph % (Auto) (18.3-44.2) % [place] % (Auto) (2.6-8.5) % Eos % (Auto) (0-4.4) % Baso % (Auto) (0.2-1.2) % Lymph # (Auto) (0.9-3.2) K/mm3 [place] # (Auto) (0.1-0.6) K/mm3 Eos # (Auto) (0-0.3) K/mm3 Baso # (Auto) (0.0-0.1) K/mm3 Abs Immat Gran (auto) (0.00-0.031) K/mm3 Absolute Neuts (auto) (1.3-6.7) K/mm3 Absolute Nucleated RBC (0.0-0.012) K/mm3 Nucleated RBC % (0.0-0.2) % PT (11.1-14.7) Seconds INR APTT (22.3-36.8) Seconds Sodium 102 L* (137-145) mmol/L Potassium 4.4 (3.4-5.0) mmol/L Chloride 73 L (98-107) mmol/L Carbon Dioxide 15 L (22-30) mmol/L Anion Gap 14 H (4-12) mmol/L BUN 47 H D (9-20) mg/dL Creatinine 1.73 H (0.7-1.3) mg/dL Estim Creat Clear Calc Not Reportable Estimated GFR 40 L (59 - ) Glucose 223 H (65-110) mg/dL POC Capillary Glucose 40 L* 167 H (65-105) mg/dl Lactic Acid (0.7-2.0) mmol/L Calcium 7.2 L (8.4-10.2) mg/dL Phosphorus (2.5-4.5) mg/dL Magnesium (1.6-2.3) mg/dL Total Bilirubin (0.2-1.3) mg/dL AST (17-59) U/L ALT (6-50) U/L Alkaline Phosphatase (38-126) U/L Total Creatine Kinase (55-170) U/L Troponin I 0.013 (0.000-0.034) ng/mL Total Protein (6.3-8.2) g/dL Albumin (3.5-5.1) g/dL Lipase (23-300) U/L TSH (Reflex) (0.465-4.68) uIU/mL Urine Color (Yellow) Urine Appearance (Clear) Urine pH (5.0-9.0) Ur Specific [place] (1.001-1.035) Urine Protein (Negative) mg/dL Urine Glucose (UA) (Negative) mg/dL Urine Ketones (Negative) mg/dL Ur Blood (Man) (Negative) Urine Nitrate (Negative) Urine Bilirubin (Negative) Urine Urobilinogen (<2.0) mg/dL Add Ur Microanalysis Leukocyte Esterase Rfl (Negative) VINEET/UL Urine RBC (0-2) /hpf Urine WBC (0-3) /hpf Ur Squamous Epith Cells (Few) /hpf Urine Bacteria /hpf Urine Casts Urine Mucus /lpf Urine Osmolality Ur Random Sodium meq/L Ur Random Urea MG/DL Urine Creatinine mg/dL Salicylates (2-20) mg/dL Urine Opiates Screen (Negative) Urine Methadone Screen (Negative) Acetaminophen (10-30) ug/mL Ur Barbiturates Screen (Negative) Ur Phencyclidine Scrn (Negative) Ur Amphetamine Screen (Negative) U Benzodiazepines Scrn (Negative) Urine Cocaine Screen (Negative) U Cannabinoids Screen (Negative) Ethyl Alcohol (<10) mg/dL Monoscreen (Negative) Influenza A (RT-PCR) (Negative) Influenza B (RT-PCR) (Negative) RSV (RT-PCR) (Negative) SARS-CoV-2 RNA (RT-PCR) (Negative) 05/23/25 Range/Units 22:24 WBC (4.5-10.0) K/mm3 RBC (4.6-6.20) M/mm3 Hgb (14.0-18.0) g/dL Hct (42.0-52.0) % MCV (80-100) fl MCH (26-34) pg MCHC (32-36) g/dl RDW (11.5-14.5) % Plt Count (150-375) k/mm3 MPV (7.4-10.4) fl Immature Gran % (Auto) (0-0.5) % Neut % (Auto) (45.5-73.1) % Lymph % (Auto) (18.3-44.2) % [place] % (Auto) (2.6-8.5) % Eos % (Auto) (0-4.4) % Baso % (Auto) (0.2-1.2) % Lymph # (Auto) (0.9-3.2) K/mm3 [place] # (Auto) (0.1-0.6) K/mm3 Eos # (Auto) (0-0.3) K/mm3 Baso # (Auto) (0.0-0.1) K/mm3 Abs Immat Gran (auto) (0.00-0.031) K/mm3 Absolute Neuts (auto) (1.3-6.7) K/mm3 Absolute Nucleated RBC (0.0-0.012) K/mm3 Nucleated RBC % (0.0-0.2) % PT (11.1-14.7) Seconds INR APTT (22.3-36.8) Seconds Sodium (137-145) mmol/L Potassium (3.4-5.0) mmol/L Chloride (98-107) mmol/L Carbon Dioxide (22-30) mmol/L Anion Gap (4-12) mmol/L BUN (9-20) mg/dL Creatinine (0.7-1.3) mg/dL Estim Creat Clear Calc Estimated GFR (59 - ) Glucose (65-110) mg/dL POC Capillary Glucose 118 H (65-105) mg/dl Lactic Acid (0.7-2.0) mmol/L Calcium (8.4-10.2) mg/dL Phosphorus (2.5-4.5) mg/dL Magnesium (1.6-2.3) mg/dL Total Bilirubin (0.2-1.3) mg/dL AST (17-59) U/L ALT (6-50) U/L Alkaline Phosphatase (38-126) U/L Total Creatine Kinase (55-170) U/L Troponin I (0.000-0.034) ng/mL Total Protein (6.3-8.2) g/dL Albumin (3.5-5.1) g/dL Lipase (23-300) U/L TSH (Reflex) (0.465-4.68) uIU/mL Urine Color (Yellow) Urine Appearance (Clear) Urine pH (5.0-9.0) Ur Specific [place] (1.001-1.035) Urine Protein (Negative) mg/dL Urine Glucose (UA) (Negative) mg/dL Urine Ketones (Negative) mg/dL Ur Blood (Man) (Negative) Urine Nitrate (Negative) Urine Bilirubin (Negative) Urine Urobilinogen (<2.0) mg/dL Add Ur Microanalysis Leukocyte Esterase Rfl (Negative) VINEET/UL Urine RBC (0-2) /hpf Urine WBC (0-3) /hpf Ur Squamous Epith Cells (Few) /hpf Urine Bacteria /hpf Urine Casts Urine Mucus /lpf Urine Osmolality Ur Random Sodium meq/L Ur Random Urea MG/DL Urine Creatinine mg/dL Salicylates (2-20) mg/dL Urine Opiates Screen (Negative) Urine Methadone Screen (Negative) Acetaminophen (10-30) ug/mL Ur Barbiturates Screen (Negative) Ur Phencyclidine Scrn (Negative) Ur Amphetamine Screen (Negative) U Benzodiazepines Scrn (Negative) Urine Cocaine Screen (Negative) U Cannabinoids Screen (Negative) Ethyl Alcohol (<10) mg/dL Monoscreen (Negative) Influenza A (RT-PCR) (Negative) Influenza B (RT-PCR) (Negative) RSV (RT-PCR) (Negative) SARS-CoV-2 RNA (RT-PCR) (Negative) <Phong Vyas MD - Last Filed: 05/23/25 21:29> Lab Results 05/23/25 05/23/25 05/23/25 Range/Units 18:05 18:24 18:25 WBC (4.5-10.0) K/mm3 RBC (4.6-6.20) M/mm3 Hgb (14.0-18.0) g/dL Hct (42.0-52.0) % MCV (80-100) fl MCH (26-34) pg MCHC (32-36) g/dl RDW (11.5-14.5) % Plt Count (150-375) k/mm3 MPV (7.4-10.4) fl Immature Gran % (Auto) (0-0.5) % Neut % (Auto) (45.5-73.1) % Lymph % (Auto) (18.3-44.2) % [place] % (Auto) (2.6-8.5) % Eos % (Auto) (0-4.4) % Baso % (Auto) (0.2-1.2) % Lymph # (Auto) (0.9-3.2) K/mm3 [place] # (Auto) (0.1-0.6) K/mm3 Eos # (Auto) (0-0.3) K/mm3 Baso # (Auto) (0.0-0.1) K/mm3 Abs Immat Gran (auto) (0.00-0.031) K/mm3 Absolute Neuts (auto) (1.3-6.7) K/mm3 Absolute Nucleated RBC (0.0-0.012) K/mm3 Nucleated RBC % (0.0-0.2) % PT 13.7 (11.1-14.7) Seconds INR 1.0 APTT 32.9 (22.3-36.8) Seconds Sodium 102 L* (137-145) mmol/L Potassium 5.2 H (3.4-5.0) mmol/L Chloride 64 L (98-107) mmol/L Carbon Dioxide 10 L (22-30) mmol/L Anion Gap 28 H (4-12) mmol/L BUN 58 H D (9-20) mg/dL Creatinine 3.40 H (0.7-1.3) mg/dL Estim Creat Clear Calc Not Reportable Estimated GFR 18 L (59 - ) Glucose 44 L* (65-110) mg/dL POC Capillary Glucose 52 L* (65-105) mg/dl Lactic Acid 1.4 (0.7-2.0) mmol/L Calcium 8.7 (8.4-10.2) mg/dL Phosphorus 8.9 H (2.5-4.5) mg/dL Magnesium 3.1 H (1.6-2.3) mg/dL Total Bilirubin 3.0 H (0.2-1.3) mg/dL AST 269 H (17-59) U/L ALT 66 H (6-50) U/L Alkaline Phosphatase 93 (38-126) U/L Total Creatine Kinase 6807 H (55-170) U/L Troponin I 0.012 (0.000-0.034) ng/mL Total Protein 8.5 H (6.3-8.2) g/dL Albumin 4.8 (3.5-5.1) g/dL Lipase 149 (23-300) U/L TSH (Reflex) 1.930 (0.465-4.68) uIU/mL Urine Color (Yellow) Urine Appearance (Clear) Urine pH (5.0-9.0) Ur Specific [place] (1.001-1.035) Urine Protein (Negative) mg/dL Urine Glucose (UA) (Negative) mg/dL Urine Ketones (Negative) mg/dL Ur Blood (Man) (Negative) Urine Nitrate (Negative) Urine Bilirubin (Negative) Urine Urobilinogen (<2.0) mg/dL Add Ur Microanalysis Leukocyte Esterase Rfl (Negative) VINEET/UL Urine RBC (0-2) /hpf Urine WBC (0-3) /hpf Ur Squamous Epith Cells (Few) /hpf Urine Bacteria /hpf Urine Casts Urine Mucus /lpf Urine Osmolality Ur Random Sodium 22 meq/L Ur Random Urea 385 MG/DL Urine Creatinine 82.2 mg/dL Salicylates < 1.0 L (2-20) mg/dL Urine Opiates Screen (Negative) Urine Methadone Screen (Negative) Acetaminophen < 10 L (10-30) ug/mL Ur Barbiturates Screen (Negative) Ur Phencyclidine Scrn (Negative) Ur Amphetamine Screen (Negative) U Benzodiazepines Scrn (Negative) Urine Cocaine Screen (Negative) U Cannabinoids Screen (Negative) Ethyl Alcohol < 10 (<10) mg/dL Monoscreen Negative (Negative) Influenza A (RT-PCR) Negative (Negative) Influenza B (RT-PCR) Negative (Negative) RSV (RT-PCR) Negative (Negative) SARS-CoV-2 RNA (RT-PCR) Negative (Negative) 05/23/25 05/23/25 05/23/25 Range/Units 18:39 18:45 19:38 WBC 11.8 H (4.5-10.0) K/mm3 RBC 3.56 L (4.6-6.20) M/mm3 Hgb 11.9 L (14.0-18.0) g/dL Hct 30.6 L (42.0-52.0) % MCV 86.0 (80-100) fl MCH 33.4 (26-34) pg MCHC 38.9 H (32-36) g/dl RDW 11.8 (11.5-14.5) % Plt Count 140 L D (150-375) k/mm3 MPV 9.4 (7.4-10.4) fl Immature Gran % (Auto) 0.8 H (0-0.5) % Neut % (Auto) 88.6 H (45.5-73.1) % Lymph % (Auto) 3.8 L (18.3-44.2) % [place] % (Auto) 6.7 (2.6-8.5) % Eos % (Auto) 0.0 (0-4.4) % Baso % (Auto) 0.1 L (0.2-1.2) % Lymph # (Auto) 0.45 L (0.9-3.2) K/mm3 [place] # (Auto) 0.8 H (0.1-0.6) K/mm3 Eos # (Auto) 0.0 (0-0.3) K/mm3 Baso # (Auto) 0.0 (0.0-0.1) K/mm3 Abs Immat Gran (auto) 0.09 H (0.00-0.031) K/mm3 Absolute Neuts (auto) 10.5 H (1.3-6.7) K/mm3 Absolute Nucleated RBC 0.000 (0.0-0.012) K/mm3 Nucleated RBC % 0.0 (0.0-0.2) % PT (11.1-14.7) Seconds INR APTT (22.3-36.8) Seconds Sodium (137-145) mmol/L Potassium (3.4-5.0) mmol/L Chloride (98-107) mmol/L Carbon Dioxide (22-30) mmol/L Anion Gap (4-12) mmol/L BUN (9-20) mg/dL Creatinine (0.7-1.3) mg/dL Estim Creat Clear Calc Estimated GFR (59 - ) Glucose (65-110) mg/dL POC Capillary Glucose 204 H (65-105) mg/dl Lactic Acid (0.7-2.0) mmol/L Calcium (8.4-10.2) mg/dL Phosphorus (2.5-4.5) mg/dL Magnesium (1.6-2.3) mg/dL Total Bilirubin (0.2-1.3) mg/dL AST (17-59) U/L ALT (6-50) U/L Alkaline Phosphatase (38-126) U/L Total Creatine Kinase (55-170) U/L Troponin I (0.000-0.034) ng/mL Total Protein (6.3-8.2) g/dL Albumin (3.5-5.1) g/dL Lipase (23-300) U/L TSH (Reflex) (0.465-4.68) uIU/mL Urine Color Dark yellow (Yellow) Urine Appearance Clear (Clear) Urine pH 6.0 (5.0-9.0) Ur Specific [place] 1.017 (1.001-1.035) Urine Protein 2+ H (Negative) mg/dL Urine Glucose (UA) Negative (Negative) mg/dL Urine Ketones Trace H (Negative) mg/dL Ur Blood (Man) 2+ H (Negative) Urine Nitrate Negative (Negative) Urine Bilirubin Negative (Negative) Urine Urobilinogen 1.0 (<2.0) mg/dL Add Ur Microanalysis Reviewed Leukocyte Esterase Rfl Negative (Negative) VINEET/UL Urine RBC 0-2 (0-2) /hpf Urine WBC 0-5 (0-3) /hpf Ur Squamous Epith Cells None seen (Few) /hpf Urine Bacteria None seen /hpf Urine Casts 11-20 Urine Mucus Present /lpf Urine Osmolality Pending Ur Random Sodium meq/L Ur Random Urea MG/DL Urine Creatinine mg/dL Salicylates (2-20) mg/dL Urine Opiates Screen Negative (Negative) Urine Methadone Screen Negative (Negative) Acetaminophen (10-30) ug/mL Ur Barbiturates Screen Negative (Negative) Ur Phencyclidine Scrn Negative (Negative) Ur Amphetamine Screen Negative (Negative) U Benzodiazepines Scrn Negative (Negative) Urine Cocaine Screen Negative (Negative) U Cannabinoids Screen Negative (Negative) Ethyl Alcohol (<10) mg/dL Monoscreen (Negative) Influenza A (RT-PCR) (Negative) Influenza B (RT-PCR) (Negative) RSV (RT-PCR) (Negative) SARS-CoV-2 RNA (RT-PCR) (Negative) 05/23/25 05/23/25 05/23/25 Range/Units 21:24 21:33 21:59 WBC (4.5-10.0) K/mm3 RBC (4.6-6.20) M/mm3 Hgb (14.0-18.0) g/dL Hct (42.0-52.0) % MCV (80-100) fl MCH (26-34) pg MCHC (32-36) g/dl RDW (11.5-14.5) % Plt Count (150-375) k/mm3 MPV (7.4-10.4) fl Immature Gran % (Auto) (0-0.5) % Neut % (Auto) (45.5-73.1) % Lymph % (Auto) (18.3-44.2) % [place] % (Auto) (2.6-8.5) % Eos % (Auto) (0-4.4) % Baso % (Auto) (0.2-1.2) % Lymph # (Auto) (0.9-3.2) K/mm3 [place] # (Auto) (0.1-0.6) K/mm3 Eos # (Auto) (0-0.3) K/mm3 Baso # (Auto) (0.0-0.1) K/mm3 Abs Immat Gran (auto) (0.00-0.031) K/mm3 Absolute Neuts (auto) (1.3-6.7) K/mm3 Absolute Nucleated RBC (0.0-0.012) K/mm3 Nucleated RBC % (0.0-0.2) % PT (11.1-14.7) Seconds INR APTT (22.3-36.8) Seconds Sodium 102 L* (137-145) mmol/L Potassium 4.4 (3.4-5.0) mmol/L Chloride 73 L (98-107) mmol/L Carbon Dioxide 15 L (22-30) mmol/L Anion Gap 14 H (4-12) mmol/L BUN 47 H D (9-20) mg/dL Creatinine 1.73 H (0.7-1.3) mg/dL Estim Creat Clear Calc Not Reportable Estimated GFR 40 L (59 - ) Glucose 223 H (65-110) mg/dL POC Capillary Glucose 40 L* 167 H (65-105) mg/dl Lactic Acid (0.7-2.0) mmol/L Calcium 7.2 L (8.4-10.2) mg/dL Phosphorus (2.5-4.5) mg/dL Magnesium (1.6-2.3) mg/dL Total Bilirubin (0.2-1.3) mg/dL AST (17-59) U/L ALT (6-50) U/L Alkaline Phosphatase (38-126) U/L Total Creatine Kinase (55-170) U/L Troponin I 0.013 (0.000-0.034) ng/mL Total Protein (6.3-8.2) g/dL Albumin (3.5-5.1) g/dL Lipase (23-300) U/L TSH (Reflex) (0.465-4.68) uIU/mL Urine Color (Yellow) Urine Appearance (Clear) Urine pH (5.0-9.0) Ur Specific [place] (1.001-1.035) Urine Protein (Negative) mg/dL Urine Glucose (UA) (Negative) mg/dL Urine Ketones (Negative) mg/dL Ur Blood (Man) (Negative) Urine Nitrate (Negative) Urine Bilirubin (Negative) Urine Urobilinogen (<2.0) mg/dL Add Ur Microanalysis Leukocyte Esterase Rfl (Negative) VINEET/UL Urine RBC (0-2) /hpf Urine WBC (0-3) /hpf Ur Squamous Epith Cells (Few) /hpf Urine Bacteria /hpf Urine Casts Urine Mucus /lpf Urine Osmolality Ur Random Sodium meq/L Ur Random Urea MG/DL Urine Creatinine mg/dL Salicylates (2-20) mg/dL Urine Opiates Screen (Negative) Urine Methadone Screen (Negative) Acetaminophen (10-30) ug/mL Ur Barbiturates Screen (Negative) Ur Phencyclidine Scrn (Negative) Ur Amphetamine Screen (Negative) U Benzodiazepines Scrn (Negative) Urine Cocaine Screen (Negative) U Cannabinoids Screen (Negative) Ethyl Alcohol (<10) mg/dL Monoscreen (Negative) Influenza A (RT-PCR) (Negative) Influenza B (RT-PCR) (Negative) RSV (RT-PCR) (Negative) SARS-CoV-2 RNA (RT-PCR) (Negative) 05/23/25 Range/Units 22:24 WBC (4.5-10.0) K/mm3 RBC (4.6-6.20) M/mm3 Hgb (14.0-18.0) g/dL Hct (42.0-52.0) % MCV (80-100) fl MCH (26-34) pg MCHC (32-36) g/dl RDW (11.5-14.5) % Plt Count (150-375) k/mm3 MPV (7.4-10.4) fl Immature Gran % (Auto) (0-0.5) % Neut % (Auto) (45.5-73.1) % Lymph % (Auto) (18.3-44.2) % [place] % (Auto) (2.6-8.5) % Eos % (Auto) (0-4.4) % Baso % (Auto) (0.2-1.2) % Lymph # (Auto) (0.9-3.2) K/mm3 [place] # (Auto) (0.1-0.6) K/mm3 Eos # (Auto) (0-0.3) K/mm3 Baso # (Auto) (0.0-0.1) K/mm3 Abs Immat Gran (auto) (0.00-0.031) K/mm3 Absolute Neuts (auto) (1.3-6.7) K/mm3 Absolute Nucleated RBC (0.0-0.012) K/mm3 Nucleated RBC % (0.0-0.2) % PT (11.1-14.7) Seconds INR APTT (22.3-36.8) Seconds Sodium (137-145) mmol/L Potassium (3.4-5.0) mmol/L Chloride (98-107) mmol/L Carbon Dioxide (22-30) mmol/L Anion Gap (4-12) mmol/L BUN (9-20) mg/dL Creatinine (0.7-1.3) mg/dL Estim Creat Clear Calc Estimated GFR (59 - ) Glucose (65-110) mg/dL POC Capillary Glucose 118 H (65-105) mg/dl Lactic Acid (0.7-2.0) mmol/L Calcium (8.4-10.2) mg/dL Phosphorus (2.5-4.5) mg/dL Magnesium (1.6-2.3) mg/dL Total Bilirubin (0.2-1.3) mg/dL AST (17-59) U/L ALT (6-50) U/L Alkaline Phosphatase (38-126) U/L Total Creatine Kinase (55-170) U/L Troponin I (0.000-0.034) ng/mL Total Protein (6.3-8.2) g/dL Albumin (3.5-5.1) g/dL Lipase (23-300) U/L TSH (Reflex) (0.465-4.68) uIU/mL Urine Color (Yellow) Urine Appearance (Clear) Urine pH (5.0-9.0) Ur Specific [place] (1.001-1.035) Urine Protein (Negative) mg/dL Urine Glucose (UA) (Negative) mg/dL Urine Ketones (Negative) mg/dL Ur Blood (Man) (Negative) Urine Nitrate (Negative) Urine Bilirubin (Negative) Urine Urobilinogen (<2.0) mg/dL Add Ur Microanalysis Leukocyte Esterase Rfl (Negative) VINEET/UL Urine RBC (0-2) /hpf Urine WBC (0-3) /hpf Ur Squamous Epith Cells (Few) /hpf Urine Bacteria /hpf Urine Casts Urine Mucus /lpf Urine Osmolality Ur Random Sodium meq/L Ur Random Urea MG/DL Urine Creatinine mg/dL Salicylates (2-20) mg/dL Urine Opiates Screen (Negative) Urine Methadone Screen (Negative) Acetaminophen (10-30) ug/mL Ur Barbiturates Screen (Negative) Ur Phencyclidine Scrn (Negative) Ur Amphetamine Screen (Negative) U Benzodiazepines Scrn (Negative) Urine Cocaine Screen (Negative) U Cannabinoids Screen (Negative) Ethyl Alcohol (<10) mg/dL Monoscreen (Negative) Influenza A (RT-PCR) (Negative) Influenza B (RT-PCR) (Negative) RSV (RT-PCR) (Negative) SARS-CoV-2 RNA (RT-PCR) (Negative) <Jose Menjivar DO - Last Filed: 05/23/25 22:56> ABG Data ABG results: 05/23/25 18:24 VBG pH 7.302 VBG pCO2 27.9 L* VBG pO2 33.3 L VBG HCO3 13.5 L O2 Delivery Device Room air O2 Liters/Min 0.0 FiO2 21 <Phong Vyas MD - Last Filed: 05/23/25 21:29> 05/23/25 18:24 VBG pH 7.302 VBG pCO2 27.9 L* VBG pO2 33.3 L VBG HCO3 13.5 L O2 Delivery Device Room air O2 Liters/Min 0.0 FiO2 21 <Jose Menjviar DO - Last Filed: 05/23/25 22:56> Critical Care Time Critical Care Time Critical Care Time: Yes <Jose Menjivar DO - Last Filed: 05/23/25 22:56> Total Critical Care Time: 80 <Jose Menjivar DO - Last Filed: 05/23/25 22:56> Discharge Plan Discharge Patient Disposition: Still a Patient <Phong Vyas MD - Last Filed: 05/23/25 21:29> Patient Language: Amharic <Phong Vyas MD - Last Filed: 05/23/25 21:29> Prescriptions: No Action diphenhydramine-acetaminophen [Tylenol PM Extra Strength] 25-500 mg Tablet 2 tablet PO HS PRN (Reason: Insomnia) aspirin [Children's Aspirin] 81 mg Tablet,Chewable 81 mg PO DAILY@0800 Qty: 30 0RF atorvastatin 40 mg Tablet 40 mg PO DAILY Qty: 30 0RF cyanocobalamin (vitamin B-12) [Vitamin B-12] 1,000 mcg Tablet 1,000 mcg PO QAM Qty: 30 0RF folic acid 1 mg Tablet 1 mg PO DAILY Qty: 30 0RF furosemide 20 mg Tablet 20 mg PO BID Qty: 30 0RF megestrol 20 mg Tablet 20 mg PO QAM Qty: 30 0RF sodium chloride 1,000 mg Tablet,Soluble 2,000 mg PO BID Qty: 60 0RF thiamine HCl (vitamin B1) [Vitamin B-1] 100 mg Tablet 100 mg PO QAM Qty: 30 0RF oxycodone-acetaminophen 5-325 mg Tablet 1 tablet PO Q4H PRN (Reason: Pain Rated 7-10) Qty: 10 0RF <Phong Vyas MD - Last Filed: 05/23/25 21:29> Follow-up/Referrals: Irizarry,Johnson Raines MD [Primary Care Provider] <Phong Vyas MD - Last Filed: 05/23/25 21:29> Time of Disposition: 22:51 <Phong Vyas MD - Last Filed: 05/23/25 21:29> 22:51 <Jose Menjivar DO - Last Filed: 05/23/25 22:56>
[2025-05-23] MEDS: LACTATED RINGERS 1,000 ML 999 ML IV CONT (18:26)
[2025-05-23] MEDS: DEXTROSE 50% 25 GM/50 ML SYRINGE (18:27)
[2025-05-23 18:31] LABS: Fractional Inspired Oxygen 21 %; HCO3 VBG 13.5 mEq/l (24.0-30.0); PO2 VBG 33.3 mmHg (35.0-45.0); pH VBG 7.302 (7.300-7.400)
[2025-05-23 18:34] LABS: PCO2 VBG 27.9 mmHg (42.0-48.0)
[2025-05-23 18:35] LABS: Liters per Minute 0.0 LPM
--- NOTE | 2025-05-23 18:43 | PC.NURSE ---
Attempted EKG at 18:33, patient tremoring and shaking from cold temp. stated EKG needs redone once patient is under dorys hugger and has less tremors.
[2025-05-23 18:45] LABS: INR 1.0; Prothrombin Time 13.7 Seconds (11.1-14.7)
[2025-05-23 18:46] LABS: Acetaminophen < 10 ug/mL (10-30); Partial Thromboplastin Time 32.9 Seconds (22.3-36.8); Salicylate < 1.0 mg/dL (2-20)
[2025-05-23 18:59] LABS: Alanine Aminotransferase 66 U/L (6-50); Albumin Level 4.8 g/dL (3.5-5.1); Alkaline Phosphatase 93 U/L (38-126); Anion Gap 28 mmol/L (4-12); Aspartate Amino Transferase 269 U/L (17-59); Bilirubin,Total 3.0 mg/dL (0.2-1.3); Blood Urea Nitrogen 58 mg/dL (9-20); Calcium 8.7 mg/dL (8.4-10.2); Carbon Dioxide 10 mmol/L (22-30); Chloride 64 mmol/L (98-107); Glucose 44 mg/dL (65-110); Lipase 149 U/L (23-300); Magnesium 3.1 mg/dL (1.6-2.3); Potassium 5.2 mmol/L (3.4-5.0); Sodium 102 mmol/L (137-145); Total Protein 8.5 g/dL (6.3-8.2); Troponin I 0.012 ng/mL (0.000-0.034)
[2025-05-23 19:02] LABS: Add Urine Microscopic? YES; Appearance Urine Clear (Clear); Glucose Urine UA Negative (Negative); Leukocyte Esterase Ur Negative LEU/UL (Negative); Need Manual Microscopic Reviewed; Nitrate Urine Negative (Negative); Specific Grav Ur 1.017 (1.001-1.035)
[2025-05-23 19:03] LABS: Cannabinoid Screen Urine Negative (Negative)
[2025-05-23 19:09] LABS: Influenza A QL RT-PCR Negative (Negative); Influenza B QL RT-PCR Negative (Negative); RSV RNA, RT-PCR Negative (Negative); SARS-CoV-2 RNA PCR Negative (Negative)
--- NOTE | 2025-05-23 19:12 | ECG_ITS ---
Test Date: 2025-05-23 19:17:50 Measurements Intervals [place] Rate: 68 P: 0 OK: 0 QRS: 32 QRSD: 92 T: 65 QT: 493 QTc: 527 Interpretive Statements SINUS RHYTHM WITH FIRST DEGREE AV BLOCK PROLONGED QT INTERVAL BASELINE ARTIFACT- I, II, III, AVR, AVL, AVF, V1-V6 ABNORMAL ECG Compared to ECG 05/23/2025 18:33:42 NO SIGNIFICANT CHANGE Electronically Signed On 05-24-2025 08:34:21 CDT by Dusty Soria D.O.
[2025-05-23 19:40] LABS: Creatine Kinase 6807 U/L (55-170)
[2025-05-23 19:41] LABS: Negative Monotest Control Negative (Negative); Positive Monotest Control Positive (Positive)
[2025-05-23 19:42] LABS: Urea Random Urine 385 MG/DL
[2025-05-23 19:53] LABS: Hematocrit 30.6 % (42.0-52.0); Immature Granulocyte Percent A 0.8 % (0-0.5); Lymphocytes Absolute Auto 0.45 K/mm3 (0.9-3.2); Mean Corpuscular Hemoglobin 33.4 pg (26-34); Mean Corpuscular Volume 86.0 fl (80-100); Nucleated Red Blood Cells Absolute Auto 0.000 K/mm3 (0.0-0.012); Nucleated Red Blood Cells Perc 0.0 % (0.0-0.2); Platelet Count Result 140 k/mm3 (150-375); Red Blood Count 3.56 M/mm3 (4.6-6.20); White Blood Count 11.8 K/mm3 (4.5-10.0)
[2025-05-23 20:16] LABS: Estimated Glomerular Filt Rate 18
[2025-05-23 20:20] LABS: Thyroid Stimulating Hormone Reflex 1.930 uIU/mL (0.465-4.68)
[2025-05-23 20:49] LABS: Mean Corpuscular HGB Conc 38.9 g/dl (32-36)
[2025-05-23 20:57] LABS: Hemoglobin 11.9 g/dL (14.0-18.0)
--- NOTE | 2025-05-23 21:29 | ECG_ITS ---
Test Date: 2025-05-23 21:35:26 Measurements Intervals [place] Rate: 92 P: 24 NC: 313 QRS: 20 QRSD: 84 T: 32 QT: 434 QTc: 538 Interpretive Statements SINUS RHYTHM WITH FIRST DEGREE AV BLOCK POSSIBLE LEFT ATRIAL ENLARGEMENT PROLONGED QT INTERVAL BASELINE ARTIFACT- I, II, III, AVR, AVL, AVF, V1-V6 ABNORMAL ECG Compared to ECG 05/23/2025 19:17:50 NO SIGNIFICANT CHANGE Electronically Signed On 05-24-2025 08:31:27 CDT by Dusty Soria D.O.
[2025-05-23 21:55] LABS: Anion Gap 14 mmol/L (4-12); Blood Urea Nitrogen 47 mg/dL (9-20); Calcium 7.2 mg/dL (8.4-10.2); Carbon Dioxide 15 mmol/L (22-30); Chloride 73 mmol/L (98-107); Glucose 223 mg/dL (65-110); Potassium 4.4 mmol/L (3.4-5.0); Sodium 102 mmol/L (137-145)
[2025-05-23 22:00] LABS: Estimated Glomerular Filt Rate 40
[2025-05-23 22:07] LABS: Troponin I 0.013 ng/mL (0.000-0.034)
--- NOTE | 2025-05-23 22:27 | PM.IMHP ---
H&P: HPI History of Present Illness Date/Time: 05/23/25 22:27 Chief Complaint: Found down on the basement floor Narrative: 64-year-old alcoholic with a past medical history of multiple falls and chronic hyponatremia who presented to the ER via EMS came to the home. Depending on the report copies were either called for a wellness check or the social and human services assistant were at the residence to arrest the patient's son and his significant other. While police were searching the house they found the patient lying on the basement floor confused and cold to touch. When the patient arrived to the ER he was hypothermic with a temperature of 91? and his glucose was in the 40s. The patient cannot tell me when his last drink was. He still tells me that it was when he was last home. His alcohol level in the ER was less than 10. He is in only oriented to person and the fact that he is in the hospital but cannot name the hospital. He does not know how long he was on the basement floor and does not recall falling. He denies any pain. He has marked dental caries and foul odor emanating from his mouth but he denies any dental pain, head pain, chest pain or shortness of breath. He denies having any recent nausea or vomiting. Imaging in the ER did not demonstrate any evidence of pneumonia on CT scan but the patient is noted to have mild nonproductive cough at the time of my evaluation. King catheter was placed in the ER. EMS reported to the ER staff that there frequently called out to the patient's home due to falls in that the patient usually refuses transport. The patient was last evaluated in the ER 3 days ago for a fall with no acute findings noted. Review of Systems Review of Systems: Review of systems unobtainable due to patient's confusion. [facility] Past Medical History Medical History Closed sacral fracture As well as the sacral ala fracture and nondisplaced fracture extending across the S2 vertebral body noted on in remission May 2024 Thoracic compression fracture Chronic appearing T11 and T12 compression fractures noted May 2024 Pneumothorax Associated with rib fractures noted during admission May 2024 with resolution without intervention Closed fracture of left clavicle (~2023) B12 deficiency Chronic hyponatremia History of CVA (cerebrovascular accident) CT May 2024 demonstrated evidence of old infarcts right basal ganglia and left side of eula along with chronic findings of mild diffuse volume loss a MALT scattered white matter hypoattenuation consistent with chronic small-vessel ischemic disease Alcohol abuse Surgical History Surgical History History of total right knee replacement (~2018) Family History Family History Other Family history non-contributory Social History Social History Social History: Surrogate medical decision maker: Kenneth Drew ([phone]), son. Code status: Full code. Smoking status: Never smoker Alcohol intake: current Drinks per week: 56 Alcohol use details: 7-8 beers a day Substance use: never Substance use type: does not use Do You Feel Safe in your Home?: Yes Lack of Transportation: YES Lack of Food: Never True Current Housing: I Have Housing Concerned About Future Housing: No Difficulty Paying Gas/Electric Bills: No Difficulty Paying for Meds: No Currently Unemployed: No Education: High School Diploma/GED Difficulty w/ Childcare or Family Care: No Additional living arrangements comments: The patient lives alone in his own home in [place]. 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 Spiritual care concerns: No Meds Home Medications and Allergies Home Medications ?Medication ?Instructions ?Recorded ?Confirmed ?Type No Home Medications 05/24/25 05/24/25 History Allergies Allergy/AdvReac Type Severity Reaction Status Date / Time No Known Allergies Allergy Mild Verified 05/21/25 08:06 Vital Signs Vital Signs - 24 hr 05/23/25 18:28 05/23/25 18:40 05/23/25 18:41 Temperature 91.1 F L 90.7 F L 91.1 F L Pulse Rate 67 67 Respiratory Rate 24 H 14 Blood Pressure 211/195 H Pulse Oximetry 100 99 05/23/25 18:45 05/23/25 19:00 05/23/25 19:01 Temperature 91.7 F L 92.2 F L 92.3 F L Pulse Rate 66 67 66 Respiratory Rate 17 16 13 Blood Pressure 135/90 Pulse Oximetry 99 05/23/25 19:02 05/23/25 19:15 05/23/25 19:16 Temperature 92.3 F L 92.9 F L 93.0 F L Pulse Rate 68 74 71 Respiratory Rate 14 13 13 Blood Pressure 163/131 H Pulse Oximetry 100 99 99 05/23/25 19:17 05/23/25 19:30 05/23/25 19:45 Temperature 93.0 F L 93.9 F L 94.7 F L Pulse Rate 71 73 73 Respiratory Rate 18 14 13 Blood Pressure Pulse Oximetry 99 99 98 05/23/25 20:00 05/23/25 20:01 05/23/25 20:02 Temperature 95.5 F L 95.6 F L 95.7 F L Pulse Rate 77 79 Respiratory Rate 15 17 Blood Pressure Pulse Oximetry 98 98 05/23/25 20:15 05/23/25 20:16 05/23/25 20:30 Temperature 96.2 F L 96.3 F L 96.8 F L Pulse Rate 79 82 82 Respiratory Rate 13 16 14 Blood Pressure 122/68 Pulse Oximetry 98 98 98 05/23/25 20:49 05/23/25 21:00 05/23/25 21:01 Temperature 97.3 F L 97.6 F 97.6 F Pulse Rate 81 83 Respiratory Rate 23 H 15 Blood Pressure 113/66 Pulse Oximetry 98 98 05/23/25 21:02 05/23/25 21:34 05/23/25 21:45 Temperature 97.7 F 98.2 F 98.4 F Pulse Rate 82 91 90 Respiratory Rate 18 16 19 Blood Pressure 110/54 L Pulse Oximetry 98 98 98 05/23/25 21:46 05/23/25 21:47 05/23/25 22:05 Temperature 98.4 F 98.4 F 98.7 F Pulse Rate 90 90 88 Respiratory Rate 17 34 H 21 H Blood Pressure 117/55 L 103/60 Pulse Oximetry 98 98 98 Exam Narrative: Weight 52.9 kg BMI 20 Const: Other: Disheveled, poor hygiene, appears older than stated age, acutely ill-appearing HENMT: Other: Head is normocephalic atraumatic, temporal wasting, mucous membranes dry, multiple dental caries with broken teeth at the gumline, halitosis Eyes: Other: Mildly injected sclera, yellowish drainage at the corner of the eyes bilaterally, no conjunctival erythema Neck: Other: No JVD, no lymphadenopathy Resp: Other: clear to auscultation bilaterally, no increased work of breathing, frequent nonproductive cough Cardio: Other: Regular rate, regular rhythm, 2+ bilateral radial pedal pulses, no murmur GI: Other: Soft, nontender, nondistended : Other: Circumcised male, King catheter in place with clear yellow urine Skin: Other: No jaundice, no pallor Neuro: Other: Alert oriented to self and fact that he is in the hospital, he thinks the month is February and is unable to state the year he thinks that the president is a Bk, speech is clear but slow, no facial asymmetry, follow simple commands, moves all extremities equally Extrem: Other: No clubbing, cyanosis or edema, patient has a history of knee replacement noted in prior notes from healed computer system but no evidence of actual scar for knee replacement on exam the patient does have definite chronic arthritic changes to the right knee Psych: Other: Confused, cooperative, flat affect, poor judgment and insight H&P: Results Labs Labs: Laboratory Tests 05/23/25 19:38 05/23/25 22:54 05/23/25 05/23/25 05/23/25 18:05 18:24 18:25 WBC RBC Hgb Hct MCV MCH MCHC RDW Plt Count MPV Immature Gran % (Auto) Neut % (Auto) Lymph % (Auto) [place] % (Auto) Eos % (Auto) Baso % (Auto) Lymph # (Auto) [place] # (Auto) Eos # (Auto) Baso # (Auto) Abs Immat Gran (auto) Absolute Neuts (auto) Absolute Nucleated RBC Nucleated RBC % PT 13.7 INR 1.0 APTT 32.9 VBG pH 7.302 VBG pCO2 27.9 L* VBG pO2 33.3 L VBG HCO3 13.5 L O2 Delivery Device Room air O2 Liters/Min 0.0 FiO2 21 Sodium 102 L* Potassium 5.2 H Chloride 64 L Carbon Dioxide 10 L Anion Gap 28 H BUN 58 H D Creatinine 3.40 H Estim Creat Clear Calc Not Reportable Estimated GFR 18 L Glucose 44 L* POC Capillary Glucose 52 L* Lactic Acid 1.4 Calcium 8.7 Phosphorus 8.9 H Magnesium 3.1 H Total Bilirubin 3.0 H AST 269 H ALT 66 H Alkaline Phosphatase 93 Total Creatine Kinase 6807 H Troponin I 0.012 Total Protein 8.5 H Albumin 4.8 Lipase 149 TSH (Reflex) 1.930 Urine Color Urine Appearance Urine pH Ur Specific [place] Urine Protein Urine Glucose (UA) Urine Ketones Ur Blood (Man) Urine Nitrate Urine Bilirubin Urine Urobilinogen Add Ur Microanalysis Leukocyte Esterase Rfl Urine RBC Urine WBC Ur Squamous Epith Cells Urine Bacteria Urine Casts Urine Mucus Urine Osmolality Ur Random Sodium 22 Ur Random Urea 385 Urine Creatinine 82.2 Nasal MRSA (PCR) Salicylates < 1.0 L Urine Opiates Screen Urine Methadone Screen Acetaminophen < 10 L Ur Barbiturates Screen Ur Phencyclidine Scrn Ur Amphetamine Screen U Benzodiazepines Scrn Urine Cocaine Screen U Cannabinoids Screen Ethyl Alcohol < 10 Monoscreen Negative Influenza A (RT-PCR) Negative Influenza B (RT-PCR) Negative RSV (RT-PCR) Negative SARS-CoV-2 RNA (RT-PCR) Negative 05/23/25 05/23/25 05/23/25 18:39 18:45 19:38 WBC 11.8 H RBC 3.56 L Hgb 11.9 L Hct 30.6 L MCV 86.0 MCH 33.4 MCHC 38.9 H RDW 11.8 Plt Count 140 L D MPV 9.4 Immature Gran % (Auto) 0.8 H Neut % (Auto) 88.6 H Lymph % (Auto) 3.8 L [place] % (Auto) 6.7 Eos % (Auto) 0.0 Baso % (Auto) 0.1 L Lymph # (Auto) 0.45 L [place] # (Auto) 0.8 H Eos # (Auto) 0.0 Baso # (Auto) 0.0 Abs Immat Gran (auto) 0.09 H Absolute Neuts (auto) 10.5 H Absolute Nucleated RBC 0.000 Nucleated RBC % 0.0 PT INR APTT VBG pH VBG pCO2 VBG pO2 VBG HCO3 O2 Delivery Device O2 Liters/Min FiO2 Sodium Potassium Chloride Carbon Dioxide Anion Gap BUN Creatinine Estim Creat Clear Calc Estimated GFR Glucose POC Capillary Glucose 204 H Lactic Acid Calcium Phosphorus Magnesium Total Bilirubin AST ALT Alkaline Phosphatase Total Creatine Kinase Troponin I Total Protein Albumin Lipase TSH (Reflex) Urine Color Dark yellow Urine Appearance Clear Urine pH 6.0 Ur Specific [place] 1.017 Urine Protein 2+ H Urine Glucose (UA) Negative Urine Ketones Trace H Ur Blood (Man) 2+ H Urine Nitrate Negative Urine Bilirubin Negative Urine Urobilinogen 1.0 Add Ur Microanalysis Reviewed Leukocyte Esterase Rfl Negative Urine RBC 0-2 Urine WBC 0-5 Ur Squamous Epith Cells None seen Urine Bacteria None seen Urine Casts 11-20 Urine Mucus Present Urine Osmolality Pending Ur Random Sodium Ur Random Urea Urine Creatinine Nasal MRSA (PCR) Salicylates Urine Opiates Screen Negative Urine Methadone Screen Negative Acetaminophen Ur Barbiturates Screen Negative Ur Phencyclidine Scrn Negative Ur Amphetamine Screen Negative U Benzodiazepines Scrn Negative Urine Cocaine Screen Negative U Cannabinoids Screen Negative Ethyl Alcohol Monoscreen Influenza A (RT-PCR) Influenza B (RT-PCR) RSV (RT-PCR) SARS-CoV-2 RNA (RT-PCR) 05/23/25 05/23/25 05/23/25 21:24 21:33 21:59 WBC RBC Hgb Hct MCV MCH MCHC RDW Plt Count MPV Immature Gran % (Auto) Neut % (Auto) Lymph % (Auto) [place] % (Auto) Eos % (Auto) Baso % (Auto) Lymph # (Auto) [place] # (Auto) Eos # (Auto) Baso # (Auto) Abs Immat Gran (auto) Absolute Neuts (auto) Absolute Nucleated RBC Nucleated RBC % PT INR APTT VBG pH VBG pCO2 VBG pO2 VBG HCO3 O2 Delivery Device O2 Liters/Min FiO2 Sodium 102 L* Potassium 4.4 Chloride 73 L Carbon Dioxide 15 L Anion Gap 14 H BUN 47 H D Creatinine 1.73 H Estim Creat Clear Calc Not Reportable Estimated GFR 40 L Glucose 223 H POC Capillary Glucose 40 L* 167 H Lactic Acid Calcium 7.2 L Phosphorus Magnesium Total Bilirubin AST ALT Alkaline Phosphatase Total Creatine Kinase Troponin I 0.013 Total Protein Albumin Lipase TSH (Reflex) Urine Color Urine Appearance Urine pH Ur Specific [place] Urine Protein Urine Glucose (UA) Urine Ketones Ur Blood (Man) Urine Nitrate Urine Bilirubin Urine Urobilinogen Add Ur Microanalysis Leukocyte Esterase Rfl Urine RBC Urine WBC Ur Squamous Epith Cells Urine Bacteria Urine Casts Urine Mucus Urine Osmolality Ur Random Sodium Ur Random Urea Urine Creatinine Nasal MRSA (PCR) Salicylates Urine Opiates Screen Urine Methadone Screen Acetaminophen Ur Barbiturates Screen Ur Phencyclidine Scrn Ur Amphetamine Screen U Benzodiazepines Scrn Urine Cocaine Screen U Cannabinoids Screen Ethyl Alcohol Monoscreen Influenza A (RT-PCR) Influenza B (RT-PCR) RSV (RT-PCR) SARS-CoV-2 RNA (RT-PCR) 05/23/25 05/23/25 05/23/25 22:24 22:54 23:13 WBC RBC Hgb Hct MCV MCH MCHC RDW Plt Count MPV Immature Gran % (Auto) Neut % (Auto) Lymph % (Auto) [place] % (Auto) Eos % (Auto) Baso % (Auto) Lymph # (Auto) [place] # (Auto) Eos # (Auto) Baso # (Auto) Abs Immat Gran (auto) Absolute Neuts (auto) Absolute Nucleated RBC Nucleated RBC % PT INR APTT VBG pH VBG pCO2 VBG pO2 VBG HCO3 O2 Delivery Device O2 Liters/Min FiO2 Sodium 107 L* Potassium Chloride Carbon Dioxide Anion Gap BUN Creatinine Estim Creat Clear Calc Estimated GFR Glucose POC Capillary Glucose 118 H Lactic Acid Calcium Phosphorus Magnesium Total Bilirubin AST ALT Alkaline Phosphatase Total Creatine Kinase Troponin I Total Protein Albumin Lipase TSH (Reflex) Urine Color Urine Appearance Urine pH Ur Specific [place] Urine Protein Urine Glucose (UA) Urine Ketones Ur Blood (Man) Urine Nitrate Urine Bilirubin Urine Urobilinogen Add Ur Microanalysis Leukocyte Esterase Rfl Urine RBC Urine WBC Ur Squamous Epith Cells Urine Bacteria Urine Casts Urine Mucus Urine Osmolality Ur Random Sodium Ur Random Urea Urine Creatinine Nasal MRSA (PCR) Pending Salicylates Urine Opiates Screen Urine Methadone Screen Acetaminophen Ur Barbiturates Screen Ur Phencyclidine Scrn Ur Amphetamine Screen U Benzodiazepines Scrn Urine Cocaine Screen U Cannabinoids Screen Ethyl Alcohol Monoscreen Influenza A (RT-PCR) Influenza B (RT-PCR) RSV (RT-PCR) SARS-CoV-2 RNA (RT-PCR) 05/23/25 23:34 WBC RBC Hgb Hct MCV MCH MCHC RDW Plt Count MPV Immature Gran % (Auto) Neut % (Auto) Lymph % (Auto) [place] % (Auto) Eos % (Auto) Baso % (Auto) Lymph # (Auto) [place] # (Auto) Eos # (Auto) Baso # (Auto) Abs Immat Gran (auto) Absolute Neuts (auto) Absolute Nucleated RBC Nucleated RBC % PT INR APTT VBG pH VBG pCO2 VBG pO2 VBG HCO3 O2 Delivery Device O2 Liters/Min FiO2 Sodium Potassium Chloride Carbon Dioxide Anion Gap BUN Creatinine Estim Creat Clear Calc Estimated GFR Glucose POC Capillary Glucose 90 Lactic Acid Calcium Phosphorus Magnesium Total Bilirubin AST ALT Alkaline Phosphatase Total Creatine Kinase Troponin I Total Protein Albumin Lipase TSH (Reflex) Urine Color Urine Appearance Urine pH Ur Specific [place] Urine Protein Urine Glucose (UA) Urine Ketones Ur Blood (Man) Urine Nitrate Urine Bilirubin Urine Urobilinogen Add Ur Microanalysis Leukocyte Esterase Rfl Urine RBC Urine WBC Ur Squamous Epith Cells Urine Bacteria Urine Casts Urine Mucus Urine Osmolality Ur Random Sodium Ur Random Urea Urine Creatinine Nasal MRSA (PCR) Salicylates Urine Opiates Screen Urine Methadone Screen Acetaminophen Ur Barbiturates Screen Ur Phencyclidine Scrn Ur Amphetamine Screen U Benzodiazepines Scrn Urine Cocaine Screen U Cannabinoids Screen Ethyl Alcohol Monoscreen Influenza A (RT-PCR) Influenza B (RT-PCR) RSV (RT-PCR) SARS-CoV-2 RNA (RT-PCR) CT of the brain personally reviewed interpreted demonstrated no acute intercranial process. Stat read interpretation correlates. Final radiologic interpretation pending. CT of the cervical spine demonstrated no acute process per stat read interpretation. CT of the chest abdomen pelvis personally reviewed interpreted demonstrated no evidence of PE or pulmonary process. There was some air noted in the bladder but patient had recent King catheter insertion no evidence of other acute intra-abdominal process. Stat read interpretation correlates. Final radiologic interpretation pending. EKG was poor data quality due to artifact x3 but this is single lead that can be interpreted demonstrated QT prolongation QTC 520-540, rate of 92, first-degree AV block Assessment and Plan Assessment and plan (1) Acute hyponatremia: Code(s): E87.1 - Hypo-osmolality and hyponatremia Status: Acute (2) Hypothermia: Qualifiers: Encounter type: initial encounter Qualified Code(s): T68.XXXA - Hypothermia, initial encounter Code(s): T68.XXXA - Hypothermia, initial encounter Status: Acute (3) Rhabdomyolysis: Qualifiers: Rhabdomyolysis type: non-traumatic Qualified Code(s): M62.82 - Rhabdomyolysis Code(s): M62.82 - Rhabdomyolysis Status: Acute (4) Hypoglycemia: Code(s): E16.2 - Hypoglycemia, unspecified Status: Acute (5) Acute kidney failure: Qualifiers: Acute renal failure type: unspecified Qualified Code(s): N17.9 - Acute kidney failure, unspecified Code(s): N17.9 - Acute kidney failure, unspecified Status: Acute (6) Alcohol abuse: Code(s): F10.10 - Alcohol abuse, uncomplicated Status: Acute (7) Transaminitis: Code(s): R74.01 - Elevation of levels of liver transaminase levels Status: Acute (8) Frequent falls: Code(s): R29.6 - Repeated falls Status: Acute (9) QT prolongation: Code(s): R94.31 - Abnormal electrocardiogram [ECG] [EKG] Status: Acute (10) Dehydration with hyponatremia: Code(s): E86.0 - Dehydration; E87.1 - Hypo-osmolality and hyponatremia Status: Acute (11) Anemia: Qualifiers: Anemia type: unspecified type Qualified Code(s): D64.9 - Anemia, unspecified Code(s): D64.9 - Anemia, unspecified Status: Acute (12) SIRS (systemic inflammatory response syndrome): Code(s): R65.10 - Systemic inflammatory response syndrome (SIRS) of non-infectious origin without acute organ dysfunction Status: Acute Plan The patient presents with hypothermia, altered mental status and profound recurrent hypoglycemia without insulin use. Source of the patient's above symptoms is likely multifactorial due to alcohol abuse, decreased synthetic function of the liver due to alcohol abuse, starvation and profound down time resulting in rhabdomyolysis. Transaminitis is likely due to rhabdomyolysis and alcohol use. The patient does have acute kidney injury due to above factors as well. Patient has profound acute on chronic hyponatremia likely due to a combination of beer bony [place] and volume depletion. Patient had normal TSH. The patient had initial sodiums of 102 in received 2 L of LR bolus. Repeat sodium was again 102 but interestingly enough ER mistakenly ordered a repeat sodium 1 hour after the 2nd sodium and this returned with a value of 107 without any further intervention. The patient's remainder of CMP does fit with acute on chronic hyponatremia picture with associated metabolic acidosis with low serum bicarb and elevated anion gap. VBG correlates with a metabolic acidosis with compensatory respiratory alkalosis. And UA demonstrates ketones supporting evidence of hypovolemia/dehydration. No evidence of lactic acidosis the patient does have an elevated white count in in the setting of hypothermia and altered mental status cannot rule out underlying infectious process despite no obvious source of infection on imaging findings as discussed above. Subsequently the patient was started on empiric antibiotic therapy with broad-spectrum coverage of cefepime and vancomycin in the ER. Will continue antibiotic therapy. Despite initially being hypothermic patient did spike a temperature wants re warmed with temp of 99.3?. Temp probe King catheter is in place for monitoring. Nephrology was consulted from the ER and recommended patient be placed on LR at 75 mL/hr with serial sodiums q.4 hours. Nephrology will follow sodiums and make adjustments accordingly. Urine osmolality is still pending. Will repeat phosphorus and magnesium level in a.m. which were mildly elevated in the ER. Patient has had recurrent hypoglycemia likely due to poor nutritional status, acute kidney injury with decreased clearance and decreased glucagon production given likely decreased synthesis with chronic alcohol use. D5 has been added to the patient's LR. Will check Accu-Cheks q.1 hour until glucoses stable above 100 times to then will change frequency. Hypoglycemia protocol has been added. Patient does have mild anemia with acute on chronic appearance with history of B12 deficiency and likely nutritional deficiency from decreased iron intake given chronic alcoholism with associated acute mild thrombocytopenia. No evidence of acute bleeding on exam or on imaging. Will check B12, folic acid level, TIBC and ferritin level with a.m. labs. TSH was normal. Patient does have history of frequent falls likely due to alcoholism and prior CVAs. Patient is currently on bed rest with fall precautions. Her given patient's history of chronic alcohol abuse he could of had a fall and rhabdomyolysis due to symptoms of alcohol withdrawal. Although no overt evidence of withdrawal at the time my evaluation. Will place patient on a alcohol withdrawal protocol with neuro checks q.2 hours with evaluation of CIWA scores and administration of benzodiazepines as needed. Will give 1 dose of high-dose thiamin 500 mg IV and then start patient on thiamin, folic acid supplementation and multivitamin daily. Patient is on seizure precautions. Patient's EKG demonstrates first-degree AV block with QT prolongation. Although the patient's baseline EKG tracing is not of the best quality QT prolongation persist over each EKG. Will monitor patient closely on telemetry. Will avoid QT prolonging medications. No evidence of acute arrhythmia at this time. Patient's magnesium level is actually slightly elevated likely due to decreased magnesium excretion. 85 minute spent in critical care activities. Due to a high probability of clinically significant, life threatening deterioration, the patient required my highest level of preparedness to intervene emergently and I personally spent this critical care time directly and personally managing the patient. This critical care time included obtaining a history; examining the patient; pulse oximetry; ordering and review of studies; arranging urgent treatment with development of a management plan; evaluation of patient's response to treatment; frequent reassessment; and discussions with other providers. It was exclusive of separately billable procedures and treating other patients and teaching time. Please see Assessment and Plan section and the rest of the note for further information on patient assessment and treatment. Quality VTE Prophylaxis VTE prophylaxis: mechanical ordered (SCDs) Hospitalist MIPS Advance Care Plan I have confirmed that the patient's Advanced Care Plan is present, code status is documented, or surrogate decision maker is listed in patient medical record.: Yes Medication Reconciliation I have utilized all available resources to obtain, update and review the patients current medications (includes all prescriptions, OTC, herbals, cannabis, and nutritional supplements).: Yes
[2025-05-23] MEDS: THIAMINE 500 MG/NS 100 ML 500 MG/100 ML BAG 200 MG IVPB (22:53)
[2025-05-23] MEDS: DEXTROSE 5%/LACTATED RINGERS 500 ML 75 ML IV CONT (22:53)
[2025-05-23 23:09] LABS: Sodium 107 mmol/L (137-145)
[2025-05-23] MEDS: CEFEPIME 2 GM in SODIUM CHLORIDE 0.9% IV 50 ML 100 ML IVPB (23:45)
[2025-05-24] VITALS (32 sets, daily range): BP systolic 90–149; BP diastolic 44–96; PULSE 70–96; RESP 14–21; TEMP 36.5–37.6; O2SAT 91–98
[2025-05-24] MEDS: VANCOMYCIN 750 MG/NS 250 ML 750 MG/250 ML BAG 250 MG IVPB (00:21)
[2025-05-24 00:29] LABS: MRSA (PCR) NOT DETECTED (NOT DETECTE)
--- NOTE | 2025-05-24 01:00 | WNDPHOTO ---
PHOTO ONLY - See Nursing Notes and/ or assessments for documentation.
--- NOTE | 2025-05-24 01:28 | ADMGEN ---
This patient, Kenneth Drew, was admitted to Intensive Care Unit-4 at 0045. Patient/family oriented to hospital policies and general routines including ID bracelet, bed and alarms, visiting hours, pain management, procedures, bathroom and other care routines, personal items, smoking policy, room service/diet, and visiting hours. Information on how to activate the Rapid Response Team has been discussed. Patient/Family are encouraged to report perceived risks to care and to ask questions if they do not understand what they are told or what they should do.
[2025-05-24 02:30] LABS: Anion Gap 13 mmol/L (4-12); Blood Urea Nitrogen 38 mg/dL (9-20); Calcium 8.0 mg/dL (8.4-10.2); Carbon Dioxide 19 mmol/L (22-30); Chloride 79 mmol/L (98-107); Estimated CRCL calculation 38 ml/min; Estimated Glomerular Filt Rate 54; Glucose 75 mg/dL (65-110); Potassium 4.1 mmol/L (3.4-5.0); Sodium 111 mmol/L (137-145)
[2025-05-24 02:38] LABS: Iron 75 ug/dL (49-181)
[2025-05-24 02:48] LABS: Percent Iron Saturation 32 % (20-50)
[2025-05-24] MEDS: DEXTROSE 5% 1,000 ML 1,000 ML 100 ML IV CONT ×2 (03:00→13:00)
[2025-05-24 03:20] LABS: Ferritin 560.00 ng/mL (11.1-264)
[2025-05-24 03:42] LABS: Vitamin B12 > 1000.0 pg/mL (239-931)
[2025-05-24 05:55] LABS: Alanine Aminotransferase 61 U/L (6-50); Albumin Level 3.4 g/dL (3.5-5.1); Alkaline Phosphatase 66 U/L (38-126); Anion Gap 9 mmol/L (4-12); Aspartate Amino Transferase 235 U/L (17-59); Bilirubin,Total 2.6 mg/dL (0.2-1.3); Blood Urea Nitrogen 33 mg/dL (9-20); Calcium 8.0 mg/dL (8.4-10.2); Carbon Dioxide 21 mmol/L (22-30); Chloride 80 mmol/L (98-107); Estimated CRCL calculation 54 ml/min; Estimated Glomerular Filt Rate > 60; Glucose 84 mg/dL (65-110); Potassium 4.1 mmol/L (3.4-5.0); Sodium 110 mmol/L (137-145); Total Protein 6.5 g/dL (6.3-8.2)
[2025-05-24 06:31] LABS: Creatine Kinase 4796 U/L (55-170)
[2025-05-24] MEDS: FOLIC ACID 1 MG/0.2 ML INJ IV PUSH (08:29)
[2025-05-24] MEDS: THIAMINE HCL 200 MG/2 ML VIAL 100 MG IV PUSH (08:29)
--- NOTE | 2025-05-24 08:39 | WPDCNINT ---
Assessment and Plan Assessment and plan (1) Acute hyponatremia: Code(s): E87.1 - Hypo-osmolality and hyponatremia Status: Acute Assessment and Plan: Severe hyponatremia with sodium levels of 102 on admission, the patient received 2 L IV fluid bolus -Nephrology following -currently on D5 per nephrology -continue serial BMPs (2) Acute kidney failure: Qualifiers: Acute renal failure type: unspecified Qualified Code(s): N17.9 - Acute kidney failure, unspecified Code(s): N17.9 - Acute kidney failure, unspecified Status: Acute Assessment and Plan: Acute renal failure likely related to hypovolemia, creatinine admission was 3.4 -patient received 2 L IV fluid bolus -currently on D5 at 100 mL/hour per Nephrology -creatinine is down to 0.94 -urine output has been adequate -continue to monitor renal function, electrolytes and urine output (3) Hypoglycemia: Code(s): E16.2 - Hypoglycemia, unspecified Status: Acute Assessment and Plan: Patient was hypoglycemic with blood sugars in the 40s, was treated with D50 -currently on D5 for his hyponatremia which is also helping his hypoglycemia -blood sugars more stabilized this morning -continue to monitor (4) Rhabdomyolysis: Qualifiers: Rhabdomyolysis type: non-traumatic Qualified Code(s): M62.82 - Rhabdomyolysis Code(s): M62.82 - Rhabdomyolysis Status: Acute Assessment and Plan: Elevated CK levels of 6800 on admission -continue maintenance IV fluids -CK levels trending down, continue to monitor (5) Sepsis: Code(s): A41.9 - Sepsis, unspecified organism Status: Acute Assessment and Plan: Leukocytosis, hypothermia, hypoglycemia, tachycardia -patient was started on cefepime and vancomycin (05/23) -05/23/2025: Blood cultures have been obtained and pending -will deescalate (6) Thrombocytopenia: Code(s): D69.6 - Thrombocytopenia, unspecified Status: Acute Assessment and Plan: Thrombocytopenia can multifactorial, patient has a history of alcohol use -, will continue to monitor (7) Transaminitis: Code(s): R74.01 - Elevation of levels of liver transaminase levels Status: Acute Assessment and Plan: Transaminitis secondary to alcohol use, hypovolemia and hemo concentrate -LFTs are trending -will check a RUQ ultrasound and hepatitis panel (8) Hypothermia: Qualifiers: Encounter type: initial encounter Qualified Code(s): T68.XXXA - Hypothermia, initial encounter Code(s): T68.XXXA - Hypothermia, initial encounter Status: Acute Assessment and Plan: Hypothermia likely due to hypo glycemia, found down in the basement, was down for unknown amount of time -patient was rewarmed to normal body temperature -continue to monitor Plan DVT prophylaxis: SCDs Stress ulcer prophylaxis: Not indicated Nutrition: Regular diet Code Status: Full code Critical Care Time Spent: 48 minutes Due to a high probability of clinically significant, life threatening deterioration, the patient required my highest level of preparedness to intervene emergently and I personally spent this critical care time directly and personally managing the patient. This critical care time included obtaining a history; examining the patient; pulse oximetry; ordering and review of studies; arranging urgent treatment with development of a management plan; evaluation of patient's response to treatment; frequent reassessment; and discussions with other providers. It was exclusive of separately billable procedures and treating other patients and teaching time. Please see Assessment and Plan section and the rest of the note for further information on patient assessment and treatment This dictation may have been done utilizing a voice recognition system. Attempts have been made to correct errors. However, there may be uncorrected grammatical, spelling, and recognitions errors present. [employer] Consult Note Consult date: 05/24/25 Reason for consult: Severe hyponatremia, altered mental status, hypoglycemia hypothermia HPI: Kenneth Drew is a 64 year old male with past medical history of alcohol abuse, cerebrovascular accident, chronic hyponatremia, B12 deficiency, history of thoracic compression fracture presented to the ED on 05/23/2025 via EMS from home. He was on a on found down in the basement with hypothermia, hypoglycemia, altered mental status. Body temperature 91? F and blood sugars were in the 40s. In the ER patient he was found to be hyponatremic with a sodium level of 102. Patient was already given 2 L IV fluid bolus, repeat sodium levels 102, Nephrology was consulted and patient was started on D5 LR, which was later changed to D5 water. TSH was normal. WBC 11.8, hemoglobin 11.9, platelets 140, INR 1.0. Potassium 5.2, CO2 was 10, creatinine of 3.40, glucose 44, lactic acid 1.4, phosphorus 8.9, magnesium 3.1, total bilirubin 3.0, AST 269, ALT 66. Creatinine kinase was 6807. Troponin x2 were negative - CT brain with no acute intracranial findings, -CT C-spine: No acute fracture -CT abdomen and pelvis: No pulmonary contusion, pleural effusion or pneumothorax. No traumatic solid organ injury in the abdomen/pelvis or hemoperitoneum. Patient was started on cefepime and vancomycin and transferred to the ICU for further management Patient seen and examined this morning in the ICU, is somnolent, easily arousable but goes back to sleep, does follow simple commands but does not answer any questions. Hemodynamically stable, urine output has been adequate, afebrile. Patient is protecting his airway Review of Systems Review of Systems: ROS unobtainable: Yes unobtainable due to mental status PMFSH Past Medical History Medical History Closed sacral fracture As well as the sacral ala fracture and nondisplaced fracture extending across the S2 vertebral body noted on in remission May 2024 Thoracic compression fracture Chronic appearing T11 and T12 compression fractures noted May 2024 Pneumothorax Associated with rib fractures noted during admission May 2024 with resolution without intervention Closed fracture of left clavicle (~2023) B12 deficiency Chronic hyponatremia History of CVA (cerebrovascular accident) CT May 2024 demonstrated evidence of old infarcts right basal ganglia and left side of eula along with chronic findings of mild diffuse volume loss a MALT scattered white matter hypoattenuation consistent with chronic small-vessel ischemic disease Alcohol abuse Surgical History Surgical History History of total right knee replacement (~2017) Family History Family History Other Family history non-contributory Social History Social History Social History: Surrogate medical decision maker: Kenneth Drew ([phone]), son. Code status: Full code. Smoking status: Never smoker Alcohol intake: current Drinks per week: 56 Alcohol use details: 7-8 beers a day Substance use: never Substance use type: does not use Do You Feel Safe in your Home?: Yes Lack of Transportation: YES Lack of Food: Never True Current Housing: I Have Housing Concerned About Future Housing: No Difficulty Paying Gas/Electric Bills: No Difficulty Paying for Meds: No Currently Unemployed: No Education: High School Diploma/GED Difficulty w/ Childcare or Family Care: No Additional living arrangements comments: The patient lives alone in his own home in [place]. 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 Spiritual care concerns: No Meds Home Medications and Allergies Home Medications ?Medication ?Instructions ?Recorded ?Confirmed ?Type No Home Medications 05/24/25 05/24/25 History Allergies Allergy/AdvReac Type Severity Reaction Status Date / Time No Known Allergies Allergy Mild Verified 05/21/25 08:06 Vital Signs Vital Signs - 24 hr 05/23/25 18:28 05/23/25 18:40 05/23/25 18:41 Temperature 91.1 F L 90.7 F L 91.1 F L Pulse Rate 67 67 Respiratory Rate 24 H 14 Blood Pressure 211/195 H Pulse Oximetry 100 99 Oxygen Delivery 05/23/25 18:45 05/23/25 19:00 05/23/25 19:01 Temperature 91.7 F L 92.2 F L 92.3 F L Pulse Rate 66 67 66 Respiratory Rate 17 16 13 Blood Pressure 135/90 Pulse Oximetry 99 Oxygen Delivery 05/23/25 19:02 05/23/25 19:15 05/23/25 19:16 Temperature 92.3 F L 92.9 F L 93.0 F L Pulse Rate 68 74 71 Respiratory Rate 14 13 13 Blood Pressure 163/131 H Pulse Oximetry 100 99 99 Oxygen Delivery 05/23/25 19:17 05/23/25 19:30 05/23/25 19:45 Temperature 93.0 F L 93.9 F L 94.7 F L Pulse Rate 71 73 73 Respiratory Rate 18 14 13 Blood Pressure Pulse Oximetry 99 99 98 Oxygen Delivery 05/23/25 20:00 05/23/25 20:01 05/23/25 20:02 Temperature 95.5 F L 95.6 F L 95.7 F L Pulse Rate 77 79 Respiratory Rate 15 17 Blood Pressure Pulse Oximetry 98 98 Oxygen Delivery 05/23/25 20:15 05/23/25 20:16 05/23/25 20:30 Temperature 96.2 F L 96.3 F L 96.8 F L Pulse Rate 79 82 82 Respiratory Rate 13 16 14 Blood Pressure 122/68 Pulse Oximetry 98 98 98 Oxygen Delivery 05/23/25 20:49 05/23/25 21:00 05/23/25 21:01 Temperature 97.3 F L 97.6 F 97.6 F Pulse Rate 81 83 Respiratory Rate 23 H 15 Blood Pressure 113/66 Pulse Oximetry 98 98 Oxygen Delivery 05/23/25 21:02 05/23/25 21:34 05/23/25 21:45 Temperature 97.7 F 98.2 F 98.4 F Pulse Rate 82 91 90 Respiratory Rate 18 16 19 Blood Pressure 110/54 L Pulse Oximetry 98 98 98 Oxygen Delivery 05/23/25 21:46 05/23/25 21:47 05/23/25 22:05 Temperature 98.4 F 98.4 F 98.7 F Pulse Rate 90 90 88 Respiratory Rate 17 34 H 21 H Blood Pressure 117/55 L 103/60 Pulse Oximetry 98 98 98 Oxygen Delivery 05/23/25 22:28 05/23/25 22:30 05/23/25 22:31 Temperature 99.0 F 99.0 F 99.0 F Pulse Rate 86 86 87 Respiratory Rate 17 19 19 Blood Pressure 107/56 L Pulse Oximetry 98 98 98 Oxygen Delivery 05/23/25 22:45 05/23/25 23:00 05/23/25 23:01 Temperature 99.1 F 99.2 F 99.2 F Pulse Rate 89 93 91 Respiratory Rate 20 18 23 H Blood Pressure 101/60 Pulse Oximetry 98 98 98 Oxygen Delivery 05/23/25 23:02 05/23/25 23:26 05/23/25 23:30 Temperature 99.2 F 99.2 F 99.2 F Pulse Rate 92 94 95 Respiratory Rate 20 21 H 20 Blood Pressure 108/60 Pulse Oximetry 98 98 98 Oxygen Delivery 05/23/25 23:31 05/23/25 23:47 05/24/25 00:00 Temperature 99.2 F 99.2 F 99.3 F Pulse Rate 94 89 90 Respiratory Rate 18 19 20 Blood Pressure Pulse Oximetry 98 98 Oxygen Delivery 05/24/25 00:01 05/24/25 00:02 05/24/25 00:15 Temperature 99.3 F 99.3 F 99.2 F Pulse Rate 89 96 90 Respiratory Rate 17 19 18 Blood Pressure 117/65 Pulse Oximetry 98 98 98 Oxygen Delivery 05/24/25 00:16 05/24/25 01:00 05/24/25 02:00 Temperature 99.2 F 98.9 F Pulse Rate 89 86 86 Respiratory Rate 17 18 Blood Pressure 122/58 L 107/44 L Pulse Oximetry 97 98 Oxygen Delivery 05/24/25 02:06 05/24/25 03:00 05/24/25 04:00 Temperature 98.5 F Pulse Rate 84 Respiratory Rate 16 Blood Pressure 133/58 L Pulse Oximetry 96 98 98 Oxygen Delivery Room Air Room Air 05/24/25 04:00 05/24/25 04:00 05/24/25 05:00 Temperature 98.4 F 98.4 F Pulse Rate 86 86 85 Respiratory Rate 14 16 Blood Pressure 141/60 H 135/63 Pulse Oximetry 98 97 Oxygen Delivery 05/24/25 05:56 05/24/25 07:00 05/24/25 08:00 Temperature 97.9 F Pulse Rate 78 75 78 Respiratory Rate 16 16 16 Blood Pressure 124/59 L 107/61 119/59 L Pulse Oximetry 97 97 92 Oxygen Delivery Exam Narrative: General: Poor hygiene, ill-appearing, currently in no acute distress HEENT:? Bad dentition, pupils equal and reactive Neck:? Supple Respiratory:? Coarse breath sounds bilaterally, likely transmitted sounds, no wheezing, adequate air and Cardiac:? S1-S2 is normal, regular rate and rhythm Abdomen:? Soft, nontender, nondistended, hypoactive bowel sounds Extremities:? No clubbing no cyanosis, small healing scars noted on the lower extremities bilaterally, palpable pedal pulses Neuro:? Patient is somnolent, easily arousable, opens eyes, follows simple commands and falls back to sleep, not answering any questions at this time Skin:? Warm and dry Psych:? Unable to assess at this time Results Labs 05/23/25 19:38 05/24/25 05:37 Labs: Short CBC 05/23/25 Range/Units 19:38 WBC 11.8 H (4.5-10.0) K/mm3 Hgb 11.9 L (14.0-18.0) g/dL Hct 30.6 L (42.0-52.0) % Plt Count 140 L D (150-375) k/mm3 BMP 05/23/25 05/23/25 05/23/25 18:24 21:33 22:54 Sodium 102 L* 102 L* 107 L* Potassium 5.2 H 4.4 Chloride 64 L 73 L Carbon Dioxide 10 L 15 L BUN 58 H D 47 H D Creatinine 3.40 H 1.73 H Glucose 44 L* 223 H Calcium 8.7 7.2 L 05/24/25 05/24/25 02:09 05:37 Sodium 111 L* 110 L* Potassium 4.1 4.1 Chloride 79 L 80 L Carbon Dioxide 19 L 21 L BUN 38 H 33 H Creatinine 1.34 H 0.94 Glucose 75 84 Calcium 8.0 L 8.0 L Cardiac Enzymes 05/23/25 05/23/25 05/24/25 Range/Units 18:24 21:33 05:37 Total Creatine Kinase 6807 H 4796 H (55-170) U/L Troponin I 0.012 0.013 (0.000-0.034) ng/mL Liver Function 05/23/25 05/24/25 05/24/25 Range/Units 18:24 02:09 05:37 Total Bilirubin 3.0 H 2.6 H (0.2-1.3) mg/dL Direct Bilirubin 0.0 0.0 (0-0.3) mg/dL AST 269 H 235 H (17-59) U/L ALT 66 H 61 H (6-50) U/L Alkaline Phosphatase 93 66 (38-126) U/L Albumin 4.8 3.4 L (3.5-5.1) g/dL Urine 05/23/25 Range/Units 18:39 Urine Color Dark yellow (Yellow) Urine Appearance Clear (Clear) Urine pH 6.0 (5.0-9.0) Ur Specific Sulphur 1.017 (1.001-1.035) Urine Protein 2+ H (Negative) mg/dL Urine Glucose (UA) Negative (Negative) mg/dL Quality VTE Prophylaxis VTE prophylaxis: mechanical ordered Hospitalist MIPS Advance Care Plan I have confirmed that the patient's Advanced Care Plan is present, code status is documented, or surrogate decision maker is listed in patient medical record.: Yes Medication Reconciliation I have utilized all available resources to obtain, update and review the patients current medications (includes all prescriptions, OTC, herbals, cannabis, and nutritional supplements).: Yes
[2025-05-24 08:41] LABS: Sodium 110 mmol/L (137-145)
--- NOTE | 2025-05-24 09:53 | P.CONNP_ITS ---
Assessment and Plan Assessment and plan (1) Hyponatremia: Code(s): E87.1 - Hypo-osmolality and hyponatremia Status: Acute Assessment and Plan: The patient has hyponatremia. He is in the hospital about a year ago with hyponatremia as well just about this severe. It gradually improved with supportive care. We do not have any labs between then and now. Sodium level was very low on admission. We do not know what the sodium level was 3 days ago when he was in the emergency room unfortunately. We do not know if this is acute or chronic hyponatremia. However, it seems like his acute illness has been lasting for at least a couple of days because of his elevated CPK and high creatinine which corrected rather quickly with IV fluids. So I do not think it would be proper to assume that this is acute hyponatremia requiring hypertonic saline as would be the case in a cross-country runner had acute hyponatremia from drinking too much fluid and getting dehydrated. So I think this needs to be treated as chronic hyponatremia. Sometimes with altered mental status hypertonic saline is administered to correct the sodium by 3 or 4 millimoles per L however this correction had already been accomplished by about 11:00 p.m. last night. The sodium has corrected from 102-110 in about 14hours. So I think we need to hold it at 110 for a few more hours if possible avoid over-correction. most likely the low sodium is due to dehydration and alcohol intake. Will check other labs to be sure there is nothing else going on. Has a CT of the head which rules out intracranial issues causing this. He has a CT of the chest abdomen pelvis which will look for cancers and pulmonary issue which might contribute to hyponatremia. He does not take any prescription or [id number] meds at home apparently. He does not have an active diagnosis of cancer. However I am not sure how up-to-date he has been with his cancer surveillance. His sodium level from 10:00 a.m. just came back at 111 . So he was changed to rapidly. Will give a dose of DDAVP x1 just to slow the rise of the sodium as once he is hydrated, the hypotensive stimulus to his ADH will fall and his urine output will rise substantially and he will overcorrect even more vigorously going forward. long discussion with Dr. Patel (2) SIRS (systemic inflammatory response syndrome): Code(s): R65.10 - Systemic inflammatory response syndrome (SIRS) of non-infectious origin without acute organ dysfunction Status: Acute Assessment and Plan: The patient is on antibiotics for this. (3) Anemia: Qualifiers: Anemia type: unspecified type Qualified Code(s): D64.9 - Anemia, unspecified Code(s): D64.9 - Anemia, unspecified Status: Acute Assessment and Plan: Hemoglobin is a bit low. It will probably fall with hydration. (4) Thrombocytopenia: Code(s): D69.6 - Thrombocytopenia, unspecified Status: Acute Assessment and Plan: Platelet count is low, possibly due to the alcohol effect. (5) Rhabdomyolysis: Qualifiers: Rhabdomyolysis type: non-traumatic Qualified Code(s): M62.82 - Rhabdomyolysis Code(s): M62.82 - Rhabdomyolysis Status: Acute Assessment and Plan: The patient's CK is elevated because he was on his basement floor probably for at least 24-48 hours. The CK has come down with the hydration. (6) Hypoglycemia: Code(s): E16.2 - Hypoglycemia, unspecified Status: Acute Assessment and Plan: His sugars were very low at the scene. I suspect the mental status may be because of the hypoglycemia (7) Acute kidney failure: Qualifiers: Acute renal failure type: unspecified Qualified Code(s): N17.9 - Acute kidney failure, unspecified Code(s): N17.9 - Acute kidney failure, unspecified Status: Acute Assessment and Plan: his creatinine was 3 on admission . Urine sodium is low. He looks dry on exam. This is most likely due to severe dehydration. his creatinine has improved with hydration (8) Alcohol abuse: Code(s): F10.10 - Alcohol abuse, uncomplicated Status: Acute Assessment and Plan: the patient continues to over use alcohol. (9) Frequent falls: Code(s): R29.6 - Repeated falls Status: Acute Assessment and Plan: The patient has fallen several times in presentations to various ER and hospital visits. (10) Altered mental status: Code(s): R41.82 - Altered mental status, unspecified Status: Acute Assessment and Plan: Change in mental status CT brain was unremarkable. Blood gas is okay. Calcium level is not high. Tox screen and other medicine screens are negative. This is probably multifactorial. He does have a coarse cough and could have aspirated. His white cell count on admission was slightly elevated although he does not have a fever. His glucose level was severely low on admission and it is unclear how long that had been the case. So he may have a delayed improvement after treating his sugars. His sodium level is quite low which may contribute to his altered mental status. I suppose a seizure might have occurred as well. At this point his sugars are improved sodium level is improving. He is getting antibiotics and supportive care. History of Present Illness Reason for Consult Consult date: 05/24/25 Chief Complaint Chief complaint: Hyponatremia History of Present Illness Narrative: Kenneth is an unfortunate 64-year-old gentleman who has alcohol use disorder, healed sacral fracture, thoracic compression fracture in the past, B12 deficiency, history of hyponatremia, and history of CVA diagnosed in 2023. the patient was found down in his basement by the police. They called 911. That point his temperature was only 91, his blood sugar was in the 40s. He was given supportive care and brought over to the emergency room. In the ER he was found to have a sodium of only 102. his CK level was over 6000. His creatinine was over 3. His blood pressure was very high for the 1st reading but otherwise came down into the normal range. He was intermittently responsive to some degree but mostly so Loving admission. His sugars were corrected. He was felt to be dehydrated. He received IV fluids. Then his sodium level came back. His sodium corrected gradually over the last few hours to a current value of 110. Mostly correction occurred within the 1st 6hours or so. He has been getting D5W to slow down the correction. The patient has an altered mental status. He did have CT scan which was negative. Alcohol, Tylenol, and salicylate levels are all low. Tox screen was negative. Her sugar was very low at the scene and it is unclear how long it had been low. He did go to the emergency room 3 days ago because of a fall. He had CT of the brain which showed no fracture or acute intracranial process but did show old lacunar infarcts and small vessel disease. He was discharged from that visit the next day. It is unclear what happened to him between then and when he was found by the police. Here he had another CT scan which did not show any acute intracranial findings and the C-spine showed no acute fracture. He has a CT of the chest abdomen pelvis which is pending. The patient can not give a history. Review of Systems 2 Review of Systems: ROS unobtainable: Yes unobtainable due to mental status PMFSH Past Medical History Medical History Closed sacral fracture As well as the sacral ala fracture and nondisplaced fracture extending across the S2 vertebral body noted on in remission May 2024 Thoracic compression fracture Chronic appearing T11 and T12 compression fractures noted May 2024 Closed fracture of left clavicle (~2023) B12 deficiency Chronic hyponatremia History of CVA (cerebrovascular accident) CT May 2024 demonstrated evidence of old infarcts right basal ganglia and left side of eula along with chronic findings of mild diffuse volume loss a MALT scattered white matter hypoattenuation consistent with chronic small- vessel ischemic disease Pneumothorax Associated with rib fractures noted during admission May 2024 with resolution without intervention Alcohol abuse Surgical History Surgical History History of total right knee replacement (~2017) Family History Family History Other Family history non-contributory Social History Social History Social History: Surrogate medical decision maker: Kenneth Drew ([phone]), son. Code status: Full code. Smoking status: Never smoker Alcohol intake: current Drinks per week: 56 Alcohol use details: 7-8 beers a day Substance use: never Substance use type: does not use Do You Feel Safe in your Home?: Yes Lack of Transportation: YES Lack of Food: Never True Current Housing: I Have Housing Concerned About Future Housing: No Difficulty Paying Gas/Electric Bills: No Difficulty Paying for Meds: No Currently Unemployed: No Education: High School Diploma/GED Difficulty w/ Childcare or Family Care: No Additional living arrangements comments: The patient lives alone in his own home in [place]. 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 Spiritual care concerns: No Meds Home Medications and Allergies Home Medications ?Medication ?Instructions ?Recorded ?Confirmed ?Type No Home Medications 05/24/25 05/24/25 H istory Allergies Allergy/AdvReac Type Severity Reaction Status Date / Time No Known Allergies Allergy Mild Verified 05/21/25 08:06 Vital Signs Vital Signs - 24 hr 10/10/25 18:28 05/23/25 18:40 05/23/25 18:41 Temperature 91.1 F L 90.7 F L 91.1 F L Pulse Rate 67 67 Respiratory Rate 24 H 14 Blood Pressure 211/195 H Pulse Oximetry 100 99 Oxygen Delivery 05/23/25 18:45 05/23/25 19:00 05/23/25 19:01 Temperature 91.7 F L 92.2 F L 92.3 F L Pulse Rate 66 67 66 Respiratory Rate 17 16 13 Blood Pressure 135/90 Pulse Oximetry 99 Oxygen Delivery 05/23/25 19:02 05/23/25 19:15 05/23/25 19:16 Temperature 92.3 F L 92.9 F L 93.0 F L Pulse Rate 68 74 71 Respiratory Rate 14 13 13 Blood Pressure 163/131 H Pulse Oximetry 100 99 99 Oxygen Delivery 05/23/25 19:17 05/23/25 19:30 05/23/25 19:45 Temperature 93.0 F L 93.9 F L 94.7 F L Pulse Rate 71 73 73 Respiratory Rate 18 14 13 Blood Pressure Pulse Oximetry 99 99 98 Oxygen Delivery 05/23/25 20:00 05/23/25 20:01 05/23/25 20:02 Temperature 95.5 F L 95.6 F L 95.7 F L Pulse Rate 77 79 Respiratory Rate 15 17 Blood Pressure Pulse Oximetry 98 98 Oxygen Delivery 05/23/25 20:15 05/23/25 20:16 05/23/25 20:30 Temperature 96.2 F L 96.3 F L 96.8 F L Pulse Rate 79 82 82 Respiratory Rate 13 16 14 Blood Pressure 122/68 Pulse Oximetry 98 98 98 Oxygen Delivery 05/23/25 20:49 05/23/25 21:00 05/23/25 21:01 Temperature 97.3 F L 97.6 F 97.6 F Pulse Rate 81 83 Respiratory Rate 23 H 15 Blood Pressure 113/66 Pulse Oximetry 98 98 Oxygen Delivery 05/23/25 21:02 05/23/25 21:34 05/23/25 21:45 Temperature 97.7 F 98.2 F 98.4 F Pulse Rate 82 91 90 Respiratory Rate 18 16 19 Blood Pressure 110/54 L Pulse Oximetry 98 98 98 Oxygen Delivery 05/23/25 21:46 05/23/25 21:47 05/23/25 22:05 Temperature 98.4 F 98.4 F 98.7 F Pulse Rate 90 90 88 Respiratory Rate 17 34 H 21 H Blood Pressure 117/55 L 103/60 Pulse Oximetry 98 98 98 Oxygen Delivery 05/23/25 22:28 05/23/25 22:30 05/23/25 22:31 Temperature 99.0 F 99.0 F 99.0 F Pulse Rate 86 86 87 Respiratory Rate 17 19 19 Blood Pressure 107/56 L Pulse Oximetry 98 98 98 Oxygen Delivery 05/23/25 22:45 05/23/25 23:00 05/23/25 23:01 Temperature 99.1 F 99.2 F 99.2 F Pulse Rate 89 93 91 Respiratory Rate 20 18 23 H Blood Pressure 101/60 Pulse Oximetry 98 98 98 Oxygen Delivery 05/23/25 23:02 05/23/25 23:26 05/23/25 23:30 Temperature 99.2 F 99.2 F 99.2 F Pulse Rate 92 94 95 Respiratory Rate 20 21 H 20 Blood Pressure 108/60 Pulse Oximetry 98 98 98 Oxygen Delivery 05/23/25 23:31 05/23/25 23:47 05/24/25 00:00 Temperature 99.2 F 99.2 F 99.3 F Pulse Rate 94 89 90 Respiratory Rate 18 19 20 Blood Pressure Pulse Oximetry 98 98 Oxygen Delivery 05/24/25 00:01 05/24/25 00:02 05/24/25 00:15 Temperature 99.3 F 99.3 F 99.2 F Pulse Rate 89 96 90 Respiratory Rate 17 19 18 Blood Pressure 117/65 Pulse Oximetry 98 98 98 Oxygen Delivery 05/24/25 00:16 05/24/25 01:00 05/24/25 02:00 Temperature 99.2 F 98.9 F Pulse Rate 89 86 86 Respiratory Rate 17 18 Blood Pressure 122/58 L 107/44 L Pulse Oximetry 97 98 Oxygen Delivery 05/24/25 02:06 05/24/25 03:00 05/24/25 04:00 Temperature 98.5 F Pulse Rate 84 Respiratory Rate 16 Blood Pressure 133/58 L Pulse Oximetry 96 98 98 Oxygen Delivery Room Air Room Air 05/24/25 04:00 05/24/25 04:00 05/24/25 05:00 Temperature 98.4 F 98.4 F Pulse Rate 86 86 85 Respiratory Rate 14 16 Blood Pressure 141/60 H 135/63 Pulse Oximetry 98 97 Oxygen Delivery 05/24/25 05:56 05/24/25 07:00 05/24/25 08:00 Temperature 97.9 F Pulse Rate 78 75 78 Respiratory Rate 16 16 16 Blood Pressure 124/59 L 107/61 119/59 L Pulse Oximetry 97 97 92 Oxygen Delivery 05/24/25 08:00 05/24/25 08:00 05/24/25 08:00 Temperature Pulse Rate 77 Respiratory Rate Blood Pressure 119/59 L Pulse Oximetry 92 Oxygen Delivery Room Air 05/24/25 09:00 05/24/25 09:45 Temperature 97.7 F Pulse Rate 73 79 Respiratory Rate 15 16 Blood Pressure 115/57 L 104/56 L Pulse Oximetry 93 92 Oxygen Delivery Exam 2 Narrative: Exam Narrative: Well developed well-nourished chronically ill-looking gentleman lying in the ICU bed with altered mental status, coughing, in no acute distress Skin is warm and dry without rash Head normocephalic atraumatic Eyes normal sclerae and conjunctivae Mouth normal lips teeth and gums. He has very dry mucous membranes. Neck no nodes no thyromegaly no carotid bruits Axillae no nodes Back no CVA tenderness Lungs symmetric and coarse upper airway noise bilateral to auscultation and normal to percussion Heart regular rate and rhythm without rub or gallop Abdomen bowel sounds positive soft nontender, no HSM, masses, or bruits. Extremities no cyanosis, clubbing, or edema Pulses 2+ equal in radial arteries Psychological not anxious or depressed Neuro sonorous. motor tone is a little bit increased. cranial nerves 2-12 intact passively reflexes 2+ and equal in the biceps and patellar tendons cerebellar no tremor, clonus, or seizure. Results Lab Results 05/23/25 19:38 05/24/25 08:11 Lab results: Most recent lab results Calcium 8.0 mg/dL (8.4-10.2) L 05/24/25 05:37 Phosphorus 8.9 mg/dL (2.5-4.5) H 05/23/25 18:24 Magnesium 3.1 mg/dL (1.6-2.3) H 05/23/25 18:24 Urine Creatinine 82.2 mg/dL 05/23/25 18:24
[2025-05-24 10:12] LABS: Anion Gap 8 mmol/L (4-12); Blood Urea Nitrogen 25 mg/dL (9-20); Calcium 7.8 mg/dL (8.4-10.2); Carbon Dioxide 24 mmol/L (22-30); Chloride 79 mmol/L (98-107); Estimated CRCL calculation 61 ml/min; Estimated Glomerular Filt Rate > 60; Glucose 107 mg/dL (65-110); Potassium 3.4 mmol/L (3.4-5.0); Sodium 111 mmol/L (137-145)
[2025-05-24 10:29] LABS: Hepatitis B Surface Antigen Negative (Negative)
[2025-05-24 10:36] LABS: HAV RESULT Negative (Negative); Hepatitis B Core IgM Result Negative (Negative)
[2025-05-24] MEDS: CEFEPIME 2 GM in SODIUM CHLORIDE 0.9% IV 50 ML 100 ML IVPB ×2 (11:13→22:15)
[2025-05-24] MEDS: DESMOPRESSIN ACETATE 4 MCG/ML AMP 2 MCG IV PUSH (11:13)
[2025-05-24 13:06] LABS: Hematocrit 33.1 % (42.0-52.0); Hemoglobin 12.1 g/dL (14.0-18.0); Immature Granulocyte Percent A 0.6 % (0-0.5); Lymphocytes Absolute Auto 0.64 K/mm3 (0.9-3.2); Mean Corpuscular HGB Conc 36.6 g/dl (32-36); Mean Corpuscular Hemoglobin 33.4 pg (26-34); Mean Corpuscular Volume 91.4 fl (80-100); Nucleated Red Blood Cells Absolute Auto 0.040 K/mm3 (0.0-0.012); Nucleated Red Blood Cells Perc 0.5 % (0.0-0.2); Platelet Count Result 139 k/mm3 (150-375); Red Blood Count 3.62 M/mm3 (4.6-6.20); White Blood Count 8.3 K/mm3 (4.5-10.0)
--- NOTE | 2025-05-24 15:45 | P.PNIM_ITS ---
Progress Note: A&P Assessment and Plan (1) Acute hyponatremia: Code(s): E87.1 - Hypo-osmolality and hyponatremia Status: Acute Assessment and Plan: Severe hyponatremia with sodium levels of 102 on admission, the patient received 2 L IV fluid bolus -Nephrology following -currently on D5 per nephrology -continue serial BMPs -seizure precaution (2) Acute kidney failure: Qualifiers: Acute renal failure type: unspecified Qualified Code(s): N17.9 - Acute kidney failure, unspecified Code(s): N17.9 - Acute kidney failure, unspecified Status: Acute Assessment and Plan: Acute renal failure likely related to hypovolemia, creatinine admission was 3.4 -patient received 2 L IV fluid bolus -currently on D5 at 100 mL/hour per Nephrology -creatinine is down to 0.94 -urine output has been adequate -continue to monitor renal function, electrolytes and urine output (3) Hypoglycemia: Code(s): E16.2 - Hypoglycemia, unspecified Status: Acute Assessment and Plan: Patient was hypoglycemic with blood sugars in the 40s, was treated with D50 -currently on D5 for his hyponatremia which is also helping his hypoglycemia -blood sugars more stabilized this morning -continue to monitor (4) Rhabdomyolysis: Qualifiers: Rhabdomyolysis type: non-traumatic Qualified Code(s): M62.82 - Rhabdomyolysis Code(s): M62.82 - Rhabdomyolysis Status: Acute Assessment and Plan: Elevated CK levels of 6800 on admission -continue maintenance IV fluids per Nephrology -CK levels trending down, continue to monitor (5) Sepsis: Code(s): A41.9 - Sepsis, unspecified organism Status: Acute Assessment and Plan: Leukocytosis, hypothermia, hypoglycemia, tachycardia -patient was started on cefepime and vancomycin (05/23) -continue cefepime, MRSA negative, okay to deescalate vancomycin if ICU team is okay -follow blood culture (6) Thrombocytopenia: Code(s): D69.6 - Thrombocytopenia, unspecified Status: Acute Assessment and Plan: Thrombocytopenia can multifactorial, patient has a history of alcohol use will continue to monitor (7) Transaminitis: Code(s): R74.01 - Elevation of levels of liver transaminase levels Status: Acute Assessment and Plan: Transaminitis secondary to alcohol use, hypovolemia and hemo concentrate Abdominal ultrasound shows no acute finding identified but suboptimally visuali zed due to bowel gas -LFTs are trending (8) Hypothermia: Qualifiers: Encounter type: initial encounter Qualified Code(s): T68.XXXA - Hypothermia, initial encounter Code(s): T68.XXXA - Hypothermia, initial encounter Status: Acute Assessment and Plan: Hypothermia likely due to hypo glycemia, found down in the basement, was down for unknown amount of time -patient was rewarmed to normal body temperature -continue to monitor Time Spent With Patient Time: 40 minutes Subjective Date/time seen: 05/24/25 15:45 Interval history: Patient was sleeping. No acute event overnight. Review of Systems Review of Systems: All systems reviewed & are unremarkable except as noted in HPI and below Exam Narrative: APPEARANCE: Sleeping EYES: EOMI HEENT: Normocephalic, atraumatic, OMM RESPIRATORY: No respiratory distress Clear to auscultation bilaterally with no rhonchi wheezing or rales. CARDIOVASCULAR: RRR, S1 and S2 without murmurs rubs or gallops. ABDOMINAL: Soft, nontender, nondistended, no rebound or guarding MUSCULOSKELETAl: Not assessed NEURO: Awake and alert. Following commands, speech normal, no focal deficits SKIN:: Warm, dry. No rashes lesions or abrasions PSYCHIATRIC: Sleepy Objective Data Vital Signs Vital Signs: Vital Signs - 24 hr 05/23/25 18:28 05/23/25 18:40 05/23/25 18:41 Temperature 32.8 C L 32.6 C L 32.8 C L Pulse Rate 67 67 Respiratory Rate 24 H 14 Blood Pressure 211/195 H Pulse Oximetry 100 99 Oxygen Delivery 05/23/25 18:45 05/23/25 19:00 05/23/25 19:01 Temperature 33.2 C L 33.4 C L 33.5 C L Pulse Rate 66 67 66 Respiratory Rate 17 16 13 Blood Pressure 135/90 Pulse Oximetry 99 Oxygen Delivery 05/23/25 19:02 05/23/25 19:15 05/23/25 19:16 Temperature 33.5 C L 33.8 C L 33.9 C L Pulse Rate 68 74 71 Respiratory Rate 14 13 13 Blood Pressure 163/131 H Pulse Oximetry 100 99 99 Oxygen Delivery 05/23/25 19:17 05/23/25 19:30 05/23/25 19:45 Temperature 33.9 C L 34.4 C L 34.8 C L Pulse Rate 71 73 73 Respiratory Rate 18 14 13 Blood Pressure Pulse Oximetry 99 99 98 Oxygen Delivery 05/23/25 20:00 05/23/25 20:01 05/23/25 20:02 Temperature 35.3 C L 35.3 C L 35.4 C L Pulse Rate 77 79 Respiratory Rate 15 17 Blood Pressure Pulse Oximetry 98 98 Oxygen Delivery 05/23/25 20:15 05/23/25 20:16 05/23/25 20:30 Temperature 35.7 C L 35.7 C L 36.0 C L Pulse Rate 79 82 82 Respiratory Rate 13 16 14 Blood Pressure 122/68 Pulse Oximetry 98 98 98 Oxygen Delivery 05/23/25 20:49 05/23/25 21:00 05/23/25 21:01 Temperature 36.3 C L 36.4 C 36.4 C Pulse Rate 81 83 Respiratory Rate 23 H 15 Blood Pressure 113/66 Pulse Oximetry 98 98 Oxygen Delivery 05/23/25 21:02 05/23/25 21:34 05/23/25 21:45 Temperature 36.5 C 36.8 C 36.9 C Pulse Rate 82 91 90 Respiratory Rate 18 16 19 Blood Pressure 110/54 L Pulse Oximetry 98 98 98 Oxygen Delivery 05/23/25 21:46 05/23/25 21:47 05/23/25 22:05 Temperature 36.9 C 36.9 C 37.1 C Pulse Rate 90 90 88 Respiratory Rate 17 34 H 21 H Blood Pressure 117/55 L 103/60 Pulse Oximetry 98 98 98 Oxygen Delivery 05/23/25 22:28 05/23/25 22:30 05/23/25 22:31 Temperature 37.2 C 37.2 C 37.2 C Pulse Rate 86 86 87 Respiratory Rate 17 19 19 Blood Pressure 107/56 L Pulse Oximetry 98 98 98 Oxygen Delivery 05/23/25 22:45 05/23/25 23:00 05/23/25 23:01 Temperature 37.3 C 37.3 C 37.3 C Pulse Rate 89 93 91 Respiratory Rate 20 18 23 H Blood Pressure 101/60 Pulse Oximetry 98 98 98 Oxygen Delivery 05/23/25 23:02 05/23/25 23:26 05/23/25 23:30 Temperature 37.3 C 37.3 C 37.3 C Pulse Rate 92 94 95 Respiratory Rate 20 21 H 20 Blood Pressure 108/60 Pulse Oximetry 98 98 98 Oxygen Delivery 05/23/25 23:31 05/23/25 23:47 05/24/25 00:00 Temperature 37.3 C 37.3 C 37.4 C Pulse Rate 94 89 90 Respiratory Rate 18 19 20 Blood Pressure Pulse Oximetry 98 98 Oxygen Delivery 05/24/25 00:01 05/24/25 00:02 05/24/25 00:15 Temperature 37.4 C 37.4 C 37.3 C Pulse Rate 89 96 90 Respiratory Rate 17 19 18 Blood Pressure 117/65 Pulse Oximetry 98 98 98 Oxygen Delivery 05/24/25 00:16 05/24/25 01:00 05/24/25 02:00 Temperature 37.3 C 37.2 C Pulse Rate 89 86 86 Respiratory Rate 17 18 Blood Pressure 122/58 L 107/44 L Pulse Oximetry 97 98 Oxygen Delivery 05/24/25 02:06 05/24/25 03:00 05/24/25 04:00 Temperature 36.9 C Pulse Rate 84 Respiratory Rate 16 Blood Pressure 133/58 L Pulse Oximetry 96 98 98 Oxygen Delivery Room Air Room Air 05/24/25 04:00 05/24/25 04:00 05/24/25 05:00 Temperature 36.9 C 36.9 C Pulse Rate 86 86 85 Respiratory Rate 14 16 Blood Pressure 141/60 H 135/63 Pulse Oximetry 98 97 Oxygen Delivery 05/24/25 05:56 05/24/25 07:00 05/24/25 08:00 Temperature 36.6 C Pulse Rate 78 75 78 Respiratory Rate 16 16 16 Blood Pressure 124/59 L 107/61 119/59 L Pulse Oximetry 97 97 92 Oxygen Delivery 05/24/25 08:00 05/24/25 08:00 05/24/25 08:00 Temperature Pulse Rate 77 Respiratory Rate Blood Pressure 119/59 L Pulse Oximetry 92 Oxygen Delivery Room Air 05/24/25 09:00 05/24/25 09:45 05/24/25 09:59 Temperature 36.5 C Pulse Rate 73 79 Respiratory Rate 15 16 Blood Pressure 115/57 L 104/56 L Pulse Oximetry 93 92 91 Oxygen Delivery Room Air 05/24/25 10:00 05/24/25 11:00 05/24/25 11:00 Temperature 36.6 C 36.6 C Pulse Rate 75 70 70 Respiratory Rate 16 18 Blood Pressure 102/56 L 102/56 L Pulse Oximetry 98 96 Oxygen Delivery 05/24/25 12:00 05/24/25 12:00 05/24/25 12:00 Temperature Pulse Rate 70 Respiratory Rate Blood Pressure 115/63 Pulse Oximetry 98 Oxygen Delivery Room Air 05/24/25 12:00 05/24/25 13:00 05/24/25 14:00 Temperature 37.4 C 36.7 C Pulse Rate 75 76 74 Respiratory Rate 21 H 15 Blood Pressure 147/58 H 113/79 Pulse Oximetry 95 96 Oxygen Delivery 05/24/25 14:00 05/24/25 15:00 Temperature 36.8 C 37.0 C Pulse Rate 74 75 Respiratory Rate 14 14 Blood Pressure 109/60 114/63 Pulse Oximetry 95 96 Oxygen Delivery Intake/Output Intake/Output: Intake & Output 05/21/25 05/22/25 05/23/25 05/24/25 23:59 23:59 23:59 23:59 Intake Total 1108.8 1333.3 Output Total 900 900 Balance 208.8 433.3 Meds/Results Medications: Active Medications Generic Name Dose Route Start Last Admin Trade Name Freq PRN Reason Stop Dose Admin Diazepam 5 - 10 mg 05/24/25 00:00 Diazepam Inj (*Crx) 10 Mg/2 Ml Syringe IV PUSH Q5M PRN CIWA > 15 Folic Acid 1 mg 05/24/25 09:00 05/24/25 08:29 Folic Acid 1 Mg/0.2 Ml Inj IV PUSH 1 mg DAILY MONICA Administration Cefepime HCl 2 gm/ Sodium 50 mls @ 100 mls/hr 05/24/25 11:00 05/24/25 11:43 Chloride IVPB Infused Q12H MONICA Infusion Dextrose 1,000 mls @ 100 mls/hr 05/24/25 02:50 05/24/25 13:00 Dextrose 5% 1,000 Ml IV CONT 100 mls/hr .Q10H MONICA Administration Lorazepam 2 mg 05/24/25 00:00 Lorazepam (*Crx) 1 Mg Tablet PO Q2H PRN CIWA>8, HR>100, or DBP>100 Thiamine HCl 100 mg 05/24/25 09:00 05/24/25 08:29 Thiamine Hcl 200 Mg/2 Ml Vial IV PUSH 100 mg DAILY MONICA Administration Vancomycin HCl 1 each 05/24/25 00:00 Vancomycin For Acute Kidney Injury IVPB PRN PRN Vancomycin Protocol Radiology Results: ITS Impressions Cervical Spine CT 05/24/25 08:11 IMPRESSION: HEAD: 1. No acute intracranial findings. C-SPINE: 1. No acute fracture. Head CT 05/24/25 08:11 IMPRESSION: HEAD: 1. No acute intracranial findings. C-SPINE: 1. No acute fracture. Abdomen Ultrasound 05/24/25 14:24 IMPRESSION: 1. No acute findings identified but suboptimal visualization due to bowel gas. Labs Labs: Laboratory Results - last 24 hr 05/23/25 05/23/25 05/23/25 18:05 18:24 18:25 WBC RBC Hgb Hct MCV MCH MCHC RDW Plt Count MPV Immature Gran % (Auto) Neut % (Auto) Lymph % (Auto) [place] % (Auto) Eos % (Auto) Baso % (Auto) Lymph # (Auto) [place] # (Auto) Eos # (Auto) Baso # (Auto) Abs Immat Gran (auto) Absolute Neuts (auto) Absolute Nucleated RBC Nucleated RBC % PT 13.7 INR 1.0 APTT 32.9 VBG pH 7.302 VBG pCO2 27.9 L* VBG pO2 33.3 L VBG HCO3 13.5 L O2 Delivery Device Room air O2 Liters/Min 0.0 FiO2 21 Sodium 102 L* Potassium 5.2 H Chloride 64 L Carbon Dioxide 10 L Anion Gap 28 H BUN 58 H D Creatinine 3.40 H Estim Creat Clear Calc Not Reportable Estimated GFR 18 L Glucose 44 L* POC Capillary Glucose 52 L* Serum Osmolality Lactic Acid 1.4 Calcium 8.7 Phosphorus 8.9 H Magnesium 3.1 H Iron TIBC % Saturation Ferritin Total Bilirubin 3.0 H Direct Bilirubin AST 269 H ALT 66 H Alkaline Phosphatase 93 Total Creatine Kinase 6807 H Troponin I 0.012 Total Protein 8.5 H Albumin 4.8 Lipase 149 Vitamin B12 Folate TSH (Reflex) 1.930 Random Cortisol Urine Color Urine Appearance Urine pH Ur Specific [place] Urine Protein Urine Glucose (UA) Urine Ketones Ur Blood (Man) Urine Nitrate Urine Bilirubin Urine Urobilinogen Add Ur Microanalysis Leukocyte Esterase Rfl Urine RBC Urine WBC Ur Squamous Epith Cells Urine Bacteria Urine Casts Urine Mucus Ur Random Sodium 22 Ur Random Urea 385 Urine Creatinine 82.2 Nasal MRSA (PCR) Salicylates < 1.0 L Urine Opiates Screen Urine Methadone Screen Acetaminophen < 10 L Ur Barbiturates Screen Ur Phencyclidine Scrn Ur Amphetamine Screen U Benzodiazepines Scrn Urine Cocaine Screen U Cannabinoids Screen Ethyl Alcohol < 10 Hepatitis A IgM Ab Hep Bs Antigen Hep B Core IgM Ab Hepatitis C Ab Screen Monoscreen Negative Influenza A (RT-PCR) Negative Influenza B (RT-PCR) Negative RSV (RT-PCR) Negative SARS-CoV-2 RNA (RT-PCR) Negative 05/23/25 05/23/25 05/23/25 18:39 18:45 19:38 WBC 11.8 H RBC 3.56 L Hgb 11.9 L Hct 30.6 L MCV 86.0 MCH 33.4 MCHC 38.9 H RDW 11.8 Plt Count 140 L D MPV 9.4 Immature Gran % (Auto) 0.8 H Neut % (Auto) 88.6 H Lymph % (Auto) 3.8 L [place] % (Auto) 6.7 Eos % (Auto) 0.0 Baso % (Auto) 0.1 L Lymph # (Auto) 0.45 L [place] # (Auto) 0.8 H Eos # (Auto) 0.0 Baso # (Auto) 0.0 Abs Immat Gran (auto) 0.09 H Absolute Neuts (auto) 10.5 H Absolute Nucleated RBC 0.000 Nucleated RBC % 0.0 PT INR APTT VBG pH VBG pCO2 VBG pO2 VBG HCO3 O2 Delivery Device O2 Liters/Min FiO2 Sodium Potassium Chloride Carbon Dioxide Anion Gap BUN Creatinine Estim Creat Clear Calc Estimated GFR Glucose POC Capillary Glucose 204 H Serum Osmolality Lactic Acid Calcium Phosphorus Magnesium Iron TIBC % Saturation Ferritin Total Bilirubin Direct Bilirubin AST ALT Alkaline Phosphatase Total Creatine Kinase Troponin I Total Protein Albumin Lipase Vitamin B12 Folate TSH (Reflex) Random Cortisol Urine Color Dark yellow Urine Appearance Clear Urine pH 6.0 Ur Specific [place] 1.017 Urine Protein 2+ H Urine Glucose (UA) Negative Urine Ketones Trace H Ur Blood (Man) 2+ H Urine Nitrate Negative Urine Bilirubin Negative Urine Urobilinogen 1.0 Add Ur Microanalysis Reviewed Leukocyte Esterase Rfl Negative Urine RBC 0-2 Urine WBC 0-5 Ur Squamous Epith Cells None seen Urine Bacteria None seen Urine Casts 11-20 Urine Mucus Present Ur Random Sodium Ur Random Urea Urine Creatinine Nasal MRSA (PCR) Salicylates Urine Opiates Screen Negative Urine Methadone Screen Negative Acetaminophen Ur Barbiturates Screen Negative Ur Phencyclidine Scrn Negative Ur Amphetamine Screen Negative U Benzodiazepines Scrn Negative Urine Cocaine Screen Negative U Cannabinoids Screen Negative Ethyl Alcohol Hepatitis A IgM Ab Hep Bs Antigen Hep B Core IgM Ab Hepatitis C Ab Screen Monoscreen Influenza A (RT-PCR) Influenza B (RT-PCR) RSV (RT-PCR) SARS-CoV-2 RNA (RT-PCR) 05/23/25 05/23/25 05/23/25 21:24 21:33 21:59 WBC RBC Hgb Hct MCV MCH MCHC RDW Plt Count MPV Immature Gran % (Auto) Neut % (Auto) Lymph % (Auto) [place] % (Auto) Eos % (Auto) Baso % (Auto) Lymph # (Auto) [place] # (Auto) Eos # (Auto) Baso # (Auto) Abs Immat Gran (auto) Absolute Neuts (auto) Absolute Nucleated RBC Nucleated RBC % PT INR APTT VBG pH VBG pCO2 VBG pO2 VBG HCO3 O2 Delivery Device O2 Liters/Min FiO2 Sodium 102 L* Potassium 4.4 Chloride 73 L Carbon Dioxide 15 L Anion Gap 14 H BUN 47 H D Creatinine 1.73 H Estim Creat Clear Calc Not Reportable Estimated GFR 40 L Glucose 223 H POC Capillary Glucose 40 L* 167 H Serum Osmolality Lactic Acid Calcium 7.2 L Phosphorus Magnesium Iron TIBC % Saturation Ferritin Total Bilirubin Direct Bilirubin AST ALT Alkaline Phosphatase Total Creatine Kinase Troponin I 0.013 Total Protein Albumin Lipase Vitamin B12 Folate TSH (Reflex) Random Cortisol Urine Color Urine Appearance Urine pH Ur Specific [place] Urine Protein Urine Glucose (UA) Urine Ketones Ur Blood (Man) Urine Nitrate Urine Bilirubin Urine Urobilinogen Add Ur Microanalysis Leukocyte Esterase Rfl Urine RBC Urine WBC Ur Squamous Epith Cells Urine Bacteria Urine Casts Urine Mucus Ur Random Sodium Ur Random Urea Urine Creatinine Nasal MRSA (PCR) Salicylates Urine Opiates Screen Urine Methadone Screen Acetaminophen Ur Barbiturates Screen Ur Phencyclidine Scrn Ur Amphetamine Screen U Benzodiazepines Scrn Urine Cocaine Screen U Cannabinoids Screen Ethyl Alcohol Hepatitis A IgM Ab Hep Bs Antigen Hep B Core IgM Ab Hepatitis C Ab Screen Monoscreen Influenza A (RT-PCR) Influenza B (RT-PCR) RSV (RT-PCR) SARS-CoV-2 RNA (RT-PCR) 05/23/25 05/23/25 05/23/25 22:24 22:54 23:13 WBC RBC Hgb Hct MCV MCH MCHC RDW Plt Count MPV Immature Gran % (Auto) Neut % (Auto) Lymph % (Auto) [place] % (Auto) Eos % (Auto) Baso % (Auto) Lymph # (Auto) [place] # (Auto) Eos # (Auto) Baso # (Auto) Abs Immat Gran (auto) Absolute Neuts (auto) Absolute Nucleated RBC Nucleated RBC % PT INR APTT VBG pH VBG pCO2 VBG pO2 VBG HCO3 O2 Delivery Device O2 Liters/Min FiO2 Sodium 107 L* Potassium Chloride Carbon Dioxide Anion Gap BUN Creatinine Estim Creat Clear Calc Estimated GFR Glucose POC Capillary Glucose 118 H Serum Osmolality Lactic Acid Calcium Phosphorus Magnesium Iron TIBC % Saturation Ferritin Total Bilirubin Direct Bilirubin AST ALT Alkaline Phosphatase Total Creatine Kinase Troponin I Total Protein Albumin Lipase Vitamin B12 Folate TSH (Reflex) Random Cortisol Urine Color Urine Appearance Urine pH Ur Specific [place] Urine Protein Urine Glucose (UA) Urine Ketones Ur Blood (Man) Urine Nitrate Urine Bilirubin Urine Urobilinogen Add Ur Microanalysis Leukocyte Esterase Rfl Urine RBC Urine WBC Ur Squamous Epith Cells Urine Bacteria Urine Casts Urine Mucus Ur Random Sodium Ur Random Urea Urine Creatinine Nasal MRSA (PCR) Not detected Salicylates Urine Opiates Screen Urine Methadone Screen Acetaminophen Ur Barbiturates Screen Ur Phencyclidine Scrn Ur Amphetamine Screen U Benzodiazepines Scrn Urine Cocaine Screen U Cannabinoids Screen Ethyl Alcohol Hepatitis A IgM Ab Hep Bs Antigen Hep B Core IgM Ab Hepatitis C Ab Screen Monoscreen Influenza A (RT-PCR) Influenza B (RT-PCR) RSV (RT-PCR) SARS-CoV-2 RNA (RT-PCR) 05/23/25 05/24/25 05/24/25 23:34 01:00 02:03 WBC RBC Hgb Hct MCV MCH MCHC RDW Plt Count MPV Immature Gran % (Auto) Neut % (Auto) Lymph % (Auto) [place] % (Auto) Eos % (Auto) Baso % (Auto) Lymph # (Auto) [place] # (Auto) Eos # (Auto) Baso # (Auto) Abs Immat Gran (auto) Absolute Neuts (auto) Absolute Nucleated RBC Nucleated RBC % PT INR APTT VBG pH VBG pCO2 VBG pO2 VBG HCO3 O2 Delivery Device O2 Liters/Min FiO2 Sodium Potassium Chloride Carbon Dioxide Anion Gap BUN Creatinine Estim Creat Clear Calc Estimated GFR Glucose POC Capillary Glucose 90 77 78 Serum Osmolality Lactic Acid Calcium Phosphorus Magnesium Iron TIBC % Saturation Ferritin Total Bilirubin Direct Bilirubin AST ALT Alkaline Phosphatase Total Creatine Kinase Troponin I Total Protein Albumin Lipase Vitamin B12 Folate TSH (Reflex) Random Cortisol Urine Color Urine Appearance Urine pH Ur Specific [place] Urine Protein Urine Glucose (UA) Urine Ketones Ur Blood (Man) Urine Nitrate Urine Bilirubin Urine Urobilinogen Add Ur Microanalysis Leukocyte Esterase Rfl Urine RBC Urine WBC Ur Squamous Epith Cells Urine Bacteria Urine Casts Urine Mucus Ur Random Sodium Ur Random Urea Urine Creatinine Nasal MRSA (PCR) Salicylates Urine Opiates Screen Urine Methadone Screen Acetaminophen Ur Barbiturates Screen Ur Phencyclidine Scrn Ur Amphetamine Screen U Benzodiazepines Scrn Urine Cocaine Screen U Cannabinoids Screen Ethyl Alcohol Hepatitis A IgM Ab Hep Bs Antigen Hep B Core IgM Ab Hepatitis C Ab Screen Monoscreen Influenza A (RT-PCR) Influenza B (RT-PCR) RSV (RT-PCR) SARS-CoV-2 RNA (RT-PCR) 05/24/25 05/24/25 05/24/25 02:09 03:04 04:18 WBC RBC Hgb Hct MCV MCH MCHC RDW Plt Count MPV Immature Gran % (Auto) Neut % (Auto) Lymph % (Auto) [place] % (Auto) Eos % (Auto) Baso % (Auto) Lymph # (Auto) [place] # (Auto) Eos # (Auto) Baso # (Auto) Abs Immat Gran (auto) Absolute Neuts (auto) Absolute Nucleated RBC Nucleated RBC % PT INR APTT VBG pH VBG pCO2 VBG pO2 VBG HCO3 O2 Delivery Device O2 Liters/Min FiO2 Sodium 111 L* Potassium 4.1 Chloride 79 L Carbon Dioxide 19 L Anion Gap 13 H BUN 38 H Creatinine 1.34 H Estim Creat Clear Calc 38 Estimated GFR 54 L Glucose 75 POC Capillary Glucose 81 85 Serum Osmolality Lactic Acid Calcium 8.0 L Phosphorus Magnesium Iron 75 TIBC 237 L % Saturation 32 Ferritin 560.00 H Total Bilirubin Direct Bilirubin 0.0 AST ALT Alkaline Phosphatase Total Creatine Kinase Troponin I Total Protein Albumin Lipase Vitamin B12 > 1000.0 H Folate 5.3 TSH (Reflex) Random Cortisol Urine Color Urine Appearance Urine pH Ur Specific [place] Urine Protein Urine Glucose (UA) Urine Ketones Ur Blood (Man) Urine Nitrate Urine Bilirubin Urine Urobilinogen Add Ur Microanalysis Leukocyte Esterase Rfl Urine RBC Urine WBC Ur Squamous Epith Cells Urine Bacteria Urine Casts Urine Mucus Ur Random Sodium Ur Random Urea Urine Creatinine Nasal MRSA (PCR) Salicylates Urine Opiates Screen Urine Methadone Screen Acetaminophen Ur Barbiturates Screen Ur Phencyclidine Scrn Ur Amphetamine Screen U Benzodiazepines Scrn Urine Cocaine Screen U Cannabinoids Screen Ethyl Alcohol Hepatitis A IgM Ab Hep Bs Antigen Hep B Core IgM Ab Hepatitis C Ab Screen Monoscreen Influenza A (RT-PCR) Influenza B (RT-PCR) RSV (RT-PCR) SARS-CoV-2 RNA (RT-PCR) 05/24/25 05/24/25 05/24/25 05:08 05:37 06:06 WBC RBC Hgb Hct MCV MCH MCHC RDW Plt Count MPV Immature Gran % (Auto) Neut % (Auto) Lymph % (Auto) [place] % (Auto) Eos % (Auto) Baso % (Auto) Lymph # (Auto) [place] # (Auto) Eos # (Auto) Baso # (Auto) Abs Immat Gran (auto) Absolute Neuts (auto) Absolute Nucleated RBC Nucleated RBC % PT INR APTT VBG pH VBG pCO2 VBG pO2 VBG HCO3 O2 Delivery Device O2 Liters/Min FiO2 Sodium 110 L* Potassium 4.1 Chloride 80 L Carbon Dioxide 21 L Anion Gap 9 BUN 33 H Creatinine 0.94 Estim Creat Clear Calc 54 Estimated GFR > 60 Glucose 84 POC Capillary Glucose 89 94 Serum Osmolality Lactic Acid Calcium 8.0 L Phosphorus Magnesium Iron TIBC % Saturation Ferritin Total Bilirubin 2.6 H Direct Bilirubin 0.0 AST 235 H ALT 61 H Alkaline Phosphatase 66 Total Creatine Kinase 4796 H Troponin I Total Protein 6.5 Albumin 3.4 L Lipase Vitamin B12 Folate TSH (Reflex) Random Cortisol Urine Color Urine Appearance Urine pH Ur Specific [place] Urine Protein Urine Glucose (UA) Urine Ketones Ur Blood (Man) Urine Nitrate Urine Bilirubin Urine Urobilinogen Add Ur Microanalysis Leukocyte Esterase Rfl Urine RBC Urine WBC Ur Squamous Epith Cells Urine Bacteria Urine Casts Urine Mucus Ur Random Sodium Ur Random Urea Urine Creatinine Nasal MRSA (PCR) Salicylates Urine Opiates Screen Urine Methadone Screen Acetaminophen Ur Barbiturates Screen Ur Phencyclidine Scrn Ur Amphetamine Screen U Benzodiazepines Scrn Urine Cocaine Screen U Cannabinoids Screen Ethyl Alcohol Hepatitis A IgM Ab Hep Bs Antigen Hep B Core IgM Ab Hepatitis C Ab Screen Monoscreen Influenza A (RT-PCR) Influenza B (RT-PCR) RSV (RT-PCR) SARS-CoV-2 RNA (RT-PCR) 05/24/25 05/24/25 05/24/25 07:15 08:00 08:11 WBC RBC Hgb Hct MCV MCH MCHC RDW Plt Count MPV Immature Gran % (Auto) Neut % (Auto) Lymph % (Auto) [place] % (Auto) Eos % (Auto) Baso % (Auto) Lymph # (Auto) [place] # (Auto) Eos # (Auto) Baso # (Auto) Abs Immat Gran (auto) Absolute Neuts (auto) Absolute Nucleated RBC Nucleated RBC % PT INR APTT VBG pH VBG pCO2 VBG pO2 VBG HCO3 O2 Delivery Device O2 Liters/Min FiO2 Sodium 110 L* Potassium Chloride Carbon Dioxide Anion Gap BUN Creatinine Estim Creat Clear Calc Estimated GFR Glucose POC Capillary Glucose 99 114 H Serum Osmolality Lactic Acid Calcium Phosphorus Magnesium Iron TIBC % Saturation Ferritin Total Bilirubin Direct Bilirubin AST ALT Alkaline Phosphatase Total Creatine Kinase Troponin I Total Protein Albumin Lipase Vitamin B12 Folate TSH (Reflex) Random Cortisol Urine Color Urine Appearance Urine pH Ur Specific [place] Urine Protein Urine Glucose (UA) Urine Ketones Ur Blood (Man) Urine Nitrate Urine Bilirubin Urine Urobilinogen Add Ur Microanalysis Leukocyte Esterase Rfl Urine RBC Urine WBC Ur Squamous Epith Cells Urine Bacteria Urine Casts Urine Mucus Ur Random Sodium Ur Random Urea Urine Creatinine Nasal MRSA (PCR) Salicylates Urine Opiates Screen Urine Methadone Screen Acetaminophen Ur Barbiturates Screen Ur Phencyclidine Scrn Ur Amphetamine Screen U Benzodiazepines Scrn Urine Cocaine Screen U Cannabinoids Screen Ethyl Alcohol Hepatitis A IgM Ab Negative Hep Bs Antigen Negative Hep B Core IgM Ab Negative Hepatitis C Ab Screen Negative Monoscreen Influenza A (RT-PCR) Influenza B (RT-PCR) RSV (RT-PCR) SARS-CoV-2 RNA (RT-PCR) 05/24/25 05/24/25 05/24/25 09:33 09:54 10:15 WBC RBC Hgb Hct MCV MCH MCHC RDW Plt Count MPV Immature Gran % (Auto) Neut % (Auto) Lymph % (Auto) [place] % (Auto) Eos % (Auto) Baso % (Auto) Lymph # (Auto) [place] # (Auto) Eos # (Auto) Baso # (Auto) Abs Immat Gran (auto) Absolute Neuts (auto) Absolute Nucleated RBC Nucleated RBC % PT INR APTT VBG pH VBG pCO2 VBG pO2 VBG HCO3 O2 Delivery Device O2 Liters/Min FiO2 Sodium 111 L* Potassium 3.4 Chloride 79 L Carbon Dioxide 24 Anion Gap 8 BUN 25 H Creatinine 0.82 Estim Creat Clear Calc 61 Estimated GFR > 60 Glucose 107 POC Capillary Glucose 119 H 114 H Serum Osmolality Cancelled Lactic Acid Calcium 7.8 L Phosphorus Magnesium Iron TIBC % Saturation Ferritin Total Bilirubin Direct Bilirubin AST ALT Alkaline Phosphatase Total Creatine Kinase Troponin I Total Protein Albumin Lipase Vitamin B12 Folate TSH (Reflex) Random Cortisol 20.70 Urine Color Urine Appearance Urine pH Ur Specific [place] Urine Protein Urine Glucose (UA) Urine Ketones Ur Blood (Man) Urine Nitrate Urine Bilirubin Urine Urobilinogen Add Ur Microanalysis Leukocyte Esterase Rfl Urine RBC Urine WBC Ur Squamous Epith Cells Urine Bacteria Urine Casts Urine Mucus Ur Random Sodium Ur Random Urea Urine Creatinine Nasal MRSA (PCR) Salicylates Urine Opiates Screen Urine Methadone Screen Acetaminophen Ur Barbiturates Screen Ur Phencyclidine Scrn Ur Amphetamine Screen U Benzodiazepines Scrn Urine Cocaine Screen U Cannabinoids Screen Ethyl Alcohol Hepatitis A IgM Ab Hep Bs Antigen Hep B Core IgM Ab Hepatitis C Ab Screen Monoscreen Influenza A (RT-PCR) Influenza B (RT-PCR) RSV (RT-PCR) SARS-CoV-2 RNA (RT-PCR) 05/24/25 05/24/25 05/24/25 11:01 11:51 14:40 WBC 8.3 RBC 3.62 L Hgb 12.1 L Hct 33.1 L MCV 91.4 D MCH 33.4 MCHC 36.6 H RDW 12.3 Plt Count 139 L MPV 9.7 Immature Gran % (Auto) 0.6 H Neut % (Auto) 83.7 H Lymph % (Auto) 7.7 L [place] % (Auto) 7.9 Eos % (Auto) 0.1 Baso % (Auto) 0.0 L Lymph # (Auto) 0.64 L [place] # (Auto) 0.7 H Eos # (Auto) 0.0 Baso # (Auto) 0.0 Abs Immat Gran (auto) 0.05 H Absolute Neuts (auto) 6.9 H Absolute Nucleated RBC 0.040 H Nucleated RBC % 0.5 H PT INR APTT VBG pH VBG pCO2 VBG pO2 VBG HCO3 O2 Delivery Device O2 Liters/Min FiO2 Sodium Potassium Chloride Carbon Dioxide Anion Gap BUN Creatinine Estim Creat Clear Calc Estimated GFR Glucose POC Capillary Glucose 121 H 130 H Serum Osmolality Lactic Acid Calcium Phosphorus Magnesium Iron TIBC % Saturation Ferritin Total Bilirubin Direct Bilirubin AST ALT Alkaline Phosphatase Total Creatine Kinase Troponin I Total Protein Albumin Lipase Vitamin B12 Folate TSH (Reflex) Random Cortisol Urine Color Urine Appearance Urine pH Ur Specific [place] Urine Protein Urine Glucose (UA) Urine Ketones Ur Blood (Man) Urine Nitrate Urine Bilirubin Urine Urobilinogen Add Ur Microanalysis Leukocyte Esterase Rfl Urine RBC Urine WBC Ur Squamous Epith Cells Urine Bacteria Urine Casts Urine Mucus Ur Random Sodium Ur Random Urea Urine Creatinine Nasal MRSA (PCR) Salicylates Urine Opiates Screen Urine Methadone Screen Acetaminophen Ur Barbiturates Screen Ur Phencyclidine Scrn Ur Amphetamine Screen U Benzodiazepines Scrn Urine Cocaine Screen U Cannabinoids Screen Ethyl Alcohol Hepatitis A IgM Ab Hep Bs Antigen Hep B Core IgM Ab Hepatitis C Ab Screen Monoscreen Influenza A (RT-PCR) Influenza B (RT-PCR) RSV (RT-PCR) SARS-CoV-2 RNA (RT-PCR) Quality VTE Prophylaxis VTE prophylaxis: mechanical ordered
[2025-05-24 15:46] LABS: Anion Gap 4 mmol/L (4-12); Blood Urea Nitrogen 19 mg/dL (9-20); Calcium 7.8 mg/dL (8.4-10.2); Carbon Dioxide 25 mmol/L (22-30); Chloride 80 mmol/L (98-107); Estimated CRCL calculation 81 ml/min; Estimated Glomerular Filt Rate > 60; Glucose 113 mg/dL (65-110); Potassium 3.3 mmol/L (3.4-5.0); Sodium 109 mmol/L (137-145)
[2025-05-24 19:39] LABS: Anion Gap 5 mmol/L (4-12); Blood Urea Nitrogen 15 mg/dL (9-20); Calcium 7.9 mg/dL (8.4-10.2); Carbon Dioxide 25 mmol/L (22-30); Chloride 78 mmol/L (98-107); Estimated CRCL calculation 91 ml/min; Estimated Glomerular Filt Rate > 60; Glucose 110 mg/dL (65-110); Potassium 3.2 mmol/L (3.4-5.0); Sodium 108 mmol/L (137-145)
[2025-05-24] MEDS: SODIUM CHLORIDE 0.9% IV 1,000 ML 75 ML IV CONT (20:07)
--- NOTE | 2025-05-24 23:26 | PCRCNOTE ---
Monitoring indicated desaturation to 60%; patient on room air; woke him and he quickly recovered to 96%
[2025-05-24 23:30] LABS: Anion Gap 7 mmol/L (4-12); Blood Urea Nitrogen 14 mg/dL (9-20); Calcium 7.7 mg/dL (8.4-10.2); Carbon Dioxide 24 mmol/L (22-30); Chloride 79 mmol/L (98-107); Estimated CRCL calculation 86 ml/min; Estimated Glomerular Filt Rate > 60; Glucose 88 mg/dL (65-110); Potassium 2.9 mmol/L (3.4-5.0); Sodium 110 mmol/L (137-145)
[2025-05-24] MEDS: POTASSIUM CHLORIDE 20 MEQ PACKET (FOR LIQUID) PO (23:51)
[2025-05-24] MEDS: POTASSIUM CHLORIDE 20 MEQ PACKET (FOR LIQUID) 40 MEQ PO (23:51)
[2025-05-25] VITALS (17 sets, daily range): BP systolic 104–150; BP diastolic 53–85; PULSE 62–93; RESP 13–20; TEMP 37.3–37.8; O2SAT 91–100
[2025-05-25] MEDS: VANCOMYCIN HCL 1,000 MG in SODIUM CHLORIDE 0.9% IV 250 ML 250 MG IVPB ×2 (00:37→11:41)
[2025-05-25 02:14] LABS: Anion Gap 5 mmol/L (4-12); Blood Urea Nitrogen 13 mg/dL (9-20); Calcium 7.5 mg/dL (8.4-10.2); Carbon Dioxide 23 mmol/L (22-30); Chloride 84 mmol/L (98-107); Estimated CRCL calculation 91 ml/min; Estimated Glomerular Filt Rate > 60; Glucose 107 mg/dL (65-110); Potassium 3.7 mmol/L (3.4-5.0); Sodium 112 mmol/L (137-145)
[2025-05-25 06:26] LABS: Alanine Aminotransferase 50 U/L (6-50); Albumin Level 2.8 g/dL (3.5-5.1); Alkaline Phosphatase 63 U/L (38-126); Anion Gap 1 mmol/L (4-12); Aspartate Amino Transferase 155 U/L (17-59); Bilirubin,Total 1.9 mg/dL (0.2-1.3); Blood Urea Nitrogen 10 mg/dL (9-20); Calcium 7.3 mg/dL (8.4-10.2); Carbon Dioxide 24 mmol/L (22-30); Chloride 87 mmol/L (98-107); Creatine Kinase 999 U/L (55-170); Estimated CRCL calculation 103 ml/min; Estimated Glomerular Filt Rate > 60; Glucose 107 mg/dL (65-110); Magnesium 2.3 mg/dL (1.6-2.3); Potassium 3.5 mmol/L (3.4-5.0); Sodium 112 mmol/L (137-145); Total Protein 5.7 g/dL (6.3-8.2)
[2025-05-25 06:51] LABS: Hematocrit 27.7 % (42.0-52.0); Hemoglobin 10.4 g/dL (14.0-18.0); Immature Granulocyte Percent A 0.5 % (0-0.5); Lymphocytes Absolute Auto 0.95 K/mm3 (0.9-3.2); Mean Corpuscular HGB Conc 37.5 g/dl (32-36); Mean Corpuscular Hemoglobin 33.2 pg (26-34); Mean Corpuscular Volume 88.5 fl (80-100); Nucleated Red Blood Cells Absolute Auto 0.000 K/mm3 (0.0-0.012); Nucleated Red Blood Cells Perc 0.0 % (0.0-0.2); Platelet Count Result 112 k/mm3 (150-375); Red Blood Count 3.13 M/mm3 (4.6-6.20); White Blood Count 5.8 K/mm3 (4.5-10.0)
[2025-05-25] MEDS: THIAMINE HCL 200 MG/2 ML VIAL 100 MG IV PUSH (08:04)
[2025-05-25] MEDS: FOLIC ACID 1 MG/0.2 ML INJ IV PUSH (08:05)
[2025-05-25 08:35] LABS: Schistocytes None Seen
[2025-05-25 08:36] LABS: Burr Cells Occasional; Hypochromasia 1+
--- NOTE | 2025-05-25 08:37 | WPDINTPN ---
Progress Note: A&P Assessment and Plan (1) Acute hyponatremia: Code(s): E87.1 - Hypo-osmolality and hyponatremia Status: Acute Assessment and Plan: Severe hyponatremia with sodium levels of 102 on admission, the patient received 2 L IV fluid bolus -Nephrology following -currently on D5 per nephrology -continue serial BMPs -sodium levels gradually improving, patient is awake, alert, oriented x3 -discussed with Nephrology, will continue with sodium chloride at 75 mL for next 24 hours (2) Acute kidney failure: Qualifiers: Acute renal failure type: unspecified Qualified Code(s): N17.9 - Acute kidney failure, unspecified Code(s): N17.9 - Acute kidney failure, unspecified Status: Acute Assessment and Plan: Acute renal failure likely related to hypovolemia, creatinine admission was 3.4 on admission -patient received 2 L IV fluid bolus -currently on D5 at 100 mL/hour per Nephrology -creatinine is down to 0.49 -urine output has been adequate -continue to monitor renal function, electrolytes and urine output (3) Hypoglycemia: Code(s): E16.2 - Hypoglycemia, unspecified Status: Acute Assessment and Plan: Patient was hypoglycemic with blood sugars in the 40s, was treated with D50 -off D5, patient has been eating well, -blood sugars have been stable -continue to monitor (4) Rhabdomyolysis: Qualifiers: Rhabdomyolysis type: non-traumatic Qualified Code(s): M62.82 - Rhabdomyolysis Code(s): M62.82 - Rhabdomyolysis Status: Acute Assessment and Plan: Elevated CK levels of 6800 on admission -continue maintenance IV fluids -CK levels continues to improved, continue to monitor (5) Sepsis: Code(s): A41.9 - Sepsis, unspecified organism Status: Acute Assessment and Plan: Leukocytosis, hypothermia, hypoglycemia, tachycardia -patient was started on cefepime and vancomycin (05/23) -05/23/2025: Blood cultures have been obtained and pending -will deescalate once cultures are resulted (6) Thrombocytopenia: Code(s): D69.6 - Thrombocytopenia, unspecified Status: Acute Assessment and Plan: Thrombocytopenia can multifactorial, patient has a history of alcohol use - will continue to monitor (7) Transaminitis: Code(s): R74.01 - Elevation of levels of liver transaminase levels Status: Acute Assessment and Plan: Transaminitis secondary to alcohol use, hypovolemia and hemo concentrate -LFTs are trending -hepatitis panel is normal -05/24/25: RUQ ultrasound: No acute findings identified with suboptimal visualization due to bowel gas (8) Hypothermia: Qualifiers: Encounter type: initial encounter Qualified Code(s): T68.XXXA - Hypothermia, initial encounter Code(s): T68.XXXA - Hypothermia, initial encounter Status: Acute Assessment and Plan: Hypothermia likely due to hypo glycemia, found down in the basement, was down for unknown amount of time -patient was rewarmed to normal body temperature -continue to monitor Plan DVT prophylaxis: SCDs Stress ulcer prophylaxis: Not indicated Nutrition: Regular diet Code Status: Full code Critical Care Time Spent: 31 minutes Discuss with the mold swabber, okay to transfer to IMU status Due to a high probability of clinically significant, life threatening deterioration, the patient required my highest level of preparedness to intervene emergently and I personally spent this critical care time directly and personally managing the patient. This critical care time included obtaining a history; examining the patient; pulse oximetry; ordering and review of studies; arranging urgent treatment with development of a management plan; evaluation of patient's response to treatment; frequent reassessment; and discussions with other providers. It was exclusive of separately billable procedures and treating other patients and teaching time. Please see Assessment and Plan section and the rest of the note for further information on patient assessment and treatment This dictation may have been done utilizing a voice recognition system. Attempts have been made to correct errors. However, there may be uncorrected grammatical, spelling, and recognitions errors present. Subjective Date/time seen: 05/25/25 08:37 Interval history: Kenneth Drew is a 64 year old male with past medical history of alcohol abuse, cerebrovascular accident, chronic hyponatremia, B12 deficiency, history of thoracic compression fracture presented to the ED on 05/23/2025 via EMS from home. He was on a on found down in the basement with hypothermia, hypoglycemia, altered mental status. Body temperature 91? F and blood sugars were in the 40s. In the ER patient he was found to be hyponatremic with a sodium level of 102. Reason for consult: Severe hyponatremia, altered mental status, hypoglycemia hypothermia 05/25/2025: Patient seen and examined the ICU, is awake, alert, oriented x3. Denies any shortness of breath, chest pain, abdominal pain, nausea vomiting. Complains of some neck pain, Hemodynamically stable, on room air with adequate O2 sats. Urine output has been adequate, sodium level is a 112 this morning Review of Systems Review of Systems: ROS unobtainable: Yes unobtainable due to mental status Exam Narrative: General: Poor hygiene, ill-appearing, currently in no acute distress HEENT:? Bad dentition, pupils equal and reactive Neck:? Supple Respiratory:? Clear to auscultation bilaterally, decreased at bases, no wheezing, adequate air entry Cardiac:? S1-S2 is normal, regular rate and rhythm Abdomen:? Soft, nontender, nondistended, hypoactive bowel sounds Extremities:? No clubbing no cyanosis, small healing scars noted on the lower extremities bilaterally, palpable pedal pulses Neuro:? Patient is awake, alert, oriented x3, follows simple commands and answers to questions appropriately Skin:? Warm and dry Psych:? Normal mentation, flat affect Objective Data Vital Signs Vital Signs: Vital Signs - 24 hr 05/24/25 09:00 05/24/25 09:45 05/24/25 09:59 Temperature 97.7 F Pulse Rate 73 79 Pulse Rate [Monitor] Respiratory Rate 15 16 Blood Pressure 115/57 L 104/56 L Pulse Oximetry 93 92 91 Oxygen Delivery Room Air 05/24/25 10:00 05/24/25 11:00 05/24/25 11:00 Temperature 97.8 F 97.8 F Pulse Rate 75 70 70 Pulse Rate [Monitor] Respiratory Rate 16 18 Blood Pressure 102/56 L 102/56 L Pulse Oximetry 98 96 Oxygen Delivery 05/24/25 12:00 05/24/25 12:00 05/24/25 12:00 Temperature Pulse Rate 70 Pulse Rate [Monitor] Respiratory Rate Blood Pressure 115/63 Pulse Oximetry 98 Oxygen Delivery Room Air 05/24/25 12:00 05/24/25 13:00 05/24/25 14:00 Temperature 99.4 F 98.0 F Pulse Rate 75 76 74 Pulse Rate [Monitor] Respiratory Rate 21 H 15 Blood Pressure 147/58 H 113/79 Pulse Oximetry 95 96 Oxygen Delivery 05/24/25 14:00 05/24/25 15:00 05/24/25 16:00 Temperature 98.3 F 98.6 F Pulse Rate 74 75 Pulse Rate [Monitor] Respiratory Rate 14 14 Blood Pressure 109/60 114/63 114/63 Pulse Oximetry 95 96 Oxygen Delivery 05/24/25 16:00 05/24/25 16:00 05/24/25 16:00 Temperature 98.8 F Pulse Rate 76 76 Pulse Rate [Monitor] Respiratory Rate 14 Blood Pressure 143/61 H Pulse Oximetry 96 97 Oxygen Delivery Room Air 05/24/25 17:00 05/24/25 18:00 05/24/25 18:00 Temperature 99.2 F 99.1 F Pulse Rate 74 77 77 Pulse Rate [Monitor] Respiratory Rate 15 15 Blood Pressure 104/62 114/60 Pulse Oximetry 95 97 Oxygen Delivery 05/24/25 19:00 05/24/25 20:00 05/24/25 20:00 Temperature 99.0 F 98.9 F Pulse Rate 80 80 Pulse Rate [Monitor] 80 Respiratory Rate 17 19 Blood Pressure 119/59 L 99/67 L 99/67 L Pulse Oximetry 97 98 Oxygen Delivery 05/24/25 20:00 05/24/25 21:00 05/24/25 22:00 Temperature 99 F Pulse Rate 78 80 77 Pulse Rate [Monitor] Respiratory Rate 18 Blood Pressure 149/96 H Pulse Oximetry 98 Oxygen Delivery 05/24/25 22:19 05/24/25 23:00 05/25/25 00:00 Temperature 99.6 F 99.6 F Pulse Rate 77 79 Pulse Rate [Monitor] 75 Respiratory Rate 15 15 Blood Pressure 90/52 L 104/60 Pulse Oximetry 98 95 Oxygen Delivery 05/25/25 00:00 05/25/25 00:00 05/25/25 00:00 Temperature 99.5 F Pulse Rate 75 75 Pulse Rate [Monitor] Respiratory Rate 17 Blood Pressure 117/53 L Pulse Oximetry 96 Oxygen Delivery Room Air 05/25/25 01:00 05/25/25 02:00 05/25/25 02:00 Temperature 99.2 F 99.2 F Pulse Rate 87 79 79 Pulse Rate [Monitor] Respiratory Rate 18 19 Blood Pressure 123/74 150/65 H Pulse Oximetry 95 95 Oxygen Delivery 05/25/25 03:00 05/25/25 04:00 05/25/25 04:00 Temperature 99.2 F 99.4 F Pulse Rate 84 81 Pulse Rate [Monitor] 81 Respiratory Rate 16 15 Blood Pressure 126/81 111/57 L 111/57 L Pulse Oximetry 94 92 Oxygen Delivery 05/25/25 04:00 05/25/25 04:00 05/25/25 05:00 Temperature 99.7 F H Pulse Rate 80 87 Pulse Rate [Monitor] Respiratory Rate 17 Blood Pressure 122/57 L Pulse Oximetry 93 Oxygen Delivery Room Air 05/25/25 06:00 05/25/25 06:00 Temperature 99.9 F H Pulse Rate 90 91 Pulse Rate [Monitor] Respiratory Rate 17 Blood Pressure 116/64 Pulse Oximetry 94 Oxygen Delivery Intake/Output Intake/Output: Intake & Output 05/22/25 05/23/25 05/24/25 05/25/25 23:59 23:59 23:59 23:59 Intake Total 1108.8 2046.6 1677.5 Output Total 900 1900 650 Balance 208.8 146.6 1027.5 Meds/Results Medications: Active Medications Generic Name Dose Route Start Last Admin Trade Name Freq PRN Reason Stop Dose Admin Acetaminophen 650 mg 05/25/25 08:24 Acetaminophen 325 Mg Tablet PO Q6H PRN Mild Pain (1-3) or Fever Diazepam 5 - 10 mg 05/24/25 00:00 Diazepam Inj (*Crx) 10 Mg/2 Ml Syringe IV PUSH Q5M PRN CIWA > 15 Folic Acid 1 mg 05/24/25 09:00 05/25/25 08:05 Folic Acid 1 Mg/0.2 Ml Inj IV PUSH 1 mg DAILY MONICA Administration Cefepime HCl 2 gm/ Sodium 50 mls @ 100 mls/hr 05/24/25 11:00 05/25/25 00:39 Chloride IVPB Infused Q12H MONICA Infusion Sodium Chloride 1,000 mls @ 75 mls/hr 05/24/25 19:45 05/25/25 08:05 Normal Saline Iv IV CONT 75 mls/hr .[id number] MONICA Infusion Vancomycin HCl 1,000 mg/ 250 mls @ 250 mls/hr 05/25/25 00:00 05/25/25 02:23 Sodium Chloride IVPB Infused Q12H MONICA Infusion Sodium Chloride 120 mls @ 60 mls/hr 05/25/25 09:00 Sodium Chloride 3% IV CONT 05/25/25 10:59 .Q2H MONICA Lorazepam 2 mg 05/24/25 00:00 Lorazepam (*Crx) 1 Mg Tablet PO Q2H PRN CIWA>8, HR>100, or DBP>100 Sodium Phosphate 250 mg 05/25/25 09:00 05/25/25 08:04 Potassium Phos/Sodium Phos 250 Mg Tablet PO 05/25/25 17:01 250 mg BID MONICA Administration Thiamine HCl 100 mg 05/24/25 09:00 05/25/25 08:04 Thiamine Hcl 200 Mg/2 Ml Vial IV PUSH 100 mg DAILY MONICA Administration Radiology Results: ITS Impressions Cervical Spine CT 05/24/25 08:11 IMPRESSION: HEAD: 1. No acute intracranial findings. C-SPINE: 1. No acute fracture. Head CT 05/24/25 08:11 IMPRESSION: HEAD: 1. No acute intracranial findings. C-SPINE: 1. No acute fracture. Abdomen Ultrasound 05/24/25 14:24 IMPRESSION: 1. No acute findings identified but suboptimal visualization due to bowel gas. Labs Labs: Laboratory Results - last 24 hr 05/24/25 05/24/25 05/24/25 08:11 09:33 09:54 WBC RBC Hgb Hct MCV MCH MCHC RDW Plt Count MPV Immature Gran % (Auto) Neut % (Auto) Lymph % (Auto) [place] % (Auto) Eos % (Auto) Baso % (Auto) Lymph # (Auto) [place] # (Auto) Eos # (Auto) Baso # (Auto) Abs Immat Gran (auto) Absolute Neuts (auto) Absolute Nucleated RBC Nucleated RBC % Platelet Estimate Hypochromasia [place] Cells Schistocytes Sodium 110 L* 111 L* Potassium 3.4 Chloride 79 L Carbon Dioxide 24 Anion Gap 8 BUN 25 H Creatinine 0.82 Estim Creat Clear Calc 61 Estimated GFR > 60 Glucose 107 POC Capillary Glucose 119 H Serum Osmolality Cancelled Calcium 7.8 L Phosphorus Magnesium Total Bilirubin AST ALT Alkaline Phosphatase Total Creatine Kinase Total Protein Albumin Random Cortisol 20.70 Random Vancomycin Hepatitis A IgM Ab Negative Hep Bs Antigen Negative Hep B Core IgM Ab Negative Hepatitis C Ab Screen Negative 05/24/25 05/24/25 05/24/25 10:15 11:01 11:51 WBC 8.3 RBC 3.62 L Hgb 12.1 L Hct 33.1 L MCV 91.4 D MCH 33.4 MCHC 36.6 H RDW 12.3 Plt Count 139 L MPV 9.7 Immature Gran % (Auto) 0.6 H Neut % (Auto) 83.7 H Lymph % (Auto) 7.7 L [place] % (Auto) 7.9 Eos % (Auto) 0.1 Baso % (Auto) 0.0 L Lymph # (Auto) 0.64 L [place] # (Auto) 0.7 H Eos # (Auto) 0.0 Baso # (Auto) 0.0 Abs Immat Gran (auto) 0.05 H Absolute Neuts (auto) 6.9 H Absolute Nucleated RBC 0.040 H Nucleated RBC % 0.5 H Platelet Estimate Hypochromasia [place] Cells Schistocytes Sodium Potassium Chloride Carbon Dioxide Anion Gap BUN Creatinine Estim Creat Clear Calc Estimated GFR Glucose POC Capillary Glucose 114 H 121 H Serum Osmolality Calcium Phosphorus Magnesium Total Bilirubin AST ALT Alkaline Phosphatase Total Creatine Kinase Total Protein Albumin Random Cortisol Random Vancomycin Hepatitis A IgM Ab Hep Bs Antigen Hep B Core IgM Ab Hepatitis C Ab Screen 05/24/25 05/24/25 05/24/25 14:40 15:18 16:38 WBC RBC Hgb Hct MCV MCH MCHC RDW Plt Count MPV Immature Gran % (Auto) Neut % (Auto) Lymph % (Auto) [place] % (Auto) Eos % (Auto) Baso % (Auto) Lymph # (Auto) [place] # (Auto) Eos # (Auto) Baso # (Auto) Abs Immat Gran (auto) Absolute Neuts (auto) Absolute Nucleated RBC Nucleated RBC % Platelet Estimate Hypochromasia [place] Cells Schistocytes Sodium 109 L* Potassium 3.3 L Chloride 80 L Carbon Dioxide 25 Anion Gap 4 BUN 19 Creatinine 0.60 L Estim Creat Clear Calc 81 Estimated GFR > 60 Glucose 113 H POC Capillary Glucose 130 H 136 H Serum Osmolality Calcium 7.8 L Phosphorus Magnesium Total Bilirubin AST ALT Alkaline Phosphatase Total Creatine Kinase Total Protein Albumin Random Cortisol Random Vancomycin Hepatitis A IgM Ab Hep Bs Antigen Hep B Core IgM Ab Hepatitis C Ab Screen 05/24/25 05/24/25 05/24/25 18:05 19:18 19:48 WBC RBC Hgb Hct MCV MCH MCHC RDW Plt Count MPV Immature Gran % (Auto) Neut % (Auto) Lymph % (Auto) [place] % (Auto) Eos % (Auto) Baso % (Auto) Lymph # (Auto) [place] # (Auto) Eos # (Auto) Baso # (Auto) Abs Immat Gran (auto) Absolute Neuts (auto) Absolute Nucleated RBC Nucleated RBC % Platelet Estimate Hypochromasia [place] Cells Schistocytes Sodium 108 L* Potassium 3.2 L Chloride 78 L Carbon Dioxide 25 Anion Gap 5 BUN 15 Creatinine 0.53 L Estim Creat Clear Calc 91 Estimated GFR > 60 Glucose 110 POC Capillary Glucose 127 H 186 H Serum Osmolality Calcium 7.9 L Phosphorus Magnesium Total Bilirubin AST ALT Alkaline Phosphatase Total Creatine Kinase Total Protein Albumin Random Cortisol Random Vancomycin Hepatitis A IgM Ab Hep Bs Antigen Hep B Core IgM Ab Hepatitis C Ab Screen 05/24/25 05/25/25 05/25/25 22:57 01:51 06:00 WBC 5.8 RBC 3.13 L Hgb 10.4 L Hct 27.7 L MCV 88.5 MCH 33.2 MCHC 37.5 H RDW 12.1 Plt Count 112 L MPV 9.2 Immature Gran % (Auto) 0.5 Neut % (Auto) 72.5 Lymph % (Auto) 16.5 L [place] % (Auto) 10.2 H Eos % (Auto) 0.3 Baso % (Auto) 0.0 L Lymph # (Auto) 0.95 [place] # (Auto) 0.6 Eos # (Auto) 0.0 Baso # (Auto) 0.0 Abs Immat Gran (auto) 0.03 Absolute Neuts (auto) 4.2 Absolute Nucleated RBC 0.000 Nucleated RBC % 0.0 Platelet Estimate Slightly decreased Hypochromasia 1+ [place] Cells Occasional Schistocytes None seen Sodium 110 L* 112 L* 112 L* Potassium 2.9 L 3.7 3.5 Chloride 79 L 84 L 87 L Carbon Dioxide 24 23 24 Anion Gap 7 5 1 L BUN 14 13 10 Creatinine 0.56 L 0.53 L 0.49 L Estim Creat Clear Calc 86 91 103 Estimated GFR > 60 > 60 > 60 Glucose 88 107 107 POC Capillary Glucose Serum Osmolality Calcium 7.7 L 7.5 L 7.3 L Phosphorus 1.7 L Magnesium 2.3 Total Bilirubin 1.9 H AST 155 H ALT 50 Alkaline Phosphatase 63 Total Creatine Kinase 999 H Total Protein 5.7 L Albumin 2.8 L Random Cortisol Random Vancomycin < 5.0 L Hepatitis A IgM Ab Hep Bs Antigen Hep B Core IgM Ab Hepatitis C Ab Screen 05/25/25 08:06 WBC RBC Hgb Hct MCV MCH MCHC RDW Plt Count MPV Immature Gran % (Auto) Neut % (Auto) Lymph % (Auto) [place] % (Auto) Eos % (Auto) Baso % (Auto) Lymph # (Auto) [place] # (Auto) Eos # (Auto) Baso # (Auto) Abs Immat Gran (auto) Absolute Neuts (auto) Absolute Nucleated RBC Nucleated RBC % Platelet Estimate Hypochromasia [place] Cells Schistocytes Sodium Potassium Chloride Carbon Dioxide Anion Gap BUN Creatinine Estim Creat Clear Calc Estimated GFR Glucose POC Capillary Glucose 100 Serum Osmolality Calcium Phosphorus Magnesium Total Bilirubin AST ALT Alkaline Phosphatase Total Creatine Kinase Total Protein Albumin Random Cortisol Random Vancomycin Hepatitis A IgM Ab Hep Bs Antigen Hep B Core IgM Ab Hepatitis C Ab Screen Quality VTE Prophylaxis VTE prophylaxis: mechanical ordered
[2025-05-25] MEDS: ACETAMINOPHEN 325 MG TABLET 650 MG PO (08:46)
--- NOTE | 2025-05-25 09:13 | PM.PNNEP ---
Progress Note: A&P Assessment and Plan (1) Hyponatremia: Code(s): E87.1 - Hypo-osmolality and hyponatremia Status: Acute Assessment and Plan: The patient has hyponatremia. He is in the hospital about a year ago with hyponatremia as well just about this severe. It gradually improved with supportive care. We do not have any labs between then and now. Cortisol level is okay. TSH is okay. CT scan of the brain is okay. CT chest abdomen pelvis reading is still pending no history of cancer on no medications as an outpatient most likely low sodium is due to dehydration and alcohol consumption. The patient presented with a sodium of 102. This mildly overcorrected to 111 so 1 dose of DDAVP was given. This brought it down to 108. At that point the D5W was changed to normal saline and the sodium has come up to 110 overnight and then 112 this morning. I considered using 3% saline in this sodium up a little more quickly but at this pace the sodium level should come up properly over the next 24hours hopefully. Over the last 36hours the sodium has come up from 102 to 112 which is the right pace. So will use 112 as the baseline for the next 24hours. discussion with Dr. Patel (2) SIRS (systemic inflammatory response syndrome): Code(s): R65.10 - Systemic inflammatory response syndrome (SIRS) of non-infectious origin without acute organ dysfunction Status: Acute Assessment and Plan: The patient is on antibiotics for this. (3) Anemia: Qualifiers: Anemia type: unspecified type Qualified Code(s): D64.9 - Anemia, unspecified Code(s): D64.9 - Anemia, unspecified Status: Acute Assessment and Plan: Hemoglobin is a bit low. It will probably fall with hydration. (4) Thrombocytopenia: Code(s): D69.6 - Thrombocytopenia, unspecified Status: Acute Assessment and Plan: Platelet count is low, possibly due to the alcohol effect. (5) Rhabdomyolysis: Qualifiers: Rhabdomyolysis type: non-traumatic Qualified Code(s): M62.82 - Rhabdomyolysis Code(s): M62.82 - Rhabdomyolysis Status: Acute Assessment and Plan: The patient's CK is elevated because he was on his basement floor probably for at least 24-48 hours. The CK has come down with the hydration. Today it is down to 999 (6) Hypoglycemia: Code(s): E16.2 - Hypoglycemia, unspecified Status: Acute Assessment and Plan: His sugars were very low at the scene. I suspect the mental status may be because of the hypoglycemia (7) Acute kidney failure: Qualifiers: Acute renal failure type: unspecified Qualified Code(s): N17.9 - Acute kidney failure, unspecified Code(s): N17.9 - Acute kidney failure, unspecified Status: Acute Assessment and Plan: his creatinine was 3 on admission . Urine sodium is low. He looks dry on exam. This is most likely due to severe dehydration. his creatinine has improved with hydration (8) Alcohol abuse: Code(s): F10.10 - Alcohol abuse, uncomplicated Status: Acute Assessment and Plan: the patient continues to over use alcohol. we discussed that alcohol is why he is falling, and responsible for his current hospitalization. He should take steps to try to stop drinking if possible. (9) Frequent falls: Code(s): R29.6 - Repeated falls Status: Acute Assessment and Plan: The patient has fallen several times in presentations to various ER and hospital visits. (10) Altered mental status: Code(s): R41.82 - Altered mental status, unspecified Status: Acute Assessment and Plan: Change in mental status On admission. This is much better today. Etiologies include hyponatremia, hypoglycemia, SIRS, but no real evidence of a seizure. At this point his sugars are improved, sodium level is improving, and he is getting antibiotics and supportive care. Subjective Date/time seen: 05/25/25 09:13 Interval history: patient is awake today. Eating some breakfast. Review of Systems Cardiovascular: Cardiovascular: Reports no additional cardiovascular complaints Respiratory: Respiratory: Reports no additional respiratory complaints Gastrointestinal: Gastrointestinal: Reports no additional gastrointestinal complaints Genitourinary: Genitourinary: Reports no additional male genitourinary complaints Exam Narrative: WDWN in NAD skin no rash head ncat lungs clear cor reg no rub abd BS+ nontender and soft ext no edema. Objective Data Vital Signs Vital Signs: Vital Signs - 24 hr 05/24/25 09:45 05/24/25 09:59 05/24/25 10:00 Temperature Pulse Rate 79 75 Pulse Rate [Monitor] Respiratory Rate 16 Blood Pressure 104/56 L Pulse Oximetry 92 91 Oxygen Delivery Room Air 05/24/25 11:00 05/24/25 11:00 05/24/25 12:00 Temperature 97.8 F 97.8 F Pulse Rate 70 70 Pulse Rate [Monitor] Respiratory Rate 16 18 Blood Pressure 102/56 L 102/56 L 115/63 Pulse Oximetry 98 96 Oxygen Delivery 05/24/25 12:00 05/24/25 12:00 05/24/25 12:00 Temperature 99.4 F Pulse Rate 70 75 Pulse Rate [Monitor] Respiratory Rate 21 H Blood Pressure 147/58 H Pulse Oximetry 98 95 Oxygen Delivery Room Air 05/24/25 13:00 05/24/25 14:00 05/24/25 14:00 Temperature 98.0 F 98.3 F Pulse Rate 76 74 74 Pulse Rate [Monitor] Respiratory Rate 15 14 Blood Pressure 113/79 109/60 Pulse Oximetry 96 95 Oxygen Delivery 05/24/25 15:00 05/24/25 16:00 05/24/25 16:00 Temperature 98.6 F Pulse Rate 75 Pulse Rate [Monitor] Respiratory Rate 14 Blood Pressure 114/63 114/63 Pulse Oximetry 96 96 Oxygen Delivery Room Air 05/24/25 16:00 05/24/25 16:00 05/24/25 17:00 Temperature 98.8 F 99.2 F Pulse Rate 76 76 74 Pulse Rate [Monitor] Respiratory Rate 14 15 Blood Pressure 143/61 H 104/62 Pulse Oximetry 97 95 Oxygen Delivery 05/24/25 18:00 05/24/25 18:00 05/24/25 19:00 Temperature 99.1 F 99.0 F Pulse Rate 77 77 80 Pulse Rate [Monitor] Respiratory Rate 15 17 Blood Pressure 114/60 119/59 L Pulse Oximetry 97 97 Oxygen Delivery 05/24/25 20:00 05/24/25 20:00 05/24/25 20:00 Temperature 98.9 F Pulse Rate 80 78 Pulse Rate [Monitor] 80 Respiratory Rate 19 Blood Pressure 99/67 L 99/67 L Pulse Oximetry 98 Oxygen Delivery 05/24/25 21:00 05/24/25 22:00 05/24/25 22:19 Temperature 99 F 99.6 F Pulse Rate 80 77 77 Pulse Rate [Monitor] Respiratory Rate 18 15 Blood Pressure 149/96 H 90/52 L Pulse Oximetry 98 98 Oxygen Delivery 05/24/25 23:00 05/25/25 00:00 05/25/25 00:00 Temperature 99.6 F Pulse Rate 79 Pulse Rate [Monitor] 75 Respiratory Rate 15 Blood Pressure 104/60 Pulse Oximetry 95 Oxygen Delivery Room Air 05/25/25 00:00 05/25/25 00:00 05/25/25 01:00 Temperature 99.5 F 99.2 F Pulse Rate 75 75 87 Pulse Rate [Monitor] Respiratory Rate 17 18 Blood Pressure 117/53 L 123/74 Pulse Oximetry 96 95 Oxygen Delivery 05/25/25 02:00 05/25/25 02:00 05/25/25 03:00 Temperature 99.2 F 99.2 F Pulse Rate 79 79 84 Pulse Rate [Monitor] Respiratory Rate 19 16 Blood Pressure 150/65 H 126/81 Pulse Oximetry 95 94 Oxygen Delivery 05/25/25 04:00 05/25/25 04:00 05/25/25 04:00 Temperature 99.4 F Pulse Rate 81 Pulse Rate [Monitor] 81 Respiratory Rate 15 Blood Pressure 111/57 L 111/57 L Pulse Oximetry 92 Oxygen Delivery Room Air 05/25/25 04:00 05/25/25 05:00 05/25/25 06:00 Temperature 99.7 F H Pulse Rate 80 87 90 Pulse Rate [Monitor] Respiratory Rate 17 Blood Pressure 122/57 L Pulse Oximetry 93 Oxygen Delivery 05/25/25 06:00 Temperature 99.9 F H Pulse Rate 91 Pulse Rate [Monitor] Respiratory Rate 17 Blood Pressure 116/64 Pulse Oximetry 94 Oxygen Delivery Intake/Output Intake/Output: Intake & Output 05/22/25 05/23/25 05/24/25 05/25/25 23:59 23:59 23:59 23:59 Intake Total 1108.8 2046.6 1677.5 Output Total 900 1900 650 Balance 208.8 146.6 1027.5 Meds/Results Medications: Active Medications Generic Name Dose Route Start Last Admin Trade Name Freq PRN Reason Stop Dose Admin Acetaminophen 650 mg 05/25/25 08:24 05/25/25 08:46 Acetaminophen 325 Mg Tablet PO 650 mg Q6H PRN Administration Mild Pain (1-3) or Fever Diazepam 5 - 10 mg 05/24/25 00:00 Diazepam Inj (*Crx) 10 Mg/2 Ml Syringe IV PUSH Q5M PRN CIWA > 15 Folic Acid 1 mg 05/24/25 09:00 05/25/25 08:05 Folic Acid 1 Mg/0.2 Ml Inj IV PUSH 1 mg DAILY MONICA Administration Cefepime HCl 2 gm/ Sodium 50 mls @ 100 mls/hr 05/24/25 11:00 05/25/25 00:39 Chloride IVPB Infused Q12H MONICA Infusion Sodium Chloride 1,000 mls @ 75 mls/hr 05/24/25 19:45 05/25/25 08:05 Normal Saline Iv IV CONT 75 mls/hr .[id number] MONICA Infusion Vancomycin HCl 1,000 mg/ 250 mls @ 250 mls/hr 05/25/25 00:00 05/25/25 02:23 Sodium Chloride IVPB Infused Q12H MONICA Infusion Lorazepam 2 mg 05/24/25 00:00 Lorazepam (*Crx) 1 Mg Tablet PO Q2H PRN CIWA>8, HR>100, or DBP>100 Sodium Phosphate 250 mg 05/25/25 09:00 05/25/25 08:04 Potassium Phos/Sodium Phos 250 Mg Tablet PO 05/25/25 17:01 250 mg BID MONICA Administration Thiamine HCl 100 mg 05/24/25 09:00 05/25/25 08:04 Thiamine Hcl 200 Mg/2 Ml Vial IV PUSH 100 mg DAILY MONICA Administration Radiology Results: ITS Impressions Cervical Spine CT 05/24/25 08:11 IMPRESSION: HEAD: 1. No acute intracranial findings. C-SPINE: 1. No acute fracture. Head CT 05/24/25 08:11 IMPRESSION: HEAD: 1. No acute intracranial findings. C-SPINE: 1. No acute fracture. Abdomen Ultrasound 05/24/25 14:24 IMPRESSION: 1. No acute findings identified but suboptimal visualization due to bowel gas. Labs Labs: Laboratory Results - last 24 hr 05/24/25 05/24/25 05/24/25 08:11 09:33 09:54 WBC RBC Hgb Hct MCV MCH MCHC RDW Plt Count MPV Immature Gran % (Auto) Neut % (Auto) Lymph % (Auto) [place] % (Auto) Eos % (Auto) Baso % (Auto) Lymph # (Auto) [place] # (Auto) Eos # (Auto) Baso # (Auto) Abs Immat Gran (auto) Absolute Neuts (auto) Absolute Nucleated RBC Band Neutrophils % Nucleated RBC % Platelet Estimate Hypochromasia Carey Cells Schistocytes Sodium 111 L* Potassium 3.4 Chloride 79 L Carbon Dioxide 24 Anion Gap 8 BUN 25 H Creatinine 0.82 Estim Creat Clear Calc 61 Estimated GFR > 60 Glucose 107 POC Capillary Glucose 119 H Serum Osmolality Cancelled Calcium 7.8 L Phosphorus Magnesium Total Bilirubin AST ALT Alkaline Phosphatase Total Creatine Kinase Total Protein Albumin Random Cortisol 20.70 Random Vancomycin Hepatitis A IgM Ab Negative Hep Bs Antigen Negative Hep B Core IgM Ab Negative Hepatitis C Ab Screen Negative 05/24/25 05/24/25 05/24/25 10:15 11:01 11:51 WBC 8.3 RBC 3.62 L Hgb 12.1 L Hct 33.1 L MCV 91.4 D MCH 33.4 MCHC 36.6 H RDW 12.3 Plt Count 139 L MPV 9.7 Immature Gran % (Auto) 0.6 H Neut % (Auto) 83.7 H Lymph % (Auto) 7.7 L [place] % (Auto) 7.9 Eos % (Auto) 0.1 Baso % (Auto) 0.0 L Lymph # (Auto) 0.64 L [place] # (Auto) 0.7 H Eos # (Auto) 0.0 Baso # (Auto) 0.0 Abs Immat Gran (auto) 0.05 H Absolute Neuts (auto) 6.9 H Absolute Nucleated RBC 0.040 H Band Neutrophils % Nucleated RBC % 0.5 H Platelet Estimate Hypochromasia [place] Cells Schistocytes Sodium Potassium Chloride Carbon Dioxide Anion Gap BUN Creatinine Estim Creat Clear Calc Estimated GFR Glucose POC Capillary Glucose 114 H 121 H Serum Osmolality Calcium Phosphorus Magnesium Total Bilirubin AST ALT Alkaline Phosphatase Total Creatine Kinase Total Protein Albumin Random Cortisol Random Vancomycin Hepatitis A IgM Ab Hep Bs Antigen Hep B Core IgM Ab Hepatitis C Ab Screen 05/24/25 05/24/25 05/24/25 14:40 15:18 16:38 WBC RBC Hgb Hct MCV MCH MCHC RDW Plt Count MPV Immature Gran % (Auto) Neut % (Auto) Lymph % (Auto) [place] % (Auto) Eos % (Auto) Baso % (Auto) Lymph # (Auto) [place] # (Auto) Eos # (Auto) Baso # (Auto) Abs Immat Gran (auto) Absolute Neuts (auto) Absolute Nucleated RBC Band Neutrophils % Nucleated RBC % Platelet Estimate Hypochromasia Carey Cells Schistocytes Sodium 109 L* Potassium 3.3 L Chloride 80 L Carbon Dioxide 25 Anion Gap 4 BUN 19 Creatinine 0.60 L Estim Creat Clear Calc 81 Estimated GFR > 60 Glucose 113 H POC Capillary Glucose 130 H 136 H Serum Osmolality Calcium 7.8 L Phosphorus Magnesium Total Bilirubin AST ALT Alkaline Phosphatase Total Creatine Kinase Total Protein Albumin Random Cortisol Random Vancomycin Hepatitis A IgM Ab Hep Bs Antigen Hep B Core IgM Ab Hepatitis C Ab Screen 05/24/25 05/24/25 05/24/25 18:05 19:18 19:48 WBC RBC Hgb Hct MCV MCH MCHC RDW Plt Count MPV Immature Gran % (Auto) Neut % (Auto) Lymph % (Auto) [place] % (Auto) Eos % (Auto) Baso % (Auto) Lymph # (Auto) [place] # (Auto) Eos # (Auto) Baso # (Auto) Abs Immat Gran (auto) Absolute Neuts (auto) Absolute Nucleated RBC Band Neutrophils % Nucleated RBC % Platelet Estimate Hypochromasia [place] Cells Schistocytes Sodium 108 L* Potassium 3.2 L Chloride 78 L Carbon Dioxide 25 Anion Gap 5 BUN 15 Creatinine 0.53 L Estim Creat Clear Calc 91 Estimated GFR > 60 Glucose 110 POC Capillary Glucose 127 H 186 H Serum Osmolality Calcium 7.9 L Phosphorus Magnesium Total Bilirubin AST ALT Alkaline Phosphatase Total Creatine Kinase Total Protein Albumin Random Cortisol Random Vancomycin Hepatitis A IgM Ab Hep Bs Antigen Hep B Core IgM Ab Hepatitis C Ab Screen 05/24/25 05/25/25 05/25/25 22:57 01:51 06:00 WBC 5.8 RBC 3.13 L Hgb 10.4 L Hct 27.7 L MCV 88.5 MCH 33.2 MCHC 37.5 H RDW 12.1 Plt Count 112 L MPV 9.2 Immature Gran % (Auto) 0.5 Neut % (Auto) 72.5 Lymph % (Auto) 16.5 L [place] % (Auto) 10.2 H Eos % (Auto) 0.3 Baso % (Auto) 0.0 L Lymph # (Auto) 0.95 [place] # (Auto) 0.6 Eos # (Auto) 0.0 Baso # (Auto) 0.0 Abs Immat Gran (auto) 0.03 Absolute Neuts (auto) 4.2 Absolute Nucleated RBC 0.000 Band Neutrophils % Not Reportable Nucleated RBC % 0.0 Platelet Estimate Slightly decreased Hypochromasia 1+ [place] Cells Occasional Schistocytes None seen Sodium 110 L* 112 L* 112 L* Potassium 2.9 L 3.7 3.5 Chloride 79 L 84 L 87 L Carbon Dioxide 24 23 24 Anion Gap 7 5 1 L BUN 14 13 10 Creatinine 0.56 L 0.53 L 0.49 L Estim Creat Clear Calc 86 91 103 Estimated GFR > 60 > 60 > 60 Glucose 88 107 107 POC Capillary Glucose Serum Osmolality Calcium 7.7 L 7.5 L 7.3 L Phosphorus 1.7 L Magnesium 2.3 Total Bilirubin 1.9 H AST 155 H ALT 50 Alkaline Phosphatase 63 Total Creatine Kinase 999 H Total Protein 5.7 L Albumin 2.8 L Random Cortisol Random Vancomycin < 5.0 L Hepatitis A IgM Ab Hep Bs Antigen Hep B Core IgM Ab Hepatitis C Ab Screen 05/25/25 08:06 WBC RBC Hgb Hct MCV MCH MCHC RDW Plt Count MPV Immature Gran % (Auto) Neut % (Auto) Lymph % (Auto) [place] % (Auto) Eos % (Auto) Baso % (Auto) Lymph # (Auto) [place] # (Auto) Eos # (Auto) Baso # (Auto) Abs Immat Gran (auto) Absolute Neuts (auto) Absolute Nucleated RBC Band Neutrophils % Nucleated RBC % Platelet Estimate Hypochromasia [place] Cells Schistocytes Sodium Potassium Chloride Carbon Dioxide Anion Gap BUN Creatinine Estim Creat Clear Calc Estimated GFR Glucose POC Capillary Glucose 100 Serum Osmolality Calcium Phosphorus Magnesium Total Bilirubin AST ALT Alkaline Phosphatase Total Creatine Kinase Total Protein Albumin Random Cortisol Random Vancomycin Hepatitis A IgM Ab Hep Bs Antigen Hep B Core IgM Ab Hepatitis C Ab Screen
[2025-05-25] MEDS: SODIUM CHLORIDE 0.9% IV 1,000 ML 75 ML IV CONT (10:35)
[2025-05-25] MEDS: CEFEPIME 2 GM in SODIUM CHLORIDE 0.9% IV 50 ML 100 ML IVPB ×2 (10:38→22:30)
[2025-05-25 13:02] LABS: Sodium 116 mmol/L (137-145)
--- NOTE | 2025-05-25 13:45 | PC.NURSE ---
This patient, Kenneth Drew, was received from ICU4 on 05/25/25 at 1345. Patient/family oriented to unit policies and routines
[2025-05-25] MEDS: DESMOPRESSIN ACETATE 4 MCG/ML AMP 2 MCG IV PUSH (15:12)
[2025-05-25 17:40] LABS: Anion Gap 4 mmol/L (4-12); Blood Urea Nitrogen 8 mg/dL (9-20); Calcium 7.2 mg/dL (8.4-10.2); Carbon Dioxide 23 mmol/L (22-30); Chloride 88 mmol/L (98-107); Estimated CRCL calculation 101 ml/min; Estimated Glomerular Filt Rate > 60; Glucose 92 mg/dL (65-110); Potassium 3.1 mmol/L (3.4-5.0); Sodium 115 mmol/L (137-145)
--- NOTE | 2025-05-25 17:56 | PC.NURSE ---
Detailed message left with Dr. Callahan reporting Na of 115.
[2025-05-25] MEDS: SODIUM CHLORIDE 1 GM TABLET PO (18:25)
--- NOTE | 2025-05-25 18:37 | PC.NURSE ---
Dr. Callahan notified of Na of 155 and K of 3.1. New orders noted for Na level at 2300.
[2025-05-25 22:53] LABS: Sodium 116 mmol/L (137-145)
[2025-05-26] VITALS (14 sets, daily range): BP systolic 111–148; BP diastolic 59–92; PULSE 70–83; RESP 14–20; TEMP 36.4–37.5; O2SAT 97–100
[2025-05-26] MEDS: VANCOMYCIN HCL 1,000 MG in SODIUM CHLORIDE 0.9% IV 250 ML 250 MG IVPB (00:04)
[2025-05-26 04:54] LABS: Hematocrit 27.7 % (42.0-52.0); Hemoglobin 10.1 g/dL (14.0-18.0); Immature Granulocyte Percent A 0.5 % (0-0.5); Immature Platelet Fraction Pct 5.0 % (0.9-11.2); Lymphocytes Absolute Auto 1.13 K/mm3 (0.9-3.2); Mean Corpuscular HGB Conc 36.5 g/dl (32-36); Mean Corpuscular Hemoglobin 33.8 pg (26-34); Mean Corpuscular Volume 92.6 fl (80-100); Nucleated Red Blood Cells Absolute Auto 0.000 K/mm3 (0.0-0.012); Nucleated Red Blood Cells Perc 0.0 % (0.0-0.2); Platelet Count Result 133 k/mm3 (150-375); Red Blood Count 2.99 M/mm3 (4.6-6.20); White Blood Count 4.4 K/mm3 (4.5-10.0)
[2025-05-26 05:04] LABS: Alveolar/Arterial O2 Gradient 22.5 mmHg; Carboxyhemoglobin 0.8 % THb (0-2.0); Fractional Inspired Oxygen 21 %; HCO3 ABG 23.9 mEq/l (22.0-26.0); Methemoglobin ABG 0.3 %THb (0-1.5); Oxygen Content ABG 15.3 %vol (16.0-22.0); Oxygen Saturation ABG 97.7 % (95.0-100.0); PCO2 ABG 30.1 mmHg (35.0-45.0); PO2 ABG 91.2 mmHg (80.0-100.0); PO2 FiO2 Ratio Arterial Blood 4.34 %; Reduced Hemoglobin 2.5 %THb (0-5.0)
[2025-05-26 05:12] LABS: Modified Allen's Test Pass; Site Drawn RIGHT RADIAL
[2025-05-26 05:18] LABS: Alanine Aminotransferase 68 U/L (6-50); Albumin Level 2.8 g/dL (3.5-5.1); Alkaline Phosphatase 66 U/L (38-126); Anion Gap 4 mmol/L (4-12); Aspartate Amino Transferase 157 U/L (17-59); Bilirubin,Total 1.7 mg/dL (0.2-1.3); Blood Urea Nitrogen 5 mg/dL (9-20); Calcium 7.4 mg/dL (8.4-10.2); Carbon Dioxide 28 mmol/L (22-30); Chloride 85 mmol/L (98-107); Estimated CRCL calculation 116 ml/min; Estimated Glomerular Filt Rate > 60; Glucose 87 mg/dL (65-110); Magnesium 2.1 mg/dL (1.6-2.3); Potassium 2.7 mmol/L (3.4-5.0); Sodium 117 mmol/L (137-145); Total Protein 5.6 g/dL (6.3-8.2)
[2025-05-26] MEDS: FOLIC ACID 1 MG/0.2 ML INJ IV PUSH (09:09)
[2025-05-26] MEDS: SODIUM CHLORIDE 1 GM TABLET PO ×2 (09:10→16:56)
[2025-05-26] MEDS: THIAMINE HCL 200 MG/2 ML VIAL 100 MG IV PUSH (09:13)
[2025-05-26] MEDS: POTASSIUM CHLORIDE 20 MEQ PACKET (FOR LIQUID) 40 MEQ PO (09:38)
[2025-05-26] MEDS: POTASSIUM CHLORIDE INJ 40 MEQ in SODIUM CHLORIDE 0.9% IV 500 ML 130 MEQ IVPB (11:12)
--- NOTE | 2025-05-26 11:45 | P.PNNP_ITS ---
Progress Note: A&P Assessment and Plan (1) Hyponatremia: Code(s): E87.1 - Hypo-osmolality and hyponatremia Status: Acute Assessment and Plan: * slow improvement noted * severe hyponatremia noted on presentation - sodium 102mmol/L * suspect a chronic component * labs labs are from June 2024 - discharge creatinine of 128mmol/L * slight rapid increase in sodium (102 --> 111 on 05/24) noted * due to this rapid correction, given DDAVP and D5W IVFs which slowed rate of rise * goal of therapy is a rate of change of 6 - 8mmol/L in 24 hours -- this has been achieved * evaluation to date (this hospitalization) noted: * TSH okay * cortisol 20.7 indicating adequate adrenal function * CT of brain negative * CT C/A/P negative * urine sodium is low * SPEP negative for paraproteinemia * serum/urine osmolality pending * suspected multifactorial etiology: * chronic alcohol intake * pre-renal factors * on fluid restriction plus salt tablets * consider adding lasix * consider trial of 3% saline * follow trend of sodium (2) Acute kidney failure: Qualifiers: Acute renal failure type: unspecified Qualified Code(s): N17.9 - Acute kidney failure, unspecified Code(s): N17.9 - Acute kidney failure, unspecified Status: Acute Assessment and Plan: * resolved * due to volume depletion/dehydration (3) SIRS (systemic inflammatory response syndrome): Code(s): R65.10 - Systemic inflammatory response syndrome (SIRS) of non-infectious origin without acute organ dysfunction Status: Acute Assessment and Plan: * as suspected by elevated WBC, hypothermia, hypoglycemia, and tachycardia on admission * follow culture data: * blood cultures (from 05/23) - Staphloccus Aureus * on antibiotics * follow repeat cultures (4) Rhabdomyolysis: Qualifiers: Rhabdomyolysis type: non-traumatic Qualified Code(s): M62.82 - Rhabdomyolysis Code(s): M62.82 - Rhabdomyolysis Status: Acute Assessment and Plan: * improving * elevated CPK noted on admission * down trending * secondary to being down on the ground for around 24 - 48 hours (5) Anemia: Qualifiers: Anemia type: unspecified type Qualified Code(s): D64.9 - Anemia, unspecified Code(s): D64.9 - Anemia, unspecified Status: Acute Assessment and Plan: * due to acute illness and possible ROGELIO * follow trend of H/H (6) Hypoglycemia: Code(s): E16.2 - Hypoglycemia, unspecified Status: Acute Assessment and Plan: * resolved * was on dextrose IVFs * eating and drinking adequately * follow trend of blood sugars (7) Altered mental status: Code(s): R41.82 - Altered mental status, unspecified Status: Acute Assessment and Plan: * clinical improvement * presumably due to low sodium, previous hypoglycemia, and possible SIRS * continue supportive care (8) Alcohol abuse: Code(s): F10.10 - Alcohol abuse, uncomplicated Status: Acute Assessment and Plan: * known history * on thiamine and folate * monitor for withdrawal Will continue to follow. L Subjective Date/time seen: 05/26/25 11:45 Interval history: Follow-up for acute on chronic hyponatremia. Chart reviewed -- assuming care from Dr. Callahan; sodium continue to improve with current interventions/therapy to date; no apparent distress noted at the time of my visit; transferred out of the ICU yesterday; no events overnight or earlier this morning. Exam 2 Narrative: General: WD/WN male in NAD Heart: normal S1 and S2; no rub Lungs: clear to auscultation Abdomen: soft, nontender, nondistended, positive bowel sounds Extremities: no cyanosis or clubbing; no edema Skin: warm and dry Objective Data Vital Signs Vital Signs: Vital Signs Temp Pulse Pulse Resp BP Pulse Ox O2 Del Method 05/26/25 11:45 98.3 F 76 18 132/79 98 05/26/25 10:00 75 05/26/25 08:00 74 05/26/25 08:00 74 05/26/25 08:00 98 F 70 16 121/59 L 100 05/26/25 06:00 72 05/26/25 04:00 98.0 F 74 14 114/68 100 05/26/25 04:00 73 05/26/25 04:00 73 05/26/25 04:00 Room Air 05/26/25 02:00 74 05/26/25 00:00 79 05/26/25 00:00 78 05/26/25 00:00 Room Air 05/26/25 00:00 99.5 F 81 14 111/63 97 05/25/25 22:00 78 05/25/25 20:00 81 05/25/25 20:00 Room Air 05/25/25 20:00 82 05/25/25 20:00 99.2 F 83 16 104/67 100 05/25/25 18:00 86 Intake/Output Intake/Output: Intake & Output 05/23/25 05/24/25 05/25/25 05/26/25 23:59 23:59 23:59 23:59 Intake Total 1108.8 2046.6 2810.0 1617.5 Output Total 900 1900 1450 1950 Balance 208.8 146.6 1360.0 -332.5 Meds/Results Medications: Active Medications Generic Name Dose Route Start Last Admin Trade Name Freq PRN Reason Stop Dose Admin Acetaminophen 650 mg 05/25/25 08:24 05/25/25 08:46 Acetaminophen 325 Mg Tablet PO 650 mg Q6H PRN Administration Mild Pain (1-3) or Fever Diazepam 5 - 10 mg 05/24/25 00:00 Diazepam Inj (*Crx) 10 Mg/2 Ml Syringe IV PUSH Q5M PRN CIWA > 15 Folic Acid 1 mg 05/24/25 09:00 05/26/25 09:09 Folic Acid 1 Mg/0.2 Ml Inj IV PUSH 1 mg DAILY MONICA Administration Cefepime HCl 2 gm/ Sodium 50 mls @ 100 mls/hr 05/24/25 11:00 05/26/25 13:42 Chloride IVPB Infused Q12H MONICA Infusion Vancomycin HCl 1,250 mg in 250 mls @ 166.667 mls/hr 05/26/25 12:00 05/26/25 16:29 Vancomycin 1,250 Mg/Ns 250 Ml IVPB Infused Q12H MONICA Infusion Lorazepam 2 mg 05/24/25 00:00 Lorazepam (*Crx) 1 Mg Tablet PO Q2H PRN CIWA>8, HR>100, or DBP>100 Sodium Chloride 1 gm 05/25/25 17:00 05/26/25 16:56 Sodium Chloride 1 Gm Tablet PO 1 gm BID MONICA Administration Thiamine HCl 100 mg 05/24/25 09:00 05/26/25 09:13 Thiamine Hcl 200 Mg/2 Ml Vial IV PUSH 100 mg DAILY MONICA Administration Radiology Results: ITS Impressions Cervical Spine CT 05/24/25 08:11 IMPRESSION: HEAD: 1. No acute intracranial findings. C-SPINE: 1. No acute fracture. Head CT 05/24/25 08:11 IMPRESSION: HEAD: 1. No acute intracranial findings. C-SPINE: 1. No acute fracture. Abdomen Ultrasound 05/24/25 14:24 IMPRESSION: 1. No acute findings identified but suboptimal visualization due to bowel gas. Chest/Abdomen/Pelvis CT 05/25/25 10:42 IMPRESSION: 1. No acute posttraumatic findings. Labs Labs: Laboratory Tests 05/26/25 03:56 05/26/25 3:56 Calcium 7.4 L Phosphorus 2.5 Magnesium 2.1 Total Bilirubin 1.7 H AST 157 H ALT 68 H Alkaline Phosphatase 66 Total Protein 5.6 L Albumin 2.8 L Microbiology 05/23/25 19:22 Blood Blood Culture - Preliminary Staphylococcus aureus
[2025-05-26] MEDS: CEFEPIME 2 GM in SODIUM CHLORIDE 0.9% IV 50 ML 100 ML IVPB ×2 (13:12→23:01)
[2025-05-26] MEDS: SODIUM CHLORIDE 0.9% IV 250 ML 75 ML (13:15)
[2025-05-26 13:55] LABS: Albumin Level 2.8 g/dL (3.5-5.1); Anion Gap 0 mmol/L (4-12); Blood Urea Nitrogen 5 mg/dL (9-20); Calcium 7.5 mg/dL (8.4-10.2); Carbon Dioxide 29 mmol/L (22-30); Chloride 87 mmol/L (98-107); Estimated CRCL calculation 98 ml/min; Estimated Glomerular Filt Rate > 60; Glucose 98 mg/dL (65-110); Potassium 3.7 mmol/L (3.4-5.0); Sodium 116 mmol/L (137-145)
[2025-05-26] MEDS: VANCOMYCIN 1,250 MG/NS 250 ML 1,250 MG/250 ML BAG 166.67 MG IVPB (14:59)
[2025-05-26 15:08] LABS: Albumin 3.2 g/dL (2.9-4.4); Alpha-1-Globulin 0.2 g/dL (0.0-0.4); Alpha-2-Globulin 0.5 g/dL (0.4-1.0); Gamma Globulin 1.1 g/dL (0.4-1.8)
--- NOTE | 2025-05-26 17:46 | P.PNIM_ITS ---
Progress Note: A&P Assessment and Plan (1) Acute hyponatremia: Code(s): E87.1 - Hypo-osmolality and hyponatremia Status: Acute Assessment and Plan: Severe hyponatremia with sodium levels of 102 on admission, the patient received 2 L IV fluid bolus -Nephrology following -currently on D5 per nephrology -continue serial BMPs -seizure precaution (2) Acute kidney failure: Qualifiers: Acute renal failure type: unspecified Qualified Code(s): N17.9 - Acute kidney failure, unspecified Code(s): N17.9 - Acute kidney failure, unspecified Status: Acute Assessment and Plan: Acute renal failure likely related to hypovolemia, creatinine admission was 3.4 -patient received 2 L IV fluid bolus -currently on D5 at 100 mL/hour per Nephrology -creatinine is down to 0.94 -urine output has been adequate -continue to monitor renal function, electrolytes and urine output (3) Hypoglycemia: Code(s): E16.2 - Hypoglycemia, unspecified Status: Acute Assessment and Plan: Patient was hypoglycemic with blood sugars in the 40s, was treated with D50 -currently on D5 for his hyponatremia which is also helping his hypoglycemia -blood sugars more stabilized this morning -continue to monitor (4) Rhabdomyolysis: Qualifiers: Rhabdomyolysis type: non-traumatic Qualified Code(s): M62.82 - Rhabdomyolysis Code(s): M62.82 - Rhabdomyolysis Status: Acute Assessment and Plan: Elevated CK levels of 6800 on admission -continue maintenance IV fluids per Nephrology -CK levels trending down, continue to monitor (5) Sepsis: Code(s): A41.9 - Sepsis, unspecified organism Status: Acute Assessment and Plan: Leukocytosis, hypothermia, hypoglycemia, tachycardia -patient was started on cefepime and vancomycin (05/23) -continue cefepime, MRSA negative, okay to deescalate vancomycin if ICU team is okay -follow blood culture (6) Thrombocytopenia: Code(s): D69.6 - Thrombocytopenia, unspecified Status: Acute Assessment and Plan: Thrombocytopenia can multifactorial, patient has a history of alcohol use will continue to monitor (7) Transaminitis: Code(s): R74.01 - Elevation of levels of liver transaminase levels Status: Acute Assessment and Plan: Transaminitis secondary to alcohol use, hypovolemia and hemo concentrate Abdominal ultrasound shows no acute finding identified but suboptimally visuali zed due to bowel gas -LFTs are trending (8) Hypothermia: Qualifiers: Encounter type: initial encounter Qualified Code(s): T68.XXXA - Hypothermia, initial encounter Code(s): T68.XXXA - Hypothermia, initial encounter Status: Acute Assessment and Plan: Hypothermia likely due to hypo glycemia, found down in the basement, was down for unknown amount of time -patient was rewarmed to normal body temperature -continue to monitor Plan patient is quite somnolents, unable to provide any ROS or history, patient is found to hyponatremia and rhabdomyolysis most likely 2/2 dehydration as well as alcohol abuse,and as patient was found on the floor respectively, patient is seen by violin restorer and patient is gently hydrated his sodium as well as CK levels are improving, will monitor, will have PT/OT evaluate the patient, will benefit going to rehab. will monitor. Subjective Date/time seen: 05/26/25 17:46 Interval history: Found down on the basement floor Narrative: 64-year-old alcoholic with a past medical history of multiple falls and chronic hyponatremia who presented to the ER via EMS came to the home. Depending on the report copies were either called for a wellness check or the hot saw operator were at the residence to arrest the patient's son and his significant other. While police were searching the house they found the patient lying on the basement floor confused and cold to touch. When the patient arrived to the ER he was hypothermic with a temperature of 91? and his glucose was in the 40s. The patient cannot tell me when his last drink was. He still tells me that it was when he was last home. His alcohol level in the ER was less than 10. He is in only oriented to person and the fact that he is in the hospital but cannot name the hospital. He does not know how long he was on the basement floor and does not recall falling. He denies any pain. He has marked dental caries and foul odor emanating from his mouth but he denies any dental pain, head pain, chest pain or shortness of breath. He denies having any recent nausea or vomiting. Imaging in the ER did not demonstrate any evidence of pneumonia on CT scan but the patient is noted to have mild nonproductive cough at the time of my evaluation. King catheter was placed in the ER. patient is quite somnolents, unable to provide any ROS or history, patient is found to hyponatremia and rhabdomyolysis most likely 2/2 dehydration as well as alcohol abuse,and as patient was found on the floor respectively, patient is seen by violin restorer and patient is gently hydrated his sodium as well as CK levels are improving, will monitor, will have PT/OT evaluate the patient, will benefit going to rehab. will monitor. Review of Systems Review of Systems: ROS unobtainable: Yes unobtainable due to mental status Exam Narrative: Appears chronically ill Patient is comfortable, NAD HEENT: eyes are clear and none icteric LUNGS:CTA HEART: RR S1S2 ABD: BS+, Soft and nontender Lower extremities: no edema SKIN: nonjaundiced Neuro: grossly intact. Objective Data Vital Signs Vital Signs: Vital Signs - 24 hr 05/25/25 18:00 05/25/25 20:00 05/25/25 20:00 Temperature 37.3 C Pulse Rate 86 83 Pulse Rate [Monitor] 82 Respiratory Rate 16 Blood Pressure 104/67 Pulse Oximetry 100 Oxygen Delivery 05/25/25 20:00 05/25/25 20:00 05/25/25 22:00 Temperature Pulse Rate 81 78 Pulse Rate [Monitor] Respiratory Rate Blood Pressure Pulse Oximetry Oxygen Delivery Room Air 05/26/25 00:00 05/26/25 00:00 05/26/25 00:00 Temperature 37.5 C Pulse Rate 81 Pulse Rate [Monitor] 78 Respiratory Rate 14 Blood Pressure 111/63 Pulse Oximetry 97 Oxygen Delivery Room Air 05/26/25 00:00 05/26/25 02:00 05/26/25 04:00 Temperature Pulse Rate 79 74 Pulse Rate [Monitor] Respiratory Rate Blood Pressure Pulse Oximetry Oxygen Delivery Room Air 05/26/25 04:00 05/26/25 04:00 05/26/25 04:00 Temperature 36.7 C Pulse Rate 73 74 Pulse Rate [Monitor] 73 Respiratory Rate 14 Blood Pressure 114/68 Pulse Oximetry 100 Oxygen Delivery 05/26/25 06:00 05/26/25 08:00 05/26/25 08:00 Temperature 36.6 C Pulse Rate 72 70 Pulse Rate [Monitor] 74 Respiratory Rate 16 Blood Pressure 121/59 L Pulse Oximetry 100 Oxygen Delivery 05/26/25 08:00 05/26/25 10:00 05/26/25 11:55 Temperature 36.8 C Pulse Rate 74 75 76 Pulse Rate [Monitor] Respiratory Rate 18 Blood Pressure 132/79 Pulse Oximetry 98 Oxygen Delivery 05/26/25 12:00 05/26/25 12:00 05/26/25 16:00 Temperature 36.4 C Pulse Rate 82 82 Pulse Rate [Monitor] 82 Respiratory Rate 20 Blood Pressure 132/73 Pulse Oximetry 99 Oxygen Delivery Intake/Output Intake/Output: Intake & Output 05/23/25 05/24/25 05/25/25 05/26/25 23:59 23:59 23:59 23:59 Intake Total 1108.8 2046.6 2810.0 1617.5 Output Total 900 1900 1450 1950 Balance 208.8 146.6 1360.0 -332.5 Meds/Results Medications: Active Medications Generic Name Dose Route Start Last Admin Trade Name Freq PRN Reason Stop Dose Admin Acetaminophen 650 mg 05/25/25 08:24 05/25/25 08:46 Acetaminophen 325 Mg Tablet PO 650 mg Q6H PRN Administration Mild Pain (1-3) or Fever Diazepam 5 - 10 mg 05/24/25 00:00 Diazepam Inj (*Crx) 10 Mg/2 Ml Syringe IV PUSH Q5M PRN CIWA > 15 Folic Acid 1 mg 05/24/25 09:00 05/26/25 09:09 Folic Acid 1 Mg/0.2 Ml Inj IV PUSH 1 mg DAILY MONICA Administration Cefepime HCl 2 gm/ Sodium 50 mls @ 100 mls/hr 05/24/25 11:00 05/26/25 13:42 Chloride IVPB Infused Q12H MONICA Infusion Vancomycin HCl 1,250 mg in 250 mls @ 166.667 mls/hr 05/26/25 12:00 05/26/25 16:29 Vancomycin 1,250 Mg/Ns 250 Ml IVPB Infused Q12H MONICA Infusion Lorazepam 2 mg 05/24/25 00:00 Lorazepam (*Crx) 1 Mg Tablet PO Q2H PRN CIWA>8, HR>100, or DBP>100 Sodium Chloride 1 gm 05/25/25 17:00 05/26/25 16:56 Sodium Chloride 1 Gm Tablet PO 1 gm BID MONICA Administration Thiamine HCl 100 mg 05/24/25 09:00 05/26/25 09:13 Thiamine Hcl 200 Mg/2 Ml Vial IV PUSH 100 mg DAILY MONICA Administration Radiology Results: ITS Impressions Cervical Spine CT 05/24/25 08:11 IMPRESSION: HEAD: 1. No acute intracranial findings. C-SPINE: 1. No acute fracture. Head CT 05/24/25 08:11 IMPRESSION: HEAD: 1. No acute intracranial findings. C-SPINE: 1. No acute fracture. Abdomen Ultrasound 05/24/25 14:24 IMPRESSION: 1. No acute findings identified but suboptimal visualization due to bowel gas. Chest/Abdomen/Pelvis CT 05/25/25 10:42 IMPRESSION: 1. No acute posttraumatic findings. Labs Labs: Laboratory Results - last 24 hr 05/24/25 05/25/25 05/25/25 10:28 19:31 22:31 WBC RBC Hgb Hct MCV MCH MCHC RDW Plt Count MPV Immature Gran % (Auto) Neut % (Auto) Lymph % (Auto) [place] % (Auto) Eos % (Auto) Baso % (Auto) Lymph # (Auto) [place] # (Auto) Eos # (Auto) Baso # (Auto) Abs Immat Gran (auto) Absolute Neuts (auto) Absolute Nucleated RBC Nucleated RBC % % Immature Plt Fraction Puncture Site ABG pH ABG pCO2 ABG pO2 ABG PO2/FiO2 Ratio ABG HCO3 ABG O2 Saturation ABG O2 Content ABG Base Excess A-a Gradient Oxyhemoglobin Carboxyhemoglobin Methemoglobin Reduced Hemoglobin Total Hemoglobin O2 Delivery Device O2 Liters/Min FiO2 Sodium 116 L* Potassium Chloride Carbon Dioxide Anion Gap BUN Creatinine Estim Creat Clear Calc Estimated GFR Glucose POC Capillary Glucose 109 H Calcium Phosphorus Magnesium Total Bilirubin AST ALT Alkaline Phosphatase Total Protein Total Protein (PEP) 6.0 Albumin Albumin (PEP) 3.2 Globulin (PEP) 2.8 Albumin/Globulin Ratio 1.1 Rwndg-8-Cxfluruhz 0.2 Ajnru-8-Hcowuippm 0.5 Beta Globulins 1.0 Gamma Globulins 1.1 PEP Comment Comment Vancomycin Trough Pr Electrophoresis MSpike Not observed 05/26/25 05/26/25 05/26/25 03:56 04:47 08:20 WBC 4.4 L RBC 2.99 L Hgb 10.1 L Hct 27.7 L MCV 92.6 MCH 33.8 MCHC 36.5 H RDW 12.1 Plt Count 133 L MPV 9.7 Immature Gran % (Auto) 0.5 Neut % (Auto) 58.3 Lymph % (Auto) 26.0 [place] % (Auto) 13.8 H Eos % (Auto) 0.9 Baso % (Auto) 0.5 Lymph # (Auto) 1.13 [place] # (Auto) 0.6 Eos # (Auto) 0.0 Baso # (Auto) 0.0 Abs Immat Gran (auto) 0.02 Absolute Neuts (auto) 2.5 Absolute Nucleated RBC 0.000 Nucleated RBC % 0.0 % Immature Plt Fraction 5.0 Puncture Site Right radial ABG pH 7.517 H* ABG pCO2 30.1 L ABG pO2 91.2 ABG PO2/FiO2 Ratio 4.34 ABG HCO3 23.9 ABG O2 Saturation 97.7 ABG O2 Content 15.3 L ABG Base Excess 1.5 A-a Gradient 22.5 Oxyhemoglobin 96.4 Carboxyhemoglobin 0.8 Methemoglobin 0.3 Reduced Hemoglobin 2.5 Total Hemoglobin 11.2 L O2 Delivery Device Room air O2 Liters/Min Not Reportable FiO2 21 Sodium 117 L* Potassium 2.7 L* Chloride 85 L Carbon Dioxide 28 Anion Gap 4 BUN 5 L Creatinine 0.43 L Estim Creat Clear Calc 116 Estimated GFR > 60 Glucose 87 POC Capillary Glucose 83 Calcium 7.4 L Phosphorus 2.5 Magnesium 2.1 Total Bilirubin 1.7 H AST 157 H ALT 68 H Alkaline Phosphatase 66 Total Protein 5.6 L Total Protein (PEP) Albumin 2.8 L Albumin (PEP) Globulin (PEP) Albumin/Globulin Ratio Mmusi-5-Vxsfmucge Hbiyu-6-Hreomngyx Beta Globulins Gamma Globulins PEP Comment Vancomycin Trough Pr Electrophoresis MSpike 05/26/25 05/26/25 05/26/25 11:13 11:46 12:55 WBC RBC Hgb Hct MCV MCH MCHC RDW Plt Count MPV Immature Gran % (Auto) Neut % (Auto) Lymph % (Auto) [place] % (Auto) Eos % (Auto) Baso % (Auto) Lymph # (Auto) [place] # (Auto) Eos # (Auto) Baso # (Auto) Abs Immat Gran (auto) Absolute Neuts (auto) Absolute Nucleated RBC Nucleated RBC % % Immature Plt Fraction Puncture Site ABG pH ABG pCO2 ABG pO2 ABG PO2/FiO2 Ratio ABG HCO3 ABG O2 Saturation ABG O2 Content ABG Base Excess A-a Gradient Oxyhemoglobin Carboxyhemoglobin Methemoglobin Reduced Hemoglobin Total Hemoglobin O2 Delivery Device O2 Liters/Min FiO2 Sodium 116 L* Potassium 3.7 Chloride 87 L Carbon Dioxide 29 Anion Gap 0 L BUN 5 L Creatinine 0.52 L Estim Creat Clear Calc 98 Estimated GFR > 60 Glucose 98 POC Capillary Glucose 92 Calcium 7.5 L Phosphorus 2.2 L Magnesium Total Bilirubin AST ALT Alkaline Phosphatase Total Protein Total Protein (PEP) Albumin 2.8 L Albumin (PEP) Globulin (PEP) Albumin/Globulin Ratio Wdbfo-2-Ddbfveyep Najed-1-Ofckxeeua Beta Globulins Gamma Globulins PEP Comment Vancomycin Trough 12.2 Pr Electrophoresis MSpike 05/26/25 15:32 WBC RBC Hgb Hct MCV MCH MCHC RDW Plt Count MPV Immature Gran % (Auto) Neut % (Auto) Lymph % (Auto) [place] % (Auto) Eos % (Auto) Baso % (Auto) Lymph # (Auto) [place] # (Auto) Eos # (Auto) Baso # (Auto) Abs Immat Gran (auto) Absolute Neuts (auto) Absolute Nucleated RBC Nucleated RBC % % Immature Plt Fraction Puncture Site ABG pH ABG pCO2 ABG pO2 ABG PO2/FiO2 Ratio ABG HCO3 ABG O2 Saturation ABG O2 Content ABG Base Excess A-a Gradient Oxyhemoglobin Carboxyhemoglobin Methemoglobin Reduced Hemoglobin Total Hemoglobin O2 Delivery Device O2 Liters/Min FiO2 Sodium Potassium Chloride Carbon Dioxide Anion Gap BUN Creatinine Estim Creat Clear Calc Estimated GFR Glucose POC Capillary Glucose 105 Calcium Phosphorus Magnesium Total Bilirubin AST ALT Alkaline Phosphatase Total Protein Total Protein (PEP) Albumin Albumin (PEP) Globulin (PEP) Albumin/Globulin Ratio Ntxdn-3-Nfsbwmhyb Nipbg-9-Teuzitcmi Beta Globulins Gamma Globulins PEP Comment Vancomycin Trough Pr Electrophoresis MSpike Quality VTE Prophylaxis VTE prophylaxis: mechanical ordered
[2025-05-27] VITALS (9 sets, daily range): BP systolic 120–152; BP diastolic 65–80; PULSE 69–83; RESP 16–20; TEMP 35.9–36.9; O2SAT 99–100
[2025-05-27] MEDS: VANCOMYCIN 1,250 MG/NS 250 ML 1,250 MG/250 ML BAG 166.6 MG IVPB ×2 (00:04→11:59)
[2025-05-27 05:09] LABS: Albumin Level 2.9 g/dL (3.5-5.1); Blood Urea Nitrogen 5 mg/dL (9-20); Calcium 7.9 mg/dL (8.4-10.2); Carbon Dioxide 27 mmol/L (22-30); Chloride 88 mmol/L (98-107); Creatine Kinase 376 U/L (55-170); Estimated CRCL calculation 135 ml/min; Estimated Glomerular Filt Rate > 60; Glucose 87 mg/dL (65-110); Magnesium 2.0 mg/dL (1.6-2.3); Potassium 3.5 mmol/L (3.4-5.0)
[2025-05-27 05:11] LABS: Anion Gap 3 mmol/L (4-12); Sodium 118 mmol/L (137-145)
[2025-05-27] MEDS: FOLIC ACID 1 MG/0.2 ML INJ IV PUSH (08:39)
[2025-05-27] MEDS: THIAMINE HCL 200 MG/2 ML VIAL 100 MG IV PUSH (08:40)
[2025-05-27] MEDS: SODIUM CHLORIDE 1 GM TABLET PO ×2 (08:42→18:13)
[2025-05-27] MEDS: CEFEPIME 2 GM in SODIUM CHLORIDE 0.9% IV 50 ML 100 ML IVPB (10:21)
--- NOTE | 2025-05-27 10:45 | P.PNNP_ITS ---
Progress Note: A&P Assessment and Plan (1) Hyponatremia: Code(s): E87.1 - Hypo-osmolality and hyponatremia Status: Acute Assessment and Plan: * slow improvement noted * severe hyponatremia noted on presentation - sodium 102mmol/L * suspect a chronic component * labs labs are from June 2024 - discharge creatinine of 128mmol/L * slight rapid increase in sodium (102 --> 111 on 05/24) noted * due to this rapid correction, given DDAVP and D5W IVFs which slowed rate of rise * goal of therapy is a rate of change of 6 - 8mmol/L in 24 hours -- this has been achieved * evaluation to date (this hospitalization) noted: * TSH okay * cortisol 20.7 indicating adequate adrenal function * CT of brain negative * CT C/A/P negative * urine sodium is low * SPEP negative for paraproteinemia * serum/urine osmolality pending * suspected multifactorial etiology: * chronic alcohol intake * pre-renal factors * on fluid restriction plus salt tablets * consider adding lasix * plan trial of 3% saline today * follow trend of sodium (2) Acute kidney failure: Qualifiers: Acute renal failure type: unspecified Qualified Code(s): N17.9 - Acute kidney failure, unspecified Code(s): N17.9 - Acute kidney failure, unspecified Status: Acute Assessment and Plan: * resolved * due to volume depletion/dehydration (3) SIRS (systemic inflammatory response syndrome): Code(s): R65.10 - Systemic inflammatory response syndrome (SIRS) of non-infectious origin without acute organ dysfunction Status: Acute Assessment and Plan: * as suspected by elevated WBC, hypothermia, hypoglycemia, and tachycardia on admission * follow culture data: * blood cultures (from 05/23) - Staphloccus Aureus * on antibiotics * follow repeat cultures (4) Rhabdomyolysis: Qualifiers: Rhabdomyolysis type: non-traumatic Qualified Code(s): M62.82 - Rhabdomyolysis Code(s): M62.82 - Rhabdomyolysis Status: Acute Assessment and Plan: * improving * elevated CPK noted on admission * down trending * secondary to being down on the ground for around 24 - 48 hours (5) Anemia: Qualifiers: Anemia type: unspecified type Qualified Code(s): D64.9 - Anemia, unspecified Code(s): D64.9 - Anemia, unspecified Status: Acute Assessment and Plan: * due to acute illness and possible ROGELIO * follow trend of H/H (6) Hypoglycemia: Code(s): E16.2 - Hypoglycemia, unspecified Status: Acute Assessment and Plan: * resolved * was on dextrose IVFs * eating and drinking adequately * follow trend of blood sugars (7) Altered mental status: Code(s): R41.82 - Altered mental status, unspecified Status: Acute Assessment and Plan: * clinical improvement * presumably due to low sodium, previous hypoglycemia, and possible SIRS * continue supportive care (8) Alcohol abuse: Code(s): F10.10 - Alcohol abuse, uncomplicated Status: Acute Assessment and Plan: * known history * on thiamine and folate * monitor for withdrawal Will continue to follow. Subjective Date/time seen: 05/27/25 10:45 Interval history: Follow-up for acute on chronic hyponatremia. No new issues or complaints voiced at this time; sodium continues to slowly improve with current interventions (fluid restriction + salt tablets); no apparent distress noted when seen; mentation seems stable. Exam Narrative: General: WD/WN male in NAD Heart: normal S1 and S2; no rub Lungs: clear to auscultation Abdomen: soft, nontender, nondistended, positive bowel sounds Extremities: no cyanosis or clubbing; no edema Skin: warm and intact Objective Data Vital Signs Vital Signs: Vital Signs Temp Pulse Pulse Resp BP Pulse Ox O2 Del Method 05/27/25 10:00 77 05/27/25 08:00 75 05/27/25 07:46 96.6 F L 72 20 120/74 100 05/27/25 06:00 71 05/27/25 04:00 71 05/27/25 04:00 97.8 F 76 16 139/65 99 05/27/25 04:00 69 05/27/25 04:00 Room Air 05/27/25 02:00 74 05/27/25 00:00 79 05/27/25 00:00 97.9 F 78 16 152/79 H 100 05/27/25 00:00 78 05/27/25 00:00 Room Air 05/26/25 22:00 79 05/26/25 20:00 78 05/26/25 20:00 Room Air 05/26/25 20:00 80 05/26/25 19:02 98.6 F 78 18 148/92 H 100 Intake/Output Intake/Output: Intake & Output 05/24/25 05/25/25 05/26/25 05/27/25 23:59 23:59 23:59 23:59 Intake Total 2046.6 2810.0 2147.5 970 Output Total 1900 1450 1950 2900 Balance 146.6 1360.0 197.5 -1930 Meds/Results Medications: Active Medications Generic Name Dose Route Start Last Admin Trade Name Freq PRN Reason Stop Dose Admin Acetaminophen 650 mg 05/25/25 08:24 05/25/25 08:46 Acetaminophen 325 Mg Tablet PO 650 mg Q6H PRN Administration Mild Pain (1-3) or Fever Diazepam 5 - 10 mg 05/24/25 00:00 Diazepam Inj (*Crx) 10 Mg/2 Ml Syringe IV PUSH Q5M PRN CIWA > 15 Folic Acid 1 mg 05/24/25 09:00 05/27/25 08:39 Folic Acid 1 Mg/0.2 Ml Inj IV PUSH 1 mg DAILY MONICA Administration Vancomycin HCl 1,250 mg in 250 mls @ 166.667 mls/hr 05/26/25 12:00 05/27/25 11:59 Vancomycin 1,250 Mg/Ns 250 Ml IVPB 166.6 mls/hr Q12H MONICA Administration Ceftriaxone Sodium 2 gm/ 100 mls @ 200 mls/hr 05/27/25 21:00 Sodium Chloride IVPB 05/29/25 21:29 Q24H MONICA Lorazepam 2 mg 05/24/25 00:00 Lorazepam (*Crx) 1 Mg Tablet PO Q2H PRN CIWA>8, HR>100, or DBP>100 Sodium Chloride 1 gm 05/25/25 17:00 05/27/25 08:42 Sodium Chloride 1 Gm Tablet PO 1 gm BID MONICA Administration Thiamine HCl 100 mg 05/24/25 09:00 05/27/25 08:40 Thiamine Hcl 200 Mg/2 Ml Vial IV PUSH 100 mg DAILY MONICA Administration Radiology Results: ITS Impressions Cervical Spine CT 05/24/25 08:11 IMPRESSION: HEAD: 1. No acute intracranial findings. C-SPINE: 1. No acute fracture. Head CT 05/24/25 08:11 IMPRESSION: HEAD: 1. No acute intracranial findings. C-SPINE: 1. No acute fracture. Abdomen Ultrasound 05/24/25 14:24 IMPRESSION: 1. No acute findings identified but suboptimal visualization due to bowel gas. Chest/Abdomen/Pelvis CT 05/25/25 10:42 IMPRESSION: 1. No acute posttraumatic findings. Labs Labs: Laboratory Results 05/27/25 05/27/25 04:34 10:14 Sodium 118 L* 119 L* Potassium 3.5 Chloride 88 L Carbon Dioxide 27 Anion Gap 3 L BUN 5 L Creatinine 0.36 L Estim Creat Clear Calc 135 Estimated GFR > 60 Glucose 87 POC Capillary Glucose Calcium 7.9 L Phosphorus 2.7 Magnesium 2.0 Total Creatine Kinase 376 H Albumin 2.9 L
[2025-05-27 11:00] LABS: Sodium 119 mmol/L (137-145)
[2025-05-27] MEDS: SODIUM CHLORIDE 3% 150 ML 50 ML IV CONT (12:00)
--- NOTE | 2025-05-27 12:49 | PC.NURSE ---
Pt transferred to room 344 at 1249. Report given to CHONG Gerard.
--- NOTE | 2025-05-27 13:19 | PC.NURSE ---
This patient, Kenneth Drew, was received from on 05/27/25 at 1319 to room 344. Patient/family oriented to unit policies and routines.
[2025-05-27 15:28] LABS: Sodium 121 mmol/L (137-145)
--- NOTE | 2025-05-27 15:35 | PC.NURSE ---
Left voicemail for Dr Oliveira per orders notifying provider of sodium levels drawn at 1500, levels were 121.
--- NOTE | 2025-05-27 18:35 | PM.IMPN ---
Progress Note: A&P Assessment and Plan (1) Acute hyponatremia: Code(s): E87.1 - Hypo-osmolality and hyponatremia Status: Acute Assessment and Plan: Severe hyponatremia with sodium levels of 102 on admission, the patient received 2 L IV fluid bolus -Nephrology following -currently on D5 per nephrology -continue serial BMPs -seizure precaution (2) Acute kidney failure: Qualifiers: Acute renal failure type: unspecified Qualified Code(s): N17.9 - Acute kidney failure, unspecified Code(s): N17.9 - Acute kidney failure, unspecified Status: Acute Assessment and Plan: Acute renal failure likely related to hypovolemia, creatinine admission was 3.4 -patient received 2 L IV fluid bolus -currently on D5 at 100 mL/hour per Nephrology -creatinine is down to 0.94 -urine output has been adequate -continue to monitor renal function, electrolytes and urine output (3) Hypoglycemia: Code(s): E16.2 - Hypoglycemia, unspecified Status: Acute Assessment and Plan: Patient was hypoglycemic with blood sugars in the 40s, was treated with D50 -currently on D5 for his hyponatremia which is also helping his hypoglycemia -blood sugars more stabilized this morning -continue to monitor (4) Rhabdomyolysis: Qualifiers: Rhabdomyolysis type: non-traumatic Qualified Code(s): M62.82 - Rhabdomyolysis Code(s): M62.82 - Rhabdomyolysis Status: Acute Assessment and Plan: Elevated CK levels of 6800 on admission -continue maintenance IV fluids per Nephrology -CK levels trending down, continue to monitor (5) Sepsis: Code(s): A41.9 - Sepsis, unspecified organism Status: Acute Assessment and Plan: Leukocytosis, hypothermia, hypoglycemia, tachycardia -patient was started on cefepime and vancomycin (05/23) -continue cefepime, MRSA negative, okay to deescalate vancomycin if ICU team is okay -follow blood culture (6) Thrombocytopenia: Code(s): D69.6 - Thrombocytopenia, unspecified Status: Acute Assessment and Plan: Thrombocytopenia can multifactorial, patient has a history of alcohol use will continue to monitor (7) Transaminitis: Code(s): R74.01 - Elevation of levels of liver transaminase levels Status: Acute Assessment and Plan: Transaminitis secondary to alcohol use, hypovolemia and hemo concentrate Abdominal ultrasound shows no acute finding identified but suboptimally visualized due to bowel gas -LFTs are trending (8) Hypothermia: Qualifiers: Encounter type: initial encounter Qualified Code(s): T68.XXXA - Hypothermia, initial encounter Code(s): T68.XXXA - Hypothermia, initial encounter Status: Acute Assessment and Plan: Hypothermia likely due to hypo glycemia, found down in the basement, was down for unknown amount of time -patient was rewarmed to normal body temperature -continue to monitor Plan today patient is more awake, patient is found to hyponatremia and rhabdomyolysis most likely 2/2 dehydration as well as alcohol abuse,and as patient was found on the floor respectively, patient is seen by barrel and receiver aligner and patient is gently hydrated his sodium as well as CK levels are improving, 121 and 367 respectively, will monitor, will have PT/OT evaluate the patient, will benefit going to rehab. will monitor. Subjective Date/time seen: 05/27/25 18:35 Interval history: Found down on the basement floor Narrative: 64-year-old alcoholic with a past medical history of multiple falls and chronic hyponatremia who presented to the ER via EMS came to the home. Depending on the report copies were either called for a wellness check or the e commerce architect were at the residence to arrest the patient's son and his significant other. While police were searching the house they found the patient lying on the basement floor confused and cold to touch. When the patient arrived to the ER he was hypothermic with a temperature of 91? and his glucose was in the 40s. The patient cannot tell me when his last drink was. He still tells me that it was when he was last home. His alcohol level in the ER was less than 10. He is in only oriented to person and the fact that he is in the hospital but cannot name the hospital. He does not know how long he was on the basement floor and does not recall falling. He denies any pain. He has marked dental caries and foul odor emanating from his mouth but he denies any dental pain, head pain, chest pain or shortness of breath. He denies having any recent nausea or vomiting. Imaging in the ER did not demonstrate any evidence of pneumonia on CT scan but the patient is noted to have mild nonproductive cough at the time of my evaluation. King catheter was placed in the ER. today patient is more awake, patient is found to hyponatremia and rhabdomyolysis most likely 2/2 dehydration as well as alcohol abuse,and as patient was found on the floor respectively, patient is seen by barrel and receiver aligner and patient is gently hydrated his sodium as well as CK levels are improving, 121 and 367 respectively, will monitor, will have PT/OT evaluate the patient, will benefit going to rehab. will monitor. Review of Systems Review of Systems: All systems reviewed & are unremarkable except as noted in HPI and below Exam Narrative: Appears chronically ill Patient is comfortable, NAD HEENT: eyes are clear and none icteric LUNGS:CTA HEART: RR S1S2 ABD: BS+, Soft and nontender Lower extremities: no edema SKIN: nonjaundiced Neuro: grossly intact. Objective Data Vital Signs Vital Signs: Vital Signs - 24 hr 05/26/25 19:02 05/26/25 20:00 05/26/25 20:00 Temperature 37.0 C Pulse Rate 78 Pulse Rate [Monitor] 80 Respiratory Rate 18 Blood Pressure 148/92 H Pulse Oximetry 100 Oxygen Delivery Room Air 05/26/25 20:00 05/26/25 22:00 05/27/25 00:00 Temperature Pulse Rate 78 79 Pulse Rate [Monitor] Respiratory Rate Blood Pressure Pulse Oximetry Oxygen Delivery Room Air 05/27/25 00:00 05/27/25 00:00 05/27/25 00:00 Temperature 36.6 C Pulse Rate 78 79 Pulse Rate [Monitor] 78 Respiratory Rate 16 Blood Pressure 152/79 H Pulse Oximetry 100 Oxygen Delivery 05/27/25 02:00 05/27/25 04:00 05/27/25 04:00 Temperature Pulse Rate 74 Pulse Rate [Monitor] 69 Respiratory Rate Blood Pressure Pulse Oximetry Oxygen Delivery Room Air 05/27/25 04:00 05/27/25 04:00 05/27/25 06:00 Temperature 36.6 C Pulse Rate 76 71 71 Pulse Rate [Monitor] Respiratory Rate 16 Blood Pressure 139/65 Pulse Oximetry 99 Oxygen Delivery 05/27/25 07:46 05/27/25 08:00 05/27/25 08:00 Temperature 35.9 C L Pulse Rate 72 75 Pulse Rate [Monitor] 77 Respiratory Rate 20 Blood Pressure 120/74 Pulse Oximetry 100 Oxygen Delivery 05/27/25 10:00 05/27/25 13:59 05/27/25 14:15 Temperature Pulse Rate 77 Pulse Rate [Monitor] Respiratory Rate Blood Pressure Pulse Oximetry Oxygen Delivery Room Air Room Air 05/27/25 14:52 Temperature 36.3 C L Pulse Rate 82 Pulse Rate [Monitor] Respiratory Rate 18 Blood Pressure 131/73 Pulse Oximetry 100 Oxygen Delivery Intake/Output Intake/Output: Intake & Output 05/24/25 05/25/25 05/26/25 05/27/25 23:59 23:59 23:59 23:59 Intake Total 2046.6 2810.0 2147.5 970 Output Total 1900 1450 1950 2900 Balance 146.6 1360.0 197.5 -1930 Meds/Results Medications: Active Medications Generic Name Dose Route Start Last Admin Trade Name Freq PRN Reason Stop Dose Admin Acetaminophen 650 mg 05/25/25 08:24 05/25/25 08:46 Acetaminophen 325 Mg Tablet PO 650 mg Q6H PRN Administration Mild Pain (1-3) or Fever Diazepam 5 - 10 mg 05/24/25 00:00 Diazepam Inj (*Crx) 10 Mg/2 Ml Syringe IV PUSH Q5M PRN CIWA > 15 Folic Acid 1 mg 05/24/25 09:00 05/27/25 08:39 Folic Acid 1 Mg/0.2 Ml Inj IV PUSH 1 mg DAILY MONICA Administration Vancomycin HCl 1,250 mg in 250 mls @ 166.667 mls/hr 05/26/25 12:00 05/27/25 11:59 Vancomycin 1,250 Mg/Ns 250 Ml IVPB 166.6 mls/hr Q12H MONICA Administration Ceftriaxone Sodium 2 gm/ 100 mls @ 200 mls/hr 05/27/25 21:00 Sodium Chloride IVPB 05/29/25 21:29 Q24H MONICA Lorazepam 2 mg 05/24/25 00:00 Lorazepam (*Crx) 1 Mg Tablet PO Q2H PRN CIWA>8, HR>100, or DBP>100 Sodium Chloride 1 gm 05/25/25 17:00 05/27/25 18:13 Sodium Chloride 1 Gm Tablet PO 1 gm BID MONICA Administration Thiamine HCl 100 mg 05/24/25 09:00 05/27/25 08:40 Thiamine Hcl 200 Mg/2 Ml Vial IV PUSH 100 mg DAILY MONICA Administration Radiology Results: ITS Impressions Cervical Spine CT 05/24/25 08:11 IMPRESSION: HEAD: 1. No acute intracranial findings. C-SPINE: 1. No acute fracture. Head CT 05/24/25 08:11 IMPRESSION: HEAD: 1. No acute intracranial findings. C-SPINE: 1. No acute fracture. Abdomen Ultrasound 05/24/25 14:24 IMPRESSION: 1. No acute findings identified but suboptimal visualization due to bowel gas. Chest/Abdomen/Pelvis CT 05/25/25 10:42 IMPRESSION: 1. No acute posttraumatic findings. Labs Labs: Laboratory Results - last 24 hr 05/26/25 05/26/25 05/27/25 20:24 21:23 04:34 Sodium 118 L* Potassium 3.5 Chloride 88 L Carbon Dioxide 27 Anion Gap 3 L BUN 5 L Creatinine 0.36 L Estim Creat Clear Calc 135 Estimated GFR > 60 Glucose 87 POC Capillary Glucose 74 110 H Calcium 7.9 L Phosphorus 2.7 Magnesium 2.0 Total Creatine Kinase 376 H Albumin 2.9 L 05/27/25 05/27/25 05/27/25 07:17 10:14 11:17 Sodium 119 L* Potassium Chloride Carbon Dioxide Anion Gap BUN Creatinine Estim Creat Clear Calc Estimated GFR Glucose POC Capillary Glucose 93 135 H Calcium Phosphorus Magnesium Total Creatine Kinase Albumin 05/27/25 05/27/25 15:05 16:40 Sodium 121 L Potassium Chloride Carbon Dioxide Anion Gap BUN Creatinine Estim Creat Clear Calc Estimated GFR Glucose POC Capillary Glucose 126 H Calcium Phosphorus Magnesium Total Creatine Kinase Albumin Quality VTE Prophylaxis VTE prophylaxis: mechanical ordered
[2025-05-27] MEDS: cefTRIAXone 2 GM in SODIUM CHLORIDE 0.9% IV 100 ML 200 ML IVPB (21:08)
[2025-05-27 21:29] LABS: Sodium 123 mmol/L (137-145)
[2025-05-28] VITALS (7 sets, daily range): BP systolic 118–171; BP diastolic 54–75; PULSE 66–84; RESP 16–20; TEMP 36.7–37.2; O2SAT 98–100
[2025-05-28] MEDS: VANCOMYCIN 1,500 MG/NS 500 ML 1,500 MG/500 ML BAG 250 MG IVPB ×2 (01:03→13:13)
[2025-05-28 05:29] LABS: Albumin Level 3.1 g/dL (3.5-5.1); Anion Gap 4 mmol/L (4-12); Blood Urea Nitrogen 4 mg/dL (9-20); Calcium 8.1 mg/dL (8.4-10.2); Carbon Dioxide 28 mmol/L (22-30); Chloride 88 mmol/L (98-107); Creatine Kinase 181 U/L (55-170); Estimated CRCL calculation 125 ml/min; Estimated Glomerular Filt Rate > 60; Glucose 95 mg/dL (65-110); Magnesium 1.9 mg/dL (1.6-2.3); Potassium 3.3 mmol/L (3.4-5.0); Sodium 120 mmol/L (137-145)
[2025-05-28 06:08] LABS: Osmolality, Urine 423 mOsmol/kg (.)
[2025-05-28 06:08] LABS: Osmolality, Serum 237 mOsmol/kg (280-301)
[2025-05-28] MEDS: THIAMINE HCL 200 MG/2 ML VIAL 100 MG IV PUSH (09:45)
[2025-05-28] MEDS: SODIUM CHLORIDE 500 MG TABLET 1500 MG PO ×2 (09:45→17:26)
[2025-05-28] MEDS: FOLIC ACID 1 MG/0.2 ML INJ IV PUSH (09:45)
[2025-05-28] MEDS: POTASSIUM CHLORIDE 20 MEQ PACKET (FOR LIQUID) 40 MEQ PO (10:56)
[2025-05-28 11:42] LABS: Sodium 121 mmol/L (137-145)
--- NOTE | 2025-05-28 12:55 | P.PNNP_ITS ---
Progress Note: A&P Assessment and Plan (1) Hyponatremia: Code(s): E87.1 - Hypo-osmolality and hyponatremia Status: Acute Assessment and Plan: * slow improvement noted * severe hyponatremia noted on presentation - sodium 102mmol/L * suspect a chronic component * last labs are from June 2024 - discharge creatinine of 128mmol/L * suspect baseline sodium runs ~ mid to high 120s * slight rapid increase in sodium (102 --> 111 on 05/24) noted * due to this rapid correction, given DDAVP and D5W IVFs which slowed rate of rise * goal of therapy is a rate of change of 6 - 8mmol/L in 24 hours -- this has been achieved * evaluation to date (this hospitalization) noted: * TSH okay * cortisol 20.7 indicating adequate adrenal function * CT of brain negative * CT C/A/P negative * urine sodium is low * SPEP negative for paraproteinemia * serum/urine osmolality pending * suspected multifactorial etiology: * chronic alcohol intake * pre-renal factors * on fluid restriction plus salt tablets * consider adding lasix * s/p 3% saline on 05/27 * on discharge in June 2024, he was on salt tabs 1500mg bid with lasix 20mg bid along with fluid restriction * follow trend of sodium (2) Acute kidney failure: Qualifiers: Acute renal failure type: unspecified Qualified Code(s): N17.9 - Acute kidney failure, unspecified Code(s): N17.9 - Acute kidney failure, unspecified Status: Acute Assessment and Plan: * resolved * due to volume depletion/dehydration (3) SIRS (systemic inflammatory response syndrome): Code(s): R65.10 - Systemic inflammatory response syndrome (SIRS) of non-infectious origin without acute organ dysfunction Status: Acute Assessment and Plan: * as suspected by elevated WBC, hypothermia, hypoglycemia, and tachycardia on admission * follow culture data: * blood cultures (from 05/23) - Staphylococcus Aureus * on antibiotics * follow repeat cultures (4) Rhabdomyolysis: Qualifiers: Rhabdomyolysis type: non-traumatic Qualified Code(s): M62.82 - Rhabdomyolysis Code(s): M62.82 - Rhabdomyolysis Status: Acute Assessment and Plan: * improving * elevated CPK noted on admission * down trending * secondary to being down on the ground for around 24 - 48 hours (5) Anemia: Qualifiers: Anemia type: unspecified type Qualified Code(s): D64.9 - Anemia, unspecified Code(s): D64.9 - Anemia, unspecified Status: Acute Assessment and Plan: * due to acute illness and possible ROGELIO * follow trend of H/H (6) Hypoglycemia: Code(s): E16.2 - Hypoglycemia, unspecified Status: Acute Assessment and Plan: * resolved * was on dextrose IVFs * eating and drinking adequately * follow trend of blood sugars (7) Altered mental status: Code(s): R41.82 - Altered mental status, unspecified Status: Acute Assessment and Plan: * clinical improvement * presumably due to low sodium, previous hypoglycemia, and possible SIRS * continue supportive care (8) Alcohol abuse: Code(s): F10.10 - Alcohol abuse, uncomplicated Status: Acute Assessment and Plan: * known history * on thiamine and folate * monitor for withdrawal Will continue to follow. L Subjective Date/time seen: 05/28/25 12:55 Interval history: Follow-up for acute on chronic hyponatremia. Sodium has remained > 120 following use of 3% saline yesterday afternoon but has not really significantly improved in the last 24 hours; continue to make good urine output; remains on salt tabs + fluid restriction; no apparent distress noted when seen. Exam 2 Narrative: General: WD/WN male in NAD Heart: normal S1 and S2; no rub Lungs: clear to auscultation Abdomen: soft, nontender, nondistended, positive bowel sounds Extremities: no cyanosis or clubbing; no edema Skin: no rash Objective Data Vital Signs Vital Signs: Vital Signs Temp Pulse Pulse Resp BP Pulse Ox O2 Del Method 05/28/25 08:00 98.1 F 80 18 125/75 100 05/28/25 05:51 98.5 F 76 20 130/67 99 05/28/25 03:39 77 171/67 H 05/28/25 00:00 98.1 F 66 16 171/67 H 98 05/27/25 22:00 98.4 F 83 18 135/80 100 05/27/25 20:00 Room Air Intake/Output Intake/Output: Intake & Output 05/25/25 05/26/25 05/27/25 05/28/25 23:59 23:59 23:59 23:59 Intake Total 2810.0 2147.5 1070 1040 Output Total 1450 1950 3600 1100 Balance 1360.0 197.5 -0236 -60 Meds/Results Medications: Active Medications Generic Name Dose Route Start Last Admin Trade Name Freq PRN Reason Stop Dose Admin Acetaminophen 650 mg 05/25/25 08:24 05/25/25 08:46 Acetaminophen 325 Mg Tablet PO 650 mg Q6H PRN Administration Mild Pain (1-3) or Fever Diazepam 5 - 10 mg 05/24/25 00:00 Diazepam Inj (*Crx) 10 Mg/2 Ml Syringe IV PUSH Q5M PRN CIWA > 15 Folic Acid 1 mg 05/24/25 09:00 05/28/25 09:45 Folic Acid 1 Mg/0.2 Ml Inj IV PUSH 1 mg DAILY MONICA Administration Ceftriaxone Sodium 2 gm/ 100 mls @ 200 mls/hr 05/27/25 21:00 05/27/25 21:40 Sodium Chloride IVPB 05/29/25 21:29 Infused Q24H MONICA Infusion Vancomycin HCl 1,500 mg in 500 mls @ 250 mls/hr 05/28/25 01:00 05/28/25 13:13 Vancomycin 1,500 Mg/Ns 500 Ml IVPB 250 mls/hr Q12H MONICA Administration Lorazepam 2 mg 05/24/25 00:00 Lorazepam (*Crx) 1 Mg Tablet PO Q2H PRN CIWA>8, HR>100, or DBP>100 Sodium Chloride 1,500 mg 05/28/25 09:00 05/28/25 09:45 Sodium Chloride 500 Mg Tablet PO 1,500 mg BID MONICA Administration Thiamine HCl 100 mg 05/24/25 09:00 05/28/25 09:45 Thiamine Hcl 200 Mg/2 Ml Vial IV PUSH 100 mg DAILY MONICA Administration Radiology Results: ITS Impressions Cervical Spine CT 05/24/25 08:11 IMPRESSION: HEAD: 1. No acute intracranial findings. C-SPINE: 1. No acute fracture. Head CT 05/24/25 08:11 IMPRESSION: HEAD: 1. No acute intracranial findings. C-SPINE: 1. No acute fracture. Abdomen Ultrasound 05/24/25 14:24 IMPRESSION: 1. No acute findings identified but suboptimal visualization due to bowel gas. Chest/Abdomen/Pelvis CT 05/25/25 10:42 IMPRESSION: 1. No acute posttraumatic findings. Labs Labs: Laboratory Tests 05/26/25 03:56 05/28/25 11:15 05/28/25 04:42 Sodium 120 L Potassium 3.3 L Chloride 88 L Carbon Dioxide 28 Anion Gap 4 BUN 4 L Creatinine 0.39 L Estim Creat Clear Calc 125 Estimated GFR > 60 Glucose 95 Calcium 8.1 L Phosphorus 3.4 Magnesium 1.9 Total Creatine Kinase 181 H Albumin 3.1 L 05/26/25 05/26/25 05/27/25 05/27/25 05/27/25 05/27/25 03:56 12:55 04:34 10:14 15:05 21:13 Sodium 117 L* 116 L* 118 L* 119 L* 121 L 123 L Microbiology 05/23/25 19:22 Blood Blood Culture - Preliminary Staphylococcus aureus
--- NOTE | 2025-05-28 17:12 | P.PNIM_ITS ---
Progress Note: A&P Assessment and Plan (1) Acute hyponatremia: Code(s): E87.1 - Hypo-osmolality and hyponatremia Status: Acute Assessment and Plan: Severe hyponatremia with sodium levels of 102 on admission, the patient received 2 L IV fluid bolus -Nephrology following -currently on D5 per nephrology -continue serial BMPs -seizure precaution (2) Acute kidney failure: Qualifiers: Acute renal failure type: unspecified Qualified Code(s): N17.9 - Acute kidney failure, unspecified Code(s): N17.9 - Acute kidney failure, unspecified Status: Acute Assessment and Plan: Acute renal failure likely related to hypovolemia, creatinine admission was 3.4 -patient received 2 L IV fluid bolus -currently on D5 at 100 mL/hour per Nephrology -creatinine is down to 0.94 -urine output has been adequate -continue to monitor renal function, electrolytes and urine output (3) Hypoglycemia: Code(s): E16.2 - Hypoglycemia, unspecified Status: Acute Assessment and Plan: Patient was hypoglycemic with blood sugars in the 40s, was treated with D50 -currently on D5 for his hyponatremia which is also helping his hypoglycemia -blood sugars more stabilized this morning -continue to monitor (4) Rhabdomyolysis: Qualifiers: Rhabdomyolysis type: non-traumatic Qualified Code(s): M62.82 - Rhabdomyolysis Code(s): M62.82 - Rhabdomyolysis Status: Acute Assessment and Plan: Elevated CK levels of 6800 on admission -continue maintenance IV fluids per Nephrology -CK levels trending down, continue to monitor (5) Sepsis: Code(s): A41.9 - Sepsis, unspecified organism Status: Acute Assessment and Plan: Leukocytosis, hypothermia, hypoglycemia, tachycardia -patient was started on cefepime and vancomycin (05/23) -continue cefepime, MRSA negative, okay to deescalate vancomycin if ICU team is okay -follow blood culture (6) Thrombocytopenia: Code(s): D69.6 - Thrombocytopenia, unspecified Status: Acute Assessment and Plan: Thrombocytopenia can multifactorial, patient has a history of alcohol use will continue to monitor (7) Transaminitis: Code(s): R74.01 - Elevation of levels of liver transaminase levels Status: Acute Assessment and Plan: Transaminitis secondary to alcohol use, hypovolemia and hemo concentrate Abdominal ultrasound shows no acute finding identified but suboptimally visuali zed due to bowel gas -LFTs are trending (8) Hypothermia: Qualifiers: Encounter type: initial encounter Qualified Code(s): T68.XXXA - Hypothermia, initial encounter Code(s): T68.XXXA - Hypothermia, initial encounter Status: Acute Assessment and Plan: Hypothermia likely due to hypo glycemia, found down in the basement, was down for unknown amount of time -patient was rewarmed to normal body temperature -continue to monitor Plan today patient is more awake, patient is found to hyponatremia and rhabdomyolysis most likely 2/2 dehydration as well as alcohol abuse,and as patient was found on the floor respectively, patient is seen by surgical consultant and patient is gently hydrated his sodium as well as CK levels are improving, 121 and 181 respectively, patient again was given 3% NS, will monitor, will have PT/OT evaluate the patient, will benefit going to rehab. will monitor. Subjective Date/time seen: 05/28/25 17:12 Interval history: Found down on the basement floor Narrative: 64-year-old alcoholic with a past medical history of multiple falls and chronic hyponatremia who presented to the ER via EMS came to the home. Depending on the report copies were either called for a wellness check or the eating disorder specialist were at the residence to arrest the patient's son and his significant other. While police were searching the house they found the patient lying on the basement floor confused and cold to touch. When the patient arrived to the ER he was hypothermic with a temperature of 91? and his glucose was in the 40s. The patient cannot tell me when his last drink was. He still tells me that it was when he was last home. His alcohol level in the ER was less than 10. He is in only oriented to person and the fact that he is in the hospital but cannot name the hospital. He does not know how long he was on the basement floor and does not recall falling. He denies any pain. He has marked dental caries and foul odor emanating from his mouth but he denies any dental pain, head pain, chest pain or shortness of breath. He denies having any recent nausea or vomiting. Imaging in the ER did not demonstrate any evidence of pneumonia on CT scan but the patient is noted to have mild nonproductive cough at the time of my evaluation. King catheter was placed in the ER. today patient is more awake, patient is found to hyponatremia and rhabd omyolysis most likely 2/2 dehydration as well as alcohol abuse,and as patient was found on the floor respectively, patient is seen by surgical consultant and patient is gently hydrated his sodium as well as CK levels are improving, 121 and 181 respectively, patient again was given 3% NS, will monitor, will have PT/OT evaluate the patient, will benefit going to rehab. will monitor. Review of Systems Review of Systems: Review of systems unobtainable due to patient's confusion. All systems reviewed & are unremarkable except as noted in HPI and below ROS unobtainable: Yes unobtainable due to mental status Exam Narrative: Appears chronically ill Patient is comfortable, NAD HEENT: eyes are clear and none icteric LUNGS:CTA HEART: RR S1S2 ABD: BS+, Soft and nontender Lower extremities: no edema SKIN: nonjaundiced Neuro: grossly intact. Objective Data Vital Signs Vital Signs: Vital Signs - 24 hr 05/27/25 20:00 05/27/25 22:00 05/28/25 00:00 Temperature 36.9 C 36.7 C Pulse Rate 83 66 Pulse Rate [Monitor] Respiratory Rate 18 16 Blood Pressure 135/80 171/67 H Pulse Oximetry 100 98 Oxygen Delivery Room Air 05/28/25 03:39 05/28/25 05:51 05/28/25 08:00 Temperature 36.9 C 36.7 C Pulse Rate 76 80 Pulse Rate [Monitor] 77 Respiratory Rate 20 18 Blood Pressure 171/67 H 130/67 125/75 Pulse Oximetry 99 100 Oxygen Delivery 05/28/25 15:58 Temperature 36.9 C Pulse Rate 83 Pulse Rate [Monitor] Respiratory Rate 18 Blood Pressure 127/54 L Pulse Oximetry 100 Oxygen Delivery Intake/Output Intake/Output: Intake & Output 05/25/25 05/26/25 05/27/25 05/28/25 23:59 23:59 23:59 23:59 Intake Total 2810.0 2147.5 1070 1540 Output Total 1450 1950 3600 1100 Balance 1360.0 197.5 -2530 440 Meds/Results Medications: Active Medications Generic Name Dose Route Start Last Admin Trade Name Freq PRN Reason Stop Dose Admin Acetaminophen 650 mg 05/25/25 08:24 05/25/25 08:46 Acetaminophen 325 Mg Tablet PO 650 mg Q6H PRN Administration Mild Pain (1-3) or Fever Diazepam 5 - 10 mg 05/24/25 00:00 Diazepam Inj (*Crx) 10 Mg/2 Ml Syringe IV PUSH Q5M PRN CIWA > 15 Folic Acid 1 mg 05/24/25 09:00 05/28/25 09:45 Folic Acid 1 Mg/0.2 Ml Inj IV PUSH 1 mg DAILY MONICA Administration Ceftriaxone Sodium 2 gm/ 100 mls @ 200 mls/hr 05/27/25 21:00 05/27/25 21:40 Sodium Chloride IVPB 05/29/25 21:29 Infused Q24H MONICA Infusion Vancomycin HCl 1,500 mg in 500 mls @ 250 mls/hr 05/28/25 01:00 05/28/25 15:10 Vancomycin 1,500 Mg/Ns 500 Ml IVPB Infused Q12H MONICA Infusion Lorazepam 2 mg 05/24/25 00:00 Lorazepam (*Crx) 1 Mg Tablet PO Q2H PRN CIWA>8, HR>100, or DBP>100 Sodium Chloride 1,500 mg 05/28/25 09:00 05/28/25 09:45 Sodium Chloride 500 Mg Tablet PO 1,500 mg BID MONICA Administration Thiamine HCl 100 mg 05/24/25 09:00 05/28/25 09:45 Thiamine Hcl 200 Mg/2 Ml Vial IV PUSH 100 mg DAILY MONICA Administration Radiology Results: ITS Impressions Cervical Spine CT 05/24/25 08:11 IMPRESSION: HEAD: 1. No acute intracranial findings. C-SPINE: 1. No acute fracture. Head CT 05/24/25 08:11 IMPRESSION: HEAD: 1. No acute intracranial findings. C-SPINE: 1. No acute fracture. Abdomen Ultrasound 05/24/25 14:24 IMPRESSION: 1. No acute findings identified but suboptimal visualization due to bowel gas. Chest/Abdomen/Pelvis CT 05/25/25 10:42 IMPRESSION: 1. No acute posttraumatic findings. Labs Labs: Laboratory Results - last 24 hr 05/23/25 05/24/25 05/27/25 18:39 10:28 20:11 Sodium Potassium Chloride Carbon Dioxide Anion Gap BUN Creatinine Estim Creat Clear Calc Estimated GFR Glucose POC Capillary Glucose 148 H Serum Osmolality 237 L Calcium Phosphorus Magnesium Total Creatine Kinase Albumin Urine Osmolality 423 Vancomycin Trough 05/27/25 05/27/25 05/28/25 21:13 22:43 04:42 Sodium 123 L 120 L Potassium 3.3 L Chloride 88 L Carbon Dioxide 28 Anion Gap 4 BUN 4 L Creatinine 0.39 L Estim Creat Clear Calc 125 Estimated GFR > 60 Glucose 95 POC Capillary Glucose Serum Osmolality Calcium 8.1 L Phosphorus 3.4 Magnesium 1.9 Total Creatine Kinase 181 H Albumin 3.1 L Urine Osmolality Vancomycin Trough 13.3 05/28/25 05/28/25 11:15 11:21 Sodium 121 L Potassium Chloride Carbon Dioxide Anion Gap BUN Creatinine Estim Creat Clear Calc Estimated GFR Glucose POC Capillary Glucose 116 H Serum Osmolality Calcium Phosphorus Magnesium Total Creatine Kinase Albumin Urine Osmolality Vancomycin Trough Quality VTE Prophylaxis VTE prophylaxis: mechanical ordered
[2025-05-28 18:26] LABS: Sodium 121 mmol/L (137-145)
[2025-05-28] MEDS: cefTRIAXone 2 GM in SODIUM CHLORIDE 0.9% IV 100 ML 200 ML IVPB (20:35)
[2025-05-28] MEDS: SODIUM CHLORIDE 3% 200 ML 50 ML IV CONT (21:36)
[2025-05-29] MEDS: VANCOMYCIN 1,500 MG/NS 500 ML 1,500 MG/500 ML BAG 250 MG IVPB (02:13)
[2025-05-29 04:12] VITALS: BP 114/78; PULSE 82; RESP 16; TEMP 36.5; O2SAT 98
[2025-05-29 04:40] LABS: Albumin Level 2.7 g/dL (3.5-5.1); Anion Gap 3 mmol/L (4-12); Blood Urea Nitrogen 4 mg/dL (9-20); Calcium 7.9 mg/dL (8.4-10.2); Carbon Dioxide 26 mmol/L (22-30); Chloride 96 mmol/L (98-107); Creatine Kinase 98 U/L (55-170); Estimated CRCL calculation 132 ml/min; Estimated Glomerular Filt Rate > 60; Glucose 87 mg/dL (65-110); Magnesium 1.9 mg/dL (1.6-2.3); Potassium 3.5 mmol/L (3.4-5.0); Sodium 125 mmol/L (137-145)
[2025-05-29 05:08] LABS: Osmolality, Urine 449 mOsmol/kg (.)
[2025-05-29 08:00] VITALS: BP 136/83; PULSE 84; RESP 18; TEMP 37.1; O2SAT 96
[2025-05-29] MEDS: THIAMINE HCL 200 MG/2 ML VIAL 100 MG IV PUSH (09:22)
[2025-05-29] MEDS: FOLIC ACID 1 MG/0.2 ML INJ IV PUSH (09:22)
[2025-05-29] MEDS: SODIUM CHLORIDE 500 MG TABLET 1500 MG PO ×2 (09:22→16:38)
--- NOTE | 2025-05-29 13:07 | P.PNNP_ITS ---
Progress Note: A&P Assessment and Plan (1) Hyponatremia: Code(s): E87.1 - Hypo-osmolality and hyponatremia Status: Acute Assessment and Plan: * slow improvement noted * severe hyponatremia noted on presentation - sodium 102mmol/L * suspect a chronic component * last labs are from June 2024 - discharge creatinine of 128mmol/L * suspect baseline sodium runs ~ mid to high 120s * slight rapid increase in sodium (102 --> 111 on 05/24) noted * due to this rapid correction, given DDAVP and D5W IVFs which slowed rate of rise * goal of therapy is a rate of change of 6 - 8mmol/L in 24 hours -- this has been achieved * evaluation to date (this hospitalization) noted: * TSH okay * cortisol 20.7 indicating adequate adrenal function * CT of brain negative * CT C/A/P negative * urine sodium is low * SPEP negative for paraproteinemia * serum/urine osmolality pending * suspected multifactorial etiology: * chronic alcohol intake * pre-renal factors * on fluid restriction plus salt tablets * consider adding lasix * s/p 3% saline on 05/27 * on discharge in June 2024, he was on salt tabs 1500mg bid with lasix 20mg bid along with fluid restriction * follow trend of sodium (2) Acute kidney failure: Qualifiers: Acute renal failure type: unspecified Qualified Code(s): N17.9 - Acute kidney failure, unspecified Code(s): N17.9 - Acute kidney failure, unspecified Status: Acute Assessment and Plan: * resolved * due to volume depletion/dehydration (3) SIRS (systemic inflammatory response syndrome): Code(s): R65.10 - Systemic inflammatory response syndrome (SIRS) of non-infectious origin without acute organ dysfunction Status: Acute Assessment and Plan: * as suspected by elevated WBC, hypothermia, hypoglycemia, and tachycardia on admission * follow culture data: * blood cultures (from 05/23) - Staphylococcus Aureus * on antibiotics * follow repeat cultures (4) Rhabdomyolysis: Qualifiers: Rhabdomyolysis type: non-traumatic Qualified Code(s): M62.82 - Rhabdomyolysis Code(s): M62.82 - Rhabdomyolysis Status: Acute Assessment and Plan: * improving * elevated CPK noted on admission * down trending * secondary to being down on the ground for around 24 - 48 hours (5) Anemia: Qualifiers: Anemia type: unspecified type Qualified Code(s): D64.9 - Anemia, unspecified Code(s): D64.9 - Anemia, unspecified Status: Acute Assessment and Plan: * due to acute illness and possible ROGELIO * follow trend of H/H (6) Hypoglycemia: Code(s): E16.2 - Hypoglycemia, unspecified Status: Acute Assessment and Plan: * resolved * was on dextrose IVFs * eating and drinking adequately * follow trend of blood sugars (7) Altered mental status: Code(s): R41.82 - Altered mental status, unspecified Status: Acute Assessment and Plan: * clinical improvement * presumably due to low sodium, previous hypoglycemia, and possible SIRS * continue supportive care (8) Alcohol abuse: Code(s): F10.10 - Alcohol abuse, uncomplicated Status: Acute Assessment and Plan: * known history * on thiamine and folate * monitor for withdrawal Will continue to follow. L Subjective Date/time seen: 05/29/25 13:07 Interval history: Follow-up for acute on chronic hyponatremia. Sodium continues to improve if not stabilize with current interventions/therapy to date; despite hyponatremia, remains asymptomatic; no events overnight or earlier this morning. Exam 2 Narrative: General: WD/WN male in NAD Heart: normal S1 and S2; no rub Lungs: clear to auscultation Abdomen: soft, nontender, nondistended, positive bowel sounds Extremities: no cyanosis or clubbing; no edema Skin: warm and dry Objective Data Vital Signs Vital Signs: Vital Signs Temp Pulse Resp BP Pulse Ox O2 Del Method 05/29/25 13:00 98.8 F 78 16 120/51 L 100 05/29/25 09:20 Room Air 05/29/25 08:00 98.7 F 84 18 136/83 96 05/29/25 04:12 97.7 F 82 16 114/78 98 05/28/25 20:00 84 17 98 Room Air 05/28/25 19:30 99.0 F 84 17 118/66 98 Intake/Output Intake/Output: Intake & Output 05/26/25 05/27/25 05/28/25 05/29/25 23:59 23:59 23:59 23:59 Intake Total 2147.5 1070 1760 418 Output Total 1950 3600 2350 1400 Balance 197.5 -2530 -590 -982 Meds/Results Medications: Active Medications Generic Name Dose Route Start Last Admin Trade Name Freq PRN Reason Stop Dose Admin Acetaminophen 650 mg 05/25/25 08:24 05/25/25 08:46 Acetaminophen 325 Mg Tablet PO 650 mg Q6H PRN Administration Mild Pain (1-3) or Fever Benzocaine 1 lozenge 05/28/25 22:25 Benzocaine/Menthol (*Bkc) 18 Ea Lozenge PO PRN PRN Sore Throat Diazepam 5 - 10 mg 05/24/25 00:00 Diazepam Inj (*Crx) 10 Mg/2 Ml Syringe IV PUSH Q5M PRN CIWA > 15 Folic Acid 1 mg 05/24/25 09:00 05/29/25 09:22 Folic Acid 1 Mg/0.2 Ml Inj IV PUSH 1 mg DAILY MONICA Administration Lorazepam 2 mg 05/24/25 00:00 Lorazepam (*Crx) 1 Mg Tablet PO Q2H PRN CIWA>8, HR>100, or DBP>100 Sodium Chloride 1,500 mg 05/28/25 09:00 05/29/25 16:38 Sodium Chloride 500 Mg Tablet PO 1,500 mg BID MONICA Administration Thiamine HCl 100 mg 05/24/25 09:00 05/29/25 09:22 Thiamine Hcl 200 Mg/2 Ml Vial IV PUSH 100 mg DAILY MONICA Administration Trimethoprim/Sulfamethoxazole 2 tab 05/29/25 21:00 Sulfamethoxazole/Trimethoprim 800/160 Mg Ds Tablet PO 06/08/25 21:01 Q12HR [facility] Radiology Results: ITS Impressions Cervical Spine CT 05/24/25 08:11 IMPRESSION: HEAD: 1. No acute intracranial findings. C-SPINE: 1. No acute fracture. Head CT 05/24/25 08:11 IMPRESSION: HEAD: 1. No acute intracranial findings. C-SPINE: 1. No acute fracture. Abdomen Ultrasound 05/24/25 14:24 IMPRESSION: 1. No acute findings identified but suboptimal visualization due to bowel gas. Chest/Abdomen/Pelvis CT 05/25/25 10:42 IMPRESSION: 1. No acute posttraumatic findings. Labs Labs: Laboratory Tests 05/26/25 03:56 05/29/25 03:47 Calcium 7.9 L Phosphorus 3.6 Magnesium 1.9 Total Creatine Kinase 98 Albumin 2.7 L Microbiology 05/26/25 14:22 Blood Blood Culture - Preliminary 05/26/25 14:18 Blood Blood Culture - Preliminary 05/23/25 19:22 Blood Blood Culture - Preliminary Staphylococcus aureus
--- NOTE | 2025-05-29 14:23 | PCPTNOTE ---
Attempted to see patient for PT, patient initially agreed to PT. However at beginning of treatment, patient had visitors come in and then patient refused PT. Patient reported maybe this isn't a good time.
--- NOTE | 2025-05-29 14:35 | PCOTNOTE ---
Patient refused having family drama, not today, Patient has family being escorted out of the room. Will try back tomorrow.
--- NOTE | 2025-05-29 14:50 | P.PNIM_ITS ---
Progress Note: A&P Assessment and Plan (1) Acute hyponatremia: Code(s): E87.1 - Hypo-osmolality and hyponatremia Status: Acute Assessment and Plan: Severe hyponatremia with sodium levels of 102 on admission, the patient received 2 L IV fluid bolus -Nephrology following -currently on D5 per nephrology -continue serial BMPs -seizure precaution (2) Acute kidney failure: Qualifiers: Acute renal failure type: unspecified Qualified Code(s): N17.9 - Acute kidney failure, unspecified Code(s): N17.9 - Acute kidney failure, unspecified Status: Acute Assessment and Plan: Acute renal failure likely related to hypovolemia, creatinine admission was 3.4 -patient received 2 L IV fluid bolus -currently on D5 at 100 mL/hour per Nephrology -creatinine is down to 0.94 -urine output has been adequate -continue to monitor renal function, electrolytes and urine output (3) Hypoglycemia: Code(s): E16.2 - Hypoglycemia, unspecified Status: Acute Assessment and Plan: Patient was hypoglycemic with blood sugars in the 40s, was treated with D50 -currently on D5 for his hyponatremia which is also helping his hypoglycemia -blood sugars more stabilized this morning -continue to monitor (4) Rhabdomyolysis: Qualifiers: Rhabdomyolysis type: non-traumatic Qualified Code(s): M62.82 - Rhabdomyolysis Code(s): M62.82 - Rhabdomyolysis Status: Acute Assessment and Plan: Elevated CK levels of 6800 on admission -continue maintenance IV fluids per Nephrology -CK levels trending down, continue to monitor (5) Sepsis: Code(s): A41.9 - Sepsis, unspecified organism Status: Acute Assessment and Plan: Leukocytosis, hypothermia, hypoglycemia, tachycardia -patient was started on cefepime and vancomycin (05/23) -continue cefepime, MRSA negative, okay to deescalate vancomycin if ICU team is okay -follow blood culture (6) Thrombocytopenia: Code(s): D69.6 - Thrombocytopenia, unspecified Status: Acute Assessment and Plan: Thrombocytopenia can multifactorial, patient has a history of alcohol use will continue to monitor (7) Transaminitis: Code(s): R74.01 - Elevation of levels of liver transaminase levels Status: Acute Assessment and Plan: Transaminitis secondary to alcohol use, hypovolemia and hemo concentrate Abdominal ultrasound shows no acute finding identified but suboptimally visuali zed due to bowel gas -LFTs are trending (8) Hypothermia: Qualifiers: Encounter type: initial encounter Qualified Code(s): T68.XXXA - Hypothermia, initial encounter Code(s): T68.XXXA - Hypothermia, initial encounter Status: Acute Assessment and Plan: Hypothermia likely due to hypo glycemia, found down in the basement, was down for unknown amount of time -patient was rewarmed to normal body temperature -continue to monitor Plan today patient is more awake, patient is found to hyponatremia and rhabdomyolysis most likely 2/2 dehydration as well as alcohol abuse,and as patient was found on the floor respectively, patient is seen by certified registered locksmith and patient is gently hydrated his sodium as well as CK levels are improving, 125 and 98 respectively, on 05/28 patient again was given 3% NS, Patient urine is growing staphylococcus aureus, MRSA, discuss with clinical pharmacist, will stop ceftriaxone and start patient on Bactrim, will monitor, will have PT/OT evaluate the patient, will benefit going to rehab. will monitor. Subjective Date/time seen: 05/29/25 14:50 Interval history: Found down on the basement floor Narrative: 64-year-old alcoholic with a past medical history of multiple falls and chronic hyponatremia who presented to the ER via EMS came to the home. Depending on the report copies were either called for a wellness check or the shuttlecock feather trimmer were at the residence to arrest the patient's son and his significant other. While police were searching the house they found the patient lying on the basement floor confused and cold to touch. When the patient arrived to the ER he was hypothermic with a temperature of 91? and his glucose was in the 40s. The patient cannot tell me when his last drink was. He still tells me that it was when he was last home. His alcohol level in the ER was less than 10. He is in only oriented to person and the fact that he is in the hospital but cannot name the hospital. He does not know how long he was on the basement floor and does not recall falling. He denies any pain. He has marked dental caries and foul odor emanating from his mouth but he denies any dental pain, head pain, chest pain or shortness of breath. He denies having any recent nausea or vomiting. Imaging in the ER did not demonstrate any evidence of pneumonia on CT scan but the patient is noted to have mild nonproductive cough at the time of my evaluation. King catheter was placed in the ER. today patient is more awake, patient is found to hyponatremia and rhabdomyolysis most likely 2/2 dehydration as well as alcohol abuse,and as patient was found on the floor respectively, patient is seen by certified registered locksmith and patient is gently hydrated his sodium as well as CK levels are improving, 125 and 98 respectively, on 05/28 patient again was given 3% NS, Patient urine is growing staphylococcus aureus, MRSA, discuss with clinical pharmacist, will stop ceftriaxone and start patient on Bactrim, will monitor, will have PT/OT evaluate the patient, will benefit going to rehab. will monitor. Review of Systems Review of Systems: All systems reviewed & are unremarkable except as noted in HPI and below Exam Narrative: Appears chronically ill Patient is comfortable, NAD HEENT: eyes are clear and none icteric LUNGS:CTA HEART: RR S1S2 ABD: BS+, Soft and nontender Lower extremities: no edema SKIN: nonjaundiced Neuro: grossly intact. Objective Data Vital Signs Vital Signs: Vital Signs - 24 hr 05/28/25 15:58 05/28/25 19:30 05/28/25 20:00 Temperature 36.9 C 37.2 C Pulse Rate 83 84 84 Respiratory Rate 18 17 17 Blood Pressure 127/54 L 118/66 Pulse Oximetry 100 98 98 Oxygen Delivery Room Air 05/29/25 04:12 05/29/25 08:00 05/29/25 09:20 Temperature 36.5 C 37.1 C Pulse Rate 82 84 Respiratory Rate 16 18 Blood Pressure 114/78 136/83 Pulse Oximetry 98 96 Oxygen Delivery Room Air Intake/Output Intake/Output: Intake & Output 05/26/25 05/27/25 05/28/25 05/29/25 23:59 23:59 23:59 23:59 Intake Total 2147.5 1070 1760 300 Output Total 1950 3600 2350 1400 Balance 197.5 -7330 -590 -1100 Meds/Results Medications: Active Medications Generic Name Dose Route Start Last Admin Trade Name Freq PRN Reason Stop Dose Admin Acetaminophen 650 mg 05/25/25 08:24 05/25/25 08:46 Acetaminophen 325 Mg Tablet PO 650 mg Q6H PRN Administration Mild Pain (1-3) or Fever Benzocaine 1 lozenge 05/28/25 22:25 Benzocaine/Menthol (*Bkc) 18 Ea Lozenge PO PRN PRN Sore Throat Diazepam 5 - 10 mg 05/24/25 00:00 Diazepam Inj (*Crx) 10 Mg/2 Ml Syringe IV PUSH Q5M PRN CIWA > 15 Folic Acid 1 mg 05/24/25 09:00 05/29/25 09:22 Folic Acid 1 Mg/0.2 Ml Inj IV PUSH 1 mg DAILY MONICA Administration Lorazepam 2 mg 05/24/25 00:00 Lorazepam (*Crx) 1 Mg Tablet PO Q2H PRN CIWA>8, HR>100, or DBP>100 Sodium Chloride 1,500 mg 05/28/25 09:00 05/29/25 09:22 Sodium Chloride 500 Mg Tablet PO 1,500 mg BID MONICA Administration Thiamine HCl 100 mg 05/24/25 09:00 05/29/25 09:22 Thiamine Hcl 200 Mg/2 Ml Vial IV PUSH 100 mg DAILY MONICA Administration Trimethoprim/Sulfamethoxazole 2 tab 05/29/25 21:00 Sulfamethoxazole/Trimethoprim 800/160 Mg Ds Tablet PO 06/08/25 21:01 Q12HR [facility] Radiology Results: ITS Impressions Cervical Spine CT 05/24/25 08:11 IMPRESSION: HEAD: 1. No acute intracranial findings. C-SPINE: 1. No acute fracture. Head CT 05/24/25 08:11 IMPRESSION: HEAD: 1. No acute intracranial findings. C-SPINE: 1. No acute fracture. Abdomen Ultrasound 05/24/25 14:24 IMPRESSION: 1. No acute findings identified but suboptimal visualization due to bowel gas. Chest/Abdomen/Pelvis CT 05/25/25 10:42 IMPRESSION: 1. No acute posttraumatic findings. Labs Labs: Laboratory Results - last 24 hr 05/24/25 05/28/25 05/28/25 14:42 17:02 18:14 Sodium 121 L Potassium Chloride Carbon Dioxide Anion Gap BUN Creatinine Estim Creat Clear Calc Estimated GFR Glucose POC Capillary Glucose 112 H Calcium Phosphorus Magnesium Total Creatine Kinase Albumin Urine Osmolality 449 05/28/25 05/29/25 05/29/25 19:29 03:47 07:33 Sodium 125 L Potassium 3.5 Chloride 96 L Carbon Dioxide 26 Anion Gap 3 L BUN 4 L Creatinine 0.37 L Estim Creat Clear Calc 132 Estimated GFR > 60 Glucose 87 POC Capillary Glucose 119 H 98 Calcium 7.9 L Phosphorus 3.6 Magnesium 1.9 Total Creatine Kinase 98 Albumin 2.7 L Urine Osmolality 05/29/25 11:45 Sodium Potassium Chloride Carbon Dioxide Anion Gap BUN Creatinine Estim Creat Clear Calc Estimated GFR Glucose POC Capillary Glucose 128 H Calcium Phosphorus Magnesium Total Creatine Kinase Albumin Urine Osmolality Quality VTE Prophylaxis VTE prophylaxis: mechanical ordered
[2025-05-29 16:00] VITALS: BP 120/51; PULSE 78; RESP 16; TEMP 37.1; O2SAT 100
[2025-05-29] MEDS: SULFAMETHOXAZOLE/TRIMETHOPRIM 800/160 MG DS TABLET 2 TAB PO (20:55)
[2025-05-29 21:20] VITALS: BP 139/75; PULSE 81; RESP 18; TEMP 36.9; O2SAT 97
[2025-05-30 05:43] LABS: Albumin Level 3.2 g/dL (3.5-5.1); Anion Gap 4 mmol/L (4-12); Blood Urea Nitrogen 6 mg/dL (9-20); Calcium 8.4 mg/dL (8.4-10.2); Carbon Dioxide 28 mmol/L (22-30); Chloride 93 mmol/L (98-107); Creatine Kinase 66 U/L (55-170); Estimated CRCL calculation 112 ml/min; Estimated Glomerular Filt Rate > 60; Glucose 88 mg/dL (65-110); Magnesium 1.9 mg/dL (1.6-2.3); Potassium 3.8 mmol/L (3.4-5.0); Sodium 125 mmol/L (137-145)
[2025-05-30 06:25] VITALS: BP 129/85; PULSE 73; RESP 16; TEMP 36.9; O2SAT 96
[2025-05-30] MEDS: SODIUM CHLORIDE 500 MG TABLET 1500 MG PO ×2 (08:42→17:07)
[2025-05-30] MEDS: THIAMINE HCL 200 MG/2 ML VIAL 100 MG IV PUSH (08:42)
[2025-05-30] MEDS: FUROSEMIDE 10 MG TABLET PO ×2 (08:42→17:07)
[2025-05-30] MEDS: SULFAMETHOXAZOLE/TRIMETHOPRIM 800/160 MG DS TABLET 2 TAB PO ×2 (08:42→20:46)
[2025-05-30] MEDS: FOLIC ACID 1 MG/0.2 ML INJ IV PUSH (08:43)
--- NOTE | 2025-05-30 11:06 | P.PNNP_ITS ---
Progress Note: A&P Assessment and Plan (1) Hyponatremia: Code(s): E87.1 - Hypo-osmolality and hyponatremia Status: Acute Assessment and Plan: * slow improvement noted * severe hyponatremia noted on presentation - sodium 102mmol/L * suspect a chronic component * last labs are from June 2024 - discharge creatinine of 128mmol/L * suspect baseline sodium runs ~ mid to high 120s * slight rapid increase in sodium (102 --> 111 on 05/24) noted * due to this rapid correction, given DDAVP and D5W IVFs which slowed rate of rise * goal of therapy is a rate of change of 6 - 8mmol/L in 24 hours -- this has been achieved * evaluation to date (this hospitalization) noted: * TSH okay * cortisol 20.7 indicating adequate adrenal function * CT of brain negative * CT C/A/P negative * urine sodium is low * SPEP negative for paraproteinemia * serum/urine osmolality pending * suspected multifactorial etiology: * chronic alcohol intake * pre-renal factors * on fluid restriction plus salt tablets * consider adding lasix * s/p 3% saline on 05/27 * on discharge in June 2024, he was on salt tabs 1500mg bid with lasix 20mg bid along with fluid restriction * follow trend of sodium (2) Acute kidney failure: Qualifiers: Acute renal failure type: unspecified Qualified Code(s): N17.9 - Acute kidney failure, unspecified Code(s): N17.9 - Acute kidney failure, unspecified Status: Acute Assessment and Plan: * resolved * due to volume depletion/dehydration (3) SIRS (systemic inflammatory response syndrome): Code(s): R65.10 - Systemic inflammatory response syndrome (SIRS) of non-infectious origin without acute organ dysfunction Status: Acute Assessment and Plan: * as suspected by elevated WBC, hypothermia, hypoglycemia, and tachycardia on admission * follow culture data: * blood cultures (from 05/23) - Staphylococcus Aureus * on antibiotics * follow repeat cultures (4) Rhabdomyolysis: Qualifiers: Rhabdomyolysis type: non-traumatic Qualified Code(s): M62.82 - Rhabdomyolysis Code(s): M62.82 - Rhabdomyolysis Status: Acute Assessment and Plan: * improving * elevated CPK noted on admission * down trending * secondary to being down on the ground for around 24 - 48 hours (5) Anemia: Qualifiers: Anemia type: unspecified type Qualified Code(s): D64.9 - Anemia, unspecified Code(s): D64.9 - Anemia, unspecified Status: Acute Assessment and Plan: * due to acute illness and possible ROGELIO * follow trend of H/H (6) Hypoglycemia: Code(s): E16.2 - Hypoglycemia, unspecified Status: Acute Assessment and Plan: * resolved * was on dextrose IVFs * eating and drinking adequately * follow trend of blood sugars (7) Altered mental status: Code(s): R41.82 - Altered mental status, unspecified Status: Acute Assessment and Plan: * clinical improvement * presumably due to low sodium, previous hypoglycemia, and possible SIRS * continue supportive care (8) Alcohol abuse: Code(s): F10.10 - Alcohol abuse, uncomplicated Status: Acute Assessment and Plan: * known history * on thiamine and folate * monitor for withdrawal Not much else to add -- will continue to follow intermittently. L Subjective Date/time seen: 05/30/25 11:06 Interval history: Follow-up for acute on chronic hyponatremia. Sodium remains stable at this time with current therapy/interventions; working with therapy as tolerated; no other issues/events overnight or earlier this morning. Exam 2 Narrative: General: WD/WN male in NAD Heart: normal S1 and S2; no rub Lungs: clear to auscultation Abdomen: soft, nontender, nondistended, positive bowel sounds Extremities: no cyanosis or clubbing; no edema Skin: warm and intact Objective Data Vital Signs Vital Signs: Vital Signs Temp Pulse Resp BP Pulse Ox O2 Del Method 05/30/25 08:53 Room Air 05/30/25 06:25 98.5 F 73 16 129/85 96 05/29/25 21:20 98.5 F 81 18 139/75 97 05/29/25 20:45 Room Air Intake/Output Intake/Output: Intake & Output 05/27/25 05/28/25 05/29/25 05/30/25 23:59 23:59 23:59 23:59 Intake Total 1070 1760 418 660 Output Total 3600 2350 2400 1800 Balance -2530 -590 -1982 -1140 Meds/Results Medications: Active Medications Generic Name Dose Route Start Last Admin Trade Name Freq PRN Reason Stop Dose Admin Acetaminophen 650 mg 05/25/25 08:24 05/25/25 08:46 Acetaminophen 325 Mg Tablet PO 650 mg Q6H PRN Administration Mild Pain (1-3) or Fever Benzocaine 1 lozenge 05/28/25 22:25 Benzocaine/Menthol (*Bkc) 18 Ea Lozenge PO PRN PRN Sore Throat Diazepam 5 - 10 mg 05/24/25 00:00 Diazepam Inj (*Crx) 10 Mg/2 Ml Syringe IV PUSH Q5M PRN CIWA > 15 Folic Acid 1 mg 05/24/25 09:00 05/30/25 08:43 Folic Acid 1 Mg/0.2 Ml Inj IV PUSH 1 mg DAILY MONICA Administration Furosemide 10 mg 05/30/25 09:00 05/30/25 17:07 Furosemide 10 Mg Tablet PO 10 mg BID MONICA Administration Lorazepam 2 mg 05/24/25 00:00 Lorazepam (*Crx) 1 Mg Tablet PO Q2H PRN CIWA>8, HR>100, or DBP>100 Sodium Chloride 1,500 mg 05/28/25 09:00 05/30/25 17:07 Sodium Chloride 500 Mg Tablet PO 1,500 mg BID MONICA Administration Thiamine HCl 100 mg 05/24/25 09:00 05/30/25 08:42 Thiamine Hcl 200 Mg/2 Ml Vial IV PUSH 100 mg DAILY MONICA Administration Trimethoprim/Sulfamethoxazole 2 tab 05/29/25 21:00 05/30/25 08:42 Sulfamethoxazole/Trimethoprim 800/160 Mg Ds Tablet PO 06/08/25 21:01 2 tab Q12HR MONICA Administration Radiology Results: ITS Impressions Cervical Spine CT 05/24/25 08:11 IMPRESSION: HEAD: 1. No acute intracranial findings. C-SPINE: 1. No acute fracture. Head CT 05/24/25 08:11 IMPRESSION: HEAD: 1. No acute intracranial findings. C-SPINE: 1. No acute fracture. Abdomen Ultrasound 05/24/25 14:24 IMPRESSION: 1. No acute findings identified but suboptimal visualization due to bowel gas. Chest/Abdomen/Pelvis CT 05/25/25 10:42 IMPRESSION: 1. No acute posttraumatic findings. Labs Labs: Laboratory Tests 05/26/25 03:56 05/30/25 05:18 Calcium 8.4 Phosphorus 4.2 Magnesium 1.9 Total Creatine Kinase 66 Albumin 3.2 L Microbiology 05/23/25 19:22 Blood Blood Culture - Final Staphylococcus aureus 05/23/25 18:25 Blood Blood Culture - Final 05/26/25 14:22 Blood Blood Culture - Preliminary 05/26/25 14:18 Blood Blood Culture - Preliminary
[2025-05-30 15:22] VITALS: BP 132/77; PULSE 82; RESP 16; TEMP 36.7; O2SAT 98
--- NOTE | 2025-05-30 16:06 | P.PNIM_ITS ---
Progress Note: A&P Assessment and Plan (1) Acute hyponatremia: Code(s): E87.1 - Hypo-osmolality and hyponatremia Status: Acute (2) Acute kidney failure: Qualifiers: Acute renal failure type: unspecified Qualified Code(s): N17.9 - Acute kidney failure, unspecified Code(s): N17.9 - Acute kidney failure, unspecified Status: Acute (3) Hypoglycemia: Code(s): E16.2 - Hypoglycemia, unspecified Status: Acute (4) Rhabdomyolysis: Qualifiers: Rhabdomyolysis type: non-traumatic Qualified Code(s): M62.82 - Rhabdomyolysis Code(s): M62.82 - Rhabdomyolysis Status: Acute (5) Sepsis: Code(s): A41.9 - Sepsis, unspecified organism Status: Acute (6) Thrombocytopenia: Code(s): D69.6 - Thrombocytopenia, unspecified Status: Acute (7) Transaminitis: Code(s): R74.01 - Elevation of levels of liver transaminase levels Status: Acute (8) Hypothermia: Qualifiers: Encounter type: initial encounter Qualified Code(s): T68.XXXA - Hypothermia, initial encounter Code(s): T68.XXXA - Hypothermia, initial encounter Status: Acute Plan This is a 64-year-old male who presented via EMS. Depending on the report copies were either called for a wellness check or the mail clerks supervisor were at the residence to arrest the patient's son and his significant other. While police were searching the house they found the patient lying on the basement floor confused and cold to touch. When the patient arrived to the ER he was hypothermic with a temperature of 91? and his glucose was in the 40s. Patient has a history of recurrent falls and alcohol use. The patient could not tell when his last drink was. His alcohol level in the ER was less than 10. He he was only oriented to person. He does not know how long he was on the basement floor and does not recall falling. He denies any pain. He has marked dental caries and foul odor emanating from his mouth but he denies any dental pain, head pain, chest pain or shortness of breath. He denies having any recent nausea or vomiting. Imaging in the ER did not demonstrate any evidence of pneumonia on CT scan. King catheter was placed in the ER. Patient was noted to have severe hyponatremia with sodium level of 102 on admission. Received IV fluid. Nephrology was consulted and has been monitored with serial BMP. Continues to improve ROGELIO with creatinine of 3.4 on admission. Resolved with IV hydration Hypoglycemia with blood sugar in 4 days on admission treated with D50. Blood sugar has stabilized Rhabdomyolysis elevated CK level of 6800 on admission CK level trending down Sepsis with hypothermia hypoglycemia tachycardia. Patient started on cefepime and vancomycin 05/23. Thrombocytopenia likely due to alcohol abuse Transaminitis from alcohol use abdominal ultrasound with no acute findings. LFTs trending down Hypothermia rewarmed normal temperature Bacteremia with MSSA 05/23/2025. Repeat blood culture from 05/26/2025 was negative. On Bactrim DVT prophylaxis SCDs Code status full code Subjective Date/time seen: 05/30/25 16:06 Interval history: Chart reviewed. States he came in because of a fall. Getting better. Was noted to have severe hyponatremia. Has a King catheter Review of Systems Review of Systems: All systems reviewed & are unremarkable except as noted in HPI and below Exam Narrative: Appears chronically ill not in acute distress Patient is comfortable, NAD HEENT: eyes are clear and none icteric LUNGS:CTA HEART: RR S1S2 ABD: BS+, Soft and nontender Lower extremities: no edema SKIN: nonjaundiced Neuro: grossly intact. Generalized weakness Objective Data Vital Signs Vital Signs: Vital Signs - 24 hr 05/29/25 20:45 05/29/25 21:20 05/30/25 06:25 Temperature 98.5 F 98.5 F Pulse Rate 81 73 Respiratory Rate 18 16 Blood Pressure 139/75 129/85 Pulse Oximetry 97 96 Oxygen Delivery Room Air 05/30/25 08:53 05/30/25 15:22 Temperature 98.1 F Pulse Rate 82 Respiratory Rate 16 Blood Pressure 132/77 Pulse Oximetry 98 Oxygen Delivery Room Air Intake/Output Intake/Output: Intake & Output 05/27/25 05/28/25 05/29/25 05/30/25 23:59 23:59 23:59 23:59 Intake Total 1070 1760 418 660 Output Total 3600 2350 2400 1500 Balance -2530 -590 -1982 -840 Meds/Results Medications: Active Medications Generic Name Dose Route Start Last Admin Trade Name Freq PRN Reason Stop Dose Admin Acetaminophen 650 mg 05/25/25 08:24 05/25/25 08:46 Acetaminophen 325 Mg Tablet PO 650 mg Q6H PRN Administration Mild Pain (1-3) or Fever Benzocaine 1 lozenge 05/28/25 22:25 Benzocaine/Menthol (*Bkc) 18 Ea Lozenge PO PRN PRN Sore Throat Diazepam 5 - 10 mg 05/24/25 00:00 Diazepam Inj (*Crx) 10 Mg/2 Ml Syringe IV PUSH Q5M PRN CIWA > 15 Folic Acid 1 mg 05/24/25 09:00 05/30/25 08:43 Folic Acid 1 Mg/0.2 Ml Inj IV PUSH 1 mg DAILY MONICA Administration Furosemide 10 mg 05/30/25 09:00 05/30/25 08:42 Furosemide 10 Mg Tablet PO 10 mg BID MONICA Administration Lorazepam 2 mg 05/24/25 00:00 Lorazepam (*Crx) 1 Mg Tablet PO Q2H PRN CIWA>8, HR>100, or DBP>100 Sodium Chloride 1,500 mg 05/28/25 09:00 05/30/25 08:42 Sodium Chloride 500 Mg Tablet PO 1,500 mg BID MONICA Administration Thiamine HCl 100 mg 05/24/25 09:00 05/30/25 08:42 Thiamine Hcl 200 Mg/2 Ml Vial IV PUSH 100 mg DAILY MONICA Administration Trimethoprim/Sulfamethoxazole 2 tab 05/29/25 21:00 05/30/25 08:42 Sulfamethoxazole/Trimethoprim 800/160 Mg Ds Tablet PO 06/08/25 21:01 2 tab Q12HR MONICA Administration Radiology Results: ITS Impressions Cervical Spine CT 05/24/25 08:11 IMPRESSION: HEAD: 1. No acute intracranial findings. C-SPINE: 1. No acute fracture. Head CT 05/24/25 08:11 IMPRESSION: HEAD: 1. No acute intracranial findings. C-SPINE: 1. No acute fracture. Abdomen Ultrasound 05/24/25 14:24 IMPRESSION: 1. No acute findings identified but suboptimal visualization due to bowel gas. Chest/Abdomen/Pelvis CT 05/25/25 10:42 IMPRESSION: 1. No acute posttraumatic findings. Labs Labs: Laboratory Results - last 24 hr 05/29/25 05/29/25 05/30/25 16:27 21:25 05:18 Sodium 125 L Potassium 3.8 Chloride 93 L Carbon Dioxide 28 Anion Gap 4 BUN 6 L Creatinine 0.45 L Estim Creat Clear Calc 112 Estimated GFR > 60 Glucose 88 POC Capillary Glucose 109 H 130 H Calcium 8.4 Phosphorus 4.2 Magnesium 1.9 Total Creatine Kinase 66 Albumin 3.2 L 05/30/25 05/30/25 07:43 11:34 Sodium Potassium Chloride Carbon Dioxide Anion Gap BUN Creatinine Estim Creat Clear Calc Estimated GFR Glucose POC Capillary Glucose 94 116 H Calcium Phosphorus Magnesium Total Creatine Kinase Albumin
[2025-05-30 21:01] VITALS: BP 107/60; PULSE 85; RESP 16; TEMP 36.8; O2SAT 97
[2025-05-31 05:28] LABS: Hematocrit 31.4 % (42.0-52.0); Hemoglobin 10.9 g/dL (14.0-18.0); Immature Granulocyte Percent A 1.1 % (0-0.5); Lymphocytes Absolute Auto 1.45 K/mm3 (0.9-3.2); Mean Corpuscular HGB Conc 34.7 g/dl (32-36); Mean Corpuscular Hemoglobin 33.2 pg (26-34); Mean Corpuscular Volume 95.7 fl (80-100); Nucleated Red Blood Cells Absolute Auto 0.000 K/mm3 (0.0-0.012); Nucleated Red Blood Cells Perc 0.0 % (0.0-0.2); Platelet Count Result 251 k/mm3 (150-375); Red Blood Count 3.28 M/mm3 (4.6-6.20); White Blood Count 7.4 K/mm3 (4.5-10.0)
[2025-05-31 05:51] LABS: Alanine Aminotransferase 53 U/L (6-50); Albumin Level 3.2 g/dL (3.5-5.1); Alkaline Phosphatase 77 U/L (38-126); Anion Gap 7 mmol/L (4-12); Aspartate Amino Transferase 50 U/L (17-59); Bilirubin,Total 0.6 mg/dL (0.2-1.3); Blood Urea Nitrogen 6 mg/dL (9-20); Calcium 8.3 mg/dL (8.4-10.2); Carbon Dioxide 24 mmol/L (22-30); Chloride 94 mmol/L (98-107); Creatine Kinase 51 U/L (55-170); Estimated CRCL calculation 96 ml/min; Estimated Glomerular Filt Rate > 60; Glucose 83 mg/dL (65-110); Magnesium 2.1 mg/dL (1.6-2.3); Potassium 3.9 mmol/L (3.4-5.0); Sodium 125 mmol/L (137-145); Total Protein 6.4 g/dL (6.3-8.2)
[2025-05-31 06:13] VITALS: BP 113/72; PULSE 69; RESP 16; TEMP 36.7; O2SAT 99
[2025-05-31] MEDS: FUROSEMIDE 10 MG TABLET PO ×2 (10:06→16:51)
[2025-05-31] MEDS: SULFAMETHOXAZOLE/TRIMETHOPRIM 800/160 MG DS TABLET 2 TAB PO ×2 (10:06→20:06)
[2025-05-31] MEDS: SODIUM CHLORIDE 500 MG TABLET 1500 MG PO ×2 (10:06→16:51)
[2025-05-31] MEDS: FOLIC ACID 1 MG TABLET PO (12:37)
[2025-05-31] MEDS: THIAMINE HCL 100 MG TABLET PO (12:37)
--- NOTE | 2025-05-31 12:43 | P.DS_ITS ---
DS: Admitting Diagnosis Discharge Date 05/31/2025 Admitting Diagnosis Altered mental status DS: Discharge Diagnosis Discharge Diagnosis (1) Acute hyponatremia: Code(s): E87.1 - Hypo-osmolality and hyponatremia Status: Acute (2) Acute kidney failure: Qualifiers: Acute renal failure type: unspecified Qualified Code(s): N17.9 - Acute kidney failure, unspecified Code(s): N17.9 - Acute kidney failure, unspecified Status: Acute (3) Hypoglycemia: Code(s): E16.2 - Hypoglycemia, unspecified Status: Acute (4) Rhabdomyolysis: Qualifiers: Rhabdomyolysis type: non-traumatic Qualified Code(s): M62.82 - Rhabdomyolysis Code(s): M62.82 - Rhabdomyolysis Status: Acute (5) Sepsis: Code(s): A41.9 - Sepsis, unspecified organism Status: Acute (6) Thrombocytopenia: Code(s): D69.6 - Thrombocytopenia, unspecified Status: Acute (7) Transaminitis: Code(s): R74.01 - Elevation of levels of liver transaminase levels Status: Acute (8) Hypothermia: Qualifiers: Encounter type: initial encounter Qualified Code(s): T68.XXXA - Hypothermia, initial encounter Code(s): T68.XXXA - Hypothermia, initial encounter Status: Acute DS: Summary Hospital Course Hospital Course: This is a 64-year-old male who presented via EMS. Depending on the report copies were either called for a wellness check or the spring fitter helper were at the residence to arrest the patient's son and his significant other. While police were searching the house they found the patient lying on the basement floor confused and cold to touch. When the patient arrived to the ER he was hypothermic with a temperature of 91? and his glucose was in the 40s. Patient has a history of recurrent falls and alcohol use. The patient could not tell when his last drink was. His alcohol level in the ER was less than 10. He he was only oriented to person. He does not know how long he was on the basement floor and does not recall falling. He denies any pain. He has marked dental caries and foul odor emanating from his mouth but he denies any dental pain, head pain, chest pain or shortness of breath. He denies having any recent nausea or vomiting. Imaging in the ER did not demonstrate any evidence of pneumonia on CT scan. King catheter was placed in the ER. Patient was noted to have severe hyponatremia with sodium level of 102 on admission. Received IV fluid. Nephrology was consulted and has been monitored with serial BMP. Continues to improve. Patient seems to have chronic hyponatremia in the past as well. ROGELIO with creatinine of 3.4 on admission. Resolved with IV hydration Hypoglycemia with blood sugar in 4 days on admission treated with D50. Blood sugar has stabilized Rhabdomyolysis elevated CK level of 6800 on admission CK level trending down and normalized Sepsis with hypothermia hypoglycemia tachycardia. Patient started on cefepime and vancomycin 05/23. Thrombocytopenia likely due to alcohol abuse Transaminitis from alcohol use abdominal ultrasound with no acute findings. LFTs trending down Hypothermia rewarmed normal temperature Bacteremia with MSSA 05/23/2025. Repeat blood culture from 05/26/2025 was negative. On Bactrim until 06/08/2025 DVT prophylaxis SCDs Code status full code Time Spent with Patient Time attestation: Total time spent providing and/or coordinating discharge services: 40 minutes Exam Narrative: Appears chronically ill not in acute distress Patient is comfortable, NAD HEENT: eyes are clear and none icteric LUNGS:CTA HEART: RR S1S2 ABD: BS+, Soft and nontender Lower extremities: no edema SKIN: nonjaundiced Neuro: grossly intact. Generalized weakness DS: Data Data Completed and Pending Labs on day of discharge: Labs from last 24 hours 05/31/25 05/31/25 05/30/25 08:34 04:58 21:04 WBC 7.4 RBC 3.28 L Hgb 10.9 L Hct 31.4 L MCV 95.7 MCH 33.2 MCHC 34.7 RDW 12.2 Plt Count 251 D MPV 9.0 Immature Gran % (Auto) 1.1 H Neut % (Auto) 70.5 Lymph % (Auto) 19.5 [place] % (Auto) 6.9 Eos % (Auto) 1.5 Baso % (Auto) 0.5 Lymph # (Auto) 1.45 [place] # (Auto) 0.5 Eos # (Auto) 0.1 Baso # (Auto) 0.0 Abs Immat Gran (auto) 0.08 H Absolute Neuts (auto) 5.2 Absolute Nucleated RBC 0.000 Nucleated RBC % 0.0 Sodium 125 L Potassium 3.9 Chloride 94 L Carbon Dioxide 24 Anion Gap 7 BUN 6 L Creatinine 0.54 L Estim Creat Clear Calc 96 Estimated GFR > 60 Glucose 83 POC Capillary Glucose 89 128 H Calcium 8.3 L Phosphorus 4.2 Magnesium 2.1 Total Bilirubin 0.6 AST 50 ALT 53 H Alkaline Phosphatase 77 Total Creatine Kinase 51 L Total Protein 6.4 Albumin 3.2 L 05/30/25 05/30/25 17:03 11:34 WBC RBC Hgb Hct MCV MCH MCHC RDW Plt Count MPV Immature Gran % (Auto) Neut % (Auto) Lymph % (Auto) [place] % (Auto) Eos % (Auto) Baso % (Auto) Lymph # (Auto) [place] # (Auto) Eos # (Auto) Baso # (Auto) Abs Immat Gran (auto) Absolute Neuts (auto) Absolute Nucleated RBC Nucleated RBC % Sodium Potassium Chloride Carbon Dioxide Anion Gap BUN Creatinine Estim Creat Clear Calc Estimated GFR Glucose POC Capillary Glucose 125 H 116 H Calcium Phosphorus Magnesium Total Bilirubin AST ALT Alkaline Phosphatase Total Creatine Kinase Total Protein Albumin Preliminary micro results at discharge 05/26/25 14:22 Blood Culture - Preliminary Blood 05/26/25 14:18 Blood Culture - Preliminary Blood Imaging Radiologist's impression: ITS Impressions Cervical Spine CT 05/24/25 08:11 IMPRESSION: HEAD: 1. No acute intracranial findings. C-SPINE: 1. No acute fracture. Head CT 05/24/25 08:11 IMPRESSION: HEAD: 1. No acute intracranial findings. C-SPINE: 1. No acute fracture. Abdomen Ultrasound 05/24/25 14:24 IMPRESSION: 1. No acute findings identified but suboptimal visualization due to bowel gas. Chest/Abdomen/Pelvis CT 05/25/25 10:42 IMPRESSION: 1. No acute posttraumatic findings. Discharge Plan Discharge Attending physician on discharge: Khari Connell Consulting providers: Linda Gooden Zohair H.; Maria Ines Oliveira Discharging Clinician: Khari Connell Anticipated Discharge Date/Time: 05/31/25 12:46 Patient Disposition: SNF Activity: as tolerated Diet: regular Patient Language: Romanian Stand Alone Forms: General Discharge Information Follow-up/Referrals: Irizarry,Johnson Raines MD [Primary Care Provider] - 1 Week Discharge Medications: New furosemide [Lasix] 20 mg tablet 10 mg PO BID Qty: 30 0RF folic acid 1 mg Tablet 1 mg PO DAILY Qty: 30 0RF furosemide [Lasix] 20 mg tablet 10 mg PO BID Qty: 30 0RF sodium chloride 1,000 mg tablet,soluble 1,500 mg PO BID Qty: 90 0RF sulfamethoxazole-trimethoprim 800-160 mg Tablet 2 tab PO Q12HR Qty: 34 0RF thiamine HCl (vitamin B1) [Vitamin B-1] 100 mg Tablet 100 mg PO QAM Qty: 30 0RF sodium chloride 1,000 mg tablet,soluble 1,500 mg PO BID Qty: 90 0RF Other Ambulatory Orders: Complete Blood Count with Diff (Routine) Timeframe: 1 Week Location: Determined by Patient Ordered By: Khari Connell Comprehensive Metabolic Panel (Routine) Timeframe: 1 Week Location: Determined by Patient Ordered By: Khari Connell Date of admission: 05/23/25 22:51 Primary Care Provider: Junito,Johnson Raines Admitting Provider: Chantal Cadena Attending physician on admission: Chantal Cadena Condition: Improved
[2025-05-31 15:22] VITALS: BP 120/63; PULSE 86; RESP 16; TEMP 36.6; O2SAT 97
[2025-05-31 21:05] VITALS: BP 112/63; PULSE 79; RESP 17; TEMP 36.6; O2SAT 98
[2025-05-31 22:15] VITALS: O2SAT 98
[2025-06-01 05:11] VITALS: BP 122/62; PULSE 74; RESP 17; TEMP 36.8; O2SAT 99
[2025-06-01 05:34] LABS: Albumin Level 3.4 g/dL (3.5-5.1); Anion Gap 7 mmol/L (4-12); Blood Urea Nitrogen 7 mg/dL (9-20); Calcium 8.5 mg/dL (8.4-10.2); Carbon Dioxide 24 mmol/L (22-30); Chloride 94 mmol/L (98-107); Creatine Kinase 44 U/L (55-170); Estimated CRCL calculation 94 ml/min; Estimated Glomerular Filt Rate > 60; Glucose 85 mg/dL (65-110); Magnesium 2.1 mg/dL (1.6-2.3); Potassium 4.2 mmol/L (3.4-5.0); Sodium 125 mmol/L (137-145)
[2025-06-01] MEDS: THIAMINE HCL 100 MG TABLET PO (08:26)
[2025-06-01] MEDS: FOLIC ACID 1 MG TABLET PO (08:27)
[2025-06-01] MEDS: SODIUM CHLORIDE 500 MG TABLET 1500 MG PO (08:27)
[2025-06-01] MEDS: FUROSEMIDE 10 MG TABLET PO (08:27)
[2025-06-01] MEDS: SULFAMETHOXAZOLE/TRIMETHOPRIM 800/160 MG DS TABLET 2 TAB PO (08:27)
== END 2025-06-01 09:16 | disposition home or self-care (01) | DRG 872 ==
LOC: ANHED 22:51 → ANHICU 23:43 → ANHIMU 05-25 13:16 → ANH3MED 05-27 13:23 → ANH2MED 05-28 01:30
PROVIDERS: Emergency Medicine; Family Medicine; Internal Medicine; Internal Medicine Nephrology; Admitting Provider Internal Medicine; Emergency Provider Student in an Organized Health Care Education/Training Program; PCP Internal Medicine; Visit Provider Internal Medicine
DX: A41.01 Sepsis due to Methicillin susceptible Staphylococcus aureus (principal); M62.82 Rhabdomyolysis; E87.1 Hypo-osmolality and hyponatremia; N17.9 Acute kidney failure, unspecified; T68.XXXA Hypothermia, initial encounter; E16.2 Hypoglycemia, unspecified; E86.0 Dehydration; E53.8 Deficiency of other specified B group vitamins; D69.6 Thrombocytopenia, unspecified; D64.9 Anemia, unspecified; R94.31 Abnormal electrocardiogram [ECG] [EKG]; R29.6 Repeated falls; F10.10 Alcohol abuse, uncomplicated; Z20.822 Contact with and (suspected) exposure to COVID-19; Z96.651 Presence of right artificial knee joint; Z86.73 Personal history of transient ischemic attack (TIA), and cerebral infarction without residual deficits
CPT/HCPCS: 36415; 36600; 70450; 71250; 72125; 74176; 76705; 80048; 80053; 80069; 80074; 80076; 80143; 80179; 80202; 80307; 81001; 82077; 82248; 82375; 82533; 82550; 82570; 82607; 82728; 82746; 82803; 82805; 82948; 83050; 83540; 83550; 83605; 83690; 83735; 83930; 83935; 84100; 84155; 84165; 84295; 84300; 84443; 84484; 84540; 85018; 85025; 85055; 85610; 85730; 86308; 87040; 87186; 87637; 87641; 93005; 96360; 97110; 97162; 97166; 99285; A9270; J0692; J0696; J2597; J3373; J3411; J3480; J7030; J7040; J7050; J7070; J7120; J7121; J7131

== ENCOUNTER 2025-06-02 16:46 | Inpatient (IN) | payer MEDICARE, SELFPAY ==
[2025-06-02] VITALS (12 sets, daily range): BP systolic 97–113; BP diastolic 55–77; PULSE 76–85; RESP 12–24; TEMP 36.5–36.6; O2SAT 96–100; BMI 22.4
--- NOTE | ~2025-06-02 | CT_ITS ---
CT cervical spine wo con HISTORY: AMS, falls COMPARISON: None TECHNIQUE: Axial images of the cervical spine were obtained. Multiplanar reconstruction in the coronal, sagittal and axial reformats to evaluate for cervical fracture. FINDINGS: The images demonstrate no acute fracture or paravertebral soft tissue swelling. There are degenerative changes with disc space narrowing and uncovertebral hypertrophy throughout the cervical spine. The visualized aspect of the upper lungs are clear. IMPRESSION: Degenerative changes. No acute fracture or subluxation. All CT scans at this facility are performed using low dose modulation techniques as appropriate to perform exam including the following: automated exposure control; adjustment of the mA and/or kV according to patient size (this includes techniques or standardized protocols for targeted exams where does is matched to indication/reason for exam; i.e. extremities or head); use of iterative reconstruction technique). Reviewed, dictated and finalized at location S. IMPRESSION: Degenerative changes. No acute fracture or subluxation. All CT scans at this facility are performed using low dose modulation techniqu es as appropriate to perform exam including the following: automated exposure c ontrol; adjustment of the mA and/or kV according to patient size (this includes techniques or standardized protocols for targeted exams where does is matched to indication/reason for exam; i.e. extremities or head); use of iterative tia nstruction technique).
--- NOTE | ~2025-06-02 | XR_ITS ---
XR chest 1V portable INDICATION:AMS . REFERENCE: None FINDINGS: A single AP of the chest demonstrates normal heart size. The lungs are clear. There is no evidence of pneumothorax or pleural effusion. IMPRESSION: No acute pulmonary findings. Reviewed, dictated and finalized at location S.
--- NOTE | ~2025-06-02 | CT_ITS ---
CT brain wo con HISTORY:AMS COMPARISON: None. TECHNIQUE: Axial images were obtained of the head without intravenous contrast. FINDINGS: No acute intracranial hemorrhage, mass effect or midline shift. No extra-axial fluid collections. The calvarium is intact. Visualized paranasal sinuses and mastoid air cells are clear. IMPRESSION: No acute intracranial hemorrhage or extra axial fluid collections. All CT scans at this facility are performed using low dose modulation techniques as appropriate to perform exam including the following: automated exposure control; use of iterative reconstruction technique; adjustment of the mA and/or kV according to patient size (this includes techniques or standardized protocols for targeted exams where dose is matched to indication/reason for exam). Reviewed, dictated and finalized at location S. IMPRESSION: No acute intracranial hemorrhage or extra axial fluid collections. All CT scans at this facility are performed using low dose modulation techniqu es as appropriate to perform exam including the following: automated exposure c ontrol; use of iterative reconstruction technique; adjustment of the mA and/or kV according to patient size (this includes techniques or standardized protocol s for targeted exams where dose is matched to indication/reason for exam).
--- NOTE | 2025-06-02 17:20 | ECG_ITS ---
Test Date: 2025-06-02 17:49:33 Measurements Intervals Milo Rate: 80 P: 19 LA: 206 QRS: -4 QRSD: 82 T: 32 QT: 385 QTc: 444 Interpretive Statements SINUS RHYTHM WITH FIRST DEGREE AV BLOCK WITH FREQUENT VENTRICULAR PREMATURE COMPLEXES LEFT VENTRICULAR HYPERTROPHY BORDERLINE T WAVE ABNORMALITY- INFRIOR LEADS BASELINE ARTIFACT- I, III, AVR, AVL, AVF, V2-V6 ABNORMAL ECG Compared to ECG 05/23/2025 21:35:26 Ventricular premature complex(es) now present Electronically Signed On 06-02-2025 19:36:28 CDT by Dusty Soria D.O.
[2025-06-02 17:54] LABS: Hematocrit 32.1 % (42.0-52.0); Hemoglobin 11.6 g/dL (14.0-18.0); Immature Granulocyte Percent A 0.8 % (0-0.5); Lymphocytes Absolute Auto 1.19 K/mm3 (0.9-3.2); Mean Corpuscular HGB Conc 36.1 g/dl (32-36); Mean Corpuscular Hemoglobin 33.3 pg (26-34); Mean Corpuscular Volume 92.2 fl (80-100); Nucleated Red Blood Cells Absolute Auto 0.000 K/mm3 (0.0-0.012); Nucleated Red Blood Cells Perc 0.0 % (0.0-0.2); Platelet Count Result 327 k/mm3 (150-375); Red Blood Count 3.48 M/mm3 (4.6-6.20); White Blood Count 6.2 K/mm3 (4.5-10.0)
[2025-06-02 18:04] LABS: Add Urine Microscopic? NO; Appearance Urine Clear (Clear); Glucose Urine UA Trace mg/dL (Negative); Leukocyte Esterase Ur Negative LEU/UL (Negative); Nitrate Urine Negative (Negative); Specific Grav Ur 1.006 (1.001-1.035)
[2025-06-02 18:06] LABS: INR 1.1; Prothrombin Time 13.9 Seconds (11.1-14.7)
[2025-06-02 18:07] LABS: Partial Thromboplastin Time 32.0 Seconds (22.3-36.8)
[2025-06-02 18:19] LABS: Alanine Aminotransferase 43 U/L (6-50); Albumin Level 3.7 g/dL (3.5-5.1); Alkaline Phosphatase 76 U/L (38-126); Anion Gap 11 mmol/L (4-12); Aspartate Amino Transferase 45 U/L (17-59); Bilirubin,Total 0.6 mg/dL (0.2-1.3); Blood Urea Nitrogen 4 mg/dL (9-20); Calcium 8.2 mg/dL (8.4-10.2); Carbon Dioxide 21 mmol/L (22-30); Chloride 85 mmol/L (98-107); Estimated CRCL calculation 113 ml/min; Estimated Glomerular Filt Rate > 60; Glucose 84 mg/dL (65-110); Potassium 4.0 mmol/L (3.4-5.0); Sodium 117 mmol/L (137-145); Total Protein 6.8 g/dL (6.3-8.2)
[2025-06-02 18:20] LABS: Cannabinoid Screen Urine Negative (Negative)
--- NOTE | 2025-06-02 18:22 | ED_ITS ---
HPI - Alcohol General Chief Complaint: Alcohol <Adenike Graham PA-C - Last Filed: 06/02/25 22:11> Stated Complaint: etoh unknown other complaints <Adenike Graham PA-C - Last Filed: 06/02/25 22:11> Time Seen by Provider: 06/02/25 17:11 <Adenike Graham PA-C - Last Filed: 06/02/25 22:11> Source: patient and EMS <Adenike Graham PA-C - Last Filed: 06/02/25 22:11> Mode of arrival: EMS <PACO Mattson Last Filed: 06/02/25 22:11> Limitations: altered mental status <PACO Mattson Last Filed: 06/02/25 22:11> History of Present Illness HPI narrative: This is a 64-year-old male that presents to the emergency department for generalized weakness. Patient reports malaise, difficulty getting around. Admits to drinking alcohol today. Recent admission for similar symptoms, hyponatremia. <Adenike Graham PA-C - Last Filed: 06/02/25 22:11> Related Data Allergies/Adverse Reactions: Allergies Allergy/AdvReac Type Severity Reaction Status Date / Time No Known Allergies Allergy Mild Verified 06/02/25 21:31 <PACO Mattson Last Filed: 06/02/25 22:11> Review of Systems 2 Review of Systems: ROS unobtainable: Yes unobtainable due to mental status <PACO Mattson Last Filed: 06/02/25 22:11> [facility] Past Medical History Medical History: Medical History Closed sacral fracture As well as the sacral ala fracture and nondisplaced fracture extending across the S2 vertebral body noted on in remission May 2024 Thoracic compression fracture Chronic appearing T11 and T12 compression fractures noted May 2024 Closed fracture of left clavicle (~2023) B12 deficiency Chronic hyponatremia History of CVA (cerebrovascular accident) CT May 2024 demonstrated evidence of old infarcts right basal ganglia and left side of eula along with chronic findings of mild diffuse volume loss a MALT scattered white matter hypoattenuation consistent with chronic small- vessel ischemic disease Pneumothorax Associated with rib fractures noted during admission May 2024 with resolution without intervention Alcohol abuse <Adenike Graham PA-C - Last Filed: 06/02/25 22:11> Surgical History Surgical History: Surgical History History of total right knee replacement (~2017) <Adenike Graham PA-C - Last Filed: 06/02/25 22:11> Family History Family History: Family History Other Family history non-contributory <Adenike Graham PA-C - Last Filed: 06/02/25 22:11> Social History Social History: Social History Social History: Surrogate medical decision maker: Kenneth Drew ([phone]), son. Code status: Full code. Smoking status: Never smoker Second hand tobacco smoke exposure: No Alcohol intake: current Drinks per week: 56 Alcohol use details: 7-8 beers a day Substance use: never Substance use type: does not use Do You Feel Safe in your Home?: Yes Lack of Transportation: No Lack of Food: Never True Current Housing: I Have Housing Concerned About Future Housing: No Difficulty Paying Gas/Electric Bills: No Difficulty Paying for Meds: No Currently Unemployed: No Education: High School Diploma/GED Difficulty w/ Childcare or Family Care: No Additional living arrangements comments: The patient lives alone in his own home in [place]. 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 Spiritual care concerns: No <Adenike Graham PA-C - Last Filed: 06/02/25 22:11> Exam 2 Narrative: GENERAL: Disheveled, thin, and in no acute distress. HEAD: Normocephalic, atraumatic. EYES: PERRLA and EOMI. ENT: Nares clear, no rhinorrhea or epistaxis. Mucous membranes moist. Oropharynx without tonsillar hypertrophy exudate or other lesions. Bilateral TMs pearly gottlieb non-bulging NECK: Supple. No adenopathy or masses. CHEST: Clear to auscultation. No respiratory distress. No wheezes rales or rhonchi HEART: Regular rate and rhythm. No murmur heard. Normal peripheral pulses. ABDOMEN: Soft, nontender, nondistended, normal active bowel sounds. EXTREMITIES: Normal range of motion. No edema. SKIN: Warm, dry, no rash. NEURO: No focal deficits. Alert and oriented x3. PSYCH: Normal mood and affect <Adenike Graham PA-C - Last Filed: 06/02/25 22:11> Course EDUCATION PROFESSOR/PA Physician Supervision This visit was performed by both a physician and an APC. I performed all aspects of the MDM as documented. <Godfrey Wells MD - Last Filed: 06/03/25 02:49> Consultations Consultation #1: Spoke with Dr. Oliveira about patient and workup. Agrees with 1L NS bolus, start 75 mls/hour maintenance <Adenike Graham PA-C - Last Filed: 06/02/25 22:11> Date: 06/02/25 <Adenike Graham PA-C - Last Filed: 06/02/25 22:11> Consultation #2: Spoke with hospitalist about patient and workup who accepts admission < Adenike Graham PA-C - Last Filed: 06/02/25 22:11> Date: 06/02/25 <Adenike Graham PA-C - Last Filed: 06/02/25 22:11> Vital Signs Vital signs: Vital Signs Temperature 36.5 C 06/02/25 16:44 Pulse Rate 85 06/02/25 16:44 Respiratory Rate 16 06/02/25 16:44 Blood Pressure 107/77 06/02/25 16:44 Pulse Oximetry 100 06/02/25 16:44 Oxygen Delivery Room Air 06/02/25 16:44 Temperature 36.6 C 06/03/25 00:00 Pulse Rate 82 06/03/25 00:00 Respiratory Rate 18 06/03/25 00:00 Blood Pressure 99/51 L 06/03/25 00:00 Pulse Oximetry 97 06/03/25 00:00 Oxygen Delivery Room Air 06/03/25 00:00 <Adenike Graham PA-C - Last Filed: 06/02/25 22:11> Vital Signs Temperature 36.5 C 06/02/25 16:44 Pulse Rate 85 06/02/25 16:44 Respiratory Rate 16 06/02/25 16:44 Blood Pressure 107/77 06/02/25 16:44 Pulse Oximetry 100 06/02/25 16:44 Oxygen Delivery Room Air 06/02/25 16:44 Temperature 36.6 C 06/03/25 00:00 Pulse Rate 82 06/03/25 00:00 Respiratory Rate 18 06/03/25 00:00 Blood Pressure 99/51 L 06/03/25 00:00 Pulse Oximetry 97 06/03/25 00:00 Oxygen Delivery Room Air 06/03/25 00:00 <Godfrey Wells MD - Last Filed: 06/03/25 02:49> MDM - Alcohol MDM Narrative Medical decision making narrative: Patient presents to the ER for confusion, weakness. He is afebrile and nontoxic appearing. His vitals are stable. Cbc without leukocytosis. Metabolic panel with hyponatremia with sodium of 117. Patient given 1 L normal saline bolus. UA without evidence of infection. Drug screen is negative. Alcohol level is 217. Chest x-ray without acute cardiopulmonary abnormality. CT brain and cervical spine without acute findings. Spoke with hospitalist about patient and workup accepts admission. Nephrology will consult <Adenike Graham PA-C - Last Filed: 06/02/25 22:11> Differential Diagnosis Differential diagnosis: Likely alcohol intoxication and other (hyponatremia, dehydration) <Adenike Graham PA-C - Last Filed: 06/02/25 22:11> Lab Data Attestation: I reviewed the patient's lab results. <Adenike Graham PA-C - Last Filed: 06/02/25 22:11> Result diagrams: 06/02/25 17:46 06/02/25 23:06 <PACO Mattson Last Filed: 06/02/25 22:11> Labs: Lab Results 06/02/25 Range/Units 17:46 WBC 6.2 (4.5-10.0) K/mm3 RBC 3.48 L (4.6-6.20) M/mm3 Hgb 11.6 L (14.0-18.0) g/dL Hct 32.1 L (42.0-52.0) % MCV 92.2 (80-100) fl MCH 33.3 (26-34) pg MCHC 36.1 H (32-36) g/dl RDW 11.7 (11.5-14.5) % Plt Count 327 (150-375) k/mm3 MPV 8.4 (7.4-10.4) fl Immature Gran % (Auto) 0.8 H (0-0.5) % Neut % (Auto) 71.9 (45.5-73.1) % Lymph % (Auto) 19.1 (18.3-44.2) % [place] % (Auto) 6.6 (2.6-8.5) % Eos % (Auto) 0.8 (0-4.4) % Baso % (Auto) 0.8 (0.2-1.2) % Lymph # (Auto) 1.19 (0.9-3.2) K/mm3 [place] # (Auto) 0.4 (0.1-0.6) K/mm3 Eos # (Auto) 0.1 (0-0.3) K/mm3 Baso # (Auto) 0.1 (0.0-0.1) K/mm3 Abs Immat Gran (auto) 0.05 H (0.00-0.031) K/mm3 Absolute Neuts (auto) 4.5 (1.3-6.7) K/mm3 Absolute Nucleated RBC 0.000 (0.0-0.012) K/mm3 Nucleated RBC % 0.0 (0.0-0.2) % PT 13.9 (11.1-14.7) Seconds INR 1.1 APTT 32.0 (22.3-36.8) Seconds Sodium 117 L* (137-145) mmol/L Potassium 4.0 (3.4-5.0) mmol/L Chloride 85 L (98-107) mmol/L Carbon Dioxide 21 L (22-30) mmol/L Anion Gap 11 (4-12) mmol/L BUN 4 L (9-20) mg/dL Creatinine 0.43 L (0.7-1.3) mg/dL Estim Creat Clear Calc 113 ml/min Estimated GFR > 60 (59 - ) Glucose 84 (65-110) mg/dL Calcium 8.2 L (8.4-10.2) mg/dL Total Bilirubin 0.6 (0.2-1.3) mg/dL AST 45 (17-59) U/L ALT 43 (6-50) U/L Alkaline Phosphatase 76 (38-126) U/L Total Protein 6.8 (6.3-8.2) g/dL Albumin 3.7 (3.5-5.1) g/dL Urine Color Yellow (Yellow) Urine Appearance Clear (Clear) Urine pH 6.0 (5.0-9.0) Ur Specific [place] 1.006 (1.001-1.035) Urine Protein Negative (Negative) mg/dL Urine Glucose (UA) Trace H (Negative) mg/dL Urine Ketones Negative (Negative) mg/dL Ur Blood (Man) Negative (Negative) Urine Nitrate Negative (Negative) Urine Bilirubin Negative (Negative) Urine Urobilinogen 0.2 (<2.0) mg/dL Leukocyte Esterase Rfl Negative (Negative) VINEET/UL Salicylates < 1.0 L (2-20) mg/dL Urine Opiates Screen Negative (Negative) Urine Methadone Screen Negative (Negative) Acetaminophen < 10 L (10-30) ug/mL Ur Barbiturates Screen Negative (Negative) Ur Phencyclidine Scrn Negative (Negative) Ur Amphetamine Screen Negative (Negative) U Benzodiazepines Scrn Negative (Negative) Urine Cocaine Screen Negative (Negative) U Cannabinoids Screen Negative (Negative) Ethyl Alcohol 217 (<10) mg/dL <Adenike Graham PA-C - Last Filed: 06/02/25 22:11> Lab Results 06/02/25 Range/Units 17:46 WBC 6.2 (4.5-10.0) K/mm3 RBC 3.48 L (4.6-6.20) M/mm3 Hgb 11.6 L (14.0-18.0) g/dL Hct 32.1 L (42.0-52.0) % MCV 92.2 (80-100) fl MCH 33.3 (26-34) pg MCHC 36.1 H (32-36) g/dl RDW 11.7 (11.5-14.5) % Plt Count 327 (150-375) k/mm3 MPV 8.4 (7.4-10.4) fl Immature Gran % (Auto) 0.8 H (0-0.5) % Neut % (Auto) 71.9 (45.5-73.1) % Lymph % (Auto) 19.1 (18.3-44.2) % [place] % (Auto) 6.6 (2.6-8.5) % Eos % (Auto) 0.8 (0-4.4) % Baso % (Auto) 0.8 (0.2-1.2) % Lymph # (Auto) 1.19 (0.9-3.2) K/mm3 [place] # (Auto) 0.4 (0.1-0.6) K/mm3 Eos # (Auto) 0.1 (0-0.3) K/mm3 Baso # (Auto) 0.1 (0.0-0.1) K/mm3 Abs Immat Gran (auto) 0.05 H (0.00-0.031) K/mm3 Absolute Neuts (auto) 4.5 (1.3-6.7) K/mm3 Absolute Nucleated RBC 0.000 (0.0-0.012) K/mm3 Nucleated RBC % 0.0 (0.0-0.2) % PT 13.9 (11.1-14.7) Seconds INR 1.1 APTT 32.0 (22.3-36.8) Seconds Sodium 117 L* (137-145) mmol/L Potassium 4.0 (3.4-5.0) mmol/L Chloride 85 L (98-107) mmol/L Carbon Dioxide 21 L (22-30) mmol/L Anion Gap 11 (4-12) mmol/L BUN 4 L (9-20) mg/dL Creatinine 0.43 L (0.7-1.3) mg/dL Estim Creat Clear Calc 113 ml/min Estimated GFR > 60 (59 - ) Glucose 84 (65-110) mg/dL Calcium 8.2 L (8.4-10.2) mg/dL Total Bilirubin 0.6 (0.2-1.3) mg/dL AST 45 (17-59) U/L ALT 43 (6-50) U/L Alkaline Phosphatase 76 (38-126) U/L Total Protein 6.8 (6.3-8.2) g/dL Albumin 3.7 (3.5-5.1) g/dL Urine Color Yellow (Yellow) Urine Appearance Clear (Clear) Urine pH 6.0 (5.0-9.0) Ur Specific [place] 1.006 (1.001-1.035) Urine Protein Negative (Negative) mg/dL Urine Glucose (UA) Trace H (Negative) mg/dL Urine Ketones Negative (Negative) mg/dL Ur Blood (Man) Negative (Negative) Urine Nitrate Negative (Negative) Urine Bilirubin Negative (Negative) Urine Urobilinogen 0.2 (<2.0) mg/dL Leukocyte Esterase Rfl Negative (Negative) VINEET/UL Salicylates < 1.0 L (2-20) mg/dL Urine Opiates Screen Negative (Negative) Urine Methadone Screen Negative (Negative) Acetaminophen < 10 L (10-30) ug/mL Ur Barbiturates Screen Negative (Negative) Ur Phencyclidine Scrn Negative (Negative) Ur Amphetamine Screen Negative (Negative) U Benzodiazepines Scrn Negative (Negative) Urine Cocaine Screen Negative (Negative) U Cannabinoids Screen Negative (Negative) Ethyl Alcohol 217 (<10) mg/dL <Godfrey Wells MD - Last Filed: 06/03/25 02:49> Imaging Data Radiologist's impression: ITS Impressions Chest X-Ray 06/02/25 18:32 IMPRESSION: No acute pulmonary findings. Head CT 06/02/25 18:46 IMPRESSION: No acute intracranial hemorrhage or extra axial fluid collections. All CT scans at this facility are performed using low dose modulation techniques as appropriate to perform exam including the following: automated exposure control; use of iterative reconstruction technique; adjustment of the mA and/or kV according to patient size (this includes techniques or standardized protocols for targeted exams where dose is matched to indication/reason for exam). Cervical Spine CT 06/02/25 18:47 IMPRESSION: Degenerative changes. No acute fracture or subluxation. All CT scans at this facility are performed using low dose modulation techniques as appropriate to perform exam including the following: automated exposure control; adjustment of the mA and/or kV according to patient size (this includes techniques or standardized protocols for targeted exams where does is matched to indication/reason for exam; i.e. extremities or head); use of iterative reconstruction technique). <Adenike Graham PA-C - Last Filed: 06/02/25 22:11> ITS Impressions Chest X-Ray 06/02/25 18:32 IMPRESSION: No acute pulmonary findings. Head CT 06/02/25 18:46 IMPRESSION: No acute intracranial hemorrhage or extra axial fluid collections. All CT scans at this facility are performed using low dose modulation techniques as appropriate to perform exam including the following: automated exposure control; use of iterative reconstruction technique; adjustment of the mA and/or kV according to patient size (this includes techniques or standardized protocols for targeted exams where dose is matched to indication/reason for exam). Cervical Spine CT 06/02/25 18:47 IMPRESSION: Degenerative changes. No acute fracture or subluxation. All CT scans at this facility are performed using low dose modulation techniques as appropriate to perform exam including the following: automated exposure control; adjustment of the mA and/or kV according to patient size (this includes techniques or standardized protocols for targeted exams where does is matched to indication/reason for exam; i.e. extremities or head); use of iterative reconstruction technique). <Godfrey Wells MD - Last Filed: 06/03/25 02:49> ECG Data EKG #1: ECG completion date: 06/02/25 <Adenike Graham PA-C - Last Filed: 06/02/25 22:11> EKG Interpretation: normal rate, sinus rhythm, no ST changes and normal QT <Adenike Graham PA-C - Last Filed: 06/02/25 22:11> Critical Care Time Critical Care Time Critical Care Time: Yes <Adenike Graham PA-C - Last Filed: 06/02/25 22:11> Total Critical Care Time: 35 <Adenike Graham PA-C - Last Filed: 06/02/25 22:11> Discharge Plan Discharge Clinical Impression: Acute hyponatremia Alcoholic intoxication Qualifiers: Complication of substance-induced condition: uncomplicated Qualified Code(s): F 10.920 - Alcohol use, unspecified with intoxication, uncomplicated <Adenike Graham PA-C - Last Filed: 06/02/25 22:11> Patient Disposition: Still a Patient <Adenike Graham PA-C - Last Filed: 06/02/25 22:11> Condition: Serious <Adenike Graham PA-C - Last Filed: 06/02/25 22:11>
[2025-06-02] MEDS: SODIUM CHLORIDE 0.9% IV 1,000 ML 999 ML IV CONT (18:51)
[2025-06-02 20:28] LABS: Acetaminophen < 10 ug/mL (10-30); Salicylate < 1.0 mg/dL (2-20)
[2025-06-02] MEDS: SODIUM CHLORIDE 0.9% IV 1,000 ML 75 ML IV CONT (20:45)
--- NOTE | 2025-06-02 21:41 | PM.IMHP ---
H&P: HPI History of Present Illness Date/Time: 06/02/25 21:41 Chief Complaint: Lethargy Narrative: 64-year-old male with chronic and current alcohol use disorder, chronic hyponatremia, presents to [facility] ER via EMS from home on 06/02/2025 for generalized weakness, malaise, lethargy. He was recently discharged from this hospital to longterm for rehab, he discharged himself 1 day prior and went home and was drinking. Alcohol level on admission 217. Patient is a poor historian. He told ER physician bioinformatics assistant he drank alcohol, he told me he did not. His urine drug screen, salicylates, acetaminophen levels are within normal limits. Urinalysis not indicative of infection, trace glucose. Chem 7 demonstrates sodium 117, his baseline is around 125. He has no specific neurologic deficits. INR 1.1. Hemoglobin 11.6, WBC 6.2. Nephrology consulted from ER. Advised to give 1 L normal saline and then placed on normal saline at 75 cc/hour and check sodium again in a few hours. It appears on last admission he was discharged on Lasix, folic acid, sodium chloride tabs, Bactrim, thiamine. At that time he had hyponatremia which improved, rhabdomyolysis, hypoglycemia, sepsis, thrombocytopenia, transaminitis, bacteremia with MSSA on 05/23/2025 with repeat blood cultures on 05/26 negative, on Bactrim until 06/08/2025. Admission imaging, chest x-ray portable: No acute findings CT brain without contrast: No acute findings. CT cervical spine without contrast: Degenerative changes, no acute findings. Review of Systems Review of Systems: All systems reviewed & are unremarkable except as noted in HPI and below (Subjective) [facility] Past Medical History Medical History Closed sacral fracture As well as the sacral ala fracture and nondisplaced fracture extending across the S2 vertebral body noted on in remission May 2024 Thoracic compression fracture Chronic appearing T11 and T12 compression fractures noted May 2024 Closed fracture of left clavicle (~2023) B12 deficiency Chronic hyponatremia History of CVA (cerebrovascular accident) CT May 2024 demonstrated evidence of old infarcts right basal ganglia and left side of eula along with chronic findings of mild diffuse volume loss a MALT scattered white matter hypoattenuation consistent with chronic small-vessel ischemic disease Pneumothorax Associated with rib fractures noted during admission May 2024 with resolution without intervention Alcohol abuse Surgical History Surgical History History of total right knee replacement (~2018) Family History Family History Other Family history non-contributory Social History Social History Social History: Surrogate medical decision maker: Kenneth Drew ([phone]), son. Code status: Full code. Smoking status: Never smoker Alcohol intake: current Drinks per week: 56 Alcohol use details: 7-8 beers a day Substance use: never Substance use type: does not use Do You Feel Safe in your Home?: Yes Lack of Transportation: No Lack of Food: Never True Current Housing: I Have Housing Concerned About Future Housing: No Difficulty Paying Gas/Electric Bills: No Difficulty Paying for Meds: No Currently Unemployed: No Education: High School Diploma/GED Difficulty w/ Childcare or Family Care: No Additional living arrangements comments: The patient lives alone in his own home in [place]. 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 Spiritual care concerns: No Meds Home Medications and Allergies Home Medications ?Medication ?Instructions ?Recorded ?Confirmed ?Type folic acid 1 mg tablet 1 mg PO DAILY #30 tabs 05/31/25 Rx furosemide 20 mg tablet (Lasix) 10 mg (1/2 x 20 mg) PO BID #30 tabs 05/31/25 Rx sodium chloride 1,000 mg soluble 1,500 mg (1.5 x 1,000 mg) PO BID 05/31/25 Rx tablet #90 tabs sulfamethoxazole 800 2 tab PO Q12HR #34 tabs 05/31/25 Rx mg-trimethoprim 160 mg tablet thiamine HCl (vitamin B1) 100 mg 100 mg PO QAM #30 tabs 05/31/25 Rx tablet (Vitamin B-1) Allergies Allergy/AdvReac Type Severity Reaction Status Date / Time No Known Allergies Allergy Mild Verified 06/02/25 21:31 Vital Signs Vital Signs - 24 hr 06/02/25 16:44 06/02/25 17:06 06/02/25 17:15 Temperature 97.7 F Pulse Rate 85 81 80 Respiratory Rate 16 13 14 Blood Pressure 107/77 Pulse Oximetry 100 Oxygen Delivery Room Air 06/02/25 17:30 06/02/25 17:31 06/02/25 17:45 Temperature Pulse Rate 80 78 81 Respiratory Rate 14 15 15 Blood Pressure 105/67 Pulse Oximetry 98 Oxygen Delivery 06/02/25 18:00 06/02/25 18:01 06/02/25 18:30 Temperature Pulse Rate 79 80 81 Respiratory Rate 12 17 16 Blood Pressure 97/66 L Pulse Oximetry 96 Oxygen Delivery 06/02/25 21:22 06/02/25 21:26 Temperature Pulse Rate 76 76 Respiratory Rate 24 H 24 H Blood Pressure 113/70 113/70 Pulse Oximetry 100 100 Oxygen Delivery Exam Const: General: comfortable and no acute distress Other: A&O x3, inconsistent reporting of history HENMT: Mouth: Yes dry mucous membranes Eyes: Pupils: Equal, round and reactive pupils present Neck: Neck: supple Resp: Effort & Inspection: normal respiratory effort Auscultation: clear to auscultation bilaterally Cardio: Rate: regular rate Rhythm: regular rhythm Heart sounds: no murmurs GI: Inspection: non-distended GI Palp: Yes Soft to palpation and No Tenderness to palpation present (GI) Neuro: Motor exam (neuro): 5/5 motor strength present throughout Extrem: General: no edema H&P: Results Labs Labs: Short CBC 06/02/25 Range/Units 17:46 WBC 6.2 (4.5-10.0) K/mm3 Hgb 11.6 L (14.0-18.0) g/dL Hct 32.1 L (42.0-52.0) % Plt Count 327 (150-375) k/mm3 BMP 06/02/25 17:46 Sodium 117 L* Potassium 4.0 Chloride 85 L Carbon Dioxide 21 L BUN 4 L Creatinine 0.43 L Glucose 84 Calcium 8.2 L Liver Function 06/02/25 Range/Units 17:46 Total Bilirubin 0.6 (0.2-1.3) mg/dL AST 45 (17-59) U/L ALT 43 (6-50) U/L Alkaline Phosphatase 76 (38-126) U/L Albumin 3.7 (3.5-5.1) g/dL Urine 06/02/25 Range/Units 17:46 Urine Color Yellow (Yellow) Urine Appearance Clear (Clear) Urine pH 6.0 (5.0-9.0) Ur Specific [place] 1.006 (1.001-1.035) Urine Protein Negative (Negative) mg/dL Urine Glucose (UA) Trace H (Negative) mg/dL Assessment and Plan Assessment and plan (1) Alcohol abuse: Code(s): F10.10 - Alcohol abuse, uncomplicated Status: Acute (2) Acute hyponatremia: Code(s): E87.1 - Hypo-osmolality and hyponatremia Status: Acute Plan 64-year-old male with chronic and current alcohol use disorder, chronic hyponatremia, presents to [facility] ER via EMS from home on 06/02/2025 for generalized weakness, malaise, lethargy. He was recently discharged from this hospital to longterm for rehab, he discharged himself 1 day prior and went home and was drinking. Alcohol level on admission 217. Patient is a poor historian. He told ER physician bioinformatics assistant he drank alcohol, he told me he did not. His urine drug screen, salicylates, acetaminophen levels are within normal limits. Urinalysis not indicative of infection, trace glucose. Chem 7 demonstrates sodium 117, his baseline is around 125. He has no specific neurologic deficits. INR 1.1. Hemoglobin 11.6, WBC 6.2. Nephrology consulted from ER. Advised to give 1 L normal saline and then placed on normal saline at 75 cc/hour and check sodium again in a few hours. It appears on last admission he was discharged on Lasix, folic acid, sodium chloride tabs, Bactrim, thiamine. At that time he had hyponatremia which improved, rhabdomyolysis, hypoglycemia, sepsis, thrombocytopenia, transaminitis, bacteremia with MSSA on 05/23/2025 with repeat blood cultures on 05/26 negative, on Bactrim until 06/08/2025. Admission imaging, chest x-ray portable: No acute findings CT brain without contrast: No acute findings. CT cervical spine without contrast: Degenerative changes, no acute findings. ----- Weakness, lethargy: Likely due to alcohol use, possibly hyponatremia. Patient is A&O x3, likely has chronic neurocognitive decline due to chronic alcohol use. Consult PT/OT. Fall precautions, ambulate with assistance. Alcohol use disorder: Serum alcohol level elevated at 217 on admission. CIWA assessments. Thiamine, folate, multivitamin. Care coordination consult for abuse. Patient denies to me alcohol use, unable to reimbursement counselor. Try again later. Acute on chronic hyponatremia: Nephrology to manage, currently on normal saline. Repeat BMP at 10:00 p.m.. Neuro checks q.4 hours. Telemetry. Recent MSSA bacteremia, continue Bactrim until 06/08/2025. Recent hypoglycemia: Accu-Cheks a.c. HS with hypoglycemia protocol. ----- Patient wishes to be full code. SCDs. Regular diet. Fall precautions, ambulate with assistance, PT/OT evaluations and treatment. Hospitalist MIPS Advance Care Plan I have confirmed that the patient's Advanced Care Plan is present, code status is documented, or surrogate decision maker is listed in patient medical record.: Yes Medication Reconciliation I have utilized all available resources to obtain, update and review the patients current medications (includes all prescriptions, OTC, herbals, cannabis, and nutritional supplements).: Yes
--- NOTE | 2025-06-02 21:50 | WNDPHOTO ---
PHOTO ONLY - See Nursing Notes and/ or assessments for documentation.
[2025-06-02] MEDS: FOLIC ACID 1 MG/0.2 ML INJ IV PUSH (21:55)
--- NOTE | 2025-06-02 21:56 | ADMGEN ---
This patient, Kenneth Drew, was admitted to IMU Room 206-02. Patient/family oriented to hospital policies and general routines including ID bracelet, bed and alarms, visiting hours, pain management, procedures, bathroom and other care routines, personal items, smoking policy, room service/diet, and visiting hours. Information on how to activate the Rapid Response Team has been discussed. Patient/Family are encouraged to report perceived risks to care and to ask questions if they do not understand what they are told or what they should do.
[2025-06-03] VITALS (10 sets, daily range): BP systolic 99–152; BP diastolic 51–79; PULSE 63–98; RESP 16–18; TEMP 36.4–36.8; O2SAT 95–100
[2025-06-03 00:26] LABS: Sodium 122 mmol/L (137-145)
[2025-06-03] MEDS: SULFAMETHOXAZOLE/TRIMETHOPRIM 800/160 MG DS TABLET 2 TAB PO ×3 (00:33→20:14)
[2025-06-03] MEDS: THIAMINE HCL 200 MG/2 ML VIAL 100 MG IV PUSH (00:33)
[2025-06-03] MEDS: MULTIVITAMINS THERAPEUTIC TAB (*BKC) 1 TABLET PO ×2 (00:33→10:06)
[2025-06-03 05:39] LABS: Hematocrit 30.4 % (42.0-52.0); Hemoglobin 10.8 g/dL (14.0-18.0); Immature Granulocyte Percent A 0.6 % (0-0.5); Lymphocytes Absolute Auto 1.19 K/mm3 (0.9-3.2); Mean Corpuscular HGB Conc 35.5 g/dl (32-36); Mean Corpuscular Hemoglobin 33.8 pg (26-34); Mean Corpuscular Volume 95.0 fl (80-100); Nucleated Red Blood Cells Absolute Auto 0.000 K/mm3 (0.0-0.012); Nucleated Red Blood Cells Perc 0.0 % (0.0-0.2); Platelet Count Result 318 k/mm3 (150-375); Red Blood Count 3.20 M/mm3 (4.6-6.20); White Blood Count 4.9 K/mm3 (4.5-10.0)
[2025-06-03 06:08] LABS: Alanine Aminotransferase 38 U/L (6-50); Albumin Level 3.5 g/dL (3.5-5.1); Alkaline Phosphatase 69 U/L (38-126); Anion Gap 6 mmol/L (4-12); Aspartate Amino Transferase 41 U/L (17-59); Bilirubin,Total 0.4 mg/dL (0.2-1.3); Blood Urea Nitrogen 5 mg/dL (9-20); Calcium 8.4 mg/dL (8.4-10.2); Carbon Dioxide 23 mmol/L (22-30); Chloride 98 mmol/L (98-107); Estimated CRCL calculation 100 ml/min; Estimated Glomerular Filt Rate > 60; Glucose 89 mg/dL (65-110); Magnesium 1.9 mg/dL (1.6-2.3); Potassium 4.4 mmol/L (3.4-5.0); Sodium 127 mmol/L (137-145); Total Protein 6.6 g/dL (6.3-8.2)
--- NOTE | 2025-06-03 07:28 | PM.IMPN ---
Progress Note: A&P Assessment and Plan (1) Alcohol abuse: Code(s): F10.10 - Alcohol abuse, uncomplicated Status: Acute Assessment and Plan: 06/02: Serum alcohol level elevated at 217 on admission. CIWA assessments. Thiamine, folate, multivitamin. Care coordination consult for abuse. Patient denies to me alcohol use, unable to auto travel counselor. Try again later. Weakness, lethargy: Likely due to alcohol use, possibly hyponatremia. Patient is A&O x3, likely has chronic neurocognitive decline due to chronic alcohol use. Consult PT/OT. Fall precautions, ambulate with assistance. 06/03: Pt reports that his last drink, he thinks, was x2 days ago (he left this hosp on 05/31), but he does not remember. Per etoh in the ED, pt was intoxicated upon arrival. Pt reports that he has never been through etoh withdrawal and denies any of the sx today. Educated pt on risk of continual etoh use this way, he is ready to stop drinking as much, he states that he is too old. (2) Acute hyponatremia: Code(s): E87.1 - Hypo-osmolality and hyponatremia Status: Acute Assessment and Plan: 06/02: Acute on chronic hyponatremia: Nephrology to manage, currently on normal saline. Repeat BMP at 10:00 p.m. Neuro checks q.4 hours. Telemetry. 06/03: Na 127 today, continue regimen with neph consult & daily labs. Na chl tablet. (3) Bacteremia: Code(s): R78.81 - Bacteremia Status: Acute Assessment and Plan: Recent MSSA bacteremia, continue Bactrim until 06/08/2025. (4) Hypoglycemia: Code(s): E16.2 - Hypoglycemia, unspecified Status: Acute Assessment and Plan: 06/02: Recent hypoglycemia: Accu-Cheks a.c. HS with hypoglycemia protocol. 06/03: FBS 89 Plan Patient wishes to be full code. SCDs. Regular diet. Fall precautions, ambulate with assistance, PT/OT evaluations and treatment. Downgrade to med floor, D/C tele Time Spent With Patient Time: 40 Subjective Date/time seen: 06/03/25 0950 Interval history: 06/02: 64-year-old male with chronic and current alcohol use disorder, chronic hyponatremia, presents to [facility] ER via EMS from home on 06/02/2025 for generalized weakness, malaise, lethargy. He was recently discharged from this hospital to half-way for rehab, he discharged himself 1 day prior and went home and was drinking. Alcohol level on admission 217. Patient is a poor historian. He told ER physician tax accounting assistant he drank alcohol, he told me he did not. His urine drug screen, salicylates, acetaminophen levels are within normal limits. Urinalysis not indicative of infection, trace glucose. Chem 7 demonstrates sodium 117, his baseline is around 125. He has no specific neurologic deficits. INR 1.1. Hemoglobin 11.6, WBC 6.2. Nephrology consulted from ER. Advised to give 1 L normal saline and then placed on normal saline at 75 cc/hour and check sodium again in a few hours. It appears on last admission he was discharged on Lasix, folic acid, sodium chloride tabs, Bactrim, thiamine. At that time he had hyponatremia which improved, rhabdomyolysis, hypoglycemia, sepsis, thrombocytopenia, transaminitis, bacteremia with MSSA on 05/23/2025 with repeat blood cultures on 05/26 negative, on Bactrim until 06/08/2025. Admission imaging, chest x-ray portable: No acute findings CT brain without contrast: No acute findings. CT cervical spine without contrast: Degenerative changes, no acute findings. 06/03: Pt resting comfortably in bed upon my arrival to his room. Pt states that he continues to feel weak but his dizziness is better today. Pt reports that his last drink, he thinks, was x2 days ago (he left this hosp on 05/31), but he does not remember. Per etoh in the ED, pt was intoxicated upon arrival. Pt reports that he has never been through etoh withdrawal and denies any of the sx today. Educated pt on risk of continual etoh use this way, he is ready to stop drinking as much. Denies any other sx. Reports a known hx of hyponatremia, but reports not taking the rx Na tablets. Review of Systems Review of Systems: All systems reviewed & are unremarkable except as noted in HPI and below (Subjective) Exam Const: General: comfortable and no acute distress Other: A&O x3, inconsistent reporting of history (when he last drank etoh) HENMT: Mouth: Yes dry mucous membranes Eyes: Pupils: Equal, round and reactive pupils present Neck: Neck: supple Resp: Effort & Inspection: normal respiratory effort Auscultation: clear to auscultation bilaterally Cardio: Rate: regular rate Rhythm: regular rhythm Heart sounds: no murmurs GI: Inspection: non-distended Neuro: Cranial nerves: Yes Equal, round and reactive pupils present Motor exam (neuro): Normal motor muscle tone present throughout Extrem: General: no edema Psych: Mental Status: mental status grossly normal Affect: normal affect Objective Data Vital Signs Vital Signs: Vital Signs - 24 hr 06/02/25 16:44 06/02/25 17:06 06/02/25 17:15 Temperature 97.7 F Pulse Rate 85 81 80 Respiratory Rate 16 13 14 Blood Pressure 107/77 Pulse Oximetry 100 Oxygen Delivery Room Air 06/02/25 17:30 06/02/25 17:31 06/02/25 17:45 Temperature Pulse Rate 80 78 81 Respiratory Rate 14 15 15 Blood Pressure 105/67 Pulse Oximetry 98 Oxygen Delivery 06/02/25 18:00 06/02/25 18:01 06/02/25 18:30 Temperature Pulse Rate 79 80 81 Respiratory Rate 12 17 16 Blood Pressure 97/66 L Pulse Oximetry 96 Oxygen Delivery 06/02/25 21:22 06/02/25 21:26 06/02/25 21:35 Temperature 97.8 F Pulse Rate 76 76 77 Respiratory Rate 24 H 24 H 22 H Blood Pressure 113/70 113/70 102/55 L Pulse Oximetry 100 100 100 Oxygen Delivery 06/03/25 00:00 06/03/25 00:00 06/03/25 00:00 Temperature 97.9 F Pulse Rate 82 82 Respiratory Rate 18 Blood Pressure 99/51 L 99/51 L Pulse Oximetry 97 Oxygen Delivery 06/03/25 00:00 06/03/25 03:27 06/03/25 03:27 Temperature Pulse Rate 82 82 Respiratory Rate 18 Blood Pressure 99/51 L Pulse Oximetry 97 Oxygen Delivery Room Air 06/03/25 03:28 06/03/25 04:00 06/03/25 06:00 Temperature 98.1 F Pulse Rate 82 93 93 Respiratory Rate 18 16 Blood Pressure 110/53 L Pulse Oximetry 97 95 Oxygen Delivery Room Air Intake/Output Intake/Output: Intake & Output 05/31/25 06/01/25 06/02/25 06/03/25 23:59 23:59 23:59 23:59 Intake Total 1000 350 Output Total 1300 Balance 1000 -950 Meds/Results Medications: Active Medications Generic Name Dose Route Start Last Admin Trade Name Freq PRN Reason Stop Dose Admin Dextrose 12.5 gm 06/02/25 21:45 Dextrose 50% 25 Gm/50 Ml Syringe IV PUSH PRN PRN Hypoglycemia Protocol Folic Acid 1 mg 06/03/25 09:00 Folic Acid 1 Mg Tablet PO DAILY MONICA Glucose 15 gm 06/02/25 21:45 Glucose Oral Gel 15 Gm Of Glucse In 37.5 Gm Tube PO PRN PRN Hypoglycemia Protocol Sodium Chloride 1,000 mls @ 75 mls/hr 06/02/25 20:10 06/02/25 20:45 Normal Saline Iv IV CONT 75 mls/hr .[id number] MONICA Administration Dextrose 1,000 mls @ 100 mls/hr 06/02/25 21:45 Dextrose 5% 1,000 Ml IVPB PRN PRN Hypoglycemia Protocol Multivitamins Therapeutic 1 tablet 06/02/25 21:40 06/03/25 00:33 Multivitamins Therapeutic Tab (*Bkc) PO 1 tablet QAM MONICA Administration Thiamine HCl 100 mg 06/03/25 09:00 Thiamine Hcl 100 Mg Tablet PO QAM MONICA Trimethoprim/Sulfamethoxazole 2 tab 06/02/25 21:50 06/03/25 00:33 Sulfamethoxazole/Trimethoprim 800/160 Mg Ds Tablet PO 06/08/25 22:00 2 tab Q12HR MONICA Administration Radiology Results: ITS Impressions Chest X-Ray 06/02/25 18:32 IMPRESSION: No acute pulmonary findings. Head CT 06/02/25 18:46 IMPRESSION: No acute intracranial hemorrhage or extra axial fluid collections. All CT scans at this facility are performed using low dose modulation techniques as appropriate to perform exam including the following: automated exposure control; use of iterative reconstruction technique; adjustment of the mA and/or kV according to patient size (this includes techniques or standardized protocols for targeted exams where dose is matched to indication/reason for exam). Cervical Spine CT 06/02/25 18:47 IMPRESSION: Degenerative changes. No acute fracture or subluxation. All CT scans at this facility are performed using low dose modulation techniques as appropriate to perform exam including the following: automated exposure control; adjustment of the mA and/or kV according to patient size (this includes techniques or standardized protocols for targeted exams where does is matched to indication/reason for exam; i.e. extremities or head); use of iterative reconstruction technique). Labs Labs: Laboratory Results - last 24 hr 06/02/25 06/02/25 06/03/25 17:46 23:06 05:32 WBC 6.2 4.9 RBC 3.48 L 3.20 L Hgb 11.6 L 10.8 L Hct 32.1 L 30.4 L MCV 92.2 95.0 MCH 33.3 33.8 MCHC 36.1 H 35.5 RDW 11.7 11.9 Plt Count 327 318 MPV 8.4 8.3 Immature Gran % (Auto) 0.8 H 0.6 H Neut % (Auto) 71.9 64.5 Lymph % (Auto) 19.1 24.2 Republic % (Auto) 6.6 7.5 Eos % (Auto) 0.8 2.0 Baso % (Auto) 0.8 1.2 Lymph # (Auto) 1.19 1.19 Republic # (Auto) 0.4 0.4 Eos # (Auto) 0.1 0.1 Baso # (Auto) 0.1 0.1 Abs Immat Gran (auto) 0.05 H 0.03 Absolute Neuts (auto) 4.5 3.2 Absolute Nucleated RBC 0.000 0.000 Nucleated RBC % 0.0 0.0 PT 13.9 INR 1.1 APTT 32.0 Sodium 117 L* 122 L 127 L Potassium 4.0 4.4 Chloride 85 L 98 Carbon Dioxide 21 L 23 Anion Gap 11 6 BUN 4 L 5 L Creatinine 0.43 L 0.49 L Estim Creat Clear Calc 113 100 Estimated GFR > 60 > 60 Glucose 84 89 Calcium 8.2 L 8.4 Magnesium 1.9 Total Bilirubin 0.6 0.4 AST 45 41 ALT 43 38 Alkaline Phosphatase 76 69 Total Protein 6.8 6.6 Albumin 3.7 3.5 Urine Color Yellow Urine Appearance Clear Urine pH 6.0 Ur Specific [place]ahl 1.006 Urine Protein Negative Urine Glucose (UA) Trace H Urine Ketones Negative Ur Blood (Man) Negative Urine Nitrate Negative Urine Bilirubin Negative Urine Urobilinogen 0.2 Leukocyte Esterase Rfl Negative Salicylates < 1.0 L Urine Opiates Screen Negative Urine Methadone Screen Negative Acetaminophen < 10 L Ur Barbiturates Screen Negative Ur Phencyclidine Scrn Negative Ur Amphetamine Screen Negative U Benzodiazepines Scrn Negative Urine Cocaine Screen Negative U Cannabinoids Screen Negative Ethyl Alcohol 217 Quality VTE Prophylaxis VTE prophylaxis: mechanical ordered Hospitalist MIPS Advance Care Plan I have confirmed that the patient's Advanced Care Plan is present, code status is documented, or surrogate decision maker is listed in patient medical record.: Yes Medication Reconciliation I have utilized all available resources to obtain, update and review the patients current medications (includes all prescriptions, OTC, herbals, cannabis, and nutritional supplements).: Yes The patient is not eligible for med reconciliation; the patient is in a emergent medical situation where delaying treatment would jeopardize the patients health.: No
--- NOTE | 2025-06-03 09:16 | PM.CNNEP ---
Assessment and Plan Assessment and plan (1) Hyponatremia: Code(s): E87.1 - Hypo-osmolality and hyponatremia Status: Acute Assessment and Plan: acute on chronic hyponatremia noted on presentation - sodium 117mmol/L last labs are from June 2024 - discharge creatinine of 128mmol/L just recent discharge sodium of 125 mmol/L suspect baseline sodium runs ~ mid to high 120s rapid increase/overcorrection in sodium (117 --> 127) over the last 12 hours due to this rapid correction, will DDAVP and D5W IVFs goal of therapy is a rate of change of 6 - 8mmol/L in 24 hours so trying to get him back down to 125mmol/L evaluation to date (on previous hospitalizations) noted: TSH okay normal cortisol CT of brain negative CT C/A/P negative urine sodium is low SPEP/UPEP negative for paraproteinemia urine osmolality > serum osmolality suspected etiology: chronic alcohol intake pre-renal factors in the past, has required salt tabs + lasix + fluid restricton follow trend of sodium I will continue to follow the patient with you while he remains hospitalized and make further recommendations as deemed necessary. Thank you for allowing me to participate in the care of this patient. History of Present Illness Reason for Consult Consult date: 06/03/25 Reason for consult: hyponatremia Chief Complaint Chief complaint: Hyponatremia History of Present Illness Narrative: The patient is a 64-year-old male with a past medical history as outlined below who presented [facility] via EMS from home for generalized weakness. He was just recently discharged from this hospital 3 days ago for acute on chronic hyponatremia, rhabodmyolysis, and altered mental status. He clinically improved with aggressive medical therapy but it was recommended that he be discharged to senior care facility. Apparently, he refused to go to a senior care facility so he subsequently discharged back home. Apparently, once he returned home, he went back to his old habits alcohol intake although there was some discrepancy of this issue based on interview with the patient. I am unclear if he actually continued any of his discharge medications but ER notes indicate that when he got home, he had issues with bilateral lower extremity pain and drink several beers in effort to treat this pain. As his symptoms of weakness and fatigue continued, he apparently called EMS and was subsequently transported to the emergency room for further assessment. Workup and evaluation emergency room demonstrated the patient to be hemodynamically stable and afebrile. Routine blood work demonstrated white blood cell count of 6.2, hemoglobin 11.6, platelet count of 327, sodium 117, potassium 4.0, bicarb 21, BUN 4, creatinine 0.43, glucose 84, calcium 8.2, normal LFTs, albumin 3.7, and a urinalysis without evidence of infection. His urine drug screen was negative but his alcohol level was 217. Imaging studies included chest x-ray, head CT, and cervical spine CT were without any acute findings. He was initiated on IV fluids given his low sodium level and he was subsequently admitted to the hospital for further evaluation and therapy. Since his admission to the hospital, his sodium level has overcorrected from 117 --> 127 millimoles per L over 12 hours. Despite this rapid change in his sodium level, his mental status appears to be relatively stable. Renal consultation was requested due to his acute on chronic hyponatremia. The patient is somewhat familiar to me as I took care of him during his recent hospitalization for this same issue although at that time, his sodium level was even more severely depressed with an admission sodium of 102 millimoles per L. during that hospitalization, his sodium level improved with normal saline IV fluids and eventual initiation of a fluid restriction, salt tablets, and low-dose diuretics/Lasix. He also had a bout of over-correction during that hospital stay requiring D5W IV fluids as well as DDAVP. It would seem that his baseline sodium level seems to run in the mid to high 120s. His discharge creatinine was 125 millimoles per L. he was discharged on the salt tablets as well as the Lasix but I am unclear if he ever actually started these home medications. As mentioned above, on presentation to the hospital, his sodium level is 117 and with IV fluids it corrected to 122 millimoles per L about 4 hours later and subsequently is up to 127 millimoles per L by 5:00 a.m. labs this morning. Surprisingly, despite this rapid correction is sodium level, he is otherwise asymptomatic although as already mentioned, it would appear the does have some degree of chronic hyponatremia and has had such severe hyponatremia on previous hospitalizations as already noted. Given his rapid correction in the sodium level as mentioned, his normal saline IV fluids were discontinued and he was initiated on D5W fluids as well as DDAVP much as he was on his previous hospitalization for this same issue. Currently, at the time my evaluation, he appears to be in no acute distress. Review of Systems Review of Systems: As per HPI. FOR[facility]LY [facility] Past Medical History Medical History Closed sacral fracture As well as the sacral ala fracture and nondisplaced fracture extending across the S2 vertebral body noted on in remission May 2024 Thoracic compression fracture Chronic appearing T11 and T12 compression fractures noted May 2024 Closed fracture of left clavicle (~2023) B12 deficiency Chronic hyponatremia History of CVA (cerebrovascular accident) CT May 2024 demonstrated evidence of old infarcts right basal ganglia and left side of eula along with chronic findings of mild diffuse volume loss a MALT scattered white matter hypoattenuation consistent with chronic small-vessel ischemic disease Pneumothorax Associated with rib fractures noted during admission May 2024 with resolution without intervention Alcohol abuse Surgical History Surgical History History of total right knee replacement (~2017) Family History Family History Other Family history non-contributory Social History Social History Social History: Surrogate medical decision maker: Kenneth Drew ([phone]), son. Code status: Full code. Smoking status: Never smoker Second hand tobacco smoke exposure: No Alcohol intake: current Drinks per week: 56 Alcohol use details: 7-8 beers a day Substance use: never Substance use type: does not use Do You Feel Safe in your Home?: Yes Lack of Transportation: No Lack of Food: Never True Current Housing: I Have Housing Concerned About Future Housing: No Difficulty Paying Gas/Electric Bills: No Difficulty Paying for Meds: No Currently Unemployed: No Education: High School Diploma/GED Difficulty w/ Childcare or Family Care: No Additional living arrangements comments: The patient lives alone in his own home in [place]. 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 Spiritual care concerns: No Meds Home Medications and Allergies Home Medications ?Medication ?Instructions ?Recorded ?Confirmed ?Type folic acid 1 mg tablet 1 mg PO DAILY #30 tabs 05/31/25 06/02/25 Rx furosemide 20 mg tablet (Lasix) 10 mg (1/2 x 20 mg) PO BID #30 tabs 05/31/25 06/02/25 Rx sodium chloride 1,000 mg soluble 1,500 mg (1.5 x 1,000 mg) PO BID 05/31/25 06/02/25 Rx tablet #90 tabs thiamine HCl (vitamin B1) 100 mg 100 mg PO QAM #30 tabs 05/31/25 06/02/25 Rx tablet (Vitamin B-1) Allergies Allergy/AdvReac Type Severity Reaction Status Date / Time No Known Allergies Allergy Mild Verified 06/02/25 21:31 Vital Signs Vital Signs Temp Pulse Resp BP Pulse Ox O2 Del Method 06/03/25 09:13 Room Air 06/03/25 08:00 78 06/03/25 08:00 98 F 98 16 128/59 L 100 06/03/25 06:00 93 06/03/25 04:00 98.1 F 93 16 110/53 L 95 06/03/25 03:28 82 18 97 Room Air 06/03/25 03:27 99/51 L 06/03/25 03:27 82 06/03/25 00:00 82 18 97 Room Air 06/03/25 00:00 82 06/03/25 00:00 99/51 L 06/03/25 00:00 97.9 F 82 18 99/51 L 97 06/02/25 21:35 97.8 F 77 22 H 102/55 L 100 06/02/25 21:26 76 24 H 113/70 100 06/02/25 21:22 76 24 H 113/70 100 06/02/25 18:30 81 16 06/02/25 18:01 80 17 97/66 L 96 06/02/25 18:00 79 12 06/02/25 17:45 81 15 06/02/25 17:31 78 15 105/67 98 06/02/25 17:30 80 14 06/02/25 17:15 80 14 06/02/25 17:06 81 13 06/02/25 16:44 97.7 F 85 16 107/77 100 Room Air Exam Narrative: GENERAL APPEARANCE: thin disheveled male in no acute distress HEENT: normocephalic, atraumatic, normal conjunctiva and sclera, nares patient NECK: no lymphadenopathy, thyromegaly, or JVD MOUTH: normal lips, teeth, and gums CARDIOVASCULAR: RRR, normal S1 and S2, no rub detected RESPIRATORY: clear to auscultation bilaterally ABDOMEN: soft, nontender, nondistended, positive bowel sounds present EXTREMITIES: no evidence of cyanosis, clubbing, or edema NEUROLOGICAL: alert and oriented x 3; CN II - XII intact bilaterally; no focal deficits noted Results Lab Results 06/03/25 05:32 06/03/25 05:32 Lab results: Most recent lab results Calcium 8.4 mg/dL (8.4-10.2) 06/03/25 05:32 Magnesium 1.9 mg/dL (1.6-2.3) 06/03/25 05:32
[2025-06-03] MEDS: FOLIC ACID 1 MG TABLET PO (10:06)
[2025-06-03] MEDS: THIAMINE HCL 100 MG TABLET PO (10:06)
[2025-06-03] MEDS: DESMOPRESSIN ACETATE 4 MCG/ML AMP 1 MCG SUB-Q (10:53)
[2025-06-03] MEDS: DEXTROSE 5% IN WATER 500 ML 250 ML IV CONT (10:54)
--- NOTE | 2025-06-03 13:13 | PCPTNOTE ---
Attempted PT evaluation, Pt refused stating he was too tired to participate. Nurse aware. Will follow.
[2025-06-03 14:16] LABS: Sodium 121 mmol/L (137-145)
--- NOTE | 2025-06-03 14:27 | PC.NURSE ---
Updated Dr. Oliveira on sodium results. Order received and entered by this RN
--- NOTE | 2025-06-03 16:13 | PM.DS ---
DS: Admitting Diagnosis Discharge Date 06/03/2025 Admitting Diagnosis Hematuria DS: Discharge Diagnosis Discharge Diagnosis Plan Pt to discharge back home with with uro f/u. DS: Summary Hospital Course Reason for hospitalization: Hematuria Hospital Course: Pt to the ED on Status at Discharge Overall status at discharge: patient is back to baseline Time Spent with Patient Time attestation: Total time spent providing and/or coordinating discharge services: 30 DS: Data Data Completed and Pending Labs on day of discharge: Labs from last 24 hours 06/03/25 06/03/25 06/03/25 13:50 07:30 05:32 WBC 4.9 RBC 3.20 L Hgb 10.8 L Hct 30.4 L MCV 95.0 MCH 33.8 MCHC 35.5 RDW 11.9 Plt Count 318 MPV 8.3 Immature Gran % (Auto) 0.6 H Neut % (Auto) 64.5 Lymph % (Auto) 24.2 [place] % (Auto) 7.5 Eos % (Auto) 2.0 Baso % (Auto) 1.2 Lymph # (Auto) 1.19 [place] # (Auto) 0.4 Eos # (Auto) 0.1 Baso # (Auto) 0.1 Abs Immat Gran (auto) 0.03 Absolute Neuts (auto) 3.2 Absolute Nucleated RBC 0.000 Nucleated RBC % 0.0 PT INR APTT Sodium 121 L 127 L Potassium 4.4 Chloride 98 Carbon Dioxide 23 Anion Gap 6 BUN 5 L Creatinine 0.49 L Estim Creat Clear Calc 100 Estimated GFR > 60 Glucose 89 POC Capillary Glucose 94 Calcium 8.4 Magnesium 1.9 Total Bilirubin 0.4 AST 41 ALT 38 Alkaline Phosphatase 69 Total Protein 6.6 Albumin 3.5 Urine Color Urine Appearance Urine pH Ur Specific [place] Urine Protein Urine Glucose (UA) Urine Ketones Ur Blood (Man) Urine Nitrate Urine Bilirubin Urine Urobilinogen Leukocyte Esterase Rfl Salicylates Urine Opiates Screen Urine Methadone Screen Acetaminophen Ur Barbiturates Screen Ur Phencyclidine Scrn Ur Amphetamine Screen U Benzodiazepines Scrn Urine Cocaine Screen U Cannabinoids Screen Ethyl Alcohol 06/02/25 06/02/25 23:06 17:46 WBC 6.2 RBC 3.48 L Hgb 11.6 L Hct 32.1 L MCV 92.2 MCH 33.3 MCHC 36.1 H RDW 11.7 Plt Count 327 MPV 8.4 Immature Gran % (Auto) 0.8 H Neut % (Auto) 71.9 Lymph % (Auto) 19.1 [place] % (Auto) 6.6 Eos % (Auto) 0.8 Baso % (Auto) 0.8 Lymph # (Auto) 1.19 [place] # (Auto) 0.4 Eos # (Auto) 0.1 Baso # (Auto) 0.1 Abs Immat Gran (auto) 0.05 H Absolute Neuts (auto) 4.5 Absolute Nucleated RBC 0.000 Nucleated RBC % 0.0 PT 13.9 INR 1.1 APTT 32.0 Sodium 122 L 117 L* Potassium 4.0 Chloride 85 L Carbon Dioxide 21 L Anion Gap 11 BUN 4 L Creatinine 0.43 L Estim Creat Clear Calc 113 Estimated GFR > 60 Glucose 84 POC Capillary Glucose Calcium 8.2 L Magnesium Total Bilirubin 0.6 AST 45 ALT 43 Alkaline Phosphatase 76 Total Protein 6.8 Albumin 3.7 Urine Color Yellow Urine Appearance Clear Urine pH 6.0 Ur Specific [place] 1.006 Urine Protein Negative Urine Glucose (UA) Trace H Urine Ketones Negative Ur Blood (Man) Negative Urine Nitrate Negative Urine Bilirubin Negative Urine Urobilinogen 0.2 Leukocyte Esterase Rfl Negative Salicylates < 1.0 L Urine Opiates Screen Negative Urine Methadone Screen Negative Acetaminophen < 10 L Ur Barbiturates Screen Negative Ur Phencyclidine Scrn Negative Ur Amphetamine Screen Negative U Benzodiazepines Scrn Negative Urine Cocaine Screen Negative U Cannabinoids Screen Negative Ethyl Alcohol 217 Discharge Plan Discharge Consulting providers: Maria Ines Oliveira Patient Language: Albanian Discharge Medications: No Action folic acid 1 mg Tablet 1 mg PO DAILY Qty: 30 0RF furosemide [Lasix] 20 mg tablet 10 mg PO BID Qty: 30 0RF thiamine HCl (vitamin B1) [Vitamin B-1] 100 mg Tablet 100 mg PO QAM Qty: 30 0RF sodium chloride 1,000 mg tablet,soluble 1,500 mg PO BID Qty: 90 0RF Date of admission: 06/02/25 20:10 Primary Care Provider: Juan CJohnson Admitting Provider: Radha Lynn Attending physician on admission: Radha Lynn Condition: Serious
--- NOTE | 2025-06-03 17:01 | PC.NURSE ---
This patient, Kenneth Drew, was transferred to [[facility] ] on 06/03/25 at 1701. Personal belongings sent with patient. Report given to [CHONG Moralez @ [phone] ]. Appropriate documentation sent with patient.
--- NOTE | 2025-06-03 18:43 | PC.NURSE ---
On 06/03/25, the student, [ Alan Self], provided care and completed [facility] documentation on this patient. I have reviewed the student's documentation and agree with the findings.
[2025-06-03 19:45] LABS: Sodium 118 mmol/L (137-145)
[2025-06-03] MEDS: SODIUM CHLORIDE 0.9% IV 1,000 ML 50 ML IV CONT (22:51)
[2025-06-04 01:19] LABS: Sodium 118 mmol/L (137-145)
[2025-06-04 03:48] VITALS: BP 156/93; PULSE 78; RESP 18; TEMP 36.4; O2SAT 99
[2025-06-04 06:17] LABS: Hematocrit 30.7 % (42.0-52.0); Hemoglobin 10.9 g/dL (14.0-18.0); Immature Granulocyte Percent A 0.4 % (0-0.5); Lymphocytes Absolute Auto 1.72 K/mm3 (0.9-3.2); Mean Corpuscular HGB Conc 35.5 g/dl (32-36); Mean Corpuscular Hemoglobin 33.3 pg (26-34); Mean Corpuscular Volume 93.9 fl (80-100); Nucleated Red Blood Cells Absolute Auto 0.000 K/mm3 (0.0-0.012); Nucleated Red Blood Cells Perc 0.0 % (0.0-0.2); Platelet Count Result 335 k/mm3 (150-375); Red Blood Count 3.27 M/mm3 (4.6-6.20); White Blood Count 5.1 K/mm3 (4.5-10.0)
[2025-06-04 06:44] LABS: Alanine Aminotransferase 33 U/L (6-50); Albumin Level 3.6 g/dL (3.5-5.1); Alkaline Phosphatase 81 U/L (38-126); Anion Gap 7 mmol/L (4-12); Aspartate Amino Transferase 38 U/L (17-59); Bilirubin,Total 0.8 mg/dL (0.2-1.3); Blood Urea Nitrogen 3 mg/dL (9-20); Calcium 8.8 mg/dL (8.4-10.2); Carbon Dioxide 24 mmol/L (22-30); Chloride 88 mmol/L (98-107); Estimated CRCL calculation 94 ml/min; Estimated Glomerular Filt Rate > 60; Glucose 88 mg/dL (65-110); Potassium 4.4 mmol/L (3.4-5.0); Sodium 119 mmol/L (137-145); Total Protein 6.9 g/dL (6.3-8.2)
--- NOTE | 2025-06-04 07:41 | PM.IMPN ---
Progress Note: A&P Assessment and Plan (1) Alcohol abuse: Code(s): F10.10 - Alcohol abuse, uncomplicated Status: Acute (2) Acute hyponatremia: Code(s): E87.1 - Hypo-osmolality and hyponatremia Status: Acute (3) Bacteremia: Code(s): R78.81 - Bacteremia Status: Acute (4) Hypoglycemia: Code(s): E16.2 - Hypoglycemia, unspecified Status: Acute Plan Kenneth Drew is a 64 year-old male hx alcohol use disorder, chronic hyponatremia, presents to [facility] ER via EMS from home on 06/02/2025 for generalized weakness, malaise, lethargy, treating for hyponatremia. [facility] discharged from [facility] Alcohol use Alcohol level on admission 217 urine drug screen, salicylates, acetaminophen levels are within normal limits Hyponatremia Sodium 06/03 127>121>118-118, 06/04 119 NS@50/hr Sodium on admission 118 Renal following, appreciate recomendations Fluid restrict: 1000ml/24 hours, was increased to 1600ml today BMP q4 Bacteremia bacteremia with MSSA on 05/23/2025 with repeat blood cultures on 05/26 negative, on Bactrim until 06/08/2025 Neuropathy Chronic B12 & Folate normal Checking copper level Time Spent With Patient Time: 57 minutes Subjective Date/time seen: 06/04/25 07:41 Interval history: BP 156/93 Sodium 119, renal following, repeat still 119 Wants to go home, discussing SNF Reports chronic neuropathy Review of Systems Review of Systems: All systems reviewed & are unremarkable except as noted in HPI and below (Subjective) Exam Narrative: General - Awake and alert. No acute distress, underweight Eyes - PERRLA, EOM intact ENT - No thrush, No erythema Neck - No noticeable or palpable swelling Lymph Nodes - No lymphadenopathy Cardiovascular - RRR no m/r/g, no JVD Lungs: Clear to auscultation, No wheezing, use of accessory muscles, no crackles Skin - Skin warm and dry, no wounds or rashes Abdomen - Normal bowel sounds, abdomen soft and nontender Extremities - No edema, cyanosis or clubbing Musculoskeletal - 2/5 strength, Right hand swelling to MCP joint, bilateral LE weakness Neurological ? Alert and oriented x 3, CN 2-12 grossly intact. Psych: Normal mood and affect Objective Data Vital Signs Vital Signs: Vital Signs - 24 hr 06/03/25 08:00 06/03/25 08:00 06/03/25 09:13 Temperature 98 F Pulse Rate 98 78 Respiratory Rate 16 Blood Pressure 128/59 L Pulse Oximetry 100 Oxygen Delivery Room Air 06/03/25 10:00 06/03/25 15:36 06/03/25 17:18 Temperature 98.2 F 97.6 F Pulse Rate 94 86 63 Respiratory Rate 16 18 Blood Pressure 141/73 H 151/79 H Pulse Oximetry 98 95 Oxygen Delivery 06/03/25 20:06 06/04/25 03:48 Temperature 97.6 F 97.6 F Pulse Rate 86 78 Respiratory Rate 18 18 Blood Pressure 152/79 H 156/93 H Pulse Oximetry 98 99 Oxygen Delivery Intake/Output Intake/Output: Intake & Output 06/01/25 06/02/25 06/03/25 06/04/25 23:59 23:59 23:59 23:59 Intake Total 1000 2078 390 Output Total 2000 500 Balance 1000 78 -110 Meds/Results Medications: Active Medications Generic Name Dose Route Start Last Admin Trade Name Freq PRN Reason Stop Dose Admin Dextrose 12.5 gm 06/02/25 21:45 Dextrose 50% 25 Gm/50 Ml Syringe IV PUSH PRN PRN Hypoglycemia Protocol Folic Acid 1 mg 06/03/25 09:00 06/03/25 10:06 Folic Acid 1 Mg Tablet PO 1 mg DAILY MONICA Administration Glucose 15 gm 06/02/25 21:45 Glucose Oral Gel 15 Gm Of Glucse In 37.5 Gm Tube PO PRN PRN Hypoglycemia Protocol Dextrose 1,000 mls @ 100 mls/hr 06/02/25 21:45 Dextrose 5% 1,000 Ml IVPB PRN PRN Hypoglycemia Protocol Sodium Chloride 1,000 mls @ 50 mls/hr 06/03/25 21:05 06/03/25 22:51 Normal Saline Iv IV CONT 50 mls/hr .Q20H MONICA Administration Multivitamins Therapeutic 1 tablet 06/02/25 21:40 06/03/25 10:06 Multivitamins Therapeutic Tab (*Bkc) PO 1 tablet QAM MONICA Administration Thiamine HCl 100 mg 06/03/25 09:00 06/03/25 10:06 Thiamine Hcl 100 Mg Tablet PO 100 mg QAM MONICA Administration Trimethoprim/Sulfamethoxazole 2 tab 06/02/25 21:50 06/03/25 20:14 Sulfamethoxazole/Trimethoprim 800/160 Mg Ds Tablet PO 06/08/25 22:00 2 tab Q12HR MONICA Administration Radiology Results: ITS Impressions Chest X-Ray 06/02/25 18:32 IMPRESSION: No acute pulmonary findings. Head CT 06/02/25 18:46 IMPRESSION: No acute intracranial hemorrhage or extra axial fluid collections. All CT scans at this facility are performed using low dose modulation techniques as appropriate to perform exam including the following: automated exposure control; use of iterative reconstruction technique; adjustment of the mA and/or kV according to patient size (this includes techniques or standardized protocols for targeted exams where dose is matched to indication/reason for exam). Cervical Spine CT 06/02/25 18:47 IMPRESSION: Degenerative changes. No acute fracture or subluxation. All CT scans at this facility are performed using low dose modulation techniques as appropriate to perform exam including the following: automated exposure control; adjustment of the mA and/or kV according to patient size (this includes techniques or standardized protocols for targeted exams where does is matched to indication/reason for exam; i.e. extremities or head); use of iterative reconstruction technique). Labs Labs: Laboratory Results - last 24 hr 06/03/25 06/03/25 06/03/25 07:30 13:50 19:10 WBC RBC Hgb Hct MCV MCH MCHC RDW Plt Count MPV Immature Gran % (Auto) Neut % (Auto) Lymph % (Auto) [place] % (Auto) Eos % (Auto) Baso % (Auto) Lymph # (Auto) [place] # (Auto) Eos # (Auto) Baso # (Auto) Abs Immat Gran (auto) Absolute Neuts (auto) Absolute Nucleated RBC Nucleated RBC % Sodium 121 L 118 L* Potassium Chloride Carbon Dioxide Anion Gap BUN Creatinine Estim Creat Clear Calc Estimated GFR Glucose POC Capillary Glucose 94 Calcium Total Bilirubin AST ALT Alkaline Phosphatase Total Protein Albumin 06/03/25 06/04/25 06/04/25 20:16 00:57 05:51 WBC 5.1 RBC 3.27 L Hgb 10.9 L Hct 30.7 L MCV 93.9 MCH 33.3 MCHC 35.5 RDW 11.8 Plt Count 335 MPV 8.7 Immature Gran % (Auto) 0.4 Neut % (Auto) 52.9 Lymph % (Auto) 33.6 [place] % (Auto) 8.8 H Eos % (Auto) 2.5 Baso % (Auto) 1.8 H Lymph # (Auto) 1.72 [place] # (Auto) 0.5 Eos # (Auto) 0.1 Baso # (Auto) 0.1 Abs Immat Gran (auto) 0.02 Absolute Neuts (auto) 2.7 Absolute Nucleated RBC 0.000 Nucleated RBC % 0.0 Sodium 118 L* 119 L* Potassium 4.4 Chloride 88 L Carbon Dioxide 24 Anion Gap 7 BUN 3 L Creatinine 0.50 L Estim Creat Clear Calc 94 Estimated GFR > 60 Glucose 88 POC Capillary Glucose 107 H Calcium 8.8 Total Bilirubin 0.8 AST 38 ALT 33 Alkaline Phosphatase 81 Total Protein 6.9 Albumin 3.6 Quality VTE Prophylaxis VTE prophylaxis: mechanical ordered Hospitalist MIPS Advance Care Plan I have confirmed that the patient's Advanced Care Plan is present, code status is documented, or surrogate decision maker is listed in patient medical record.: Yes Medication Reconciliation I have utilized all available resources to obtain, update and review the patients current medications (includes all prescriptions, OTC, herbals, cannabis, and nutritional supplements).: Yes
[2025-06-04] MEDS: MULTIVITAMINS THERAPEUTIC TAB (*BKC) 1 TABLET PO (08:32)
[2025-06-04] MEDS: SULFAMETHOXAZOLE/TRIMETHOPRIM 800/160 MG DS TABLET 2 TAB PO ×2 (08:32→20:06)
[2025-06-04] MEDS: FOLIC ACID 1 MG TABLET PO (08:32)
[2025-06-04] MEDS: THIAMINE HCL 100 MG TABLET PO (08:32)
[2025-06-04 08:56] VITALS: BP 124/69
[2025-06-04 12:14] LABS: Anion Gap 8 mmol/L (4-12); Blood Urea Nitrogen 4 mg/dL (9-20); Calcium 8.7 mg/dL (8.4-10.2); Carbon Dioxide 23 mmol/L (22-30); Chloride 88 mmol/L (98-107); Estimated CRCL calculation 95 ml/min; Estimated Glomerular Filt Rate > 60; Glucose 100 mg/dL (65-110); Potassium 4.6 mmol/L (3.4-5.0); Sodium 119 mmol/L (137-145)
--- NOTE | 2025-06-04 13:38 | P.PNNP_ITS ---
Progress Note: A&P Assessment and Plan (1) Hyponatremia: Code(s): E87.1 - Hypo-osmolality and hyponatremia Status: Acute Assessment and Plan: * acute on chronic * hyponatremia noted on presentation - sodium 117mmol/L * last labs are from June 2024 - discharge creatinine of 128mmol/L * just recent discharge sodium of 125 mmol/L * suspect baseline sodium runs ~ mid to high 120s * rapid increase/overcorrection in sodium (117 --> 127) over the last 12 hours on admission (06/02 - 06/03) * s/p DDAVP and D5W IVFs -- this caused him to drop to 121mmol/L * then 121 --> 118 --> 119mmol/L * may need to consider 3% saline * evaluation to date (on previous hospitalizations) noted: * TSH okay * normal cortisol * CT of brain negative * CT C/A/P negative * urine sodium is low * SPEP/UPEP negative for paraproteinemia * urine osmolality > serum osmolality * suspected etiology: * chronic alcohol intake * pre-renal factors * use of bactrim can be associated with hyponatremia as well... * in the past, has required salt tabs + lasix + fluid restriction * resumed on salt tabs and fluid restriction * consider restart lasix... * follow trend of sodium Will continue to follow. Subjective Date/time seen: 06/04/25 13:37 Interval history: Follow-up for acute on chronic hyponatremia. Sodium dropped again following efforts to prevent overcorrection; restarted on salt tabs and fluid restriction (and may need to restart low dose diuretics as well); otherwise, asymptomatic with regard to his hyponatremia as on previous hospitalizations. Exam Narrative: General: WD/WN male in NAD Heart: normal S1 and S2; no rub Lungs: clear to auscultation Abdomen: soft, nontender, nondistended, positive bowel sounds Extremities: no cyanosis or clubbing; no edema Skin: warm and dry Objective Data Vital Signs Vital Signs: Vital Signs Temp Pulse Resp BP Pulse Ox O2 Del Method 06/04/25 13:00 98.2 F 72 14 128/73 97 06/04/25 08:56 124/69 06/04/25 08:39 Room Air 06/04/25 08:32 Room Air 06/04/25 03:48 97.6 F 78 18 156/93 H 99 06/03/25 20:06 97.6 F 86 18 152/79 H 98 Intake/Output Intake/Output: Intake & Output 06/01/25 06/02/25 06/03/25 06/04/25 23:59 23:59 23:59 23:59 Intake Total 999 2077 848 Output Total 1999 1725 Balance 1000 78 -877 Meds/Results Medications: Active Medications Generic Name Dose Route Start Last Admin Trade Name Freq PRN Reason Stop Dose Admin Dextrose 12.5 gm 06/02/25 21:45 Dextrose 50% 25 Gm/50 Ml Syringe IV PUSH PRN PRN Hypoglycemia Protocol Folic Acid 1 mg 06/03/25 09:00 06/04/25 08:32 Folic Acid 1 Mg Tablet PO 1 mg DAILY MONICA Administration Glucose 15 gm 06/02/25 21:45 Glucose Oral Gel 15 Gm Of Glucse In 37.5 Gm Tube PO PRN PRN Hypoglycemia Protocol Dextrose 1,000 mls @ 100 mls/hr 06/02/25 21:45 Dextrose 5% 1,000 Ml IVPB PRN PRN Hypoglycemia Protocol Multivitamins Therapeutic 1 tablet 06/02/25 21:40 06/04/25 08:32 Multivitamins Therapeutic Tab (*Bkc) PO 1 tablet QAM MONICA Administration Sodium Chloride 1,500 mg 06/04/25 17:00 Sodium Chloride 500 Mg Tablet PO BID MONICA Thiamine HCl 100 mg 06/03/25 09:00 06/04/25 08:32 Thiamine Hcl 100 Mg Tablet PO 100 mg QAM MONICA Administration Trimethoprim/Sulfamethoxazole 2 tab 06/02/25 21:50 06/04/25 08:32 Sulfamethoxazole/Trimethoprim 800/160 Mg Ds Tablet PO 06/08/25 22:00 2 tab Q12HR MONICA Administration Radiology Results: ITS Impressions Chest X-Ray 06/02/25 18:32 IMPRESSION: No acute pulmonary findings. Head CT 06/02/25 18:46 IMPRESSION: No acute intracranial hemorrhage or extra axial fluid collections. All CT scans at this facility are performed using low dose modulation techniques as appropriate to perform exam including the following: automated exposure control; use of iterative reconstruction technique; adjustment of the mA and/or kV according to patient size (this includes techniques or standardized protocols for targeted exams where dose is matched to indication/reason for exam). Cervical Spine CT 06/02/25 18:47 IMPRESSION: Degenerative changes. No acute fracture or subluxation. All CT scans at this facility are performed using low dose modulation techniques as appropriate to perform exam including the following: automated ex posure control; adjustment of the mA and/or kV according to patient size (this includes techniques or standardized protocols for targeted exams where does is matched to indication/reason for exam; i.e. extremities or head); use of iterative reconstruction technique). Labs Labs: Laboratory Tests 06/04/25 06/04/25 05:51 11:38 WBC 5.1 Hgb 10.9 L Hct 30.7 L Plt Count 335 Sodium 119 L* 119 L* Potassium 4.4 4.6 Chloride 88 L 88 L Carbon Dioxide 24 23 Anion Gap 7 8 BUN 3 L 4 L Creatinine 0.50 L 0.49 L Estim Creat Clear Calc 94 95 Estimated GFR > 60 > 60 Glucose 88 100 Calcium 8.8 8.7 Total Bilirubin 0.8 AST 38 ALT 33 Alkaline Phosphatase 81 Total Protein 6.9 Albumin 3.6
[2025-06-04 14:00] VITALS: BP 128/73; PULSE 72; RESP 14; TEMP 36.8; O2SAT 97
--- NOTE | 2025-06-04 14:54 | PCOTNOTE ---
Attempted to see Patient this P.M. Patient states, no more therapy today, I worked earlier, done for now.
[2025-06-04 16:21] LABS: Sodium 117 mmol/L (137-145)
[2025-06-04] MEDS: SODIUM CHLORIDE 500 MG TABLET 1500 MG PO (17:58)
[2025-06-04] MEDS: SODIUM CHLORIDE 3% 150 ML 50 ML IV CONT (18:39)
[2025-06-04 20:06] VITALS: BP 128/73
[2025-06-04 22:00] VITALS: BP 126/79; PULSE 85; RESP 16; TEMP 36.7; O2SAT 97
[2025-06-04 23:59] LABS: Sodium 119 mmol/L (137-145)
[2025-06-05 06:00] VITALS: BP 117/61; PULSE 86; RESP 16; TEMP 36.7; O2SAT 93
[2025-06-05 06:01] LABS: Hematocrit 28.9 % (42.0-52.0); Hemoglobin 10.3 g/dL (14.0-18.0); Immature Granulocyte Percent A 0.2 % (0-0.5); Lymphocytes Absolute Auto 1.71 K/mm3 (0.9-3.2); Mean Corpuscular HGB Conc 35.6 g/dl (32-36); Mean Corpuscular Hemoglobin 33.7 pg (26-34); Mean Corpuscular Volume 94.4 fl (80-100); Nucleated Red Blood Cells Absolute Auto 0.000 K/mm3 (0.0-0.012); Nucleated Red Blood Cells Perc 0.0 % (0.0-0.2); Platelet Count Result 358 k/mm3 (150-375); Red Blood Count 3.06 M/mm3 (4.6-6.20); White Blood Count 4.5 K/mm3 (4.5-10.0)
[2025-06-05 06:28] LABS: Alanine Aminotransferase 31 U/L (6-50); Albumin Level 3.6 g/dL (3.5-5.1); Alkaline Phosphatase 74 U/L (38-126); Anion Gap 8 mmol/L (4-12); Aspartate Amino Transferase 39 U/L (17-59); Bilirubin,Total 0.5 mg/dL (0.2-1.3); Blood Urea Nitrogen 5 mg/dL (9-20); Calcium 8.7 mg/dL (8.4-10.2); Carbon Dioxide 20 mmol/L (22-30); Chloride 93 mmol/L (98-107); Estimated CRCL calculation 83 ml/min; Estimated Glomerular Filt Rate > 60; Glucose 97 mg/dL (65-110); Potassium 4.1 mmol/L (3.4-5.0); Sodium 121 mmol/L (137-145); Total Protein 6.6 g/dL (6.3-8.2)
[2025-06-05] MEDS: MULTIVITAMINS THERAPEUTIC TAB (*BKC) 1 TABLET PO (08:50)
[2025-06-05] MEDS: SODIUM CHLORIDE 500 MG TABLET 1500 MG PO (08:50)
[2025-06-05] MEDS: SULFAMETHOXAZOLE/TRIMETHOPRIM 800/160 MG DS TABLET 2 TAB PO ×2 (08:50→20:49)
[2025-06-05] MEDS: FOLIC ACID 1 MG TABLET PO (08:50)
[2025-06-05] MEDS: THIAMINE HCL 100 MG TABLET PO (08:51)
--- NOTE | 2025-06-05 13:47 | PM.IMPN ---
Progress Note: A&P Assessment and Plan (1) Alcohol abuse: Code(s): F10.10 - Alcohol abuse, uncomplicated Status: Acute (2) Acute hyponatremia: Code(s): E87.1 - Hypo-osmolality and hyponatremia Status: Acute (3) Bacteremia: Code(s): R78.81 - Bacteremia Status: Acute (4) Hypoglycemia: Code(s): E16.2 - Hypoglycemia, unspecified Status: Acute Plan Kenneth Drew is a 64 year-old male hx alcohol use disorder, chronic hyponatremia, presents to [facility] ER via EMS from home on 06/02/2025 for generalized weakness, malaise, lethargy, treating for hyponatremia. [facility] Alcohol use Alcohol level on admission 217 urine drug screen, salicylates, acetaminophen levels are within normal limits Hyponatremia Sodium 06/03 127>121>118-118<119<122 NS@50/hr, increase sodium tabs Sodium on admission 118 Renal following, appreciate recomendations Fluid restrict: 1000ml/24 hours, was increased to 1600ml today BMP q4 Bacteremia bacteremia with MSSA on 05/23/2025 with repeat blood cultures on 05/26 negative, on Bactrim until 06/08/2025 Neuropathy Chronic, likely related to alcohol use. Stocking distribution. Notes it is below the knee B12 & Folate normal Receiving thiamine Checking copper level Time Spent With Patient Time: 59 minutes Subjective Date/time seen: 06/05/25 10:15 Interval history: VSS. Sodium improved today and increasing sodium tabs Labs ok. Primary complaint is neuropathy in the last month, likely alcohol related Issues at home with son and son's partner-- fentanyl abuse Review of Systems Review of Systems: All systems reviewed & are unremarkable except as noted in HPI and below (Subjective) Exam Narrative: General - Awake and alert. No acute distress, underweight Eyes - PERRLA, EOM intact ENT - No thrush, No erythema Neck - No noticeable or palpable swelling Lymph Nodes - No lymphadenopathy Cardiovascular - RRR no m/r/g, no JVD Lungs: Clear to auscultation, No wheezing, use of accessory muscles, no crackles Skin - Skin warm and dry, no wounds or rashes Abdomen - Normal bowel sounds, abdomen soft and nontender Extremities - No edema, cyanosis or clubbing Musculoskeletal - 2/5 strength, Right hand swelling to MCP joint, bilateral LE weakness Neurological ? Alert and oriented x 3, CN 2-12 grossly intact. Psych: Normal mood and affect Objective Data Vital Signs Vital Signs: Vital Signs - 24 hr 06/04/25 14:00 06/04/25 20:06 06/04/25 20:06 Temperature 98.2 F Pulse Rate 72 Respiratory Rate 14 Blood Pressure 128/73 128/73 Pulse Oximetry 97 Oxygen Delivery Room Air 06/04/25 22:00 06/05/25 06:00 06/05/25 08:00 Temperature 98.1 F 98.1 F Pulse Rate 85 86 Respiratory Rate 16 16 Blood Pressure 126/79 117/61 Pulse Oximetry 97 93 Oxygen Delivery Room Air Intake/Output Intake/Output: Intake & Output 06/02/25 06/03/25 06/04/25 06/05/25 23:59 23:59 23:59 23:59 Intake Total 1000 2078 1218 300 Output Total 2000 1950 700 Balance 1000 49 -311 -895 Meds/Results Medications: Active Medications Generic Name Dose Route Start Last Admin Trade Name Freq PRN Reason Stop Dose Admin Dextrose 12.5 gm 06/02/25 21:45 Dextrose 50% 25 Gm/50 Ml Syringe IV PUSH PRN PRN Hypoglycemia Protocol Folic Acid 1 mg 06/03/25 09:00 06/05/25 08:50 Folic Acid 1 Mg Tablet PO 1 mg DAILY MONICA Administration Glucose 15 gm 06/02/25 21:45 Glucose Oral Gel 15 Gm Of Glucse In 37.5 Gm Tube PO PRN PRN Hypoglycemia Protocol Dextrose 1,000 mls @ 100 mls/hr 06/02/25 21:45 Dextrose 5% 1,000 Ml IVPB PRN PRN Hypoglycemia Protocol Multivitamins Therapeutic 1 tablet 06/02/25 21:40 06/05/25 08:50 Multivitamins Therapeutic Tab (*Bkc) PO 1 tablet QAM MONICA Administration Sodium Chloride 1,500 mg 06/04/25 17:00 06/05/25 08:50 Sodium Chloride 500 Mg Tablet PO 1,500 mg BID MONICA Administration Thiamine HCl 100 mg 06/03/25 09:00 06/05/25 08:51 Thiamine Hcl 100 Mg Tablet PO 100 mg QAM MONICA Administration Trimethoprim/Sulfamethoxazole 2 tab 06/02/25 21:50 06/05/25 08:50 Sulfamethoxazole/Trimethoprim 800/160 Mg Ds Tablet PO 06/08/25 22:00 2 tab Q12HR MONICA Administration Radiology Results: ITS Impressions Chest X-Ray 06/02/25 18:32 IMPRESSION: No acute pulmonary findings. Head CT 06/02/25 18:46 IMPRESSION: No acute intracranial hemorrhage or extra axial fluid collections. All CT scans at this facility are performed using low dose modulation techniques as appropriate to perform exam including the following: automated exposure control; use of iterative reconstruction technique; adjustment of the mA and/or kV according to patient size (this includes techniques or standardized protocols for targeted exams where dose is matched to indication/reason for exam). Cervical Spine CT 06/02/25 18:47 IMPRESSION: Degenerative changes. No acute fracture or subluxation. All CT scans at this facility are performed using low dose modulation techniques as appropriate to perform exam including the following: automated exposure control; adjustment of the mA and/or kV according to patient size (this includes techniques or standardized protocols for targeted exams where does is matched to indication/reason for exam; i.e. extremities or head); use of iterative reconstruction technique). Labs Labs: Laboratory Results - last 24 hr 06/04/25 06/04/25 06/05/25 16:00 23:44 05:38 WBC 4.5 RBC 3.06 L Hgb 10.3 L Hct 28.9 L MCV 94.4 MCH 33.7 MCHC 35.6 RDW 11.9 Plt Count 358 MPV 8.5 Immature Gran % (Auto) 0.2 Neut % (Auto) 49.7 Lymph % (Auto) 38.1 [place] % (Auto) 7.8 Eos % (Auto) 2.4 Baso % (Auto) 1.8 H Lymph # (Auto) 1.71 [place] # (Auto) 0.4 Eos # (Auto) 0.1 Baso # (Auto) 0.1 Abs Immat Gran (auto) 0.01 Absolute Neuts (auto) 2.2 Absolute Nucleated RBC 0.000 Nucleated RBC % 0.0 Sodium 117 L* 119 L* 121 L Potassium 4.1 Chloride 93 L Carbon Dioxide 20 L Anion Gap 8 BUN 5 L Creatinine 0.58 L Estim Creat Clear Calc 83 Estimated GFR > 60 Glucose 97 Calcium 8.7 Total Bilirubin 0.5 AST 39 ALT 31 Alkaline Phosphatase 74 Total Protein 6.6 Albumin 3.6 Quality VTE Prophylaxis VTE prophylaxis: mechanical ordered Hospitalist [facility] Advance Care Plan I have confirmed that the patient's Advanced Care Plan is present, code status is documented, or surrogate decision maker is listed in patient medical record.: Yes Medication Reconciliation I have utilized all available resources to obtain, update and review the patients current medications (includes all prescriptions, OTC, herbals, cannabis, and nutritional supplements).: Yes
--- NOTE | 2025-06-05 13:54 | P.PNNP_ITS ---
Progress Note: A&P Assessment and Plan (1) Hyponatremia: Code(s): E87.1 - Hypo-osmolality and hyponatremia Status: Acute Assessment and Plan: * acute on chronic * hyponatremia noted on presentation - sodium 117mmol/L * last labs are from June 2024 - discharge creatinine of 128mmol/L * just recent discharge sodium of 125 mmol/L * suspect baseline sodium runs ~ mid to high 120s * rapid increase/overcorrection in sodium (117 --> 127) over the last 12 hours on admission (06/02 - 06/03) * s/p DDAVP and D5W IVFs -- this caused him to drop to 121mmol/L * then 121 --> 118 --> 119mmol/L * may need to consider 3% saline * evaluation to date (on previous hospitalizations) noted: * TSH okay * normal cortisol * CT of brain negative * CT C/A/P negative * urine sodium is low * SPEP/UPEP negative for paraproteinemia * urine osmolality > serum osmolality * suspected etiology: * chronic alcohol intake * pre-renal factors * use of bactrim can be associated with hyponatremia as well... * in the past, has required salt tabs + lasix + fluid restriction * resumed on salt tabs and fluid restriction * consider restart lasix... * follow trend of sodium Not much else to add -- will continue to follow intermittently. L Subjective Date/time seen: 06/05/25 13:54 Interval history: Follow-up for acute on chronic hyponatremia. Due worsening sodium level yesterday, give 3% saline with improvement noted in sodium level (117 --> 119 --> 121) -- despite low sodium level, remians otherwise asymptomatick; no other acute issues or events overnight or earlier this morning; seems to be feeling reasonably well. Exam 2 Narrative: General: WD/WN male in NAD Heart: normal S1 and S2; no rub Lungs: clear to auscultation Abdomen: soft, nontender, nondistended, positive bowel sounds Extremities: no cyanosis or clubbing; no edema Skin: warm and intact Objective Data Vital Signs Vital Signs: Vital Signs Temp Pulse Resp BP Pulse Ox O2 Del Method 06/05/25 13:00 97.6 F 82 14 121/68 97 06/05/25 08:00 Room Air 06/05/25 06:00 98.1 F 86 16 117/61 93 06/04/25 22:00 98.1 F 85 16 126/79 97 06/04/25 20:06 Room Air 06/04/25 20:06 128/73 Intake/Output Intake/Output: Intake & Output 06/02/25 06/03/25 06/04/25 06/05/25 23:59 23:59 23:59 23:59 Intake Total 1000 2078 1218 522 Output Total 1999 1950 1000 Balance 1000 42 -731 -987 Meds/Results Medications: Active Medications Generic Name Dose Route Start Last Admin Trade Name Freq PRN Reason Stop Dose Admin Dextrose 12.5 gm 06/02/25 21:45 Dextrose 50% 25 Gm/50 Ml Syringe IV PUSH PRN PRN Hypoglycemia Protocol Folic Acid 1 mg 06/03/25 09:00 06/05/25 08:50 Folic Acid 1 Mg Tablet PO 1 mg DAILY MONICA Administration Glucose 15 gm 06/02/25 21:45 Glucose Oral Gel 15 Gm Of Glucse In 37.5 Gm Tube PO PRN PRN Hypoglycemia Protocol Dextrose 1,000 mls @ 100 mls/hr 06/02/25 21:45 Dextrose 5% 1,000 Ml IVPB PRN PRN Hypoglycemia Protocol Multivitamins Therapeutic 1 tablet 06/02/25 21:40 06/05/25 08:50 Multivitamins Therapeutic Tab (*Bkc) PO 1 tablet QAM MONICA Administration Sodium Chloride 2 gm 06/05/25 17:00 06/05/25 16:50 Sodium Chloride 1 Gm Tablet PO 2 gm BID MONICA Administration Thiamine HCl 100 mg 06/03/25 09:00 06/05/25 08:51 Thiamine Hcl 100 Mg Tablet PO 100 mg QAM MONICA Administration Trimethoprim/Sulfamethoxazole 2 tab 06/02/25 21:50 06/05/25 08:50 Sulfamethoxazole/Trimethoprim 800/160 Mg Ds Tablet PO 06/08/25 22:00 2 tab Q12HR MONICA Administration Radiology Results: ITS Impressions Chest X-Ray 06/02/25 18:32 IMPRESSION: No acute pulmonary findings. Head CT 06/02/25 18:46 IMPRESSION: No acute intracranial hemorrhage or extra axial fluid collections. All CT scans at this facility are performed using low dose modulation techniques as appropriate to perform exam including the following: automated exposure control; use of iterative reconstruction technique; adjustment of the mA and/or kV according to patient size (this includes techniques or standardized protocols for targeted exams where dose is matched to indication/reason for exam). Cervical Spine CT 06/02/25 18:47 IMPRESSION: Degenerative changes. No acute fracture or subluxation. Labs Labs: Laboratory Tests 06/05/25 05:38 06/05/25 05:38 Calcium 8.7 Total Bilirubin 0.5 AST 39 ALT 31 Alkaline Phosphatase 74 Total Protein 6.6 Albumin 3.6 Copper ug/dl Pending
[2025-06-05 14:00] VITALS: BP 121/68; PULSE 82; RESP 14; TEMP 36.4; O2SAT 97
[2025-06-05] MEDS: SODIUM CHLORIDE 1 GM TABLET 2 GM PO (16:50)
[2025-06-05 20:41] VITALS: BP 128/75; PULSE 78; RESP 18; TEMP 36.8; O2SAT 97
[2025-06-06 03:51] VITALS: BP 120/80; PULSE 81; RESP 18; TEMP 36.2; O2SAT 95
[2025-06-06 06:51] LABS: Hematocrit 31.9 % (42.0-52.0); Hemoglobin 11.2 g/dL (14.0-18.0); Immature Granulocyte Percent A 0.2 % (0-0.5); Lymphocytes Absolute Auto 1.78 K/mm3 (0.9-3.2); Mean Corpuscular HGB Conc 35.1 g/dl (32-36); Mean Corpuscular Hemoglobin 33.4 pg (26-34); Mean Corpuscular Volume 95.2 fl (80-100); Nucleated Red Blood Cells Absolute Auto 0.000 K/mm3 (0.0-0.012); Nucleated Red Blood Cells Perc 0.0 % (0.0-0.2); Platelet Count Result 391 k/mm3 (150-375); Red Blood Count 3.35 M/mm3 (4.6-6.20); White Blood Count 4.1 K/mm3 (4.5-10.0)
[2025-06-06 07:25] LABS: Alanine Aminotransferase 30 U/L (6-50); Albumin Level 3.8 g/dL (3.5-5.1); Alkaline Phosphatase 76 U/L (38-126); Anion Gap 9 mmol/L (4-12); Aspartate Amino Transferase 37 U/L (17-59); Bilirubin,Total 0.6 mg/dL (0.2-1.3); Blood Urea Nitrogen 6 mg/dL (9-20); Calcium 9.0 mg/dL (8.4-10.2); Carbon Dioxide 21 mmol/L (22-30); Chloride 94 mmol/L (98-107); Estimated CRCL calculation 76 ml/min; Estimated Glomerular Filt Rate > 60; Glucose 85 mg/dL (65-110); Potassium 4.3 mmol/L (3.4-5.0); Sodium 124 mmol/L (137-145); Total Protein 7.0 g/dL (6.3-8.2)
[2025-06-06] MEDS: SULFAMETHOXAZOLE/TRIMETHOPRIM 800/160 MG DS TABLET 2 TAB PO (09:22)
[2025-06-06] MEDS: MULTIVITAMINS THERAPEUTIC TAB (*BKC) 1 TABLET PO (09:23)
[2025-06-06] MEDS: FOLIC ACID 1 MG TABLET PO (09:23)
[2025-06-06] MEDS: SODIUM CHLORIDE 1 GM TABLET 2 GM PO (09:23)
[2025-06-06] MEDS: THIAMINE HCL 100 MG TABLET PO (09:24)
--- NOTE | 2025-06-06 11:52 | P.PNIM_ITS ---
Progress Note: A&P Assessment and Plan (1) Alcohol abuse: Code(s): F10.10 - Alcohol abuse, uncomplicated Status: Acute (2) Acute hyponatremia: Code(s): E87.1 - Hypo-osmolality and hyponatremia Status: Acute (3) Bacteremia: Code(s): R78.81 - Bacteremia Status: Acute (4) Hypoglycemia: Code(s): E16.2 - Hypoglycemia, unspecified Status: Acute Plan Kenneth Drew is a 64 year-old male hx alcohol use disorder, chronic hyponatremia, presents to [facility] ER via EMS from home on 06/02/2025 for generalized weakness, malaise, lethargy, treating for hyponatremia. [facility] Alcohol use Alcohol level on admission 217 urine drug screen, salicylates, acetaminophen levels are within normal limits Hyponatremia Sodium 06/03 127>121>118-118<119<122<124 Stopped fluids. Increase sodium tabs from 1500 BID to 2000 BID Sodium on admission 118 Renal following, appreciate recomendations Fluid restrict: 1600 daily BMP q4 Bacteremia bacteremia with MSSA on 05/23/2025 with repeat blood cultures on 05/26 negative, on Bactrim until 06/08/2025 Neuropathy Chronic, likely related to alcohol use. Stocking distribution. Notes it is below the knee B12 (>1000) & Folate (5.3) normal Receiving thiamine, MVI Checking copper level Add gapentin 300hs Time Spent With Patient Time: 58 minutes Subjective Date/time seen: 06/06/25 11:52 Interval history: VSS. Sodium improved today with sodium tabs Reports dizziness when standing, checking orthostatics Generally doesn't feel well, wants to sleep. Nauseated, scheduling zofran Review of Systems Review of Systems: All systems reviewed & are unremarkable except as noted in HPI and below (Subjective) Exam Narrative: General - Awake and alert. No acute distress, underweight Eyes - PERRLA, EOM intact ENT - No thrush, No erythema Neck - No noticeable or palpable swelling Lymph Nodes - No lymphadenopathy Cardiovascular - RRR no m/r/g, no JVD Lungs: Clear to auscultation, No wheezing, use of accessory muscles, no crackles Skin - Skin warm and dry, no wounds or rashes Abdomen - Normal bowel sounds, abdomen soft and nontender Extremities - No edema, cyanosis or clubbing Musculoskeletal - 2/5 strength, Right hand swelling to MCP joint, bilateral LE weakness Neurological ? Alert and oriented x 3, CN 2-12 grossly intact. Decreased sensation lower extremities Psych: Normal mood and affect Objective Data Vital Signs Vital Signs: Vital Signs - 24 hr 06/05/25 14:00 06/05/25 20:00 06/05/25 20:41 Temperature 97.6 F 98.2 F Pulse Rate 82 78 Respiratory Rate 14 18 Blood Pressure 121/68 128/75 Pulse Oximetry 97 97 Oxygen Delivery Room Air 06/05/25 20:41 06/06/25 03:51 Temperature 97.2 F L Pulse Rate 81 Respiratory Rate 18 Blood Pressure 128/75 120/80 Pulse Oximetry 95 Oxygen Delivery Intake/Output Intake/Output: Intake & Output 06/03/25 06/04/25 06/05/25 06/06/25 23:59 23:59 23:59 23:59 Intake Total 2078 1218 522 577 Output Total 1999 1950 1000 400 Balance 33 -498 -291 177 Meds/Results Medications: Active Medications Generic Name Dose Route Start Last Admin Trade Name Freq PRN Reason Stop Dose Admin Dextrose 12.5 gm 06/02/25 21:45 Dextrose 50% 25 Gm/50 Ml Syringe IV PUSH PRN PRN Hypoglycemia Protocol Folic Acid 1 mg 06/03/25 09:00 06/06/25 09:23 Folic Acid 1 Mg Tablet PO 1 mg DAILY MONICA Administration Gabapentin 300 mg 06/06/25 21:00 Gabapentin 300 Mg Capsule PO HS [facility] Glucose 15 gm 06/02/25 21:45 Glucose Oral Gel 15 Gm Of Glucse In 37.5 Gm Tube PO PRN PRN Hypoglycemia Protocol Dextrose 1,000 mls @ 100 mls/hr 06/02/25 21:45 Dextrose 5% 1,000 Ml IVPB PRN PRN Hypoglycemia Protocol Multivitamins Therapeutic 1 tablet 06/02/25 21:40 06/06/25 09:23 Multivitamins Therapeutic Tab (*Bkc) PO 1 tablet QAM MONICA Administration Ondansetron HCl 4 mg 06/06/25 11:49 Ondansetron Hcl Odt 4 Mg Tablet PO TIDAC PRN Nausea And Vomiting Sodium Chloride 2 gm 06/05/25 17:00 06/06/25 09:23 Sodium Chloride 1 Gm Tablet PO 2 gm BID MONICA Administration Thiamine HCl 100 mg 10/21/25 09:00 06/06/25 09:24 Thiamine Hcl 100 Mg Tablet PO 100 mg QAM MONICA Administration Trimethoprim/Sulfamethoxazole 2 tab 06/02/25 21:50 06/06/25 09:22 Sulfamethoxazole/Trimethoprim 800/160 Mg Ds Tablet PO 06/08/25 22:00 2 tab Q12HR MONICA Administration Radiology Results: ITS Impressions Chest X-Ray 06/02/25 18:32 IMPRESSION: No acute pulmonary findings. Head CT 06/02/25 18:46 IMPRESSION: No acute intracranial hemorrhage or extra axial fluid collections. All CT scans at this facility are performed using low dose modulation techniques as appropriate to perform exam including the following: automated exposure control; use of iterative reconstruction technique; adjustment of the mA and/or kV according to patient size (this includes techniques or standardized protocols for targeted exams where dose is matched to indication/reason for exam). Cervical Spine CT 06/02/25 18:47 IMPRESSION: Degenerative changes. No acute fracture or subluxation. All CT scans at this facility are performed using low dose modulation techniques as appropriate to perform exam including the following: automated exposure control; adjustment of the mA and/or kV according to patient size (this includes techniques or standardized protocols for targeted exams where does is matched to indication/reason for exam; i.e. extremities or head); use of iterative reconstruction technique). Labs Labs: Laboratory Results - last 24 hr 06/06/25 06:10 WBC 4.1 L RBC 3.35 L Hgb 11.2 L Hct 31.9 L MCV 95.2 MCH 33.4 MCHC 35.1 RDW 12.2 Plt Count 391 H MPV 8.5 Immature Gran % (Auto) 0.2 Neut % (Auto) 45.4 L Lymph % (Auto) 43.6 [place] % (Auto) 7.6 Eos % (Auto) 1.7 Baso % (Auto) 1.5 H Lymph # (Auto) 1.78 [place] # (Auto) 0.3 Eos # (Auto) 0.1 Baso # (Auto) 0.1 Abs Immat Gran (auto) 0.01 Absolute Neuts (auto) 1.9 Absolute Nucleated RBC 0.000 Nucleated RBC % 0.0 Sodium 124 L Potassium 4.3 Chloride 94 L Carbon Dioxide 21 L Anion Gap 9 BUN 6 L Creatinine 0.63 L Estim Creat Clear Calc 76 Estimated GFR > 60 Glucose 85 Calcium 9.0 Total Bilirubin 0.6 AST 37 ALT 30 Alkaline Phosphatase 76 Total Protein 7.0 Albumin 3.8 Quality VTE Prophylaxis VTE prophylaxis: mechanical ordered Hospitalist [facility] Advance Care Plan I have confirmed that the patient's Advanced Care Plan is present, code status is documented, or surrogate decision maker is listed in patient medical record.: Yes Medication Reconciliation I have utilized all available resources to obtain, update and review the patients current medications (includes all prescriptions, OTC, herbals, cannabis, and nutritional supplements).: Yes
[2025-06-06 12:13] VITALS: BP 115/70
[2025-06-06 12:16] VITALS: BP 116/67
[2025-06-06 14:00] VITALS: BP 122/65; PULSE 77; RESP 16; TEMP 36.3; O2SAT 99
--- NOTE | 2025-06-06 14:39 | PM.DS ---
DS: Admitting Diagnosis Discharge Date 06/06/2025 Admitting Diagnosis Lethargy DS: Discharge Diagnosis Discharge Diagnosis (1) Alcohol abuse: Code(s): F10.10 - Alcohol abuse, uncomplicated Status: Acute (2) Acute hyponatremia: Code(s): E87.1 - Hypo-osmolality and hyponatremia Status: Acute DS: Summary Hospital Course Reason for hospitalization: Copied from [facility] 06/02: 64-year-old male with chronic and current alcohol use disorder, chronic hyponatremia, presents to [facility] ER via EMS from home on 06/02/2025 for generalized weakness, malaise, lethargy. He was recently discharged from this hospital to long term for rehab, he discharged himself 1 day prior and went home and was drinking. Alcohol level on admission 217. Patient is a poor historian. He told ER physician desk assistant he drank alcohol, he told me he did not. His urine drug screen, salicylates, acetaminophen levels are within normal limits. Urinalysis not indicative of infection, trace glucose. Chem 7 demonstrates sodium 117, his baseline is around 125. He has no specific neurologic deficits. INR 1.1. Hemoglobin 11.6, WBC 6.2. Nephrology consulted from ER. Advised to give 1 L normal saline and then placed on normal saline at 75 cc/hour and check sodium again in a few hours. It appears on last admission he was discharged on Lasix, folic acid, sodium chloride tabs, Bactrim, thiamine. At that time he had hyponatremia which improved, rhabdomyolysis, hypoglycemia, sepsis, thrombocytopenia, transaminitis, bacteremia with MSSA on 05/23/2025 with repeat blood cultures on 05/26 negative, on Bactrim until 06/08/2025. Admission imaging, chest x-ray portable: No acute findings CT brain without contrast: No acute findings. CT cervical spine without contrast: Degenerative changes, no acute findings. Hospital Course: (1) Alcohol abuse: Code(s): F10.10 - Alcohol abuse, uncomplicated Status: Acute (2) Acute hyponatremia: Code(s): E87.1 - Hypo-osmolality and hyponatremia Status: Acute (3) Bacteremia: Code(s): R78.81 - Bacteremia Status: Acute (4) Hypoglycemia: Code(s): E16.2 - Hypoglycemia, unspecified Status: Acute Plan Kenneth Drew is a 64 year-old male hx alcohol use disorder, chronic hyponatremia, presents to [facility] ER via EMS from home on 06/02/2025 for generalized weakness, malaise, lethargy, treating for hyponatremia. Recently discharged from this hospital to long term for rehab. Complicated situation at home. Family living with him has substance abuse. Discharged to SNF. Alcohol use Alcohol level on admission 217 urine drug screen, salicylates, acetaminophen levels are within normal limits Discussed cessation and complications of alcohol abuse that included Hyponatremia Sodium 06/03 127>121>118-118<119<122<124 Stopped fluids. Increase sodium tabs from 1500 BID to 2000 BID Sodium on admission 118 Renal followed during admission, appreciate recommendations Fluid restrict: 1600 daily Bacteremia bacteremia with MSSA on 05/23/2025 with repeat blood cultures on 05/26 negative, on Bactrim until 06/08/2025 Neuropathy Chronic, likely related to alcohol use. Stocking distribution. Notes it is below the knee B12 (>1000) & Folate (5.3) normal Receiving thiamine, MVI copper level was normal Added gapentin 300hs Status at Discharge Cognitive/behavioral status at discharge: A&Ox4 Time Spent with Patient Time attestation: Total time spent providing and/or coordinating discharge services:58 minutes Exam Narrative: General - Awake and alert. No acute distress, underweight Eyes - PERRLA, EOM intact ENT - No thrush, No erythema Neck - No noticeable or palpable swelling Lymph Nodes - No lymphadenopathy Cardiovascular - RRR no m/r/g, no JVD Lungs: Clear to auscultation, No wheezing, use of accessory muscles, no crackles Skin - Skin warm and dry, no wounds or rashes Abdomen - Normal bowel sounds, abdomen soft and nontender Extremities - No edema, cyanosis or clubbing Musculoskeletal - 2/5 strength, Right hand swelling to MCP joint, bilateral LE weakness Neurological ? Alert and oriented x 3, CN 2-12 grossly intact. Decreased sensation lower extremities Psych: Normal mood and affect DS: Data Data Completed and Pending Labs on day of discharge: Labs from last 24 hours 06/06/25 06:10 WBC 4.1 L RBC 3.35 L Hgb 11.2 L Hct 31.9 L MCV 95.2 MCH 33.4 MCHC 35.1 RDW 12.2 Plt Count 391 H MPV 8.5 Immature Gran % (Auto) 0.2 Neut % (Auto) 45.4 L Lymph % (Auto) 43.6 [place] % (Auto) 7.6 Eos % (Auto) 1.7 Baso % (Auto) 1.5 H Lymph # (Auto) 1.78 [place] # (Auto) 0.3 Eos # (Auto) 0.1 Baso # (Auto) 0.1 Abs Immat Gran (auto) 0.01 Absolute Neuts (auto) 1.9 Absolute Nucleated RBC 0.000 Nucleated RBC % 0.0 Sodium 124 L Potassium 4.3 Chloride 94 L Carbon Dioxide 21 L Anion Gap 9 BUN 6 L Creatinine 0.63 L Estim Creat Clear Calc 76 Estimated GFR > 60 Glucose 85 Calcium 9.0 Total Bilirubin 0.6 AST 37 ALT 30 Alkaline Phosphatase 76 Total Protein 7.0 Albumin 3.8 Discharge Plan Discharge Attending physician on discharge: Della Diallo Consulting providers: Maria Ines Oliveira; Della Diallo; Godfrey Wells; Dusty Soria; Maine Ramos; Navdeep Cruz Discharging Clinician: Della Diallo Anticipated Discharge Date/Time: 06/06/25 14:31 Patient Disposition: SNF Activity: december shower Diet: regular and other - see discharge instructions Discharge Instructions: Fluid restriction: 1600ml per day Recommend labs in a week: BMP, CBC Recommend complete cessation of alcohol Patient Language: Kyrgyz Stand Alone Forms: General Discharge Information Follow-up/Referrals: Juan C,Johnson Raines MD [Primary Care Provider] - 2 Weeks Discharge Medications: New gabapentin [Neurontin] 300 mg Capsule 300 mg PO HS Qty: 60 0RF multivitamin with folic acid [Thera] 400 mcg Tablet 1 tablet PO QAM Qty: 30 0RF ondansetron 4 mg Tablet,Disintegrating 4 mg PO Q4H PRN (Reason: Nausea And Vomiting) Qty: 20 0RF sodium chloride 1,000 mg Tablet,Soluble 2,000 mg PO BID Qty: 90 0RF sulfamethoxazole-trimethoprim 800-160 mg Tablet 2 tab PO Q12HR 3 Days Qty: 12 0RF Continued folic acid 1 mg Tablet 1 mg PO DAILY Qty: 30 0RF thiamine HCl (vitamin B1) [Vitamin B-1] 100 mg Tablet 100 mg PO QAM Qty: 30 0RF Discontinued furosemide [Lasix] 20 mg tablet 10 mg PO BID Qty: 30 0RF sodium chloride 1,000 mg tablet,soluble 1,500 mg PO BID Qty: 90 0RF Other Ambulatory Orders: Basic Metabolic Panel (Routine) Timeframe: 1 Week Location: Determined by Patient Ordered By: Della Diallo Complete Blood Count with Diff (Routine) Timeframe: 1 Week Location: Determined by Patient Ordered By: Della Diallo Date of admission: 06/04/25 13:32 Primary Care Provider: Junito,Johnson Raines Admitting Provider: Radha Lynn Attending physician on admission: Radha Lynn Condition: Serious
[2025-06-09 21:07] LABS: Copper, Serum or Plasma 105 ug/dL (69-132)
== END 2025-06-06 16:25 | DRG 641 ==
LOC: ANHED 19:43 → ANHIMU 21:02 → ANH3MEDSUR 06-03 17:20
PROVIDERS: Internal Medicine Nephrology; Nurse Practitioner Acute Care; Admitting Provider General Practice; Emergency Provider Physician Assistant; PCP Internal Medicine; Visit Provider General Practice
DX: E87.1 Hypo-osmolality and hyponatremia (principal); R78.81 Bacteremia; B95.61 Methicillin susceptible Staphylococcus aureus infection as the cause of diseases classified elsewhere; G62.1 Alcoholic polyneuropathy; F10.929 Alcohol use, unspecified with intoxication, unspecified; Y90.7 Blood alcohol level of 200-239 mg/100 ml; Z96.651 Presence of right artificial knee joint; Z86.73 Personal history of transient ischemic attack (TIA), and cerebral infarction without residual deficits
CPT/HCPCS: 36415; 70450; 71045; 72125; 80048; 80053; 80143; 80179; 80307; 81003; 82077; 82525; 82948; 83735; 84295; 85025; 85610; 85730; 93005; 96360; 96361; 96372; 97110; 97161; 97530; 97535; 99285; A9270; G0378; J2597; J3411; J7030; J7060; J7131